=== PATIENT | female | born 1940 | race African-American/Black ===

== ENCOUNTER 2017-05-24 16:23 | Inpatient (IN) | payer MEDICARE, BC ==
[~2017-05-24] VITALS: Ht 162.6 cm; Wt 68.0 kg
[2017-05-24 16:42] VITALS: BP 126/68
--- NOTE | 2017-05-24 16:48 | Emergency Room Report ---
History of Present Illness General Chief Complaint: Chest Pain Source: Patient, Family Member Present Illness HPI Patient presents with complaint of midsternal chest pain Initial report was regarding abdominal pain however patient reports chest pain Started 2 days ago denies any shortness of breath Patient has previous CVA with left-sided weakness Does not recall specific situational and the pain started patient's son reports that he does lift her from wheelchair to bed and does have to give her a bearhug type lift which could have started the discomfort Patient also has had decreased bowel movements Denies any vomiting Allergies: Coded Allergies: No Known Allergies (Unverified , 05/24/17) Patient History Past Medical History: see triage record Pertinent Family History: none Reviewed Nursing Documentation: PMH: Agreed; PSxH: Agreed Nursing Documentation-PMH Past Medical History: No History, Except For Hx Hypertension: Yes Hx Diabetes: Yes Review of Systems All Other Systems: negative except mentioned in HPI Physical Exam Vital Signs Date Time Temp Pulse Resp B/P (MAP) Pulse Ox O2 Delivery O2 Flow Rate FiO2 05/24/17 16:42 98.4 87 16 126/68 96 Room Air 98.4 Sp02 EP Interpretation: reviewed, normal General Appearance: well appearing, no apparent distress Head: normocephalic, atraumatic Eyes: bilateral eye PERRL, bilateral eye EOMI ENT: hearing grossly normal, normal pharynx, TMs + canals normal, uvula midline Neck: full range of motion, supple, no meningismus, no bony tend Respiratory: lungs clear, normal breath sounds, no rhonchi, no respiratory distress, no retraction, no accessory muscle use Cardiovascular #1: normal peripheral pulses, regular rate, rhythm, no edema, no gallop, no JVD, no murmur Gastrointestinal: normal bowel sounds, non tender, soft, no mass, no organomegaly, non-distended, no guarding, no hernia, no pulsatile mass, no rebound Genitourinary: no CVA tenderness Musculoskeletal: other - Left-sided hemiparesis Neurologic: oriented x3, responsive, sensory intact Psychiatric: mood/affect normal Skin: normal color, no rash, warm/dry, palpation normal Lymphatic: normal inspection, no adenopathy Medical Decision Making Diagnostic Impression: Primary Impression: ACS (acute coronary syndrome) Additional Impression: Osteomyelitis ER Course Patient is a fairly complex patient with multiple differential to consideration including but not limited to cardiac cardiopulmonary and vascular emergencies Given the patient's complaints of abdominal pain CT imaging was also obtained Blood work are appropriate Patient CT however shows findings of what is described as discitis, with osteomyelitis centered at the T4-T5 level with distractive changes Patient was provided with IV antibodies with that finding admitting physician is notified patient will have further infectious disease and orthopedic follow- up inpatient with possible further imaging At this time remains pain-free Labs Test 05/24/17 07:08 05/24/17 17:08 Erythrocyte Sedimentation Rate 98 MM/HR (0-30) C-Reactive Protein, Quantitative < 0.4 mg/dL (0.00-0.90) White Blood Count 8.6 K/UL (4.8-10.8) Red Blood Count 4.19 M/UL (4.20-5.40) Hemoglobin 12.4 G/DL (12.0-16.0) Hematocrit 36.8 % (37.0-47.0) Mean Corpuscular Volume 88 FL (80-99) Mean Corpuscular Hemoglobin 29.6 PG (27.0-31.0) Mean Corpuscular Hemoglobin Concent 33.7 G/DL (32.0-36.0) Red Cell Distribution Width 10.9 % (11.6-14.8) Platelet Count 96 K/UL (150-450) Mean Platelet Volume 8.4 FL (6.5-10.1) Neutrophils (%) (Auto) % (45.0-75.0) Lymphocytes (%) (Auto) % (20.0-45.0) Monocytes (%) (Auto) % (1.0-10.0) Eosinophils (%) (Auto) % (0.0-3.0) Basophils (%) (Auto) % (0.0-2.0) Differential Total Cells Counted 100 Neutrophils % (Manual) 50 % (45-75) Lymphocytes % (Manual) 39 % (20-45) Monocytes % (Manual) 6 % (1-10) Eosinophils % (Manual) 4 % (0-3) Basophils % (Manual) 1 % (0-2) Band Neutrophils 0 % (0-8) Platelet Estimate Decreased Platelet Morphology Normal Red Blood Cell Morphology Normal Prothrombin Time 9.4 SEC (9.30-11.50) Prothromb Time International Ratio 0.9 (0.9-1.1) Activated Partial Thromboplast Time 24 SEC (23-33) Urine Color Pale yellow Urine Appearance Clear Urine pH 7 (4.5-8.0) Urine Specific [place] 1.005 (1.005-1.035) Urine Protein 1+ (NEGATIVE) Urine Glucose (UA) 2+ (NEGATIVE) Urine Ketones Negative (NEGATIVE) Urine Occult Blood Negative (NEGATIVE) Urine Nitrite Negative (NEGATIVE) Urine Bilirubin Negative (NEGATIVE) Urine Urobilinogen Normal MG/DL (0.0-1.0) Urine Leukocyte Esterase Negative (NEGATIVE) Urine RBC 0-2 /HPF (0 - 2) Urine WBC 0-2 /HPF (0 - 2) Urine Squamous Epithelial Cells Few /LPF (NONE/OCC) Urine Amorphous Sediment Few /LPF (NONE) Urine Bacteria Few /HPF (NONE) Sodium Level 136 MMOL/L (136-145) Potassium Level 4.7 MMOL/L (3.5-5.1) Chloride Level 101 MMOL/L (98-107) Carbon Dioxide Level 27 MMOL/L (21-32) Anion Gap 8 mmol/L (5-15) Blood Urea Nitrogen 17 mg/dL (7-18) Creatinine 1.3 MG/DL (0.55-1.30) Estimat Glomerular Filtration Rate mL/min (>60) Glucose Level 194 MG/DL (74-106) Calcium Level 10.3 MG/DL (8.5-10.1) Total Bilirubin 0.5 MG/DL (0.2-1.0) Aspartate Amino Transf (AST/SGOT) 22 U/L (15-37) Alanine Aminotransferase (ALT/SGPT) 21 U/L (12-78) Alkaline Phosphatase 117 U/L (46-116) Total Creatine Kinase 61 U/L (26-308) Creatine Kinase MB < 0.5 NG/ML (0.0-3.6) Creatine Kinase MB Relative Index 0.8 Troponin I 0.000 ng/mL (0.000-0.056) Total Protein 8.3 G/DL (6.4-8.2) Albumin 3.5 G/DL (3.4-5.0) Globulin 4.8 g/dL Albumin/Globulin Ratio 0.7 (1.0-2.7) Lipase 114 U/L (73-393) EKG Diagnostic Results Rate: normal Rhythm: NSR ST Segments: other - Nonspecific ST and T-wave changes Rhythm Strip Diag. Results EP Interpretation: yes Rate: 78 Rhythm: NSR, no PVC's, no ectopy Chest X-Ray Diagnostic Results Chest X-Ray Diagnostic Results : Chest X-Ray Ordered: Yes # of Views/Limited/Complete: 1 View Indication: Chest Pain EP Interpretation: Yes Interpretation: no pneumothorax, other - Right lower lobe atelectasis/ effusion, elevated right hemidiaphragm no obvious acute bony abnormalities Impression: Other - Right lower lobe increased markings atelectasis versus othe CT/MRI/US Diagnostic Results CT/MRI/US Diagnostic Results : Impression CTA chest refer to report for full specific discitis osteomyelitis at T4-T5 destructive changes fragmentation cardiomegaly probably early fibrotic changes of lung abdomen no acute pathology Last Vital Signs Date Time Temp Pulse Resp B/P (MAP) Pulse Ox O2 Delivery O2 Flow Rate FiO2 18 16:42 98.4 87 16 126/68 96 Room Air 98.4 Status: improved Disposition: ADMITTED INPATIENT Condition: Serious Erma Chaney DO May 24, 2017 16:48
[2017-05-24] MEDS ORDERED: Dicyclomine HCl 10mg/5ml oral soln ORAL ONE (17:00)
[2017-05-24] MEDS ORDERED: Mylanta II UD 30ml ORAL ONE (17:00)
[2017-05-24] MEDS ORDERED: ATORVASTATIN CA20 MG ORAL (17:34)
[2017-05-24] MEDS ORDERED: VERAPAMIL ER240 M2 PO (17:34)
[2017-05-24] MEDS ORDERED: SPIRONOLACTONE1 EACH ORAL (17:34)
[2017-05-24] MEDS ORDERED: HYDROXYZINE HCL25 M1 PO (17:34)
[2017-05-24] MEDS ORDERED: VITAMIN D400 INTLU ORAL (17:34)
[2017-05-24] MEDS ORDERED: ASPIRIN500 MG ORAL (17:34)
[2017-05-24] MEDS ORDERED: LOSARTAN POTASS50 MG ORAL (17:34)
[2017-05-24] MEDS ORDERED: GABAPENTIN600 MG ORAL (17:34)
[2017-05-24 17:40] LABS: APPEARANCE,URINE CLEAR; BILIRUBIN, URINE NEGATIVE (NEGATIVE); COLOR,URINE PALE YELLOW; GLUCOSE, URINE (UA) 2+ (NEGATIVE); HEMATOCRIT 36.8 % (37.0-47.0); HEMOGLOBIN 12.4 G/DL (12.0-16.0); KETONES,URINE NEGATIVE (NEGATIVE); LEUKOCYTE ESTERASE ,URINE NEGATIVE (NEGATIVE); MEAN CORPUSCULAR VOLUME 88 FL (80-99); NITRITE,URINE NEGATIVE (NEGATIVE); PH,URINE 7 (4.5-8.0); PLATELET COUNT 96 K/UL (150-450); PROTEIN,URINE 1+ (NEGATIVE); RED BLOOD COUNT 4.19 M/UL (4.20-5.40); RED CELL DISTRIBUTION WIDTH 10.9 % (11.6-14.8); UROBILINOGEN,URINE NORMAL MG/DL (0.0-1.0); WHITE BLOOD COUNT 8.6 K/UL (4.8-10.8)
[2017-05-24 17:43] LABS: INR 0.9 (0.9-1.1)
[2017-05-24 17:46] LABS: ANION GAP 8 mmol/L (5-15); BLOOD UREA NITROGEN 17 mg/dL (7-18); CALCIUM 10.3 MG/DL (8.5-10.1); CARBON DIOXIDE 27 MMOL/L (21-32); CHLORIDE 101 MMOL/L (98-107); CREATININE 1.3 MG/DL (0.55-1.30); POTASSIUM 4.7 MMOL/L (3.5-5.1); SODIUM 136 MMOL/L (136-145)
[2017-05-24 17:59] LABS: ALANINE AMINOTRANSFERASE 21 U/L (12-78); ALBUMIN 3.5 G/DL (3.4-5.0); ALBUMIN/GLOBULIN RATIO 0.7 (1.0-2.7); ALKALINE PHOSPHATASE 117 U/L (46-116); ASPARTATE AMINO TRANSFERASE 22 U/L (15-37); BILIRUBIN,TOTAL 0.5 MG/DL (0.2-1.0); CKMB < 0.5 NG/ML (0.0-3.6); CREATINE KINASE 61 U/L (26-308)
[2017-05-24] MEDS ORDERED: Miralax 17gm pkt ORAL PRN (18:15)
[2017-05-24] MEDS ORDERED: cefTRIAXone 1 GM in D5W 55 ML IVPB ONE (18:15)
[2017-05-24] MEDS ORDERED: Vancomycin 1 GM in D5W 275 ML IVPB ONE (18:15)
[2017-05-24] MEDS ORDERED: Morphine Sulfate 4mg/ml Inj IVP PRN (18:15)
[2017-05-24 18:37] VITALS: BP 107/70
[2017-05-24 20:00] VITALS: BP 110/64
--- NOTE | 2017-05-24 22:18 | Infectious Diseases Prog Note ---
Assessment/Plan Assessment/Plan Full consult dictated: A) 1) possible thoracic spine discitis/osteomyelitis on ct scan, elevated sed rate 2) lower > upper extremity weakness, ? chronic condition 3) allergies - negative P) 1) on vancomycin and cefepime 2) MRI thoracic spine 3) spine surgery evaluation if possible 4) thank you Subjective Allergies: Coded Allergies: No Known Allergies (Unverified , 05/24/17) Objective Vital Signs Last 24 Hour Vital Signs Date Time Temp Pulse Resp B/P (MAP) Pulse Ox O2 Delivery O2 Flow Rate FiO2 05/24/17 20:00 98.9 82 22 107/70 95 Room Air 98.9 05/24/17 18:37 98.9 82 22 107/70 95 Room Air 98.9 05/24/17 16:42 98.4 87 16 126/68 96 Room Air 98.4 05/24/17 16:42 87 16 Room Air 05/24/17 16:42 98.4 87 16 126/68 96 Room Air 98.4 Height (Feet): 5 Height (Inches): 4.00 Weight (Pounds): 150 Laboratory Tests Test 05/24/17 07:08 05/24/17 17:08 05/24/17 21:55 Erythrocyte Sedimentation Rate 98 MM/HR (0-30) H C-Reactive Protein, Quantitative < 0.4 mg/dL (0.00-0.90) White Blood Count 8.6 K/UL (4.8-10.8) Red Blood Count 4.19 M/UL (4.20-5.40) L Hemoglobin 12.4 G/DL (12.0-16.0) Hematocrit 36.8 % (37.0-47.0) L Mean Corpuscular Volume 88 FL (80-99) Mean Corpuscular Hemoglobin 29.6 PG (27.0-31.0) Mean Corpuscular Hemoglobin Concent 33.7 G/DL (32.0-36.0) Red Cell Distribution Width 10.9 % (11.6-14.8) L Platelet Count 96 K/UL (150-450) L Mean Platelet Volume 8.4 FL (6.5-10.1) Neutrophils (%) (Auto) % (45.0-75.0) Lymphocytes (%) (Auto) % (20.0-45.0) Monocytes (%) (Auto) % (1.0-10.0) Eosinophils (%) (Auto) % (0.0-3.0) Basophils (%) (Auto) % (0.0-2.0) Differential Total Cells Counted 100 Neutrophils % (Manual) 50 % (45-75) Lymphocytes % (Manual) 39 % (20-45) Monocytes % (Manual) 6 % (1-10) Eosinophils % (Manual) 4 % (0-3) H Basophils % (Manual) 1 % (0-2) Band Neutrophils 0 % (0-8) Platelet Estimate Decreased L Platelet Morphology Normal Red Blood Cell Morphology Normal Prothrombin Time 9.4 SEC (9.30-11.50) Prothromb Time International Ratio 0.9 (0.9-1.1) Activated Partial Thromboplast Time 24 SEC (23-33) Urine Color Pale yellow Urine Appearance Clear Urine pH 7 (4.5-8.0) Urine Specific [place] 1.005 (1.005-1.035) Urine Protein 1+ (NEGATIVE) H Urine Glucose (UA) 2+ (NEGATIVE) H Urine Ketones Negative (NEGATIVE) Urine Occult Blood Negative (NEGATIVE) Urine Nitrite Negative (NEGATIVE) Urine Bilirubin Negative (NEGATIVE) Urine Urobilinogen Normal MG/DL (0.0-1.0) Urine Leukocyte Esterase Negative (NEGATIVE) Urine RBC 0-2 /HPF (0 - 2) Urine WBC 0-2 /HPF (0 - 2) Urine Squamous Epithelial Cells Few /LPF (NONE/OCC) Urine Amorphous Sediment Few /LPF (NONE) H Urine Bacteria Few /HPF (NONE) Sodium Level 136 MMOL/L (136-145) Potassium Level 4.7 MMOL/L (3.5-5.1) Chloride Level 101 MMOL/L (98-107) Carbon Dioxide Level 27 MMOL/L (21-32) Anion Gap 8 mmol/L (5-15) Blood Urea Nitrogen 17 mg/dL (7-18) Creatinine 1.3 MG/DL (0.55-1.30) Estimat Glomerular Filtration Rate mL/min (>60) Glucose Level 194 MG/DL (74-106) H Calcium Level 10.3 MG/DL (8.5-10.1) H Total Bilirubin 0.5 MG/DL (0.2-1.0) Aspartate Amino Transf (AST/SGOT) 22 U/L (15-37) Alanine Aminotransferase (ALT/SGPT) 21 U/L (12-78) Alkaline Phosphatase 117 U/L (46-116) H Total Creatine Kinase 61 U/L (26-308) Creatine Kinase MB < 0.5 NG/ML (0.0-3.6) Creatine Kinase MB Relative Index 0.8 Troponin I 0.000 ng/mL (0.000-0.056) Pending Total Protein 8.3 G/DL (6.4-8.2) H Albumin 3.5 G/DL (3.4-5.0) Globulin 4.8 g/dL Albumin/Globulin Ratio 0.7 (1.0-2.7) L Lipase 114 U/L (73-393) Current Medications Medications (Trade) Dose Ordered Sig/Leona Route PRN Reason Start Time Stop Time Status Last Admin Dose Admin Acetaminophen (Tylenol) 650 mg Q4H PRN ORAL Mild Pain (Pain Scale 1-3) 05/24/17 18:15 06/23/17 18:14 Acetaminophen (Tylenol) 650 mg Q4H PRN ORAL fever 05/24/17 18:15 06/23/17 18:14 Bisacodyl (Dulcolax) 10 mg DAILYPRN PRN RECTAL Constipation 05/24/17 18:15 06/23/17 18:14 Cefepime HCl 2 gm/ Dextrose 110 ml @ 220 mls/hr Q12HR@1000,2200 IVPB 05/24/17 22:00 05/31/17 21:59 Dextrose (Dextrose 50%) 25 ml STAT PRN IV BS between 60-69 mg/dL 05/24/17 20:15 06/23/17 20:14 Dextrose (Dextrose 50%) 50 ml STAT PRN IV Hypoglycemia BS<60 mg/dL 05/24/17 21:45 06/23/17 21:44 Docusate Sodium (Colace) 100 mg EVERY 12 HOURS ORAL 05/24/17 21:00 06/23/17 20:59 Glyburide (Diabeta) 7.5 mg QPM ORAL 05/25/17 16:30 06/24/17 16:29 Glyburide (Diabeta) 10 mg ACBREAKFAST ORAL 05/25/17 06:30 06/24/17 06:29 Insulin Aspart (NovoLOG) BEFORE MEALS AND HS SUBQ 05/25/17 06:30 06/24/17 06:29 Morphine Sulfate (Morphine Sulfate) 2 mg Q4H PRN IVP Moderate Pain (Pain Scale 4-6) 05/24/17 18:15 05/31/17 18:14 Morphine Sulfate (Morphine Sulfate) 4 mg Q4H PRN IVP Severe Pain (Pain Scale 7-10) 05/24/17 18:15 05/31/17 18:14 Ondansetron HCl (Zofran) 4 mg Q6H PRN IVP Nausea & Vomiting 05/24/17 18:15 06/23/17 18:14 Polyethylene Glycol (Miralax) 17 gm DAILYPRN PRN ORAL Constipation 05/24/17 18:15 06/23/17 18:14 Vancomycin HCl (Vanco rx to dose) 1 ea DAILYPRN PRN MISC Per rx protocol 05/24/17 18:15 06/23/17 18:14 Vancomycin HCl/ Dextrose 250 ml @ 166.667 mls/hr Q24H IVPB 05/25/17 12:00 05/30/17 11:59 MALKA MARINO May 24, 2017 22:18
[2017-05-24] MEDS: Docusate 100mg cap ORAL SCH (23:17)
[2017-05-24] MEDS: Cefepime HCl 2 GM in D5W 110 ML IVPB SCH (23:17)
[2017-05-24] MEDS: Morphine Sulfate 4mg/ml Inj IVP PRN (23:18)
[2017-05-24] MEDS ORDERED: GLYBURIDE5 MG PO (23:49)
[2017-05-25] VITALS: BP 141/71
--- NOTE | 2017-05-25 01:15 | Consultation ---
DATE OF CONSULTATION: 05/24/2017 INFECTIOUS DISEASES CONSULTATION ATTENDING PHYSICIAN: Frankie Greene M.D. REFERRING PHYSICIAN: Addie Elliott M.D. REASON FOR CONSULTATION: Thoracic spine and vertebral diskitis, osteomyelitis. CHIEF COMPLAINT: The patient's chief complaint coming in to the hospital is acute coronary syndrome and chest pain. HISTORY OF PRESENT ILLNESS: This is a very pleasant 77-year-old female who comes in to [facility] with chest pain. The patient had a CT scan of the chest without contrast in the ER, which showed T4-T5 level destructive changes consistent with discitis/osteomyelitis of the vertebral bodies with retropulsion debride into the canal and paraspinal soft tissue infiltration. CT scan of the abdomen and pelvis was also noted. Because of the thoracic spinal diskitis/osteomyelitis, Infectious Diseases consultation requested. The patient has been started on vancomycin and cefepime. MRI has been ordered of the spine of thoracic spine and case communicated with Dr. Real. MAR was noted. Orders were noted. Notes were reviewed. PAST MEDICAL HISTORY: The patient's past medical history includes the following. The patient has past medical history of CVA with weakness. She has history of diabetes, hypertension, again CVA. She has a history of generalized weakness. It looks like she is wheelchair-bound per her history. She has no history of malignancy mentioned. Again, diabetes, hypertension, and CVA. She likely has history of possible hyperlipidemia or dyslipidemia. She also has history of UTIs in the past. MEDICATIONS: Upon reviewing the MAR, the patient is on the following medications vancomycin and cefepime. She is on insulin. She is on IV fluids. She is on dextrose, docusate. She is on acetaminophen. She is on morphine. She is on bisacodyl, polyethylene, and Zofran. Antibiotics, vancomycin and cefepime. Outside medications noted and reconciliated. She was on atorvastatin, aspirin, gabapentin, hydrocodone, losartan, spironolactone, verapamil, and vitamin D. ALLERGIES: No known drug allergies. No antibiotic allergies. SOCIAL HISTORY: Negative for smoking, alcohol, or drug abuse. FAMILY HISTORY: Noncontributory. No mention of exposure to tuberculosis or cancer. Negative for tuberculosis or cancer. REVIEW OF SYSTEMS: CONSTITUTIONAL: The patient has generalized weakness and fatigue. No fever or chills. No weight loss. HEAD AND NECK: No thrush or dysphagia. No sinus tenderness. CARDIAC: She did come in with chest pain. GASTROINTESTINAL: No nausea, vomiting, or diarrhea. GENITOURINARY: The patient does not have a Rowley. No mention of dysuria or frequency. PULMONARY: No congestion, short of breath, hemoptysis, or secretions. SKIN: No rash or itching. EXTREMITIES: No extremity pain. She has generalized weakness more so in the lower extremities where she cannot really move her legs and she can move her upper extremities somewhat. She is wheelchair-bound. NEUROLOGIC: No seizures. PHYSICAL EXAMINATION: VITAL SIGNS: Temperature is 98.4 degrees, pulse rate is 87, respiratory rate 16, blood pressure 126/60, and saturation 96%. GENERAL: Alert and responsive, in distress. HEENT: Oral exam, no thrush. Eye exam, no icterus. Normocephalic. No facial droop. No neck stiffness. NECK: Supple. No JVD. LUNGS: Clear bilaterally. No rhonchi or rales. HEART: Regular. No gallop or murmur. ABDOMEN: Soft. Positive bowel sounds. Nontender. GENITOURINARY: She has no Rowley. No CVA tenderness. SKIN: No obvious rash. MUSCULOSKELETAL: No effusion. Legs without cellulitis. PERIPHERAL VASCULAR: No cyanosis or gangrene. LINES: Line sites without phlebitis. NEUROLOGIC: Generalized weakness and responsive. She seems to be alert and oriented. Upper extremity exam shows some weakness, but able to move upper extremities and both her hands are able to squeeze. Her lower extremity though she is not able to look her toes, move her legs, and unclear how chronic this is. LABORATORY AND DIAGNOSTIC DATA: Laboratory as follows. White count 8.6 and hemoglobin 12.4. Sedimentation rate 98. Creatinine is 1.3. Glucose is 194. UA was leukocyte esterase, 0 to 2 white blood cells. described earlier that findings consistent with diskitis, osteomyelitis at the T4-T5 level destructive changes and some fragmentation and 5 mm retropulsion with debridement canal. Report was noted and reviewed. CT scan of the abdomen and pelvis was also noted. No abscess mentioned. Report was noted and reviewed. MRI of the spine has been ordered. ASSESSMENT AND PLAN: 1. The patient has on CT scan what looks like T4-T5 diskitis with vertebral destructive changes of the thoracic spine area, again T4-T5. It is unclear if this is related to the patient's weakness and how chronic the weakness is. She does have history of cerebrovascular accident. Etiology of the diskitis is unclear with regards to pathogen. Most common is Staphylococcus aureus, however, because the patient does have history of urinary tract infections, must consider gram negatives as a potential pathogen. At this time, the patient is currently on vancomycin and cefepime. We will check blood cultures. The patient does have an elevated sedimentation rate. MRI of the spine has been ordered. If possible, we could obtain a spine surgery evaluation. Case was communicated with Dr. Real. Continue vancomycin and cefepime for now. Check followup labs, blood cultures, and MRI of the spine. 2. The patient has diabetes. 3. Hypertension. 4. Cerebrovascular accident. 5. Weakness. 6. Wheelchair-bound. 7. History of urinary tract infections per the patient. 8. No history of cancer. 9. Weakness secondary to cerebrovascular accident. 10. Past medical history is noted. 11. No known allergies. 12. Social history negative. 13. Family history noncontributory. 14. MAR was noted. 15. Case discussed with RN. 16. Case discussed with Dr. Real. 17. Continue treatment per primary consultants. 18. Skin care protocol. 19. Orders were noted. 20. Notes and records were noted. Vasquez Toribio M.D. DR: Rhonda JOB#: [id number] CC:
[2017-05-25 04:00] VITALS: BP 140/76
[2017-05-25] MEDS: NovoLOG Insulin Flexpen SUBQ SCH ×4 (06:21→21:00)
[2017-05-25 08:00] VITALS: BP 123/65
--- NOTE | 2017-05-25 08:40 | Diagnostic Imaging Report ---
Indication: Pain Technique: CT of the chest, abdomen and pelvis utilizing automated exposure control without intravenous contrast. CT dose: Total DLP 1169.46 mGycm; CTDI vol 18.99 mGy Comparison: None Findings: Please note that evaluation is limited without the use of intravenous and oral contrast. Within these limitations the following observations are made: CT CHEST: Heart mildly enlarged. There is trace pericardial fluid versus pericardial thickening. There are aortic valvular, mitral annular and coronary arterial calcifications. Thyroid is unremarkable in appearance. No appreciable pathologically enlarged hilar or mediastinal lymph nodes. There is dependent bibasilar atelectasis. There are groundglass opacities and mild bronchiectasis and some peribronchial thickening in the lower lobes findings may be related to early interstitial lung disease. There is no pleural effusion or pneumothorax. There is a destructive bony process centered at T4-T5 with fragmentation of the vertebral bodies and paraspinal soft tissue infiltration/thickening. There is approximate 4 to 5 mm of retropulsion of material into the canal resulting canal stenosis. Please note these findings would be better evaluated on MRI. CT abdomen/pelvis: Noncontrast evaluation of the liver, gallbladder, adrenal glands, spleen and pancreas grossly unremarkable. There is a punctate nonobstructing stone in the lower pole of the right kidney. There is mild nonspecific perinephric stranding bilaterally. There is no hydronephrosis. Bladder is unremarkable. The patient is status post hysterectomy. There is no free intraperitoneal air or fluid. No evidence of bowel obstruction or inflammation. No focal abnormal bowel wall thickening appreciated however exam limited without oral contrast. There are scattered colonic diverticula without evidence to suggest acute diverticulitis. Appendix not definitively visualized however there are no focal inflammatory changes in the right lower quadrant suggest appendicitis. No bulky/conglomerate lymphadenopathy is appreciated. Aorta is normal in caliber with scattered atherosclerotic calcifications. There is a small fat-containing right inguinal hernia there are degenerative changes of the spine with vacuum disc phenomenon at L4-L5 and grade 1 anterolisthesis of L4 on L5. IMPRESSION: Limited exam without intravenous and oral contrast. Within these limitations: * Destructive bony process at T4-T5 with fragmentation of the vertebral bodies, paraspinal soft tissue infiltration and approximately 4 to 5 mm of retropulsion of debris into the canal. Findings are concerning for discitis osteomyelitis. MRI recommended for better evaluation of the spinal cord. * Cardiomegaly. * Coronary arterial calcifications. * Nonspecific groundglass opacities and mild bronchiectasis in the lung bases. Findings may be related to early interstitial lung disease or possibly infectious in etiology. Clinical correlation and follow-up exam recommended. * Diverticulosis without evidence of acute diverticulitis. * Status post hysterectomy. * Punctate nonobstructing right renal stone. No evidence of hydronephrosis. This corresponds with the statrad preliminary report. The CT scanner at [facility] is accredited by the [employer] and the scans are performed using protocols designed to limit radiation exposure to as low as reasonably achievable to attain images of sufficient resolution adequate for diagnostic evaluation.
--- NOTE | 2017-05-25 08:44 | Diagnostic Imaging Report ---
Indication: Chest pain Technique: XRAY Chest 1v Comparison: None Findings: Heart appears mildly enlarged. There are atherosclerotic calcifications of the aorta. There is scoliosis of the spine, possibly positional. Slight haziness of pulmonary vascularity, with slight increased haziness at the bases. No pleural effusion or pneumothorax. Degenerative changes noted in the spine Impression: Cardiomegaly. Slight haziness of the pulmonary vascularity suggests mild fluid overload/interstitial edema. Hazy bibasilar opacities may be related to vascular crowding due to somewhat low lung volumes and patient positioning. Developing infiltrates are not excluded. Clinical correlation and follow-up exam recommended. Study obtained via the emergency department however patient admitted to the hospital at time of dictation of the final report.
[2017-05-25] MEDS: Docusate 100mg cap ORAL SCH ×2 (09:02→21:07)
[2017-05-25 09:04] LABS: HEMATOCRIT 36.9 % (37.0-47.0); HEMOGLOBIN 12.3 G/DL (12.0-16.0); MEAN CORPUSCULAR VOLUME 89 FL (80-99); PLATELET COUNT 97 K/UL (150-450); RED BLOOD COUNT 4.14 M/UL (4.20-5.40); WHITE BLOOD COUNT 8.4 K/UL (4.8-10.8)
[2017-05-25] MEDS: Cefepime HCl 2 GM in D5W 110 ML IVPB SCH ×2 (09:04→21:00)
[2017-05-25 09:37] LABS: ANION GAP 7 mmol/L (5-15); BLOOD UREA NITROGEN 18 mg/dL (7-18); CARBON DIOXIDE 29 MMOL/L (21-32); CHLORIDE 102 MMOL/L (98-107); CHOLESTEROL 146 MG/DL (< 200); CREATININE 1.3 MG/DL (0.55-1.30); HDL CHOLESTEROL 31 MG/DL (40-60); POTASSIUM 3.9 MMOL/L (3.5-5.1); SODIUM 138 MMOL/L (136-145); TRIGLYCERIDES 196 MG/DL (30-150)
--- NOTE | 2017-05-25 10:05 | History and Physical ---
History of Present Illness General Date patient seen: May 25, 2017 Time patient seen: 10:05 Reason for Hospitalization: Thoracic diskitis/osteomyelitis Present Illness HPI 77y/o female with pmh of HLD, HTN, DM2, CVA w/ L sided hemiparesis, dementia who presents with chest and back pain. Pt poor historian. Per family, pt with increased chest pain radiating to back, worsening over the past several weeks. Denies f/c, n/v, d/c, abd pain. Pt originally from [place] and is visiting family here in [place] for the past few months. Pt had pneumonia earlier this year which has now resolved. Pt's son reports that he does lift her from wheelchair to bed and does have to give her a bearhug type lift which could have started the discomfort. Per family, pt has no known spine disease. Pt L sided weakness since CVA and is wheel-chair dependent. Pt also w/ R sided weakness which has been present for several months. In ED, trop neg. CT chest/abd/pelvis which showed "destructive bony process at T4-T5 with fragmentation of the vertebral bodies, paraspinal soft tissue infiltration and approximately 4 to 5 mm of retropulsion of debris into the canal; findings are concerning for discitis/ osteomyelitis". Allergies: Coded Allergies: No Known Allergies (Unverified , 05/24/17) Medication History Scheduled Aspirin (Aspirin), 325 MG ORAL DAILY, (Reported) Atorvastatin Calcium* (Atorvastatin Calcium*), 20 MG ORAL BEDTIME, (Reported) Gabapentin* (Gabapentin*), 600 MG ORAL DAILY, (Reported) Glyburide (Glyburide), 5 MG PO DAILY, (Reported) Hydroxyzine Hcl (Hydroxyzine Hcl), 25 MG PO TID, (Reported) Losartan Potassium* (Losartan Potassium*), 50 MG ORAL DAILY, (Reported) Spironolact/Hydrochlorothiazid (Spironolactone-Hctz 25-25 Tab), 1 TAB ORAL BID, (Reported) Verapamil Hcl (Verapamil Er), 240 MG PO DAILY, (Reported) Vitamin D (Vitamin D3), 25 MCG ORAL PRN, (Reported) Patient History History Provided By: Patient, Family Member, Medical Record Healthcare decision maker N Resuscitation status Full Code Advanced Directive on File Past Medical/Surgical History Past Medical/Surgical History: (1) CVA with L hemiparesis (2) DM2 (diabetes mellitus, type 2) (3) HTN (hypertension) (4) HLD (hyperlipidemia) (5) Dementia Family History Family History: Patient reports no known family medical history. Social History Social History: (1) Pt originally from [place]. Now in [place] living with family for the past several months Review of Systems Constitutional: Reports: weakness Eye: Reports: no symptoms ENT: Reports: no symptoms Respiratory: Reports: no symptoms Cardiovascular: Reports: chest pain Gastrointestinal: Reports: no symptoms Genitourinary: Reports: no symptoms Musculoskeletal: Reports: back pain Skin: Reports: no symptoms Psychiatric: Reports: no symptoms Neurological: Reports: numbness, focal weakness Endocrine: Reports: no symptoms Hematologic/Lymphatic: Reports: no symptoms Physical Exam Physical Exam Narrative General: alert, cooperative, no distress, appears stated age Head: normocephalic, without obvious abnormality, atraumatic Eyes: conjunctivae/corneas clear. PERRL, EOM's intact Throat: lips, mucosa, and tongue normal. MMM Neck: supple, symmetrical, trachea midline, and no JVD Lungs: clear to auscultation bilaterally Heart: regular rate and rhythm, S1, S2 normal, no murmur, click, rub or gallop Abdomen: soft, non-tender, non-distended, bowel sounds normal; no masses or organomegaly Extremities: extremities normal, atraumatic, no cyanosis or edema MSK: +TTP of upper chest and mid back Pulses: 2+ and symmetric Skin: skin color, texture, turgor normal; no rashes or lesions Neurologic: Slight facial asymmetry; Motor strength 1/5 left upper extremity, 0/ 5 left lower extremity, 0/5 right lower extremity. Deep tendon reflexes 2+ at biceps, triceps, brachioradialis. Absent both knee and ankle jerks. Plantar responses, positive Babinski in the left. [place] on the right. Last 24 Hour Vital Signs Date Time Temp Pulse Resp B/P (MAP) Pulse Ox O2 Delivery O2 Flow Rate FiO2 05/25/17 09:03 97.5 05/25/17 08:00 97.5 105 21 123/65 98 Room Air 97.5 05/25/17 08:00 103 05/25/17 04:00 83 05/25/17 04:00 97.9 84 18 140/76 94 Room Air 97.9 05/25/17 00:00 98.8 78 20 141/71 98 Room Air 98.8 05/25/17 00:00 87 05/24/17 20:00 98.9 82 22 107/70 95 Room Air 98.9 05/24/17 20:00 81 05/24/17 20:00 98.1 88 20 110/64 99 Room Air 98.1 05/24/17 18:37 98.9 82 22 107/70 95 Room Air 98.9 05/24/17 16:42 98.4 87 16 126/68 96 Room Air 98.4 05/24/17 16:42 87 16 Room Air 05/24/17 16:42 98.4 87 16 126/68 96 Room Air 98.4 Intake and Output 05/24/17 05/25/17 19:00 07:00 Intake Total 160 ml Output Total 400 ml Balance -400 ml 160 ml Intake Oral 50 ml IV Total 110 ml Output Urine Total 400 ml # Voids 2 Laboratory Tests Test 05/24/17 17:08 05/24/17 21:55 05/25/17 06:20 White Blood Count 8.6 K/UL (4.8-10.8) 8.4 K/UL (4.8-10.8) Red Blood Count 4.19 M/UL (4.20-5.40) L 4.14 M/UL (4.20-5.40) L Hemoglobin 12.4 G/DL (12.0-16.0) 12.3 G/DL (12.0-16.0) Hematocrit 36.8 % (37.0-47.0) L 36.9 % (37.0-47.0) L Mean Corpuscular Volume 88 FL (80-99) 89 FL (80-99) Mean Corpuscular Hemoglobin 29.6 PG (27.0-31.0) 29.6 PG (27.0-31.0) Mean Corpuscular Hemoglobin Concent 33.7 G/DL (32.0-36.0) 33.2 G/DL (32.0-36.0) Red Cell Distribution Width 10.9 % (11.6-14.8) L 11.0 % (11.6-14.8) L Platelet Count 96 K/UL (150-450) L 97 K/UL (150-450) L Mean Platelet Volume 8.4 FL (6.5-10.1) 7.8 FL (6.5-10.1) Neutrophils (%) (Auto) % (45.0-75.0) % (45.0-75.0) Lymphocytes (%) (Auto) % (20.0-45.0) % (20.0-45.0) Monocytes (%) (Auto) % (1.0-10.0) % (1.0-10.0) Eosinophils (%) (Auto) % (0.0-3.0) % (0.0-3.0) Basophils (%) (Auto) % (0.0-2.0) % (0.0-2.0) Differential Total Cells Counted 100 100 Neutrophils % (Manual) 50 % (45-75) 50 % (45-75) Lymphocytes % (Manual) 39 % (20-45) 37 % (20-45) Monocytes % (Manual) 6 % (1-10) 9 % (1-10) Eosinophils % (Manual) 4 % (0-3) H 3 % (0-3) Basophils % (Manual) 1 % (0-2) 1 % (0-2) Band Neutrophils 0 % (0-8) 0 % (0-8) Platelet Estimate Decreased L Decreased L Platelet Morphology Normal Normal Red Blood Cell Morphology Normal Prothrombin Time 9.4 SEC (9.30-11.50) Prothromb Time International Ratio 0.9 (0.9-1.1) Activated Partial Thromboplast Time 24 SEC (23-33) Urine Color Pale yellow Urine Appearance Clear Urine pH 7 (4.5-8.0) Urine Specific [place] 1.005 (1.005-1.035) Urine Protein 1+ (NEGATIVE) H Urine Glucose (UA) 2+ (NEGATIVE) H Urine Ketones Negative (NEGATIVE) Urine Occult Blood Negative (NEGATIVE) Urine Nitrite Negative (NEGATIVE) Urine Bilirubin Negative (NEGATIVE) Urine Urobilinogen Normal MG/DL (0.0-1.0) Urine Leukocyte Esterase Negative (NEGATIVE) Urine RBC 0-2 /HPF (0 - 2) Urine WBC 0-2 /HPF (0 - 2) Urine Squamous Epithelial Cells Few /LPF (NONE/OCC) Urine Amorphous Sediment Few /LPF (NONE) H Urine Bacteria Few /HPF (NONE) Sodium Level 136 MMOL/L (136-145) 138 MMOL/L (136-145) Potassium Level 4.7 MMOL/L (3.5-5.1) 3.9 MMOL/L (3.5-5.1) Chloride Level 101 MMOL/L (98-107) 102 MMOL/L (98-107) Carbon Dioxide Level 27 MMOL/L (21-32) 29 MMOL/L (21-32) Anion Gap 8 mmol/L (5-15) 7 mmol/L (5-15) Blood Urea Nitrogen 17 mg/dL (7-18) 18 mg/dL (7-18) Creatinine 1.3 MG/DL (0.55-1.30) 1.3 MG/DL (0.55-1.30) Estimat Glomerular Filtration Rate mL/min (>60) mL/min (>60) Glucose Level 194 MG/DL (74-106) H 147 MG/DL (74-106) H Calcium Level 10.3 MG/DL (8.5-10.1) H 10.0 MG/DL (8.5-10.1) Total Bilirubin 0.5 MG/DL (0.2-1.0) Aspartate Amino Transf (AST/SGOT) 22 U/L (15-37) Alanine Aminotransferase (ALT/SGPT) 21 U/L (12-78) Alkaline Phosphatase 117 U/L (46-116) H Total Creatine Kinase 61 U/L (26-308) Creatine Kinase MB < 0.5 NG/ML (0.0-3.6) Creatine Kinase MB Relative Index 0.8 Troponin I 0.000 ng/mL (0.000-0.056) 0.000 ng/mL (0.000-0.056) Pending Total Protein 8.3 G/DL (6.4-8.2) H Albumin 3.5 G/DL (3.4-5.0) Globulin 4.8 g/dL Albumin/Globulin Ratio 0.7 (1.0-2.7) L Lipase 114 U/L (73-393) Hemoglobin A1c Pending Magnesium Level 1.8 MG/DL (1.8-2.4) Triglycerides Level 196 MG/DL (30-150) H Cholesterol Level 146 MG/DL (< 200) LDL Cholesterol 83 mg/dL (<100) HDL Cholesterol 31 MG/DL (40-60) L Cholesterol/HDL Ratio 4.7 (3.3-4.4) H Thyroid Stimulating Hormone (TSH) 3.504 uiU/mL (0.358-3.740) Height (Feet): 5 Height (Inches): 4.00 Weight (Pounds): 150 Medications Current Medications Medications (Trade) Dose Ordered Sig/Leona Route PRN Reason Start Time Stop Time Status Last Admin Dose Admin Acetaminophen (Tylenol) 650 mg Q4H PRN ORAL Mild Pain (Pain Scale 1-3) 05/24/17 18:15 06/23/17 18:14 05/25/17 09:03 Acetaminophen (Tylenol) 650 mg Q4H PRN ORAL fever 05/24/17 18:15 06/23/17 18:14 Bisacodyl (Dulcolax) 10 mg DAILYPRN PRN RECTAL Constipation 05/24/17 18:15 06/23/17 18:14 Cefepime HCl 2 gm/ Dextrose 110 ml @ 220 mls/hr Q12HR@1000,2200 IVPB 05/24/17 22:00 05/31/17 21:59 05/25/17 09:04 Dextrose (Dextrose 50%) 25 ml STAT PRN IV BS between 60-69 mg/dL 05/24/17 20:15 06/23/17 20:14 Dextrose (Dextrose 50%) 50 ml STAT PRN IV Hypoglycemia BS<60 mg/dL 05/24/17 21:45 06/23/17 21:44 Docusate Sodium (Colace) 100 mg EVERY 12 HOURS ORAL 05/24/17 21:00 06/23/17 20:59 05/25/17 09:02 Glyburide (Diabeta) 7.5 mg QPM ORAL 05/25/17 16:30 06/24/17 16:29 Glyburide (Diabeta) 10 mg ACBREAKFAST ORAL 05/25/17 06:30 06/24/17 06:29 05/25/17 06:27 Insulin Aspart (NovoLOG) BEFORE MEALS AND HS SUBQ 05/25/17 06:30 06/24/17 06:29 05/25/17 06:21 Morphine Sulfate (Morphine Sulfate) 2 mg Q4H PRN IVP Moderate Pain (Pain Scale 4-6) 05/24/17 18:15 05/31/17 18:14 05/24/17 23:24 Morphine Sulfate (Morphine Sulfate) 4 mg Q4H PRN IVP Severe Pain (Pain Scale 7-10) 05/24/17 18:15 05/31/17 18:14 Ondansetron HCl (Zofran) 4 mg Q6H PRN IVP Nausea & Vomiting 05/24/17 18:15 06/23/17 18:14 Polyethylene Glycol (Miralax) 17 gm DAILYPRN PRN ORAL Constipation 05/24/17 18:15 06/23/17 18:14 Vancomycin HCl (Vanco rx to dose) 1 ea DAILYPRN PRN MISC Per rx protocol 05/24/17 18:15 06/23/17 18:14 Vancomycin HCl/ Dextrose 250 ml @ 166.667 mls/hr Q24H IVPB 05/25/17 12:00 05/30/17 11:59 Assessment/Plan Problem List: (1) T4-T5 discitis/osteomyelitis (2) Chest pain ICD Codes: R07.9 - Chest pain, unspecified SNOMED: 52379904 (3) DM2 (diabetes mellitus, type 2) ICD Codes: E11.9 - Type 2 diabetes mellitus without complications SNOMED: 80922241 (4) CVA with L hemiparesis (5) HTN (hypertension) ICD Codes: I10 - Essential (primary) hypertension SNOMED: 97254487 (6) HLD (hyperlipidemia) ICD Codes: E78.5 - Hyperlipidemia, unspecified SNOMED: 69657251 (7) Dementia ICD Codes: F03.90 - Unspecified dementia without behavioral disturbance SNOMED: 03902331 Status: stable Assessment/Plan Per history from family, pt's weakness is chronic. No e/o cord compression on MRI Admit to tele Trend trop/EKG Check TTE Cardiology consulted Check A1C, lipid panel, TSH F/u MRI T spine Attempted to consulted spine surgeon at [facility] but all state that they are unavailable. Tried 5 spine surgeons (Dr. Rios, Dr. Samson, Dr. Farias, Dr. Lang, Dr. Saldivar). Since no spine surgeon available, call placed to [facility] with request to transfer for spine surgery evaluation TLSO back brace requested ID consulted Check blood culture Empiric vanco and cefepime Cont home meds Pain control, bowel regimen Supportive care CM notified with request to transfer to higher level of care DVT Prophylaxis: SCD, HSQ Code Status: Full Hospital Classification Declaration: Based on this initial evaluation, and depending on the patient's clinical course, I anticipate that this patient will require hospitalization for 3-4 days for chest pain, diskitis/osteomyelitis and close respiratory/hemodynamic monitoring. Disposition: Once the patient is stable to leave the hospital, I anticipate the patient will likely be discharged to the following environment: home with HH + CG vs SNF I spent 74 minutes on this patient's case, and >50% was dedicated to counseling and/or care coordination. Discussed with patient/family, nursing staff, SW/CM, ID, cardiology regarding clinical status, treatment course, and disposition planning. Time of note may not reflect time of encounter. Addie Elliott M.D. May 25, 2017 10:05
[2017-05-25] MEDS: Vancomycin 1250mg/D5W 250ml 250 ML IVPB SCH (11:21)
[2017-05-25 12:00] VITALS: BP 123/73
--- NOTE | 2017-05-25 12:43 | Cardiology Report ---
APPROVED REPORT EKG Measurement Heart [id number] Normal sinus rhythm Possible Left atrial enlargement Nonspecific T wave abnormality Abnormal ECG
--- NOTE | 2017-05-25 12:56 | Diagnostic Imaging Report ---
Indication: Reason For Exam: INFECT Technique: MRI of the thoracic spine without contrast obtained with multiplanar/multisequence acquisition. Large [id number] counting coronal and sagittal T1 sequences. Sagittal T1 and T2 fast spin echo, sagittal STIR, axial T1 and T2 fast spin-echo images acquired. T2 fat-sat images were also obtained. Comparison: Correlation made to concurrent contrast CT of the chest/abdomen/pelvis. Findings: A destructive bony process is present at T4/T5. There is focal kyphosis, marrow edema, loss of vertebral body height and retropulsion of the bone towards the spinal canal. This results in severe focal canal stenosis with complete effacement of CSF signal at this level (series 8 image #11). No definite focal cord signal abnormality is identified; no evidence of syrinx. There is CSF pulsation artifact on the STIR sequences. No significant canal stenosis is noted above or below this level. There is significant edema in the surrounding soft tissues without well-defined/drainable fluid collection. There is also edema in the posterior elements and edema in the spinous process at T4-T5. Cardiomegaly is partially visualized. Additional findings and the lungs better appreciated on concurrent CT of the chest. IMPRESSION: Destructive process at T4-T5 with significant paraspinal edema concerning for discitis/osteomyelitis. No well-defined/drainable fluid collection at this time. There is associated focal kyphosis and retropulsion of bone and focal severe canal stenosis without definite focal cord signal abnormality at this time. Correlation with neurologic exam recommended. Edema in the spinous process and intraspinous region/posterior elements may suggest traumatic component on top of infection. This corresponds with the preliminary report with minor variation. Updates to the final report discussed with the patient's treating nurse on 2E, who is to inform the primary team.
--- NOTE | 2017-05-25 15:05 | Neurology Progress Note ---
Objective Physical Exam Last Vital Signs Date Time Temp Pulse Resp B/P (MAP) Pulse Ox O2 Delivery O2 Flow Rate FiO2 05/25/17 12:00 94 05/25/17 12:00 97.5 20 123/73 98 Room Air 97.5 Laboratory Tests Test 05/24/17 17:08 05/24/17 21:55 05/25/17 06:20 White Blood Count 8.6 K/UL (4.8-10.8) 8.4 K/UL (4.8-10.8) Red Blood Count 4.19 M/UL (4.20-5.40) L 4.14 M/UL (4.20-5.40) L Hemoglobin 12.4 G/DL (12.0-16.0) 12.3 G/DL (12.0-16.0) Hematocrit 36.8 % (37.0-47.0) L 36.9 % (37.0-47.0) L Mean Corpuscular Volume 88 FL (80-99) 89 FL (80-99) Mean Corpuscular Hemoglobin 29.6 PG (27.0-31.0) 29.6 PG (27.0-31.0) Mean Corpuscular Hemoglobin Concent 33.7 G/DL (32.0-36.0) 33.2 G/DL (32.0-36.0) Red Cell Distribution Width 10.9 % (11.6-14.8) L 11.0 % (11.6-14.8) L Platelet Count 96 K/UL (150-450) L 97 K/UL (150-450) L Mean Platelet Volume 8.4 FL (6.5-10.1) 7.8 FL (6.5-10.1) Neutrophils (%) (Auto) % (45.0-75.0) % (45.0-75.0) Lymphocytes (%) (Auto) % (20.0-45.0) % (20.0-45.0) Monocytes (%) (Auto) % (1.0-10.0) % (1.0-10.0) Eosinophils (%) (Auto) % (0.0-3.0) % (0.0-3.0) Basophils (%) (Auto) % (0.0-2.0) % (0.0-2.0) Differential Total Cells Counted 100 100 Neutrophils % (Manual) 50 % (45-75) 50 % (45-75) Lymphocytes % (Manual) 39 % (20-45) 37 % (20-45) Monocytes % (Manual) 6 % (1-10) 9 % (1-10) Eosinophils % (Manual) 4 % (0-3) H 3 % (0-3) Basophils % (Manual) 1 % (0-2) 1 % (0-2) Band Neutrophils 0 % (0-8) 0 % (0-8) Platelet Estimate Decreased L Decreased L Platelet Morphology Normal Normal Red Blood Cell Morphology Normal Prothrombin Time 9.4 SEC (9.30-11.50) Prothromb Time International Ratio 0.9 (0.9-1.1) Activated Partial Thromboplast Time 24 SEC (23-33) Urine Color Pale yellow Urine Appearance Clear Urine pH 7 (4.5-8.0) Urine Specific [place] 1.005 (1.005-1.035) Urine Protein 1+ (NEGATIVE) H Urine Glucose (UA) 2+ (NEGATIVE) H Urine Ketones Negative (NEGATIVE) Urine Occult Blood Negative (NEGATIVE) Urine Nitrite Negative (NEGATIVE) Urine Bilirubin Negative (NEGATIVE) Urine Urobilinogen Normal MG/DL (0.0-1.0) Urine Leukocyte Esterase Negative (NEGATIVE) Urine RBC 0-2 /HPF (0 - 2) Urine WBC 0-2 /HPF (0 - 2) Urine Squamous Epithelial Cells Few /LPF (NONE/OCC) Urine Amorphous Sediment Few /LPF (NONE) H Urine Bacteria Few /HPF (NONE) Sodium Level 136 MMOL/L (136-145) 138 MMOL/L (136-145) Potassium Level 4.7 MMOL/L (3.5-5.1) 3.9 MMOL/L (3.5-5.1) Chloride Level 101 MMOL/L (98-107) 102 MMOL/L (98-107) Carbon Dioxide Level 27 MMOL/L (21-32) 29 MMOL/L (21-32) Anion Gap 8 mmol/L (5-15) 7 mmol/L (5-15) Blood Urea Nitrogen 17 mg/dL (7-18) 18 mg/dL (7-18) Creatinine 1.3 MG/DL (0.55-1.30) 1.3 MG/DL (0.55-1.30) Estimat Glomerular Filtration Rate mL/min (>60) mL/min (>60) Glucose Level 194 MG/DL (74-106) H 147 MG/DL (74-106) H Calcium Level 10.3 MG/DL (8.5-10.1) H 10.0 MG/DL (8.5-10.1) Total Bilirubin 0.5 MG/DL (0.2-1.0) Aspartate Amino Transf (AST/SGOT) 22 U/L (15-37) Alanine Aminotransferase (ALT/SGPT) 21 U/L (12-78) Alkaline Phosphatase 117 U/L (46-116) H Total Creatine Kinase 61 U/L (26-308) Creatine Kinase MB < 0.5 NG/ML (0.0-3.6) Creatine Kinase MB Relative Index 0.8 Troponin I 0.000 ng/mL (0.000-0.056) 0.000 ng/mL (0.000-0.056) 0.000 ng/mL (0.000-0.056) Total Protein 8.3 G/DL (6.4-8.2) H Albumin 3.5 G/DL (3.4-5.0) Globulin 4.8 g/dL Albumin/Globulin Ratio 0.7 (1.0-2.7) L Lipase 114 U/L (73-393) Hemoglobin A1c 7.7 % (4.3-6.0) H Magnesium Level 1.8 MG/DL (1.8-2.4) Triglycerides Level 196 MG/DL (30-150) H Cholesterol Level 146 MG/DL (< 200) LDL Cholesterol 83 mg/dL (<100) HDL Cholesterol 31 MG/DL (40-60) L Cholesterol/HDL Ratio 4.7 (3.3-4.4) H Thyroid Stimulating Hormone (TSH) 3.504 uiU/mL (0.358-3.740) Impression/Recommendations Recommendations #[id number] CELSA CULVER May 25, 2017 15:05
--- NOTE | 2017-05-25 15:50 | Cardiac Electrophysiology PN ---
Subjective Subjective [id number] Objective Last 24 Hour Vital Signs Date Time Temp Pulse Resp B/P (MAP) Pulse Ox O2 Delivery O2 Flow Rate FiO2 05/25/17 12:00 94 05/25/17 12:00 97.5 20 123/73 98 Room Air 97.5 05/25/17 10:02 97.5 05/25/17 09:03 97.5 05/25/17 08:00 97.5 105 21 123/65 98 Room Air 97.5 05/25/17 08:00 103 05/25/17 04:00 83 05/25/17 04:00 97.9 84 18 140/76 94 Room Air 97.9 05/25/17 00:00 98.8 78 20 141/71 98 Room Air 98.8 05/25/17 00:00 87 05/24/17 20:00 98.9 82 22 107/70 95 Room Air 98.9 05/24/17 20:00 81 05/24/17 20:00 98.1 88 20 110/64 99 Room Air 98.1 05/24/17 18:37 98.9 82 22 107/70 95 Room Air 98.9 05/24/17 16:42 98.4 87 16 126/68 96 Room Air 98.4 05/24/17 16:42 87 16 Room Air 05/24/17 16:42 98.4 87 16 126/68 96 Room Air 98.4 Intake and Output 05/24/17 05/25/17 19:00 07:00 Intake Total 160 ml Output Total 400 ml Balance -400 ml 160 ml Intake Oral 50 ml IV Total 110 ml Output Urine Total 400 ml # Voids 2 Laboratory Tests Test 05/24/17 17:08 05/24/17 21:55 05/25/17 06:20 White Blood Count 8.6 K/UL (4.8-10.8) 8.4 K/UL (4.8-10.8) Red Blood Count 4.19 M/UL (4.20-5.40) L 4.14 M/UL (4.20-5.40) L Hemoglobin 12.4 G/DL (12.0-16.0) 12.3 G/DL (12.0-16.0) Hematocrit 36.8 % (37.0-47.0) L 36.9 % (37.0-47.0) L Mean Corpuscular Volume 88 FL (80-99) 89 FL (80-99) Mean Corpuscular Hemoglobin 29.6 PG (27.0-31.0) 29.6 PG (27.0-31.0) Mean Corpuscular Hemoglobin Concent 33.7 G/DL (32.0-36.0) 33.2 G/DL (32.0-36.0) Red Cell Distribution Width 10.9 % (11.6-14.8) L 11.0 % (11.6-14.8) L Platelet Count 96 K/UL (150-450) L 97 K/UL (150-450) L Mean Platelet Volume 8.4 FL (6.5-10.1) 7.8 FL (6.5-10.1) Neutrophils (%) (Auto) % (45.0-75.0) % (45.0-75.0) Lymphocytes (%) (Auto) % (20.0-45.0) % (20.0-45.0) Monocytes (%) (Auto) % (1.0-10.0) % (1.0-10.0) Eosinophils (%) (Auto) % (0.0-3.0) % (0.0-3.0) Basophils (%) (Auto) % (0.0-2.0) % (0.0-2.0) Differential Total Cells Counted 100 100 Neutrophils % (Manual) 50 % (45-75) 50 % (45-75) Lymphocytes % (Manual) 39 % (20-45) 37 % (20-45) Monocytes % (Manual) 6 % (1-10) 9 % (1-10) Eosinophils % (Manual) 4 % (0-3) H 3 % (0-3) Basophils % (Manual) 1 % (0-2) 1 % (0-2) Band Neutrophils 0 % (0-8) 0 % (0-8) Platelet Estimate Decreased L Decreased L Platelet Morphology Normal Normal Red Blood Cell Morphology Normal Prothrombin Time 9.4 SEC (9.30-11.50) Prothromb Time International Ratio 0.9 (0.9-1.1) Activated Partial Thromboplast Time 24 SEC (23-33) Urine Color Pale yellow Urine Appearance Clear Urine pH 7 (4.5-8.0) Urine Specific [place] 1.005 (1.005-1.035) Urine Protein 1+ (NEGATIVE) H Urine Glucose (UA) 2+ (NEGATIVE) H Urine Ketones Negative (NEGATIVE) Urine Occult Blood Negative (NEGATIVE) Urine Nitrite Negative (NEGATIVE) Urine Bilirubin Negative (NEGATIVE) Urine Urobilinogen Normal MG/DL (0.0-1.0) Urine Leukocyte Esterase Negative (NEGATIVE) Urine RBC 0-2 /HPF (0 - 2) Urine WBC 0-2 /HPF (0 - 2) Urine Squamous Epithelial Cells Few /LPF (NONE/OCC) Urine Amorphous Sediment Few /LPF (NONE) H Urine Bacteria Few /HPF (NONE) Sodium Level 136 MMOL/L (136-145) 138 MMOL/L (136-145) Potassium Level 4.7 MMOL/L (3.5-5.1) 3.9 MMOL/L (3.5-5.1) Chloride Level 101 MMOL/L (98-107) 102 MMOL/L (98-107) Carbon Dioxide Level 27 MMOL/L (21-32) 29 MMOL/L (21-32) Anion Gap 8 mmol/L (5-15) 7 mmol/L (5-15) Blood Urea Nitrogen 17 mg/dL (7-18) 18 mg/dL (7-18) Creatinine 1.3 MG/DL (0.55-1.30) 1.3 MG/DL (0.55-1.30) Estimat Glomerular Filtration Rate mL/min (>60) mL/min (>60) Glucose Level 194 MG/DL (74-106) H 147 MG/DL (74-106) H Calcium Level 10.3 MG/DL (8.5-10.1) H 10.0 MG/DL (8.5-10.1) Total Bilirubin 0.5 MG/DL (0.2-1.0) Aspartate Amino Transf (AST/SGOT) 22 U/L (15-37) Alanine Aminotransferase (ALT/SGPT) 21 U/L (12-78) Alkaline Phosphatase 117 U/L (46-116) H Total Creatine Kinase 61 U/L (26-308) Creatine Kinase MB < 0.5 NG/ML (0.0-3.6) Creatine Kinase MB Relative Index 0.8 Troponin I 0.000 ng/mL (0.000-0.056) 0.000 ng/mL (0.000-0.056) 0.000 ng/mL (0.000-0.056) Total Protein 8.3 G/DL (6.4-8.2) H Albumin 3.5 G/DL (3.4-5.0) Globulin 4.8 g/dL Albumin/Globulin Ratio 0.7 (1.0-2.7) L Lipase 114 U/L (73-393) Hemoglobin A1c 7.7 % (4.3-6.0) H Magnesium Level 1.8 MG/DL (1.8-2.4) Triglycerides Level 196 MG/DL (30-150) H Cholesterol Level 146 MG/DL (< 200) LDL Cholesterol 83 mg/dL (<100) HDL Cholesterol 31 MG/DL (40-60) L Cholesterol/HDL Ratio 4.7 (3.3-4.4) H Thyroid Stimulating Hormone (TSH) 3.504 uiU/mL (0.358-3.740) Thomas Valenzuela MD May 25, 2017 15:50
[2017-05-25 16:00] VITALS: BP 120/75
[2017-05-25] MEDS ORDERED: GlyBURIDE 2.5mg tab ORAL SCH (16:30)
--- NOTE | 2017-05-25 18:06 | Infectious Diseases Prog Note ---
Assessment/Plan Assessment/Plan ASSESSMENT AND PLAN: 1. T4-T5 discitis/osteomyelitis with destructive vertebral changes seen on MRI of thoracic spine, no epidural abscess mentioned, severe spinal stenosis, elevated sed rate - continue vancomycin and cefepime - transfer to higher level of care, spine surgery evaluation - neurology recs pending - check labs and blood cultures - d/w Dr. Real - d/w family 2. The patient has diabetes. 3. Hypertension. 4. Cerebrovascular accident. 5. Weakness. 6. Wheelchair-bound. 7. History of urinary tract infections per the patient. 8. No history of cancer. 9. Weakness secondary to cerebrovascular accident. 10. Past medical history is noted. 11. No known allergies. 12. Social history negative. 13. Family history noncontributory. 14. MAR was noted. 15. Case discussed with RN. 16. Case discussed with Dr. Real. 17. Continue treatment per primary consultants. 18. Skin care protocol. 19. Orders were noted. 20. Notes and records were noted. Subjective Constitutional: Denies: fever HEENT: Denies: congestion Respiratory: Denies: shortness of breath Cardiovascular: Denies: chest pain Gastrointestinal/Abdominal: Denies: nausea, vomiting, diarrhea Genitourinary: Reports: other - no cowan Neurologic: Reports: weakness; Denies: headache Psychiatric: Denies: depression Skin: Denies: rash Hematologic: Denies: bleeding Musculoskeletal: Denies: pain Allergies: Coded Allergies: No Known Allergies (Unverified , 05/24/17) Objective Vital Signs Last 24 Hour Vital Signs Date Time Temp Pulse Resp B/P (MAP) Pulse Ox O2 Delivery O2 Flow Rate FiO2 05/25/17 12:00 94 05/25/17 12:00 97.5 20 123/73 98 Room Air 97.5 05/25/17 10:02 97.5 05/25/17 09:03 97.5 05/25/17 08:00 97.5 105 21 123/65 98 Room Air 97.5 05/25/17 08:00 103 05/25/17 04:00 83 05/25/17 04:00 97.9 84 18 140/76 94 Room Air 97.9 05/25/17 00:00 98.8 78 20 141/71 98 Room Air 98.8 05/25/17 00:00 87 05/24/17 20:00 98.9 82 22 107/70 95 Room Air 98.9 05/24/17 20:00 81 05/24/17 20:00 98.1 88 20 110/64 99 Room Air 98.1 05/24/17 18:37 98.9 82 22 107/70 95 Room Air 98.9 Height (Feet): 5 Height (Inches): 4.00 Weight (Pounds): 150 General Appearance: no acute distress HEENT: normocephalic, atraumatic, anicteric, mucous membranes moist Respiratory/Chest: lungs clear, normal breath sounds, no respiratory distress, no accessory muscle use Cardiovascular: normal rate, regular rhythm, no gallop/murmur, no JVD Abdomen: normal bowel sounds, soft, non tender, no organomegaly, non distended Genitourinary: other - no cowan Extremities: no cyanosis Skin: no rash Neurologic/Psychiatric: production underwriter II-XII grossly normal, alert, responsive Lymphatic: no neck adenopathy Musculoskeletal: no effusion Objective MRI spine - IMPRESSION: Destructive process at T4-T5 with significant paraspinal edema concerning for discitis/osteomyelitis. No well-defined/drainable fluid collection at this time. There is associated focal kyphosis and retropulsion of bone and focal severe canal stenosis without definite focal cord signal abnormality at this time. Correlation with neurologic exam recommended. Edema in the spinous process and intraspinous region/posterior elements may suggest traumatic component on top of infection. blood cultures - pending Laboratory Tests Test 05/24/17 21:55 05/25/17 06:20 Troponin I 0.000 ng/mL (0.000-0.056) 0.000 ng/mL (0.000-0.056) White Blood Count 8.4 K/UL (4.8-10.8) Red Blood Count 4.14 M/UL (4.20-5.40) L Hemoglobin 12.3 G/DL (12.0-16.0) Hematocrit 36.9 % (37.0-47.0) L Mean Corpuscular Volume 89 FL (80-99) Mean Corpuscular Hemoglobin 29.6 PG (27.0-31.0) Mean Corpuscular Hemoglobin Concent 33.2 G/DL (32.0-36.0) Red Cell Distribution Width 11.0 % (11.6-14.8) L Platelet Count 97 K/UL (150-450) L Mean Platelet Volume 7.8 FL (6.5-10.1) Neutrophils (%) (Auto) % (45.0-75.0) Lymphocytes (%) (Auto) % (20.0-45.0) Monocytes (%) (Auto) % (1.0-10.0) Eosinophils (%) (Auto) % (0.0-3.0) Basophils (%) (Auto) % (0.0-2.0) Differential Total Cells Counted 100 Neutrophils % (Manual) 50 % (45-75) Lymphocytes % (Manual) 37 % (20-45) Monocytes % (Manual) 9 % (1-10) Eosinophils % (Manual) 3 % (0-3) Basophils % (Manual) 1 % (0-2) Band Neutrophils 0 % (0-8) Platelet Estimate Decreased L Platelet Morphology Normal Sodium Level 138 MMOL/L (136-145) Potassium Level 3.9 MMOL/L (3.5-5.1) Chloride Level 102 MMOL/L (98-107) Carbon Dioxide Level 29 MMOL/L (21-32) Anion Gap 7 mmol/L (5-15) Blood Urea Nitrogen 18 mg/dL (7-18) Creatinine 1.3 MG/DL (0.55-1.30) Estimat Glomerular Filtration Rate mL/min (>60) Glucose Level 147 MG/DL (74-106) H Hemoglobin A1c 7.7 % (4.3-6.0) H Calcium Level 10.0 MG/DL (8.5-10.1) Magnesium Level 1.8 MG/DL (1.8-2.4) Triglycerides Level 196 MG/DL (30-150) H Cholesterol Level 146 MG/DL (< 200) LDL Cholesterol 83 mg/dL (<100) HDL Cholesterol 31 MG/DL (40-60) L Cholesterol/HDL Ratio 4.7 (3.3-4.4) H Thyroid Stimulating Hormone (TSH) 3.504 uiU/mL (0.358-3.740) Current Medications Medications (Trade) Dose Ordered Sig/Leona Route PRN Reason Start Time Stop Time Status Last Admin Dose Admin Acetaminophen (Tylenol) 650 mg Q4H PRN ORAL Mild Pain (Pain Scale 1-3) 4/4/18 18:15 06/23/17 18:14 05/25/17 09:03 Acetaminophen (Tylenol) 650 mg Q4H PRN ORAL fever 05/24/17 18:15 06/23/17 18:14 Atorvastatin Calcium (Lipitor) 20 mg BEDTIME ORAL 05/25/17 21:00 06/24/17 20:59 Bisacodyl (Dulcolax) 10 mg DAILYPRN PRN RECTAL Constipation 05/24/17 18:15 06/23/17 18:14 Cefepime HCl 2 gm/ Dextrose 110 ml @ 220 mls/hr Q12HR@1000,2200 IVPB 05/24/17 22:00 05/31/17 21:59 05/25/17 09:04 Dextrose (Dextrose 50%) 25 ml STAT PRN IV BS between 60-69 mg/dL 05/24/17 20:15 06/23/17 20:14 Dextrose (Dextrose 50%) 50 ml STAT PRN IV Hypoglycemia BS<60 mg/dL 05/24/17 21:45 06/23/17 21:44 Docusate Sodium (Colace) 100 mg EVERY 12 HOURS ORAL 05/24/17 21:00 06/23/17 20:59 05/25/17 09:02 Gabapentin (Neurontin) 300 mg BID ORAL 05/25/17 18:00 06/24/17 17:59 05/25/17 17:19 Glyburide (Diabeta) 7.5 mg QPM ORAL 05/25/17 16:30 06/24/17 16:29 05/25/17 17:19 Glyburide (Diabeta) 10 mg ACBREAKFAST ORAL 05/25/17 06:30 06/24/17 06:29 05/25/17 06:27 Insulin Aspart (NovoLOG) BEFORE MEALS AND HS SUBQ 05/25/17 06:30 06/24/17 06:29 05/25/17 17:21 Morphine Sulfate (Morphine Sulfate) 2 mg Q4H PRN IVP Moderate Pain (Pain Scale 4-6) 05/24/17 18:15 05/31/17 18:14 05/24/17 23:24 Morphine Sulfate (Morphine Sulfate) 4 mg Q4H PRN IVP Severe Pain (Pain Scale 7-10) 05/24/17 18:15 05/31/17 18:14 Ondansetron HCl (Zofran) 4 mg Q6H PRN IVP Nausea & Vomiting 05/24/17 18:15 06/23/17 18:14 Polyethylene Glycol (Miralax) 17 gm DAILYPRN PRN ORAL Constipation 05/24/17 18:15 06/23/17 18:14 Vancomycin HCl (Vanco rx to dose) 1 ea DAILYPRN PRN MISC Per rx protocol 05/24/17 18:15 06/23/17 18:14 Vancomycin HCl/ Dextrose 250 ml @ 166.667 mls/hr Q24H IVPB 05/25/17 12:00 05/30/17 11:59 05/25/17 11:21 MALKA MARINO May 25, 2017 18:06
--- NOTE | 2017-05-25 18:15 | Consultation ---
DATE OF CONSULTATION: 05/25/2017 CARDIOLOGY CONSULTATION CONSULTING PHYSICIAN: Thomas Valenzuela M.D. REFERRING PHYSICIAN: Frankie Greene M.D. REASON FOR CONSULTATION: Chest pain and abnormal electrocardiogram. HISTORY OF PRESENT ILLNESS: The patient is a 77-year-old lady, with history of hypertension and diabetes, who came to the emergency room complaining of midsternal chest pain. The patient initially reported epigastric pain, but then subsequently complained of chest pain that started 2 days ago. The patient denies any shortness of breath. No nausea, vomiting, or diaphoresis. She has history of prior CVA with left-sided weakness. The [place] from [place] of town, however, has been living with her son for the last 8 months. The patient's EKG showed nonspecific T-wave abnormalities and Cardiology consultation was obtained for further evaluation and management. REVIEW OF SYSTEMS: Performed and was negative other than what was mentioned in history of present illness. PAST MEDICAL HISTORY: 1. Hypertension. 2. Diabetes. 3. CVA with left-sided weakness. FAMILY HISTORY: Noncontributory. SOCIAL HISTORY: Lives at home with son. Does not smoke or drink alcohol. PHYSICAL EXAMINATION: VITAL SIGNS: Show blood pressure of 122/73, pulse 94, respirations 18, temperature 97.5. HEAD AND NECK: Shows no JVD or carotid bruits. LUNGS: Clear. CARDIOVASCULAR: Shows regular S1 and S2 with no gallop or murmur. ABDOMEN: Soft. EXTREMITIES: No pitting edema. LABORATORY AND DIAGNOSTIC DATA: Labs show white count of 8.4, hematocrit 12.3, hematocrit of 36.9, and platelet count 97,000. Sodium 138, potassium 3.9, BUN of 18, creatinine 1.3, and glucose 147. Troponin negative x3. Alcohol is 117. INR is 0.9. ASSESSMENT AND PLAN: 1. Chest pain. The patient was ruled out for myocardial infarction with serial cardiac enzymes. Her EKG shows nonspecific T-wave abnormalities. She just underwent an echocardiogram that showed ejection fraction of 55% to 60%. The patient's pain may be secondary to her diskitis. We are going to follow the patient clinically on telemetry. 2. Hypertension. 3. Diabetes. 4. Diskitis. Thank you very much, Dr. Greene, for allowing me to participate in the care of this patient. Please do not hesitate to contact me for any questions regarding my evaluation. Thomas Valenzuela M.D. DR: Fabricio JOB#: [id number] CC:
--- NOTE | 2017-05-25 19:00 | Consultation ---
DATE OF CONSULTATION: 05/25/2017 NEUROLOGICAL CONSULTATION CONSULTING PHYSICIAN: Carl Leahy M.D. REQUESTING PHYSICIAN: Frankie Greene M.D. HISTORY OF PRESENT ILLNESS: This is a 77-year-old female seen in neurological consultation to evaluate new onset of severe dorsal spine pain. The patient was brought to this facility after she developed mid back pain radiating to mid sternal region which son suspected started after he Jennifer hugged her trying to lift her from the bed. Symptoms remain unchanged for couple of days. She was brought to emergency room. On admission, vital signs, blood pressure 126/68. Stat diagnostic studies included laboratory work with CBC, including elevated sedimentation rate of 98, mild anemia, hematocrit 26.8. Urinalysis unremarkable except protein 1+. Coagulation panel was normal. Chemistry panel with CRP 0.4, blood sugar 194, calcium 10.3. Normal TSH and lipase. Elevated triglyceride 196. Normal troponin. Imaging studies included CT abdomen, chest and pelvis CT scan without contrast, this was limited examination, findings included destructive bony process T4-5 with fragmentation of vertebral bodies, paraspinal soft tissue infiltration approximately 4 to 5 mm retropulsion of debris into canal concerning, diskitis, osteomyelitis, cardiomegaly, coronary artery calcification, there is nonspecific ground-glass opacity in lung bases. Chest x-ray reveals a cardiomegaly, slight haziness of pulmonary vasculature suggestive of mild fluid overload, interstitial edema. MRI of the thoracic spine confirmed presence of destructive process T4-T5, significant paraspinal edema concerning diskitis/osteomyelitis, focal kyphosis, retropulsion of bone, and focal severe spinal stenosis without definitive focal or signal abnormality at this time, edema in spinal processes and infraspinal region/posterior elements may suggest traumatic component on the top of infection. Since admission till present, the patient remains still in her bed and there was not much pain developed. The patient has a history of acute stroke left her with left hemiparesis seven years ago but then following three years later she had apparently additional worsening of weakness on the left side and became hemiplegic, she become bedridden and over the years family noticed that right leg also is not moving. She still was able to control urine and bowel though she had frequent constipations. The patient was unable to transfer herself and had to be lifted to transfer from the bed to bedside commode. Her underlying medical issues also include hypertension, diabetes, hyperlipidemia with treatment prior to admission including aspirin, atorvastatin, gabapentin 600 mg, glyburide, hydroxyzine, losartan, spironolactone, verapamil, and vitamin D. ALLERGIES: None reported. SOCIAL HISTORY: The patient lives with her on the [facility]. Family moved in to [place] in August of last year No evidence of alcohol or drug abuse. Nonsmoker. REVIEW OF SYMPTOMS: The patient indicated she has no complaints. She has some recollection of event but overall has a very poor memory. PHYSICAL EXAMINATION: GENERAL: A well-developed, well-nourished, elderly female, lying comfortably in bed. Family at bedside. VITAL SIGNS: Stable. Blood pressure 123/73, temperature 97.5, heart rate of 94. HEENT: Head is normocephalic. There is no evidence of trauma. Eyes, ears, and throat are clear. NECK: Supple. No meningeal signs. MUSCULOSKELETAL EXAMINATION: Arthritic deformities both knees. Peripheral pulses 1+ symmetric. acute tenderness when palpated in the mid thoracic region. No surrounding pain. Peripheral pulses 1+ symmetric. MENTAL STATUS: She is alert and oriented to her name and age, but not place and time. Able to follow commands and recognizing family members. CRANIAL NERVE II: Pupils are 2 mm responding to light and accommodation. Extraocular movement intact. No nystagmus. CRANIAL NERVE V: Normal corneal responses. CRANIAL NERVE VII: Slight facial asymmetry. Decreased hearing. CRANIAL NERVES IX THROUGH XII: Tongue is in midline. Symmetric palate elevation. MOTOR EXAMINATION: Revealed the rigidity left upper and left lower extremity with weakness 1/5 left upper extremity, 0/5 left lower extremity, 0/5 right lower extremity. Deep tendon reflexes 2+ at biceps, triceps, brachioradialis. Absent both knee and ankle jerks. Plantar responses, positive Babinski in the left. Mute on the right. SENSORY EXAMINATION: Seems T6 down decrease in pin sensation. Able to respond to touch in all areas of upper and lower extremities. IMPRESSION: 1. T4-T5 acute diskitis/osteomyelitis with focal severe spinal canal stenosis, mild myelopathy. 2. 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 3. Diabetes type 2. 4. Hypertension. 5. Hyperlipidemia. 6. Vascular dementia. DISCUSSION: The patient has preexistent paraplegia with left hemiparesis following multiple strokes and possibly cervical or thoracic myelopathy. Symptoms progressed with development of severe pain in the last few days which was attributed to mechanical trauma to the spine while being Jennifer hugged and lifted to transfer from her bed. Radiological finding indicate a diskitis, osteomyelitis, and probably mechanical fracture causing a tight spinal stenosis but without radiological evidence of intra spinal lesion. Neurological examination revealed signs of myelopathy probably thoracic with good sensory loss from low thoracic region down. At this time, T4-5 appears to be very unstable with high risk of complete cord compression at this level. We will need a stat surgical assessment regarding further surgical management. Meanwhile, we will obtain thoracic bracing, avoid aggressive turning around in the bed. The patient was seen by Infectious Diseases and appropriate antibiotic coverage initiated. Discussed the patient's status at length with the family. Thank you for allowing me to see this interesting patient in neurological consultation. Carl Leahy M.D. DR: Ute JOB#: [id number] CC:
[2017-05-25 20:00] VITALS: BP 122/69
[2017-05-25] MEDS: Atorvastatin 20mg tab ORAL SCH (21:07)
[2017-05-25] MEDS: Morphine Sulfate 4mg/ml Inj IVP PRN (23:17)
--- NOTE | 2017-05-25 23:22 | Consultation ---
History of Present Illness General Chief Complaint: Chest Pain Present Illness HPI 77y/o female with pmh of HLD, HTN, DM2, CVA w/ L sided hemiparesis, dementia who presents with chest and back pain. the Pt is a poor historian. the pt is forgetful and has anxiety. the pt has poor energy and somewhat confused. Allergies: Coded Allergies: No Known Allergies (Unverified , 05/24/17) Medication History Scheduled Aspirin (Aspirin), 325 MG ORAL DAILY, (Reported) Atorvastatin Calcium* (Atorvastatin Calcium*), 20 MG ORAL BEDTIME, (Reported) Gabapentin* (Gabapentin*), 600 MG ORAL DAILY, (Reported) Glyburide (Glyburide), 5 MG PO DAILY, (Reported) Hydroxyzine Hcl (Hydroxyzine Hcl), 25 MG PO TID, (Reported) Losartan Potassium* (Losartan Potassium*), 50 MG ORAL DAILY, (Reported) Spironolact/Hydrochlorothiazid (Spironolactone-Hctz 25-25 Tab), 1 TAB ORAL BID, (Reported) Verapamil Hcl (Verapamil Er), 240 MG PO DAILY, (Reported) Vitamin D (Vitamin D3), 25 MCG ORAL PRN, (Reported) Patient History History Provided By: Patient, Medical Record, PMD Healthcare decision maker N Resuscitation status Full Code Advanced Directive on File Physical Exam General Appearance: no apparent distress, alert, confused Last 24 Hour Vital Signs Date Time Temp Pulse Resp B/P (MAP) Pulse Ox O2 Delivery O2 Flow Rate FiO2 05/25/17 20:00 97.4 19 122/69 93 Room Air 97.4 05/25/17 20:00 100 05/25/17 16:00 83 05/25/17 16:00 97.5 20 120/75 98 Room Air 97.5 05/25/17 12:00 94 05/25/17 12:00 97.5 20 123/73 98 Room Air 97.5 05/25/17 10:02 97.5 05/25/17 09:03 97.5 05/25/17 08:00 97.5 105 21 123/65 98 Room Air 97.5 05/25/17 08:00 103 05/25/17 04:00 83 05/25/17 04:00 97.9 84 18 140/76 94 Room Air 97.9 4/5/18 00:00 98.8 78 20 141/71 98 Room Air 98.8 05/25/17 00:00 87 Intake and Output 05/24/17 05/25/17 19:00 07:00 Intake Total 160 ml Output Total 400 ml Balance -400 ml 160 ml Intake Oral 50 ml IV Total 110 ml Output Urine Total 400 ml # Voids 2 Laboratory Tests Test 05/25/17 06:20 White Blood Count 8.4 K/UL (4.8-10.8) Red Blood Count 4.14 M/UL (4.20-5.40) L Hemoglobin 12.3 G/DL (12.0-16.0) Hematocrit 36.9 % (37.0-47.0) L Mean Corpuscular Volume 89 FL (80-99) Mean Corpuscular Hemoglobin 29.6 PG (27.0-31.0) Mean Corpuscular Hemoglobin Concent 33.2 G/DL (32.0-36.0) Red Cell Distribution Width 11.0 % (11.6-14.8) L Platelet Count 97 K/UL (150-450) L Mean Platelet Volume 7.8 FL (6.5-10.1) Neutrophils (%) (Auto) % (45.0-75.0) Lymphocytes (%) (Auto) % (20.0-45.0) Monocytes (%) (Auto) % (1.0-10.0) Eosinophils (%) (Auto) % (0.0-3.0) Basophils (%) (Auto) % (0.0-2.0) Differential Total Cells Counted 100 Neutrophils % (Manual) 50 % (45-75) Lymphocytes % (Manual) 37 % (20-45) Monocytes % (Manual) 9 % (1-10) Eosinophils % (Manual) 3 % (0-3) Basophils % (Manual) 1 % (0-2) Band Neutrophils 0 % (0-8) Platelet Estimate Decreased L Platelet Morphology Normal Sodium Level 138 MMOL/L (136-145) Potassium Level 3.9 MMOL/L (3.5-5.1) Chloride Level 102 MMOL/L (98-107) Carbon Dioxide Level 29 MMOL/L (21-32) Anion Gap 7 mmol/L (5-15) Blood Urea Nitrogen 18 mg/dL (7-18) Creatinine 1.3 MG/DL (0.55-1.30) Estimat Glomerular Filtration Rate mL/min (>60) Glucose Level 147 MG/DL (74-106) H Hemoglobin A1c 7.7 % (4.3-6.0) H Calcium Level 10.0 MG/DL (8.5-10.1) Magnesium Level 1.8 MG/DL (1.8-2.4) Troponin I 0.000 ng/mL (0.000-0.056) Triglycerides Level 196 MG/DL (30-150) H Cholesterol Level 146 MG/DL (< 200) LDL Cholesterol 83 mg/dL (<100) HDL Cholesterol 31 MG/DL (40-60) L Cholesterol/HDL Ratio 4.7 (3.3-4.4) H Thyroid Stimulating Hormone (TSH) 3.504 uiU/mL (0.358-3.740) Height (Feet): 5 Height (Inches): 4.00 Weight (Pounds): 150 Medications Current Medications Medications (Trade) Dose Ordered Sig/Leona Route PRN Reason Start Time Stop Time Status Last Admin Dose Admin Acetaminophen (Tylenol) 650 mg Q4H PRN ORAL Mild Pain (Pain Scale 1-3) 05/24/17 18:15 06/23/17 18:14 05/25/17 09:03 Acetaminophen (Tylenol) 650 mg Q4H PRN ORAL fever 05/24/17 18:15 06/23/17 18:14 Atorvastatin Calcium (Lipitor) 20 mg BEDTIME ORAL 05/25/17 21:00 06/24/17 20:59 05/25/17 21:07 Bisacodyl (Dulcolax) 10 mg DAILYPRN PRN RECTAL Constipation 05/24/17 18:15 06/23/17 18:14 Cefepime HCl 2 gm/ Dextrose 110 ml @ 220 mls/hr Q12HR@1000,2200 IVPB 05/24/17 22:00 05/31/17 21:59 05/25/17 21:00 Dextrose (Dextrose 50%) 25 ml STAT PRN IV BS between 60-69 mg/dL 05/24/17 20:15 06/23/17 20:14 Dextrose (Dextrose 50%) 50 ml STAT PRN IV Hypoglycemia BS<60 mg/dL 05/24/17 21:45 5/4/18 21:44 Docusate Sodium (Colace) 100 mg EVERY 12 HOURS ORAL 05/24/17 21:00 06/23/17 20:59 05/25/17 21:07 Gabapentin (Neurontin) 300 mg BID ORAL 05/25/17 18:00 06/24/17 17:59 05/25/17 17:19 Glyburide (Diabeta) 7.5 mg QPM ORAL 05/25/17 16:30 06/24/17 16:29 05/25/17 17:19 Glyburide (Diabeta) 10 mg ACBREAKFAST ORAL 05/25/17 06:30 06/24/17 06:29 05/25/17 06:27 Insulin Aspart (NovoLOG) BEFORE MEALS AND HS SUBQ 05/25/17 06:30 06/24/17 06:29 05/25/17 21:00 Losartan Potassium (Cozaar) 50 mg DAILY ORAL 05/26/17 09:00 06/25/17 08:59 Morphine Sulfate (Morphine Sulfate) 2 mg Q4H PRN IVP Moderate Pain (Pain Scale 4-6) 05/24/17 18:15 05/31/17 18:14 05/24/17 23:24 Morphine Sulfate (Morphine Sulfate) 4 mg Q4H PRN IVP Severe Pain (Pain Scale 7-10) 05/24/17 18:15 05/31/17 18:14 05/25/17 23:17 Ondansetron HCl (Zofran) 4 mg Q6H PRN IVP Nausea & Vomiting 05/24/17 18:15 06/23/17 18:14 Polyethylene Glycol (Miralax) 17 gm DAILYPRN PRN ORAL Constipation 05/24/17 18:15 06/23/17 18:14 Spironolactone (Aldactone) 25 mg BID ORAL 05/26/17 09:00 06/25/17 08:59 Vancomycin HCl (Vanco rx to dose) 1 ea DAILYPRN PRN MISC Per rx protocol 05/24/17 18:15 06/23/17 18:14 Vancomycin HCl/ Dextrose 250 ml @ 166.667 mls/hr Q24H IVPB 05/25/17 12:00 05/30/17 11:59 05/25/17 11:21 Assessment/Plan Assessment/Plan encephalopathy dementia namenda 15mg q daily provided /Emanuel Fairbanks M.D. May 25, 2017 23:22
[2017-05-26] VITALS: BP 131/62
[2017-05-26] MEDS: Morphine Sulfate 4mg/ml Inj IVP PRN (03:01)
[2017-05-26 04:00] VITALS: BP 145/77
[2017-05-26] MEDS: NovoLOG Insulin Flexpen SUBQ SCH ×4 (06:14→21:15)
--- NOTE | 2017-05-26 07:18 | Cardiac Electrophysiology PN ---
Assessment/Plan Assessment/Plan 1. Chest pain. The patient was ruled out for myocardial infarction with serial cardiac enzymes. Her EKG shows nonspecific T-wave abnormalities. Echocardiogram that showed ejection fraction of 55% to 60%. The patient's pain may be secondary to her diskitis. Not stable for stress test yet. Thoracic Brace pending. 2. Hypertension.On Losartan and Aldactone 3. Diabetes. 4. Diskitis.On Abx. Awaiting transfer to [facility] for spine surgery eval but no bed so far. Subjective Subjective Has mostly back pain. No arrhythmias on tele. Objective Last 24 Hour Vital Signs Date Time Temp Pulse Resp B/P (MAP) Pulse Ox O2 Delivery O2 Flow Rate FiO2 05/26/17 04:00 99 05/26/17 04:00 96.3 93 20 145/77 96 Room Air 96.3 05/26/17 00:00 98.1 88 19 131/62 95 Room Air 98.1 05/26/17 00:00 94 05/25/17 20:00 97.4 19 122/69 93 Room Air 97.4 05/25/17 20:00 100 05/25/17 16:00 83 05/25/17 16:00 97.5 20 120/75 98 Room Air 97.5 05/25/17 12:00 94 05/25/17 12:00 97.5 20 123/73 98 Room Air 97.5 05/25/17 10:02 97.5 05/25/17 09:03 97.5 05/25/17 08:00 97.5 105 21 123/65 98 Room Air 97.5 05/25/17 08:00 103 Intake and Output 05/25/17 05/26/17 19:00 07:00 Intake Total 510 ml Output Total 1500 ml Balance -990 ml Intake Oral 510 ml Output Urine Total 1500 ml # Voids 1 # Bowel Movements 1 Objective HEAD AND NECK: Shows no JVD or carotid bruits. LUNGS: Clear. CARDIOVASCULAR: Shows regular S1 and S2 with no gallop or murmur. ABDOMEN: Soft. EXTREMITIES: No pitting edema. Thomas Valenzuela MD May 26, 2017 07:18
[2017-05-26 08:00] VITALS: BP 103/58
[2017-05-26] MEDS ORDERED: Losartan 50mg tab ORAL SCH (09:00)
[2017-05-26] MEDS: Spironolactone 25mg tab ORAL SCH ×2 (09:00→18:17)
[2017-05-26] MEDS: Cefepime HCl 2 GM in D5W 110 ML IVPB SCH ×2 (09:01→22:01)
[2017-05-26] MEDS: Docusate 100mg cap ORAL SCH ×3 (09:01→21:00)
[2017-05-26 12:00] VITALS: BP 122/78
--- NOTE | 2017-05-26 12:10 | Neurology Progress Note ---
Interim History Interim History ROS Limited/Unobtainable: Yes Complaints: feel ok Events: no acute changes Objective Physical Exam Last Vital Signs Date Time Temp Pulse Resp B/P (MAP) Pulse Ox O2 Delivery O2 Flow Rate FiO2 05/26/17 09:00 103/58 05/26/17 08:00 97.8 93 20 96 Room Air 97.8 General: well developed, well nourished, no acute distress Head: normocophalic, atraumatic Neck: other - rigid EENT: benign Neurologic Exam Mental Status: awake, alert, other Speech: normal speech Language: normal language Cranial Nerve II: fundus normal, visual lucero, no papilledema Cranial Nerves III, IV, : PERRLA, pupils Cranial Nerve V: normal facial sensations Cranial Nerve VII: other - droop L face Cranial Nerve VIII: no nystagmus, other Cranial Nerve IX: normal palate elevation, gag response Cranial Nerve X: no voice hoarseness Cranial Nerve XI: trapezii function normal Cranial Nerve XII: tongue midline, no tongue atrophy/fasciculations Motor System: other - spastik L side , 0/5 BLE Sensory: other - loss t5 down Coordination: other Deep Tendon Reflexes: 0 bicep (L), 0 bicep (R), 0 tricep (L), 0 tricep (R), 0 brachioradialis (L), 0 brachioradialis (R), 0 knee (L), 0 knee (R), 0 ankle (L) , 0 ankle (R) Reflexes: mute plantar (L), mute plantar (R) Impression/Recommendations Problems: (1) T4-T5 discitis/osteomyelitis Status: not improved, unchanged Recommendations #[id number] ivf/antibx transfer to [facility] neuro CELSA Dominguez May 26, 2017 12:10
[2017-05-26] MEDS: Vancomycin 1250mg/D5W 250ml 250 ML IVPB SCH (12:56)
[2017-05-26 16:00] VITALS: BP 124/74
--- NOTE | 2017-05-26 17:50 | General Progress Note ---
Assessment/Plan Problem List: (1) T4-T5 discitis/osteomyelitis (2) Chest pain ICD Codes: R07.9 - Chest pain, unspecified SNOMED: 42906826 (3) DM2 (diabetes mellitus, type 2) ICD Codes: E11.9 - Type 2 diabetes mellitus without complications SNOMED: 42614768 (4) CVA with L hemiparesis (5) HTN (hypertension) ICD Codes: I10 - Essential (primary) hypertension SNOMED: 96811705 (6) HLD (hyperlipidemia) ICD Codes: E78.5 - Hyperlipidemia, unspecified SNOMED: 65022401 (7) Dementia ICD Codes: F03.90 - Unspecified dementia without behavioral disturbance SNOMED: 54218827 (8) Hyponatremia ICD Codes: E87.1 - Hypo-osmolality and hyponatremia SNOMED: 52540332 Status: stable Assessment/Plan Trop neg x 3 Check TTE--normal EF, mild diastolic dysfcn, no vegetations noted Cardiology consulted Neurology consulted F/u MRI T spine--destructive process at T4-T5 with significant paraspinal edema concerning for discitis/osteomyelitis. No well-defined/drainable fluid collection at this time. There is associated focal kyphosis and retropulsion of bone and focal severe canal stenosis without definite focal cord signal abnormality at this time Attempted to consult spine surgeon at [facility] but all state that they are unavailable. Tried 5 spine surgeons (Dr. Rios, Dr. Samson, Dr. Farias, Dr. Lang, Dr. Saldivar). Since no spine surgeon available, call placed to [facility] transfer [place] with request to transfer for spine surgery evaluation TLSO back brace requested ID consulted Check blood culture x 2 Empiric vanco and cefepime per ID Cont home meds Pain control, bowel regimen Supportive care CM notified with request to transfer to higher level of care. Pt on [facility] transfer list. Awaiting bed DVT Prophylaxis: SCD, HSQ Code Status: Full Hospital Classification Declaration: Based on this initial evaluation, and depending on the patient's clinical course, I anticipate that this patient will require hospitalization for 3-4 days for chest pain, diskitis/osteomyelitis and close respiratory/hemodynamic monitoring. Disposition: Once the patient is stable to leave the hospital, I anticipate the patient will likely be discharged to the following environment: home with HH + CG vs SNF I spent 42 minutes on this patient's case, and >50% was dedicated to counseling and/or care coordination. Discussed with patient/family, nursing staff, SW/CM, ID, neurology, cardiology regarding clinical status, treatment course, and disposition planning. D/w ID re abx Time of note may not reflect time of encounter. Subjective Date patient seen: May 26, 2017 Time patient seen: 12:00 ROS Limited/Unobtainable: Yes Constitutional: Reports: weakness Allergies: Coded Allergies: No Known Allergies (Unverified , 05/24/17) Subjective No acute o/n events Lethargic but arousable to voice. ROS limited 2/2 dementia Objective Last 24 Hour Vital Signs Date Time Temp Pulse Resp B/P (MAP) Pulse Ox O2 Delivery O2 Flow Rate FiO2 05/26/17 16:00 108 05/26/17 16:00 97.6 102 20 124/74 92 Room Air 97.6 05/26/17 12:00 98.0 103 20 122/78 94 Room Air 98.0 05/26/17 12:00 107 05/26/17 09:00 103/58 05/26/17 08:00 97.8 93 20 103/58 96 Room Air 97.8 05/26/17 08:00 96 05/26/17 04:00 99 05/26/17 04:00 96.3 93 20 145/77 96 Room Air 96.3 05/26/17 00:00 98.1 88 19 131/62 95 Room Air 98.1 05/26/17 00:00 94 05/25/17 20:00 97.4 19 122/69 93 Room Air 97.4 05/25/17 20:00 100 Intake and Output 05/25/17 05/26/17 19:00 07:00 Intake Total 510 ml Output Total 1500 ml Balance -990 ml Intake Oral 510 ml Output Urine Total 1500 ml # Voids 1 # Bowel Movements 1 Height (Feet): 5 Height (Inches): 4.00 Weight (Pounds): 150 Objective General: alert, cooperative, no distress, appears stated age Head: normocephalic, without obvious abnormality, atraumatic Eyes: conjunctivae/corneas clear. PERRL, EOM's intact Throat: lips, mucosa, and tongue normal. MMM Neck: supple, symmetrical, trachea midline, and no JVD Lungs: clear to auscultation bilaterally Heart: regular rate and rhythm, S1, S2 normal, no murmur, click, rub or gallop Abdomen: soft, non-tender, non-distended, bowel sounds normal; no masses or organomegaly Extremities: extremities normal, atraumatic, no cyanosis or edema MSK: +TTP of upper chest and mid back Pulses: 2+ and symmetric Skin: skin color, texture, turgor normal; no rashes or lesions Neurologic: Slight facial asymmetry; Motor strength 1/5 left upper extremity, 0/ 5 left lower extremity, 0/5 right lower extremity. Deep tendon reflexes 2+ at biceps, triceps, brachioradialis. Absent both knee and ankle jerks. Plantar responses, positive Babinski in the left. Mute on the right. General: alert, cooperative, no distress, appears stated age Head: normocephalic, without obvious abnormality, atraumatic Eyes: conjunctivae/corneas clear. PERRL, EOM's intact Throat: lips, mucosa, and tongue normal. MMM Neck: supple, symmetrical, trachea midline, and no JVD Lungs: clear to auscultation bilaterally Heart: regular rate and rhythm, S1, S2 normal, no murmur, click, rub or gallop Abdomen: soft, non-tender, non-distended, bowel sounds normal; no masses or organomegaly Extremities: extremities normal, atraumatic, no cyanosis or edema MSK: +TTP of upper chest and mid back Pulses: 2+ and symmetric Skin: skin color, texture, turgor normal; no rashes or lesions Neurologic: Slight facial asymmetry; Motor strength 1/5 left upper extremity, 0/ 5 left lower extremity, 0/5 right lower extremity. Deep tendon reflexes 2+ at biceps, triceps, brachioradialis. Absent both knee and ankle jerks. Plantar responses, positive Babinski in the left. Mute on the right. Addie Elliott M.D. May 26, 2017 17:50
[2017-05-26] MEDS ORDERED: Levemir Flexpen SUBQ SCH (18:00)
--- NOTE | 2017-05-26 18:49 | General Progress Note ---
Assessment/Plan Assessment/Plan encephalopathy dementia namenda 15mg q daily provided ro/st Subjective Date patient seen: May 26, 2017 Neurologic/Psychiatric: Reports: anxiety, depressed, emotional problems Allergies: Coded Allergies: No Known Allergies (Unverified , 05/24/17) Objective Last 24 Hour Vital Signs Date Time Temp Pulse Resp B/P (MAP) Pulse Ox O2 Delivery O2 Flow Rate FiO2 05/26/17 16:00 108 05/26/17 16:00 97.6 102 20 124/74 92 Room Air 97.6 05/26/17 12:00 98.0 103 20 122/78 94 Room Air 98.0 05/26/17 12:00 107 05/26/17 09:00 103/58 05/26/17 08:00 97.8 93 20 103/58 96 Room Air 97.8 05/26/17 08:00 96 05/26/17 04:00 99 05/26/17 04:00 96.3 93 20 145/77 96 Room Air 96.3 05/26/17 00:00 98.1 88 19 131/62 95 Room Air 98.1 05/26/17 00:00 94 05/25/17 20:00 97.4 19 122/69 93 Room Air 97.4 05/25/17 20:00 100 Intake and Output 05/25/17 05/26/17 19:00 07:00 Intake Total 510 ml Output Total 1500 ml Balance -990 ml Intake Oral 510 ml Output Urine Total 1500 ml # Voids 1 # Bowel Movements 1 Height (Feet): 5 Height (Inches): 4.00 Weight (Pounds): 150 General Appearance: no apparent distress, alert, confused Emanuel Partida M.D. May 26, 2017 18:49
--- NOTE | 2017-05-26 18:50 | Psych Consult Progress Note ---
Psych Consult Progress Note Consult 05/24/17 encephalopathy dementia namenda 15mg q daily provided ro/st Vital Signs Last 24 Hour Vital Signs Date Time Temp Pulse Resp B/P (MAP) Pulse Ox O2 Delivery O2 Flow Rate FiO2 05/26/17 16:00 108 05/26/17 16:00 97.6 102 20 124/74 92 Room Air 97.6 05/26/17 12:00 98.0 103 20 122/78 94 Room Air 98.0 05/26/17 12:00 107 05/26/17 09:00 103/58 05/26/17 08:00 97.8 93 20 103/58 96 Room Air 97.8 05/26/17 08:00 96 05/26/17 04:00 99 05/26/17 04:00 96.3 93 20 145/77 96 Room Air 96.3 05/26/17 00:00 98.1 88 19 131/62 95 Room Air 98.1 05/26/17 00:00 94 05/25/17 20:00 97.4 19 122/69 93 Room Air 97.4 05/25/17 20:00 100 Medications Current Medications Medications (Trade) Dose Ordered Sig/Leona Route PRN Reason Start Time Stop Time Status Last Admin Dose Admin Acetaminophen (Tylenol) 650 mg Q4H PRN ORAL Mild Pain (Pain Scale 1-3) 05/24/17 18:15 06/23/17 18:14 05/25/17 09:03 Acetaminophen (Tylenol) 650 mg Q4H PRN ORAL fever 05/24/17 18:15 06/23/17 18:14 Atorvastatin Calcium (Lipitor) 20 mg BEDTIME ORAL 05/25/17 21:00 06/24/17 20:59 05/25/17 21:07 Bisacodyl (Dulcolax) 10 mg DAILYPRN PRN RECTAL Constipation 05/24/17 18:15 06/23/17 18:14 Cefepime HCl 2 gm/ Dextrose 110 ml @ 220 mls/hr Q12HR@1000,2200 IVPB 05/24/17 22:00 05/31/17 21:59 05/26/17 09:01 Dextrose (Dextrose 50%) 25 ml STAT PRN IV BS between 60-69 mg/dL 05/24/17 20:15 06/23/17 20:14 Dextrose (Dextrose 50%) 50 ml STAT PRN IV Hypoglycemia BS<60 mg/dL 05/24/17 21:45 06/23/17 21:44 Docusate Sodium (Colace) 100 mg EVERY 12 HOURS ORAL 05/24/17 21:00 06/23/17 20:59 05/26/17 09:01 Gabapentin (Neurontin) 300 mg BID ORAL 05/25/17 18:00 06/24/17 17:59 05/26/17 18:16 Insulin Aspart (NovoLOG) BEFORE MEALS AND HS SUBQ 05/25/17 06:30 06/24/17 06:29 05/26/17 06:14 Insulin Detemir (Levemir) 12 units Q24H SUBQ 05/26/17 18:00 06/25/17 17:59 Losartan Potassium (Cozaar) 50 mg DAILY ORAL 05/26/17 09:00 06/25/17 08:59 Morphine Sulfate (Morphine Sulfate) 2 mg Q4H PRN IVP Moderate Pain (Pain Scale 4-6) 05/24/17 18:15 05/31/17 18:14 05/24/17 23:24 Morphine Sulfate (Morphine Sulfate) 4 mg Q4H PRN IVP Severe Pain (Pain Scale 7-10) 05/24/17 18:15 05/31/17 18:14 05/26/17 03:01 Ondansetron HCl (Zofran) 4 mg Q6H PRN IVP Nausea & Vomiting 05/24/17 18:15 06/23/17 18:14 Polyethylene Glycol (Miralax) 17 gm DAILYPRN PRN ORAL Constipation 05/24/17 18:15 06/23/17 18:14 Spironolactone (Aldactone) 25 mg BID ORAL 05/26/17 09:00 06/25/17 08:59 05/26/17 18:17 Vancomycin HCl (Vanco rx to dose) 1 ea DAILYPRN PRN MISC Per rx protocol 05/24/17 18:15 06/23/17 18:14 Vancomycin HCl/ Dextrose 250 ml @ 166.667 mls/hr Q24H IVPB 05/25/17 12:00 05/30/17 11:59 05/26/17 12:56 Emanuel Partida M.D. May 26, 2017 18:50
[2017-05-26 20:00] VITALS: BP 94/63
[2017-05-26] MEDS: Atorvastatin 20mg tab ORAL SCH ×2 (20:13→21:00)
[2017-05-26] MEDS ORDERED: Miralax 17gm pkt ORAL PRN (21:00)
[2017-05-26] MEDS ORDERED: Morphine Sulfate 4mg/ml Inj IVP PRN (21:00)
--- NOTE | 2017-05-26 21:00 | Consultation ---
DATE OF CONSULTATION: 05/27/2015 HEMATOLOGY/ONCOLOGY CONSULTATION CONSULTING PHYSICIAN: Baldemar Perez M.D. REQUESTING PHYSICIAN: Frankie Greene M.D. and Addie Elliott M.D. REASON FOR CONSULTATION: Thrombocytopenia. IDENTIFYING DATA: Dear Dr. Real and Dr. Greene, The patient is a pleasant 77-year-old female with past medical history significant for diabetes mellitus and hypertension, at this time presents to the ER with complaint of midsternal chest pain and is reported to be epigastric. Subsequently, chest pain improved. The patient denies any shortness of breath. No fever. No chills. No nausea. No vomiting. Prior CVA noted, left-sided weakness. The patient was recently out of town and recently has been living with her son for the past several months. EKG with nonspecific T-wave changes. The patient, therefore, admitted to [facility] and Hematology Service was consulted for evaluation of the patient's thrombocytopenia, currently 95,000. PAST MEDICAL HISTORY: Hypertension, diabetes, and CVA with left-sided weakness. FAMILY HISTORY: Noncontributory. SOCIAL HISTORY: Lives at home. No alcohol, tobacco, or illicit drug use. REVIEW OF SYSTEMS: CONSTITUTIONAL: No fevers, chills, or night sweats. SKIN: No rashes, bumps, or itching. HEENT: No headache, hearing or vision changes. BREASTS: No lumps, pain, or discharge. PULMONARY: No cough, sputum, or shortness of breath. GASTROINTESTINAL: No nausea, vomiting, or diarrhea. GENITOURINARY: No dysuria, frequency, or urgency. MUSCULOSKELETAL: No joint swelling, muscle pain, or trauma. PHYSICAL EXAMINATION: VITAL SIGNS: Reviewed. GENERAL: No distress. PULMONARY: Decreased breath sounds. CARDIOVASCULAR: Regular rate. No S3 or S4. ABDOMEN: Soft, nontender, and nondistended. EXTREMITIES: No cyanosis, swelling, or edema noted. LABORATORY AND DIAGNOSTIC DATA: WBC 8.4, hemoglobin 12.3, hematocrit 37, and platelet count 97,000. Chemistry, BUN of 18, creatinine 1.3. Triglycerides 196 and HDL 31. INR 0.9. Hepatitis panel and HIV are pending at this time, have been ordered. ASSESSMENT AND RECOMMENDATIONS: 1. Thrombocytopenia, etiology yet unknown. This is the patient's first admission here at this hospital of [facility]. Therefore, the patient's baseline is unknown. Obtain ultrasound of the abdomen. In addition, obtain HIV and hepatitis panel, currently pending at this time. 2. Diabetes mellitus, A1c goal less than 7. Closely monitor and blood sugar goal between 118 and 120. 3. Chest pain, rule out acute coronary syndrome. Seen by Cardiology. EKG, nonspecific T-wave changes. Not stable for stress test yet. Continue to follow Dr. Valenzuela. 4. Diskitis. She is on antibiotics, broad-spectrum. 5. Hypertension, on antihypertensive. 6. Awaiting transfer to [facility] for spine surgery evaluation. I appreciate the consultation. Baldemar Perez M.D. DR: TORRES JOB#: [id number] CC:
[2017-05-27] VITALS: BP 110/63
[2017-05-27 04:00] VITALS: BP 104/64
[2017-05-27] MEDS: NovoLOG Insulin Flexpen SUBQ SCH ×4 (06:09→20:58)
[2017-05-27 07:38] LABS: HEMATOCRIT 34.7 % (37.0-47.0); HEMOGLOBIN 12.3 G/DL (12.0-16.0); MEAN CORPUSCULAR VOLUME 87 FL (80-99); PLATELET COUNT 94 K/UL (150-450); RED BLOOD COUNT 3.99 M/UL (4.20-5.40); RED CELL DISTRIBUTION WIDTH 11.1 % (11.6-14.8); WHITE BLOOD COUNT 9.9 K/UL (4.8-10.8)
[2017-05-27 08:00] VITALS: BP 111/68
[2017-05-27 08:15] LABS: ANION GAP 6 mmol/L (5-15); BLOOD UREA NITROGEN 22 mg/dL (7-18); CALCIUM 9.3 MG/DL (8.5-10.1); CARBON DIOXIDE 26 MMOL/L (21-32); CHLORIDE 101 MMOL/L (98-107); CREATININE 1.3 MG/DL (0.55-1.30); POTASSIUM 4.2 MMOL/L (3.5-5.1); SODIUM 133 MMOL/L (136-145)
[2017-05-27] MEDS ORDERED: Memantine 5 MG TAB ORAL SCH ×2 (09:00)
[2017-05-27] MEDS ORDERED: Losartan 50mg tab ORAL SCH (09:00)
--- NOTE | 2017-05-27 09:24 | Diagnostic Imaging Report ---
Indication:Abdominal pain Technique: Grayscale and duplex Doppler imaging of the abdomen performed. Comparison: None Findings: The liver, demonstrated part of the pancreas, gallbladder, aorta and IVC, both kidneys, spleen appear unremarkable. There is no biliary ductal dilatation identified. Aorta is calcified. Doppler evaluation of the main portal vein shows patency. There is no ascites. No hydronephrosis seen. Impression: No acute findings.
[2017-05-27] MEDS: Docusate 100mg cap ORAL SCH ×2 (09:25→20:57)
[2017-05-27] MEDS: Spironolactone 25mg tab ORAL SCH ×2 (09:25→20:57)
[2017-05-27] MEDS: Cefepime HCl 2 GM in D5W 110 ML IVPB SCH ×2 (09:45→20:57)
[2017-05-27] MEDS: Morphine Sulfate 4mg/ml Inj IVP PRN ×2 (09:46→15:32)
[2017-05-27 12:00] VITALS: BP 107/77
[2017-05-27] MEDS ORDERED: Vancomycin 1250mg/D5W 250ml 250 ML IVPB SCH (12:00)
[2017-05-27] MEDS ORDERED: Tubing IV Secondary IV ONE (14:58)
[2017-05-27] MEDS ORDERED: NS 275ml ONE (14:58)
[2017-05-27 16:00] VITALS: BP 117/71
--- NOTE | 2017-05-27 16:07 | Cardiac Electrophysiology PN ---
Assessment/Plan Assessment/Plan 1. Chest pain. Ruled out for myocardial infarction. Her EKG shows nonspecific T -wave abnormalities. Echocardiogram that showed ejection fraction of 55% to 60%. The patient's pain may be secondary to her diskitis. Not stable for stress test yet. 2. Hypertension.On Losartan and Aldactone 3. Diabetes. 4. Diskitis.On Abx. Awaiting transfer to [facility] for spine surgery eval but no bed so far. Subjective Subjective Has mostly back pain and arm pains. Family at bedside.. No arrhythmias on tele.Transferred to [facility] Objective Last 24 Hour Vital Signs Date Time Temp Pulse Resp B/P (MAP) Pulse Ox O2 Delivery O2 Flow Rate FiO2 05/27/17 15:32 99.5 05/27/17 13:44 116 20 93 Room Air 05/27/17 12:00 99.5 128 20 107/77 93 Room Air 99.5 05/27/17 10:16 98.6 05/27/17 09:46 98.6 05/27/17 09:00 111/68 05/27/17 08:00 98.6 118 20 111/68 93 Room Air 98.6 05/27/17 04:00 98.1 113 22 104/64 95 98.1 05/27/17 00:00 98.6 117 20 110/63 95 98.6 05/26/17 23:41 97.5 05/26/17 23:11 97.5 05/26/17 20:00 97.5 97 18 94/63 95 Room Air 97.5 05/26/17 20:00 96 Intake and Output 05/26/17 05/27/17 19:00 07:00 Intake Total 110 ml Balance 110 ml IV Total 110 ml # Voids 2 Laboratory Tests Test 05/27/17 07:10 05/27/17 10:50 White Blood Count 9.9 K/UL (4.8-10.8) Red Blood Count 3.99 M/UL (4.20-5.40) L Hemoglobin 12.3 G/DL (12.0-16.0) Hematocrit 34.7 % (37.0-47.0) L Mean Corpuscular Volume 87 FL (80-99) Mean Corpuscular Hemoglobin 30.7 PG (27.0-31.0) Mean Corpuscular Hemoglobin Concent 35.3 G/DL (32.0-36.0) Red Cell Distribution Width 11.1 % (11.6-14.8) L Platelet Count 94 K/UL (150-450) L Mean Platelet Volume 6.9 FL (6.5-10.1) Neutrophils (%) (Auto) % (45.0-75.0) Lymphocytes (%) (Auto) % (20.0-45.0) Monocytes (%) (Auto) % (1.0-10.0) Eosinophils (%) (Auto) % (0.0-3.0) Basophils (%) (Auto) % (0.0-2.0) Differential Total Cells Counted 100 Neutrophils % (Manual) 68 % (45-75) Lymphocytes % (Manual) 21 % (20-45) Monocytes % (Manual) 7 % (1-10) Eosinophils % (Manual) 4 % (0-3) H Basophils % (Manual) 0 % (0-2) Band Neutrophils 0 % (0-8) Platelet Estimate Decreased L Platelet Morphology Normal Red Blood Cell Morphology Normal Sodium Level 133 MMOL/L (136-145) L Potassium Level 4.2 MMOL/L (3.5-5.1) Chloride Level 101 MMOL/L (98-107) Carbon Dioxide Level 26 MMOL/L (21-32) Anion Gap 6 mmol/L (5-15) Blood Urea Nitrogen 22 mg/dL (7-18) H Creatinine 1.3 MG/DL (0.55-1.30) Estimat Glomerular Filtration Rate mL/min (>60) Glucose Level 168 MG/DL (74-106) H Calcium Level 9.3 MG/DL (8.5-10.1) Hepatitis A IgM Antibody Pending Hepatitis B Surface Antigen Pending Hepatitis B Core IgM Antibody Pending Hepatitis C Antibody Pending HIV (1&2) Antibody Rapid Negative (NEGATIVE) Vancomycin Level Trough 15.8 ug/mL (5.0-12.0) H Objective HEAD AND NECK: Shows no JVD or carotid bruits. LUNGS: Clear. CARDIOVASCULAR: Shows regular S1 and S2 with no gallop or murmur. ABDOMEN: Soft. EXTREMITIES: No pitting edema. Thomas Valenzuela MD May 27, 2017 16:07
--- NOTE | 2017-05-27 16:15 | Infectious Diseases Prog Note ---
Assessment/Plan Assessment/Plan ASSESSMENT AND PLAN: 1. T4-T5 discitis/osteomyelitis with destructive vertebral changes seen on MRI of thoracic spine, no epidural abscess mentioned, severe spinal stenosis, elevated sed rate - continue vancomycin and cefepime - day # 4 - transfer to higher level of care pending, spine surgery evaluation - neurology recs pending - check labs and blood cultures - d/w Dr. Real - d/w family 2. The patient has diabetes. 3. Hypertension. 4. Cerebrovascular accident. 5. Weakness. 6. Wheelchair-bound. 7. History of urinary tract infections per the patient. 8. No history of cancer. 9. Weakness secondary to cerebrovascular accident. 10. Past medical history is noted. 11. No known allergies. 12. Social history negative. 13. Family history noncontributory. 14. MAR was noted. 15. Case discussed with RN. 16. Case discussed with Dr. Real. 17. Continue treatment per primary consultants. 18. Skin care protocol. 19. Orders were noted. 20. Notes and records were noted. Subjective Constitutional: Reports: fatigue; Denies: fever Respiratory: Denies: shortness of breath Cardiovascular: Denies: chest pain Gastrointestinal/Abdominal: Denies: nausea, vomiting, diarrhea Neurologic: Reports: weakness Psychiatric: Denies: depression Skin: Denies: rash Hematologic: Denies: bleeding Musculoskeletal: Denies: pain Allergies: Coded Allergies: No Known Allergies (Unverified , 05/24/17) Objective Vital Signs Last 24 Hour Vital Signs Date Time Temp Pulse Resp B/P (MAP) Pulse Ox O2 Delivery O2 Flow Rate FiO2 05/27/17 15:32 99.5 05/27/17 13:44 116 20 93 Room Air 05/27/17 12:00 99.5 128 20 107/77 93 Room Air 99.5 05/27/17 10:16 98.6 05/27/17 09:46 98.6 05/27/17 09:00 111/68 05/27/17 08:00 98.6 118 20 111/68 93 Room Air 98.6 05/27/17 04:00 98.1 113 22 104/64 95 98.1 05/27/17 00:00 98.6 117 20 110/63 95 98.6 05/26/17 23:41 97.5 4/6/18 23:11 97.5 05/26/17 20:00 97.5 97 18 94/63 95 Room Air 97.5 05/26/17 20:00 96 Height (Feet): 5 Height (Inches): 4.00 Weight (Pounds): 150 General Appearance: no acute distress HEENT: normocephalic, atraumatic, anicteric, mucous membranes moist Respiratory/Chest: lungs clear, normal breath sounds, no respiratory distress, no accessory muscle use Cardiovascular: normal rate, regular rhythm, no gallop/murmur, no JVD Abdomen: normal bowel sounds, soft, non tender, no organomegaly, non distended Genitourinary: other - no cowan Extremities: no cyanosis Skin: no rash 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 No well-defined/drainable fluid collection at this time. There is associated focal kyphosis and retropulsion of bone and focal severe canal stenosis without definite focal cord signal abnormality at this time. Correlation with neurologic exam recommended. Edema in the spinous process and intraspinous region/posterior elements may suggest traumatic component on top of infection. Laboratory Tests Test 05/27/17 07:10 05/27/17 10:50 White Blood Count 9.9 K/UL (4.8-10.8) Red Blood Count 3.99 M/UL (4.20-5.40) L Hemoglobin 12.3 G/DL (12.0-16.0) Hematocrit 34.7 % (37.0-47.0) L Mean Corpuscular Volume 87 FL (80-99) Mean Corpuscular Hemoglobin 30.7 PG (27.0-31.0) Mean Corpuscular Hemoglobin Concent 35.3 G/DL (32.0-36.0) Red Cell Distribution Width 11.1 % (11.6-14.8) L Platelet Count 94 K/UL (150-450) L Mean Platelet Volume 6.9 FL (6.5-10.1) Neutrophils (%) (Auto) % (45.0-75.0) Lymphocytes (%) (Auto) % (20.0-45.0) Monocytes (%) (Auto) % (1.0-10.0) Eosinophils (%) (Auto) % (0.0-3.0) Basophils (%) (Auto) % (0.0-2.0) Differential Total Cells Counted 100 Neutrophils % (Manual) 68 % (45-75) Lymphocytes % (Manual) 21 % (20-45) Monocytes % (Manual) 7 % (1-10) Eosinophils % (Manual) 4 % (0-3) H Basophils % (Manual) 0 % (0-2) Band Neutrophils 0 % (0-8) Platelet Estimate Decreased L Platelet Morphology Normal Red Blood Cell Morphology Normal Sodium Level 133 MMOL/L (136-145) L Potassium Level 4.2 MMOL/L (3.5-5.1) Chloride Level 101 MMOL/L (98-107) Carbon Dioxide Level 26 MMOL/L (21-32) Anion Gap 6 mmol/L (5-15) Blood Urea Nitrogen 22 mg/dL (7-18) H Creatinine 1.3 MG/DL (0.55-1.30) Estimat Glomerular Filtration Rate mL/min (>60) Glucose Level 168 MG/DL (74-106) H Calcium Level 9.3 MG/DL (8.5-10.1) Hepatitis A IgM Antibody Pending Hepatitis B Surface Antigen Pending Hepatitis B Core IgM Antibody Pending Hepatitis C Antibody Pending HIV (1&2) Antibody Rapid Negative (NEGATIVE) Vancomycin Level Trough 15.8 ug/mL (5.0-12.0) H Current Medications Medications (Trade) Dose Ordered Sig/Leona Route PRN Reason Start Time Stop Time Status Last Admin Dose Admin Acetaminophen (Tylenol) 650 mg Q4H PRN ORAL Mild Pain (Pain Scale 1-3) 05/26/17 21:00 06/23/17 20:59 Acetaminophen (Tylenol) 650 mg Q4H PRN ORAL fever 05/26/17 21:00 06/23/17 20:59 Atorvastatin Calcium (Lipitor) 20 mg BEDTIME ORAL 05/26/17 21:00 06/24/17 20:59 Bisacodyl (Dulcolax) 10 mg DAILYPRN PRN RECTAL Constipation 05/26/17 21:00 06/25/17 20:59 Cefepime HCl 2 gm/ Dextrose 110 ml @ 220 mls/hr Q12HR@1000,2200 IVPB 05/26/17 22:00 05/31/17 21:59 05/27/17 09:45 Dextrose (Dextrose 50%) 25 ml STAT PRN IV BS between 60-69 mg/dL 05/27/17 20:15 06/23/17 20:14 Dextrose (Dextrose 50%) 50 ml STAT PRN IV Hypoglycemia BS<60 mg/dL 05/26/17 21:45 06/23/17 21:44 Docusate Sodium (Colace) 100 mg EVERY 12 HOURS ORAL 05/26/17 21:00 06/23/17 20:59 05/27/17 09:25 Gabapentin (Neurontin) 300 mg BID ORAL 05/27/17 09:00 06/24/17 17:59 05/27/17 09:25 Insulin Aspart (NovoLOG) BEFORE MEALS AND HS SUBQ 05/26/17 21:00 06/24/17 06:29 05/27/17 12:41 Insulin Detemir (Levemir) 12 units Q24H SUBQ 05/27/17 18:00 06/25/17 17:59 Losartan Potassium (Cozaar) 50 mg DAILY ORAL 05/27/17 09:00 06/25/17 08:59 Memantine (Namenda) 5 mg DAILY ORAL 05/27/17 09:00 06/26/17 08:59 05/27/17 09:25 Morphine Sulfate (Morphine Sulfate) 2 mg Q4H PRN IVP Moderate Pain (Pain Scale 4-6) 05/26/17 21:00 05/31/17 20:59 05/27/17 15:32 Morphine Sulfate (Morphine Sulfate) 4 mg Q4H PRN IVP Severe Pain (Pain Scale 7-10) 05/26/17 21:00 05/31/17 20:59 05/26/17 23:11 Ondansetron HCl (Zofran) 4 mg Q6H PRN IVP Nausea & Vomiting 05/26/17 21:00 06/25/17 20:59 Polyethylene Glycol (Miralax) 17 gm DAILYPRN PRN ORAL Constipation 05/26/17 21:00 06/25/17 20:59 Spironolactone (Aldactone) 25 mg Q12HR ORAL 05/27/17 09:00 06/26/17 08:59 05/27/17 09:25 Vancomycin HCl (Vanco rx to dose) 1 ea DAILYPRN PRN MISC Per rx protocol 05/26/17 21:00 06/25/17 20:59 Vancomycin HCl/ Dextrose 250 ml @ 166.667 mls/hr Q24H IVPB 05/27/17 12:00 05/30/17 11:59 05/27/17 12:40 MALKA MARINO May 27, 2017 16:15
[2017-05-27] MEDS ORDERED: Levemir Flexpen SUBQ SCH (18:00)
--- NOTE | 2017-05-27 18:11 | Cardiology Report ---
APPROVED REPORT EXAM: Two-dimensional and M-mode echocardiogram with Doppler and color Doppler. INDICATION Chest Pain M-Mode DIMENSIONS IVSd1.2 (0.7-1.1cm)Left Atrium (MM)1.9 (1.6-4.0cm) LVDd3.0 (3.5-5.6cm)Aortic Root2.8 (2.0-3.7cm) PWd1.0 (0.7-1.1cm)Aortic Cusp Exc.1.4 (1.5-2.0cm) LVDs1.8 (2.5-4.0cm) PWs1.4 cm Technically difficult study due to poor acoustic windows. Study quality precludes accurate assessment of regional wall motion. Normal left ventricular chamber size, systolic function and wall motion. Left ventricular ejection fraction estimated to be 65 %. Mild left ventricular hypertrophy. Anterior Echo-free space, may be due to pericardial fat or effusion. All other cardiac chamber sizes are within normal limits. Mild focal aortic valve sclerosis with adequate cusp excursion. Mildly thickened mitral valve leaflets with normal excursion. Mild mitral annulus and aortic root calcification. Normal pulmonic valve structure. Normal tricuspid valve structure. IVC is normal in size without physiological collapse. A color flow and spectral Doppler study was performed and revealed: No aortic insufficiency. No mitral regurgitation. Mitral diastolic velocities suggest mild left ventricular diastolic dysfunction (Grade I). Trace tricuspid regurgitation. Tricuspid systolic velocities suggests peak right ventricular systolic pressure of 35 mmHg, consistent with mild pulmonary hypertension. Trace pulmonic regurgitation present.
[2017-05-27 20:00] VITALS: BP 125/69
[2017-05-27] MEDS: Atorvastatin 20mg tab ORAL SCH (20:57)
[2017-05-27] MEDS ORDERED: ACETAMINOPHEN325 M1 ORAL (22:06)
[2017-05-27] MEDS ORDERED: DULCOLAX10 MG RC (22:11)
[2017-05-27] MEDS ORDERED: COLACE100 MG ORAL (22:12)
[2017-05-27] MEDS ORDERED: CEFEPIME-D2 GM/50 ML IVPB (22:12)
[2017-05-27] MEDS ORDERED: NEURONTIN100 MG ORAL (22:15)
[2017-05-27] MEDS ORDERED: NAMENDA5 MG ORAL (22:16)
[2017-05-27] MEDS ORDERED: NOVOLOG100 UNITS1 SQ (22:16)
[2017-05-27] MEDS ORDERED: LEVEMIR FL100 UNIT/1 SUBQ (22:16)
[2017-05-27] MEDS ORDERED: ZOFRAN 4 MG4 MG/2 ML IV (22:17)
[2017-05-27] MEDS ORDERED: MORPHINE 22 MG/1 ML IV (22:17)
[2017-05-27] MEDS ORDERED: MIRALAX17 G2 ORAL (22:17)
[2017-05-27] MEDS ORDERED: VANCOMYCIN1 GM/2502 IVPB (22:18)
[2017-05-27] MEDS ORDERED: SPIRONOLACTONE25 MG ORAL (22:18)
--- NOTE | 2017-05-28 00:32 | General Progress Note ---
Assessment/Plan Assessment/Plan 1. Thrombocytopenia, etiology yet unknown. --> This is the patient's first admission here at [facility]. --> Therefore, the patient's baseline is unknown. --> Obtain ultrasound of the abdomen. In addition, obtain HIV and hepatitis panel, currently pending at this time. --> Monitor closely and trend cbc 2. Diabetes mellitus, A1c goal less than 7. --> Closely monitor and blood sugar goal between 118 and 120. 3. Chest pain, rule out acute coronary syndrome. --> Seen by Cardiology. EKG, nonspecific T-wave changes. --> Not stable for stress test yet. --> Continue to follow Dr. Valenzuela. 4. Diskitis. --> She is on antibiotics, broad-spectrum. 5. Hypertension, on antihypertensive. 6. Awaiting transfer to [facility] for spine surgery evaluation. Subjective Date patient seen: May 27, 2017 Constitutional: Denies: no symptoms, chills, diaphoresis, fever, malaise, weakness, other HEENT: Denies: no symptoms, eye pain, blurred vision, tearing, double vision, ear pain, ear discharge, nose pain, nose congestion, throat pain, throat swelling, mouth pain, mouth swelling, other Cardiovascular: Denies: no symptoms, chest pain, edema, irregular heart rate, lightheadedness, palpitations, syncope, other Respiratory: Denies: no symptoms, cough, orthopnea, shortness of breath, SOB with excertion, SOB at rest, sputum, stridor, wheezing, other Gastrointestinal/Abdominal: Denies: no symptoms, abdomen distended, abdominal pain, black stools, tarry stools, blood in stool, constipated, diarrhea, difficulty swallowing, nausea, poor appetite, poor fluid intake, rectal bleeding , vomiting, other Genitourinary: Denies: no symptoms, burning, discharge, frequency, flank pain, hematuria, incontinence, pain, urgency, other Neurologic/Psychiatric: Denies: no symptoms, anxiety, depressed, emotional problems, headache, numbness, paresthesia, pre-existing deficit, seizure, tingling, tremors, weakness, other Allergies: Coded Allergies: No Known Allergies (Unverified , 05/24/17) Subjective Platelets low. NAD. On pain control. Objective Last 24 Hour Vital Signs Date Time Temp Pulse Resp B/P (MAP) Pulse Ox O2 Delivery O2 Flow Rate FiO2 05/27/17 20:00 98.9 118 20 125/69 93 98.9 05/27/17 16:02 99.5 05/27/17 16:00 99.5 126 20 117/71 96 Room Air 99.5 05/27/17 15:32 99.5 05/27/17 13:44 116 20 93 Room Air 05/27/17 12:00 99.5 128 20 107/77 93 Room Air 99.5 05/27/17 09:46 98.6 05/27/17 09:00 111/68 05/27/17 08:00 98.6 118 20 111/68 93 Room Air 98.6 05/27/17 04:00 98.1 113 22 104/64 95 98.1 Intake and Output 05/27/17 05/28/17 19:00 07:00 Intake Total 840.000 ml 110 ml Output Total 600 ml 400 ml Balance 240.000 ml -290 ml Intake Oral 480 ml IV Total 360.000 ml 110 ml Output Urine Total 600 ml 400 ml # Bowel Movements 1 Laboratory Tests 05/27/17 07:10: White Blood Count 9.9, Red Blood Count 3.99L, Hemoglobin 12.3, Hematocrit 34.7L , Mean Corpuscular Volume 87, Mean Corpuscular Hemoglobin 30.7, Mean Corpuscular Hemoglobin Concent 35.3, Red Cell Distribution Width 11.1L, Platelet Count 94L, Mean Platelet Volume 6.9, Neutrophils (%) (Auto) , Lymphocytes (%) (Auto) , Monocytes (%) (Auto) , Eosinophils (%) (Auto) , Basophils (%) (Auto) , Differential Total Cells Counted 100, Neutrophils % ( Manual) 68, Lymphocytes % (Manual) 21, Monocytes % (Manual) 7, Eosinophils % ( Manual) 4H, Basophils % (Manual) 0, Band Neutrophils 0, Platelet Estimate DecreasedL, Platelet Morphology Normal, Red Blood Cell Morphology Normal, Sodium Level 133L, Potassium Level 4.2, Chloride Level 101, Carbon Dioxide Level 26, Anion Gap 6, Blood Urea Nitrogen 22H, Creatinine 1.3, Estimat Glomerular Filtration Rate , Glucose Level 168H, Calcium Level 9.3, Hepatitis A IgM Antibody [Pending], Hepatitis B Surface Antigen [Pending], Hepatitis B Core IgM Antibody [Pending], Hepatitis C Antibody [Pending], HIV (1&2) Antibody Rapid Negative 05/27/17 10:50: Vancomycin Level Trough 15.8H Height (Feet): 5 Height (Inches): 4.00 Weight (Pounds): 150 General Appearance: no apparent distress Respiratory/Chest: decreased breath sounds Abdomen: soft Baldemar Perez MD May 28, 2017 00:32
--- NOTE | 2017-05-29 21:44 | General Progress Note ---
Assessment/Plan Assessment/Plan encephalopathy dementia namenda 15mg q daily provided ro/st Subjective Date patient seen: May 27, 2017 Neurologic/Psychiatric: Reports: anxiety, depressed, emotional problems Allergies: Coded Allergies: No Known Allergies (Unverified , 05/24/17) Objective Height (Feet): 5 Height (Inches): 4.00 Weight (Pounds): 150 Emanuel Partida M.D. May 29, 2017 21:44
--- NOTE | 2017-05-31 07:03 | Discharge Summary ---
Discharge Summary Hospital Course Date of Admission May 24, 2017 at 17:25 Date of Discharge May 27, 2017 at 22:30 Admitting Diagnosis Chest and back pain, T4/5 diskitis/osteomyelitis Reason for Hospitalization: Chest pain, T4/5 diskitis/ostemyelitis HPI 77y/o female with pmh of HLD, HTN, DM2, CVA w/ L sided hemiparesis, dementia who presents with chest and back pain. Pt poor historian. Per family, pt with increased chest pain radiating to back, worsening over the past several weeks. Denies f/c, n/v, d/c, abd pain. Pt originally from [place] and is visiting family here in [place] for the past few months. Pt had pneumonia earlier this year which has now resolved. Pt's son reports that he does lift her from wheelchair to bed and does have to give her a bearhug type lift which could have started the discomfort. Per family, pt has no known spine disease. Pt L sided weakness since CVA and is wheel-chair dependent. Pt also w/ R sided weakness which has been present for several months. In ED, trop neg. CT chest/abd/pelvis which showed "destructive bony process at T4-T5 with fragmentation of the vertebral bodies, paraspinal soft tissue infiltration and approximately 4 to 5 mm of retropulsion of debris into the canal; findings are concerning for discitis/ osteomyelitis". Consultations Neurology, Cardiology, Infectious disease Hospital Course Pt was admitted and seen by cardiology. She was ruled out for ACS with serial trop/EKG. Pt was found to have concern for T4-T5 diskitis/osteomyelitis on CT. MRI T spine showed destructive process at T4-T5 with significant paraspinal edema concerning for discitis/osteomyelitis; no well-defined/drainable fluid collection at this time; there is associated focal kyphosis and retropulsion of bone and focal severe canal stenosis without definite focal cord signal abnormality at this time. TLSO back brace ordered. Attempted to consult spine surgeon at [facility] but all state that they are unavailable. Since no spine surgeon available, call placed to [facility] transfer [place] with request to transfer for spine surgery evaluation. ID consulted and pt started on vanco + cefepime. Pt was ultimately transferred to [facility] for further evaluation. Discharge physical exam: General: alert, cooperative, no distress, appears stated age Head: normocephalic, without obvious abnormality, atraumatic Eyes: conjunctivae/corneas clear. PERRL, EOM's intact Throat: lips, mucosa, and tongue normal. MMM Neck: supple, symmetrical, trachea midline, and no JVD Lungs: clear to auscultation bilaterally Heart: regular rate and rhythm, S1, S2 normal, no murmur, click, rub or gallop Abdomen: soft, non-tender, non-distended, bowel sounds normal; no masses or organomegaly Extremities: extremities normal, atraumatic, no cyanosis or edema MSK: +TTP of upper chest and mid back Pulses: 2+ and symmetric Skin: skin color, texture, turgor normal; no rashes or lesions Neurologic: Slight facial asymmetry; Motor strength 1/5 left upper extremity, 0/ 5 left lower extremity, 0/5 right lower extremity. Deep tendon reflexes 2+ at biceps, triceps, brachioradialis. Absent both knee and ankle jerks. Plantar responses, positive Babinski in the left. Mute on the right. Discharge diagnoses: (1) T4-T5 discitis/osteomyelitis (2) Chest pain ICD Codes: R07.9 - Chest pain, unspecified SNOMED: 88663997 (3) DM2 (diabetes mellitus, type 2) ICD Codes: E11.9 - Type 2 diabetes mellitus without complications SNOMED: 22788270 (4) CVA with L hemiparesis (5) HTN (hypertension) ICD Codes: I10 - Essential (primary) hypertension SNOMED: 06287908 (6) HLD (hyperlipidemia) ICD Codes: E78.5 - Hyperlipidemia, unspecified SNOMED: 08832699 (7) Dementia ICD Codes: F03.90 - Unspecified dementia without behavioral disturbance SNOMED: 52207879 (8) Hyponatremia ICD Codes: E87.1 - Hypo-osmolality and hyponatremia Discharge Medications Continued Medications: Acetaminophen* (Acetaminophen 325MG Tablet*) 325 Mg Tablet 650 MG ORAL Q4H PRN for Mild Pain/Temp > 100.5, TAB (This prescription has been renewed) Atorvastatin Calcium* (Atorvastatin Calcium*) 20 Mg Tablet 20 MG ORAL BEDTIME, TAB (This prescription has been renewed) Bisacodyl (Dulcolax) 10 Mg Supp.rect 10 MG RC DAILY PRN for Constipation, SUPP (This prescription has been renewed) Cefepime Hcl/D5w (Cefepime-Dextrose 2 Gm/50 Ml) 2 Gm/50 Ml Piggyback 2 GM IVPB EVERY 12 HOURS, BAG (This prescription has been renewed) Docusate Sodium* (Colace*) 100 Mg Capsule 100 MG ORAL TWICE A DAY, CAP (This prescription has been renewed) Gabapentin* (Neurontin*) 100 Mg Capsule 300 MG ORAL TWICE A DAY, CAP (This prescription has been renewed) Insulin Aspart (Novolog Flexpen) 100 Unit/1 Ml Insuln.pen SQ AC+HS (This prescription has been renewed) Insulin Detemir (Levemir Flexpen) 100 Unit/1 Ml Insuln.pen 12 UNITS SUBQ Q24H, #300 UNITS 0 Refills (This prescription has been renewed) Losartan Potassium* (Losartan Potassium*) 50 Mg Tablet 50 MG ORAL DAILY, TAB (This prescription has been renewed) Memantine Hcl* (Namenda*) 5 Mg Tablet 5 MG ORAL DAILY, TAB (This prescription has been renewed) Morphine Sulfate* (Morphine Sulfate*) 2 Mg/1 Ml Cartridge 2 MG IV Q4HR PRN for Pain Scale (6-10), EA (This prescription has been renewed) Morphine Sulfate* (Morphine Sulfate*) 2 Mg/1 Ml Cartridge 4 MG IV Q4HR PRN for Pain Scale (6-10), EA (This prescription has been renewed) Ondansetron* (Zofran*) 4 Mg/2 Ml Vial 4 MG IV Q6H PRN for Nausea & Vomiting, VIAL (This prescription has been renewed) Polyethylene Glycol 3350* (Miralax*) 17 Gm Powd.pack 17 GM ORAL DAILY PRN for Constipation, PACKET (This prescription has been renewed) Spironolactone* (Aldactone*) 25 Mg Tablet 25 MG ORAL Q12HR, TAB (This prescription has been renewed) Vancomycin Hcl/D5w (Vancomycin-D5w 1 G/250 Ml) 1 Gm/250 Ml Plast..bag 1250 GM IVPB Q24H, BAG (This prescription has been renewed) Discontinued Medications: Aspirin (Aspirin) 500 Mg Tablet 325 MG ORAL DAILY, TAB Gabapentin* (Gabapentin*) 600 Mg Tablet 600 MG ORAL DAILY, TAB Glyburide (Glyburide) 5 Mg Tablet 5 MG PO DAILY, TAB Hydroxyzine Hcl (Hydroxyzine Hcl) 25 Mg Tablet 25 MG PO TID, TAB Spironolact/Hydrochlorothiazid (Spironolactone-Hctz 25-25 Tab) 1 Each Tablet 1 TAB ORAL BID, TAB Verapamil Hcl (Verapamil Er) 240 Mg Cap24h.pel 240 MG PO DAILY, CAP Vitamin D (Vitamin D3) 400 Unit Tablet 25 MCG ORAL PRN, TAB Discharge Condition Upon Discharge: unchanged Discharge Disposition Patient was transferred to [facility] Addie Elliott M.D. May 31, 2017 07:03
--- NOTE | 2017-05-31 17:35 | Cardiology Report ---
APPROVED REPORT EKG Measurement Heart [id number] Sinus tachycardia Nonspecific T wave abnormality Abnormal ECG
== END 2017-05-27 22:30 | disposition short-term general hospital (02) | DRG 539 ==
LOC: EMR 17:01 → 2E 17:25 → EDBEDREQ 17:45 → 4E 05-26 20:55
DX: M46.24 Osteomyelitis of vertebra, thoracic region (principal); G93.40 Encephalopathy, unspecified; G82.20 Paraplegia, unspecified; I69.354 Hemiplegia and hemiparesis following cerebral infarction affecting left non-dominant side; M46.44 Discitis, unspecified, thoracic region; I10 Essential (primary) hypertension; E11.9 Type 2 diabetes mellitus without complications; E78.5 Hyperlipidemia, unspecified; F03.90 Unspecified dementia, unspecified severity, without behavioral disturbance, psychotic disturbance, mood disturbance, and anxiety; M48.04 Spinal stenosis, thoracic region; D69.6 Thrombocytopenia, unspecified; R07.9 Chest pain, unspecified; Z99.3 Dependence on wheelchair
CPT/HCPCS: 36415; 71045; 71250; 72146; 74176; 76700; 80048; 80053; 80061; 80202; 81003; 82550; 82553; 82962; 83036; 83690; 83735; 84443; 84484; 85007; 85025; 85610; 85651; 85730; 86140; 86703; 86705; 86709; 86803; 87040; 87340; 93005; 93306; 99285; J1815; S5561

== ENCOUNTER 2017-07-19 12:06 | Inpatient (IN) | payer MEDICARE, BC ==
[2017-07-19] VITALS (12 sets, daily range): BP systolic 90–126; BP diastolic 52–68
[~2017-07-19] VITALS: Ht 162.6 cm; Wt 72.6 kg
[~2017-07-19 12:06] MED LIST: ACETAMINOPHEN325 M1 ORAL; ASPIRIN500 MG ORAL; ATORVASTATIN CA20 MG ORAL; CEFEPIME-D2 GM/50 ML IVPB; COLACE100 MG ORAL; DULCOLAX10 MG RC; GABAPENTIN600 MG ORAL; GLYBURIDE5 MG PO; HYDROXYZINE HCL25 M1 PO; LEVEMIR FL100 UNIT/1 SUBQ; LOSARTAN POTASS50 MG ORAL; MIRALAX17 G2 ORAL; MORPHINE 22 MG/1 ML IV; NAMENDA5 MG ORAL; NEURONTIN100 MG ORAL; NOVOLOG100 UNITS1 SQ; SPIRONOLACTONE1 EACH ORAL; SPIRONOLACTONE25 MG ORAL; VANCOMYCIN1 GM/2502 IVPB; VERAPAMIL ER240 M2 PO; VITAMIN D400 INTLU ORAL; ZOFRAN 4 MG4 MG/2 ML IV
[2017-07-19] MEDS ORDERED: Cefepime HCl 1 GM in NS 55 ML IV STA (12:27)
[2017-07-19] MEDS ORDERED: NS 1000ml 2,200 ML IVLG ONE (12:30)
[2017-07-19] MEDS ORDERED: Vancomycin 1 GM in NS 275 ML IV ONE (12:30)
[2017-07-19 12:55] LABS: BASOPHILS % (AUTO) 0.5 % (0.0-2.0); EOSINOPHILS % (AUTO) 4.8 % (0.0-3.0); HEMATOCRIT 31.2 % (37.0-47.0); HEMOGLOBIN 10.1 G/DL (12.0-16.0); MEAN CORPUSCULAR VOLUME 91 FL (80-99); MONOCYTES % (AUTO) 6.1 % (1.0-10.0); NEUTROPHILS % (AUTO) 71.6 % (45.0-75.0); PLATELET COUNT 169 K/UL (150-450); RED BLOOD COUNT 3.42 M/UL (4.20-5.40); RED CELL DISTRIBUTION WIDTH 12.7 % (11.6-14.8); WHITE BLOOD COUNT 12.9 K/UL (4.8-10.8)
[2017-07-19] MEDS ORDERED: AMLODIPINE BESYL5 MG ORAL (12:59)
[2017-07-19] MEDS ORDERED: VITAMIN C250 MG ORAL (12:59)
[2017-07-19] MEDS ORDERED: ASPIRIN325 MG ORAL (12:59)
[2017-07-19] MEDS ORDERED: LIPITOR20 MG ORAL (13:00)
[2017-07-19] MEDS ORDERED: LANTUS5 UNITS SUBQ (13:02)
[2017-07-19] MEDS ORDERED: NORCO 5-325 TA1 EACH ORAL (13:02)
[2017-07-19] MEDS ORDERED: HUMALOG KW200 UNIT/1 SQ (13:03)
[2017-07-19] MEDS ORDERED: MELATONIN3 M2 PO (13:04)
[2017-07-19] MEDS ORDERED: METOPROLOL SUCC25 MG ORAL (13:04)
[2017-07-19 13:09] LABS: ANION GAP 13 mmol/L (5-15); BLOOD UREA NITROGEN 36 mg/dL (7-18); CALCIUM 9.6 MG/DL (8.5-10.1); CARBON DIOXIDE 21 MMOL/L (21-32); CHLORIDE 98 MMOL/L (98-107); CREATININE 2.5 MG/DL (0.55-1.30); POTASSIUM 3.8 MMOL/L (3.5-5.1); SODIUM 132 MMOL/L (136-145)
[2017-07-19 13:20] LABS: ALANINE AMINOTRANSFERASE 32 U/L (12-78); ALBUMIN 3.4 G/DL (3.4-5.0); ALBUMIN/GLOBULIN RATIO 0.7 (1.0-2.7); ALKALINE PHOSPHATASE 131 U/L (46-116); ASPARTATE AMINO TRANSFERASE 20 U/L (15-37); BILIRUBIN,TOTAL 0.3 MG/DL (0.2-1.0); CREATINE KINASE 55 U/L (26-308)
[2017-07-19 13:40] LABS: APPEARANCE,URINE CLOUDY; BILIRUBIN, URINE NEGATIVE (NEGATIVE); COLOR,URINE PALE YELLOW; GLUCOSE, URINE (UA) 2+ (NEGATIVE); KETONES,URINE NEGATIVE (NEGATIVE); LEUKOCYTE ESTERASE ,URINE 3+ (NEGATIVE); NITRITE,URINE NEGATIVE (NEGATIVE); PH,URINE 6 (4.5-8.0); PROTEIN,URINE 2+ (NEGATIVE); UROBILINOGEN,URINE NORMAL MG/DL (0.0-1.0)
--- NOTE | 2017-07-19 13:47 | Emergency Room Report ---
History of Present Illness General Chief Complaint: Generalized Weakness Source: Patient, Family Member Present Illness HPI The patient was just discharged from a rehabilitation facility to home. Apparently she was being treated for osteomyelitis of her upper back. The son has noted that the urine is dark and foul-smelling. The patient's complaining about increased weakness as well as upper back pain. Pain initially rated 5/10 - upper back, constant and not radiating. She denies chest pain, headache, NVD, constipation, joint pain (except for her back), rashes. H/O CVA H/O spinal stenosis with urinary incontinence Wheelchair bound She had been transferred to [facility] with these Dx 05/27: (1) T4-T5 discitis/osteomyelitis (2) Chest pain ICD Codes: R07.9 - Chest pain, unspecified SNOMED: 23298138 (3) DM2 (diabetes mellitus, type 2) ICD Codes: E11.9 - Type 2 diabetes mellitus without complications SNOMED: 14781309 (4) CVA with L hemiparesis (5) HTN (hypertension) ICD Codes: I10 - Essential (primary) hypertension SNOMED: 99348527 (6) HLD (hyperlipidemia) ICD Codes: E78.5 - Hyperlipidemia, unspecified SNOMED: 78045346 (7) Dementia ICD Codes: F03.90 - Unspecified dementia without behavioral disturbance SNOMED: 62654012 (8) Hyponatremia ICD Codes: E87.1 - Hypo-osmolality and hyponatremia Allergies: Coded Allergies: No Known Allergies (Unverified , 05/24/17) Patient History Past Medical History: see triage record, old chart reviewed Social History: Denies: smoking, alcohol use Social History Narrative from home with son Reviewed Nursing Documentation: PMH: Agreed; PSxH: Agreed Nursing Documentation-PMH Past Medical History: No History, Except For Hx Hypertension: Yes - osteomyelitis Hx Diabetes: Yes Hx Cancer: No Hx Gastrointestinal Problems: No Hx Cerebrovascular Accident: Yes Review of Systems All Other Systems: negative except mentioned in HPI Physical Exam Vital Signs Date Time Temp Pulse Resp B/P (MAP) Pulse Ox O2 Delivery O2 Flow Rate FiO2 07/19/17 12:16 97.9 110 18 120/74 97 Room Air 97.9 Sp02 EP Interpretation: reviewed, normal General Appearance: other - very weak - unable to hold up head on own, Chronically Ill Head: normocephalic, atraumatic Eyes: bilateral eye normal inspection, bilateral eye PERRL ENT: moist mucus membranes Neck: full range of motion, supple, no meningismus, no bony tend Respiratory: lungs clear, normal breath sounds Cardiovascular #1: regular rate, rhythm Cardiovascular #2: 2+ radial (R) Gastrointestinal: normal inspection, normal bowel sounds, non tender, no mass, non-distended Genitourinary: no CVA tenderness Musculoskeletal: digits/nails normal, no calf tenderness, Isra's Sign negative , other - T spine tenderness Neurologic: alert, assisted living assistant III-XII nml as tested, motor weakness - LE - bilaterally , oriented - X2 Psychiatric: depressed affect Reflexes: 1+ knee (R), 1+ knee (L) Skin: normal inspection, warm/dry Medical Decision Making Diagnostic Impression: Primary Impression: Sepsis Qualified Codes: A41.9 - Sepsis, unspecified organism Additional Impressions: UTI (urinary tract infection) Qualified Codes: N39.0 - Urinary tract infection, site not specified Renal failure Qualified Codes: N17.9 - Acute kidney failure, unspecified ER Course Patient presents with weakness and urinary changes. DDX: UTI, sepsis, electrolyte abnormality, AMI, partially treated osteomyelitis amongst others. Evaluation with EKG, CXR, UA, sepsis workup. Treatment with fluid resuscitation and antibiotic coverage with presumptive urinary source. Records from [facility] need to be reviewed. Patient weak and respiratory status needs evaluation with ABG. EKG ST without injury. CXR no infiltrates. Labs with elevated WBC, lactate, renal function and pyuria. (Prior renal function normal.) Patient markedly improved with fluid resuscitation. C/O pain in upper back. Morphine ordered with good results. Admitted to telemetry Dr. Greene (contact Ms. Eduardo). Laboratory Tests Test 07/19/17 12:40 07/19/17 13:05 07/19/17 13:25 07/19/17 15:47 White Blood Count 12.9 K/UL (4.8-10.8) H Red Blood Count 3.42 M/UL (4.20-5.40) L Hemoglobin 10.1 G/DL (12.0-16.0) L Hematocrit 31.2 % (37.0-47.0) L Mean Corpuscular Volume 91 FL (80-99) Mean Corpuscular Hemoglobin 29.4 PG (27.0-31.0) Mean Corpuscular Hemoglobin Concent 32.2 G/DL (32.0-36.0) Red Cell Distribution Width 12.7 % (11.6-14.8) Platelet Count 169 K/UL (150-450) Mean Platelet Volume 6.6 FL (6.5-10.1) Neutrophils (%) (Auto) 71.6 % (45.0-75.0) Lymphocytes (%) (Auto) 17.0 % (20.0-45.0) L Monocytes (%) (Auto) 6.1 % (1.0-10.0) Eosinophils (%) (Auto) 4.8 % (0.0-3.0) H Basophils (%) (Auto) 0.5 % (0.0-2.0) Prothrombin Time 10.0 SEC (9.30-11.50) Prothrombin Time INR 1.0 (0.9-1.1) PTT 27 SEC (23-33) Sodium Level 132 MMOL/L (136-145) L Potassium Level 3.8 MMOL/L (3.5-5.1) Chloride Level 98 MMOL/L (98-107) Carbon Dioxide Level 21 MMOL/L (21-32) Anion Gap 13 mmol/L (5-15) Blood Urea Nitrogen 36 mg/dL (7-18) H Creatinine 2.5 MG/DL (0.55-1.30) H Estimate Glomerular Filtration Rate mL/min (>60) Glucose Level 285 MG/DL (74-106) H Lactic Acid Level 3.40 mmol/L (0.66-2.22) H 2.20 mmol/L (0.66-2.22) Calcium Level 9.6 MG/DL (8.5-10.1) Total Bilirubin 0.3 MG/DL (0.2-1.0) Aspartate Amino Transferase (AST) 20 U/L (15-37) Alanine Aminotransferase (ALT) 32 U/L (12-78) Alkaline Phosphatase 131 U/L (46-116) H Total Creatine Kinase 55 U/L (26-308) Troponin I 0.000 ng/mL (0.000-0.056) Pro-B-Type Natriuretic Peptide 194 pg/mL (0-125) H Total Protein 8.6 G/DL (6.4-8.2) H Albumin 3.4 G/DL (3.4-5.0) Globulin 5.2 g/dL Albumin/Globulin Ratio 0.7 (1.0-2.7) L Arterial Blood pH 7.340 (7.350-7.450) Arterial Blood Partial Pressure CO2 35.5 mmHg (35.0-45.0) Arterial Blood Partial Pressure O2 80.2 mmHg (75.0-100.0) Arterial Blood HCO3 19.0 mmol/L (22.0-26.0) L Arterial Blood Oxygen Saturation 95.0 % (92.0-98.0) Arterial Blood Base Excess -6.0 Alexy Test Positive Urine Color Pale yellow Urine Appearance Cloudy Urine pH 6 (4.5-8.0) Urine Specific [place] 1.015 (1.005-1.035) Urine Protein 2+ (NEGATIVE) H Urine Glucose (UA) 2+ (NEGATIVE) H Urine Ketones Negative (NEGATIVE) Urine Occult Blood 4+ (NEGATIVE) H Urine Nitrite Negative (NEGATIVE) Urine Bilirubin Negative (NEGATIVE) Urine Urobilinogen Normal MG/DL (0.0-1.0) Urine Leukocyte Esterase 3+ (NEGATIVE) H Urine RBC 15-20 /HPF (0 - 2) H Urine WBC Tntc /HPF (0 - 2) H Urine Squamous Epithelial Cells Few /LPF (NONE/OCC) Urine Bacteria Few /HPF (NONE) EKG Diagnostic Results Rate: tachycardiac Rhythm: NSR ST Segments: no acute changes Rhythm Strip Diag. Results EP Interpretation: yes Rhythm: no PVC's, no ectopy, other - ST Chest X-Ray Diagnostic Results Chest X-Ray Diagnostic Results : Chest X-Ray Ordered: Yes # of Views/Limited/Complete: 1 View Indication: Other EP Interpretation: Yes Interpretation: no effusion, no pneumothorax, other - increased cunha Impression: Other Electronically Signed by: Electronically signed by Jefferson Sharma MD Last Vital Signs Date Time Temp Pulse Resp B/P (MAP) Pulse Ox O2 Delivery O2 Flow Rate FiO2 07/19/17 12:16 97.9 110 18 120/74 97 Room Air 97.9 Status: improved Disposition: ADMITTED INPATIENT Condition: Serious Referrals: NON PHYSICIAN (PCP) Jefferson Sharma M.D. July 19, 2017 13:47
--- NOTE | 2017-07-19 14:11 | Diagnostic Imaging Report ---
Indication: Dyspnea Comparison: 05/24/2017 A single view chest radiograph was obtained. Findings: There is no change. Heart is enlarged. Bones are osteopenic. Some prominence of the central pulmonary vessels noted. Lung volumes are low. IMPRESSION: No significant change. Consider mild CHF
[2017-07-19] MEDS ORDERED: Morphine Sulfate 4mg/ml Inj IVP ONE (14:45)
[2017-07-19] MEDS ORDERED: Vancomycin 1gm inj IVPB ONE (16:19)
--- NOTE | 2017-07-19 21:30 | Infectious Diseases Prog Note ---
Assessment/Plan Assessment/Plan Full consult dictated: A) 1) uti, sepsis, mercy, leukocytosis 2) hx thoracic spine discitis, s/p 6 weeks abx 3) pmh noted 4) allergies - negative P) 1) zyvox plus meropenem 2) check cultures, labs and f/u chest x-ray 3) d/w Lissette Eduardo NP 4) thank you Subjective Allergies: Coded Allergies: No Known Allergies (Unverified , 05/24/17) Objective Vital Signs Last 24 Hour Vital Signs Date Time Temp Pulse Resp B/P (MAP) Pulse Ox O2 Delivery O2 Flow Rate FiO2 07/19/17 18:39 98.6 104 16 103/57 98 Room Air 98.6 07/19/17 18:30 98.6 104 16 103/57 98 Room Air 98.6 07/19/17 17:00 98 13 123/60 97 Room Air 07/19/17 16:30 98.6 96 11 110/64 97 Room Air 98.6 07/19/17 16:00 94 10 117/59 97 Room Air 07/19/17 15:30 98.5 92 12 119/61 96 Room Air 98.5 07/19/17 15:00 93 14 121/60 98 Room Air 07/19/17 14:30 98.7 95 17 126/68 98 Room Air 98.7 07/19/17 14:00 101 17 113/61 98 Room Air 07/19/17 13:30 98.5 95 15 104/53 98 Room Air 98.5 07/19/17 13:00 97 15 102/53 98 Room Air 07/19/17 12:30 98.6 102 16 116/58 97 Room Air 98.6 07/19/17 12:16 97.9 110 18 120/74 97 Room Air 97.9 Height (Feet): 5 Height (Inches): 4.00 Weight (Pounds): 160 Laboratory Tests Test 07/19/17 12:40 07/19/17 13:05 07/19/17 13:25 07/19/17 15:47 White Blood Count 12.9 K/UL (4.8-10.8) H Red Blood Count 3.42 M/UL (4.20-5.40) L Hemoglobin 10.1 G/DL (12.0-16.0) L Hematocrit 31.2 % (37.0-47.0) L Mean Corpuscular Volume 91 FL (80-99) Mean Corpuscular Hemoglobin 29.4 PG (27.0-31.0) Mean Corpuscular Hemoglobin Concent 32.2 G/DL (32.0-36.0) Red Cell Distribution Width 12.7 % (11.6-14.8) Platelet Count 169 K/UL (150-450) Mean Platelet Volume 6.6 FL (6.5-10.1) Neutrophils (%) (Auto) 71.6 % (45.0-75.0) Lymphocytes (%) (Auto) 17.0 % (20.0-45.0) L Monocytes (%) (Auto) 6.1 % (1.0-10.0) Eosinophils (%) (Auto) 4.8 % (0.0-3.0) H Basophils (%) (Auto) 0.5 % (0.0-2.0) Prothrombin Time 10.0 SEC (9.30-11.50) Prothromb Time International Ratio 1.0 (0.9-1.1) Activated Partial Thromboplast Time 27 SEC (23-33) Sodium Level 132 MMOL/L (136-145) L Potassium Level 3.8 MMOL/L (3.5-5.1) Chloride Level 98 MMOL/L (98-107) Carbon Dioxide Level 21 MMOL/L (21-32) Anion Gap 13 mmol/L (5-15) Blood Urea Nitrogen 36 mg/dL (7-18) H Creatinine 2.5 MG/DL (0.55-1.30) H Estimat Glomerular Filtration Rate mL/min (>60) Glucose Level 285 MG/DL (74-106) H Lactic Acid Level 3.40 mmol/L (0.66-2.22) H 2.20 mmol/L (0.66-2.22) Calcium Level 9.6 MG/DL (8.5-10.1) Total Bilirubin 0.3 MG/DL (0.2-1.0) Aspartate Amino Transf (AST/SGOT) 20 U/L (15-37) Alanine Aminotransferase (ALT/SGPT) 32 U/L (12-78) Alkaline Phosphatase 131 U/L (46-116) H Total Creatine Kinase 55 U/L (26-308) Troponin I 0.000 ng/mL (0.000-0.056) Pro-B-Type Natriuretic Peptide 194 pg/mL (0-125) H Total Protein 8.6 G/DL (6.4-8.2) H Albumin 3.4 G/DL (3.4-5.0) Globulin 5.2 g/dL Albumin/Globulin Ratio 0.7 (1.0-2.7) L Arterial Blood pH 7.340 (7.350-7.450) Arterial Blood Partial Pressure CO2 35.5 mmHg (35.0-45.0) Arterial Blood Partial Pressure O2 80.2 mmHg (75.0-100.0) Arterial Blood HCO3 19.0 mmol/L (22.0-26.0) L Arterial Blood Oxygen Saturation 95.0 % (92.0-98.0) Arterial Blood Base Excess -6.0 Alexy Test Positive Urine Color Pale yellow Urine Appearance Cloudy Urine pH 6 (4.5-8.0) Urine Specific [place] 1.015 (1.005-1.035) Urine Protein 2+ (NEGATIVE) H Urine Glucose (UA) 2+ (NEGATIVE) H Urine Ketones Negative (NEGATIVE) Urine Occult Blood 4+ (NEGATIVE) H Urine Nitrite Negative (NEGATIVE) Urine Bilirubin Negative (NEGATIVE) Urine Urobilinogen Normal MG/DL (0.0-1.0) Urine Leukocyte Esterase 3+ (NEGATIVE) H Urine RBC 15-20 /HPF (0 - 2) H Urine WBC Tntc /HPF (0 - 2) H Urine Squamous Epithelial Cells Few /LPF (NONE/OCC) Urine Bacteria Few /HPF (NONE) Vasquez Toribio MD July 19, 2017 21:30
[2017-07-19] MEDS: NovoLOG Insulin Flexpen SUBQ SCH (22:27)
[2017-07-19] MEDS ORDERED: Norco 5mg/325mg tab ORAL PRN (22:30)
[2017-07-19] MEDS ORDERED: Miralax 17gm pkt ORAL PRN (22:30)
[2017-07-19] MEDS ORDERED: cefTRIAXone 1 GM in D5W 55 ML IVPB SCH (22:30)
[2017-07-20] VITALS: BP 127/56
[2017-07-20] MEDS: Levemir Flexpen SUBQ SCH ×2 (00:04→21:44)
[2017-07-20] MEDS: Docusate 100mg cap ORAL SCH ×3 (00:04→17:14)
--- NOTE | 2017-07-20 00:45 | History and Physical ---
History of Present Illness General Date patient seen: July 19, 2017 Time patient seen: 18:00 Reason for Hospitalization: Generalized Weakness Present Illness HPI 77 y/o female with a PMH of HLD, HTN, DM2, CVA w/ L sided hemiparesis, recurrent UTI, dementia, and recent thoracic diskitis/osteomyelitis s/p 6 weeks of IV abx presents from home for lethargy and worsening back pain. Patient was recently admitted to [facility] for chest pain and was incidentally found to have a UTI with T4-T5 discitis/osteomyelitis. Patient was transferred to [facility] for evaluation from spinal surgery but no intervention was needed. Patient was therefore discharged to SNF for continued IV abx for 6 weeks. Intermittently within the 6 weeks, patient returned to [facility] for sepsis due to UTI. Patient was treated for this and sent back to SNF for continuation of the rest of the 6 weeks of IV abx. Patient recently finished her 6 week course last week and was brought back home. Per son, patient was noted to be more lethargic and with worsening back pain. Per son, patient also has had some foul- smelling urine for the last several days. Patient was noted to be septic in the ED and was started on IV abx and given IVF. Patient currently denies chest pain , sob, n/v, abdominal pain. Reports worsening back pain but with no focal deficits. Allergies: Coded Allergies: No Known Allergies (Unverified , 05/24/17) Medication History Scheduled Amlodipine Besylate* (Amlodipine Besylate*), 5 MG ORAL DAILY, (Reported) Ascorbic Acid* (Vitamin C*), 250 MG ORAL DAILY, (Reported) Aspirin* (Aspirin*), 325 MG ORAL DAILY, (Reported) Atorvastatin Calcium* (Atorvastatin Calcium*), 20 MG ORAL BEDTIME, (Reported) Atorvastatin Calcium* (Lipitor*), 20 MG ORAL BEDTIME, (Reported) Cefepime Hcl/D5w (Cefepime-Dextrose 2 Gm/50 Ml), 2 GM IVPB EVERY 12 HOURS, ( Reported) Docusate Sodium* (Colace*), 100 MG ORAL TWICE A DAY, (Reported) Gabapentin* (Neurontin*), 300 MG ORAL TWICE A DAY, (Reported) Insulin Aspart (Novolog Flexpen), SQ AC+HS, (Reported) Insulin Detemir (Levemir Flexpen), 12 UNITS SUBQ Q24H, (Reported) Insulin Glargine (Lantus), 15 UNITS SUBQ BEDTIME, (Reported) Insulin Lispro (Humalog Kwikpen), Unknown Dose SQ BEFORE MEALS AND HS, (Reported ) Losartan Potassium* (Losartan Potassium*), 50 MG ORAL DAILY, (Reported) Melatonin (Melatonin), 3 MG PO DAILY, (Reported) Memantine Hcl* (Namenda*), 10 MG ORAL DAILY, (Reported) Metoprolol Succinate* (Metoprolol Succinate*), 25 MG ORAL BID, (Reported) Spironolactone* (Aldactone*), 25 MG ORAL Q12HR, (Reported) Vancomycin Hcl/D5w (Vancomycin-D5w 1 G/250 Ml), 1,250 GM IVPB Q24H, (Reported) Scheduled PRN Acetaminophen* (Acetaminophen 325MG Tablet*), 650 MG ORAL Q4H PRN for Mild Pain/ Temp > 100.5, (Reported) Bisacodyl (Dulcolax), 10 MG RC DAILY PRN for Constipation, (Reported) Hydrocodone Bit/Acetaminophen 5-325* (Dewey 5-325*), 1 TAB ORAL Q4H PRN for For Pain, (Reported) Morphine Sulfate* (Morphine Sulfate*), 2 MG IV Q4HR PRN for Pain Scale (6-10), ( Reported) Morphine Sulfate* (Morphine Sulfate*), 4 MG IV Q4HR PRN for Pain Scale (6-10), ( Reported) Ondansetron* (Zofran*), 4 MG IV Q6H PRN for Nausea & Vomiting, (Reported) Polyethylene Glycol 3350* (Miralax*), 17 GM ORAL DAILY PRN for Constipation, ( Reported) Patient History Limited by: medical condition History Provided By: Patient, Family Member, Medical Record Healthcare decision maker N Resuscitation status Advanced Directive on File Family History Family History: Patient reports no known family medical history. Review of Systems All Other Systems: negative except mentioned in HPI Physical Exam General Appearance: alert, lethargic Lines, tubes and drains: cowan cath HEENT: normocephalic, atraumatic, PERRL Neck: non-tender, normal alignment, supple Respiratory/Chest: chest wall non-tender, lungs clear, normal breath sounds Cardiovascular/Chest: normal peripheral pulses, normal rate, regular rhythm Abdomen: normal bowel sounds, non tender, soft Extremities: normal range of motion, non-tender, normal inspection Skin Exam: normal pigmentation, warm/dry Neurologic: instructional specialist II-XII grossly normal, alert, oriented x 3, motor weakness, other - left-sided hemiplegia. sensory deficit to left lower extremity Last 24 Hour Vital Signs Date Time Temp Pulse Resp B/P (MAP) Pulse Ox O2 Delivery O2 Flow Rate FiO2 07/19/17 20:00 96.8 96 20 90/52 98 Room Air 96.8 07/19/17 18:39 98.6 104 16 103/57 98 Room Air 98.6 07/19/17 18:30 98.6 104 16 103/57 98 Room Air 98.6 07/19/17 17:00 98 13 123/60 97 Room Air 07/19/17 16:30 98.6 96 11 110/64 97 Room Air 98.6 07/19/17 16:00 94 10 117/59 97 Room Air 07/19/17 15:30 98.5 92 12 119/61 96 Room Air 98.5 07/19/17 15:00 93 14 121/60 98 Room Air 07/19/17 14:30 98.7 95 17 126/68 98 Room Air 98.7 07/19/17 14:00 101 17 113/61 98 Room Air 07/19/17 13:30 98.5 95 15 104/53 98 Room Air 98.5 07/19/17 13:00 97 15 102/53 98 Room Air 07/19/17 12:30 98.6 102 16 116/58 97 Room Air 98.6 07/19/17 12:16 97.9 110 18 120/74 97 Room Air 97.9 Intake and Output 07/19/17 07/20/17 19:00 07:00 Intake Total 2588.3 ml Output Total 1100 ml Balance 1488.3 ml Intake IV Total 2588.3 ml Output Urine Total 1100 ml Laboratory Tests Test 07/19/17 12:40 07/19/17 13:05 07/19/17 13:25 07/19/17 15:47 White Blood Count 12.9 K/UL (4.8-10.8) H Red Blood Count 3.42 M/UL (4.20-5.40) L Hemoglobin 10.1 G/DL (12.0-16.0) L Hematocrit 31.2 % (37.0-47.0) L Mean Corpuscular Volume 91 FL (80-99) Mean Corpuscular Hemoglobin 29.4 PG (27.0-31.0) Mean Corpuscular Hemoglobin Concent 32.2 G/DL (32.0-36.0) Red Cell Distribution Width 12.7 % (11.6-14.8) Platelet Count 169 K/UL (150-450) Mean Platelet Volume 6.6 FL (6.5-10.1) Neutrophils (%) (Auto) 71.6 % (45.0-75.0) Lymphocytes (%) (Auto) 17.0 % (20.0-45.0) L Monocytes (%) (Auto) 6.1 % (1.0-10.0) Eosinophils (%) (Auto) 4.8 % (0.0-3.0) H Basophils (%) (Auto) 0.5 % (0.0-2.0) Prothrombin Time 10.0 SEC (9.30-11.50) Prothromb Time International Ratio 1.0 (0.9-1.1) Activated Partial Thromboplast Time 27 SEC (23-33) Sodium Level 132 MMOL/L (136-145) L Potassium Level 3.8 MMOL/L (3.5-5.1) Chloride Level 98 MMOL/L (98-107) Carbon Dioxide Level 21 MMOL/L (21-32) Anion Gap 13 mmol/L (5-15) Blood Urea Nitrogen 36 mg/dL (7-18) H Creatinine 2.5 MG/DL (0.55-1.30) H Estimat Glomerular Filtration Rate mL/min (>60) Glucose Level 285 MG/DL (74-106) H Lactic Acid Level 3.40 mmol/L (0.66-2.22) H 2.20 mmol/L (0.66-2.22) Calcium Level 9.6 MG/DL (8.5-10.1) Total Bilirubin 0.3 MG/DL (0.2-1.0) Aspartate Amino Transf (AST/SGOT) 20 U/L (15-37) Alanine Aminotransferase (ALT/SGPT) 32 U/L (12-78) Alkaline Phosphatase 131 U/L (46-116) H Total Creatine Kinase 55 U/L (26-308) Troponin I 0.000 ng/mL (0.000-0.056) Pro-B-Type Natriuretic Peptide 194 pg/mL (0-125) H Total Protein 8.6 G/DL (6.4-8.2) H Albumin 3.4 G/DL (3.4-5.0) Globulin 5.2 g/dL Albumin/Globulin Ratio 0.7 (1.0-2.7) L Arterial Blood pH 7.340 (7.350-7.450) Arterial Blood Partial Pressure CO2 35.5 mmHg (35.0-45.0) Arterial Blood Partial Pressure O2 80.2 mmHg (75.0-100.0) Arterial Blood HCO3 19.0 mmol/L (22.0-26.0) L Arterial Blood Oxygen Saturation 95.0 % (92.0-98.0) Arterial Blood Base Excess -6.0 Alexy Test Positive Urine Color Pale yellow Urine Appearance Cloudy Urine pH 6 (4.5-8.0) Urine Specific [place] 1.015 (1.005-1.035) Urine Protein 2+ (NEGATIVE) H Urine Glucose (UA) 2+ (NEGATIVE) H Urine Ketones Negative (NEGATIVE) Urine Occult Blood 4+ (NEGATIVE) H Urine Nitrite Negative (NEGATIVE) Urine Bilirubin Negative (NEGATIVE) Urine Urobilinogen Normal MG/DL (0.0-1.0) Urine Leukocyte Esterase 3+ (NEGATIVE) H Urine RBC 15-20 /HPF (0 - 2) H Urine WBC Tntc /HPF (0 - 2) H Urine Squamous Epithelial Cells Few /LPF (NONE/OCC) Urine Bacteria Few /HPF (NONE) Height (Feet): 5 Height (Inches): 4.00 Weight (Pounds): 160 Medications Current Medications Medications (Trade) Dose Ordered Sig/Leona Route PRN Reason Start Time Stop Time Status Last Admin Dose Admin Acetaminophen (Tylenol) 650 mg Q4H PRN ORAL Mild Pain/Temp > 100.5 07/19/17 22:30 08/18/17 22:29 Acetaminophen/ Hydrocodone Bitart (Dewey 5/325) 1 tab Q4HR PRN ORAL Moderate Pain (Pain Scale 4-6) 07/19/17 22:30 6/6/18 22:29 Ascorbic Acid (Vitamin C) 250 mg DAILY ORAL 07/20/17 09:00 08/19/17 08:59 Aspirin (ASA) 325 mg DAILY ORAL 07/20/17 09:00 08/19/17 08:59 Atorvastatin Calcium (Lipitor) 20 mg BEDTIME ORAL 07/20/17 21:00 08/19/17 20:59 Bisacodyl (Dulcolax) 10 mg DAILYPRN PRN RECTAL Constipation 07/19/17 22:30 08/18/17 22:29 Dextrose (Dextrose 50%) 25 ml STAT PRN IV Hypoglycemia 07/19/17 21:45 08/18/17 21:44 Dextrose (Dextrose 50%) 50 ml STAT PRN IV Hypoglycemia 07/19/17 21:45 08/18/17 21:44 Docusate Sodium (Colace) 100 mg TWICE A DAY ORAL 07/19/17 22:56 08/18/17 22:55 07/20/17 00:04 Gabapentin (Neurontin) 300 mg BID ORAL 07/19/17 22:54 08/18/17 22:53 07/20/17 00:04 Heparin Sodium (Porcine) (Heparin 5000 units/ml) 5,000 units EVERY 12 HOURS SUBQ 07/20/17 09:00 08/19/17 08:59 Insulin Aspart (NovoLOG) BEFORE MEALS AND HS SUBQ 07/19/17 22:27 08/18/17 22:26 Insulin Detemir (Levemir) 15 units BEDTIME SUBQ 07/19/17 23:00 08/18/17 22:59 07/20/17 00:04 Linezolid 300 ml @ 300 mls/hr EVERY 12 HOURS IVPB 07/20/17 09:00 07/27/17 08:59 Memantine (Namenda) 10 mg DAILY ORAL 07/20/17 09:00 08/19/17 08:59 Meropenem 500 mg/ Sodium Chloride 50 ml @ 100 mls/hr Q12HR IVPB 07/19/17 22:00 07/24/17 21:59 07/19/17 23:45 Morphine Sulfate (Morphine Sulfate) 4 mg Q4H PRN IVP Severe Pain (Pain Scale 7-10) 07/19/17 22:30 07/26/17 22:29 Non-Formulary Medication (Non-Formulary Med) 1 ea DAILY ORAL 07/20/17 09:00 08/19/17 08:59 UNV Ondansetron HCl (Zofran) 4 mg Q6H PRN IVP Nausea & Vomiting 07/19/17 22:30 08/18/17 22:29 Polyethylene Glycol (Miralax) 17 gm DAILY PRN ORAL Constipation 07/19/17 22:30 08/18/17 22:29 Sodium Chloride 1,000 ml @ 100 mls/hr Q10H IVLG 07/19/17 22:39 08/18/17 22:38 07/19/17 23:32 Assessment/Plan Problem List: (1) H/O discitis Assessment & Plan: T4-T5 osteomyelitis s/p 6 weeks of IV abx ICD Codes: Z87.39 - Personal history of other diseases of the musculoskeletal system and connective tissue SNOMED: 178899725 (2) UTI (urinary tract infection) ICD Codes: N39.0 - Urinary tract infection, site not specified SNOMED: 32498785, 808538693 Qualifiers: Qualified Codes: N39.0 - Urinary tract infection, site not specified (3) Sepsis ICD Codes: A41.9 - Sepsis, unspecified organism SNOMED: 19225347, 684946609 Qualifiers: Qualified Codes: A41.9 - Sepsis, unspecified organism (4) Renal failure ICD Codes: N19 - Unspecified kidney failure SNOMED: 38103173 Qualifiers: Qualified Codes: N17.9 - Acute kidney failure, unspecified (5) Dementia ICD Codes: F03.90 - Unspecified dementia without behavioral disturbance SNOMED: 82477751 (6) CVA with L hemiparesis (7) DM2 (diabetes mellitus, type 2) ICD Codes: E11.9 - Type 2 diabetes mellitus without complications SNOMED: 93331095 (8) HLD (hyperlipidemia) ICD Codes: E78.5 - Hyperlipidemia, unspecified SNOMED: 57894452 (9) HTN (hypertension) ICD Codes: I10 - Essential (primary) hypertension SNOMED: 68490549 Status: stable Assessment/Plan - Admit to inpatient - ID consulted - IV linezolid and meropenam. Avoid vancomycin given KEI - IVF - Trend Cr - f/u urine cx - f/u blood cx - DOTTY + lantus 15 units qhs - check lipid panel and A1c - continue home meds. Hold BP meds in the setting of sepsis - pain control and supportive care - consider repeat MRI lumbar/thoracic w/o contrast for worsening back pain. will d/w ID - check venous duplex prior to SCDs DVT ppx: HSQ Full Code Disposition: Home with HH vs. SNF I spent a total of 73 minutes on this patient's case with greater than 38 minutes on care and coordination of the patient. Case was d/w patient, family, ED doctor, ID, nursing staff. Lissette Eduardo NP July 20, 2017 00:45
--- NOTE | 2017-07-20 01:00 | Consultation ---
DATE OF CONSULTATION: 07/19/2017 NOTE: DICTATION CANCELLED. INFECTIOUS DISEASE CONSULTATION CONSULTING PHYSICIAN: Vasquez Toribio M.D. Vasquez Toribio M.D. DR: LAURA JOB#: [id number] CC:
[2017-07-20 04:00] VITALS: BP 131/65
--- NOTE | 2017-07-20 05:00 | Consultation ---
DATE OF CONSULTATION: 07/19/2017 INFECTIOUS DISEASE CONSULTATION CONSULTING PHYSICIAN: Vasquez Toribio M.D. ATTENDING PHYSICIAN: Frankie Greene M.D. REFERRING PHYSICIAN: Frankie Greene M.D. REASON FOR CONSULTATION: UTI, sepsis, and leukocytosis. The patient's chief complaint coming in the hospital is sepsis. HISTORY OF PRESENT ILLNESS: This is a very pleasant 77-year-old female, who has a history in the past of thoracic spine diskitis, I believe the levels are T4-T5. The patient is status post full antibiotic treatment course including vancomycin and cefepime. The patient presents to [facility] with UTI and leukocytosis and likely sepsis. Infectious Disease consultation is requested for antibiotic management. The patient was seen in the telemetry unit at [facility]. The patient will be placed on meropenem and Zyvox. Urine culture at this time pending. UA had too many to count white blood cells. Again, the patient did have leukocytosis consistent with sepsis. She does have SIRS criteria also with tachycardia. Case was discussed with Samantha Arita, nurse practitioner for Dr. Greene. MAR was noted. Orders noted. Notes and records were reviewed. PAST MEDICAL HISTORY: She has history of thoracic spine diskitis, I believe at T4-T5 level, status post full antibiotic treatment course including 6 weeks, initially I think vancomycin and cefepime and also I think some of the course is meropenem in the outside hospital and ECF. Other past medical history includes history of following. She has a history of CVA with left hemiparesis. She has history of diabetes. She has elevated creatinine, anemia, chest pain, history of acute kidney injury. She also has history of hypertension in addition to CVA and diabetes. She has history of hyperlipidemia, dementia, hyponatremia, history of diskitis, osteomyelitis, vertebral osteomyelitis, history of CVA with weakness. MEDICATIONS: Upon reviewing the MAR, the patient is on the following medications. She was given vancomycin in the ER. I am going to put her on Zyvox and meropenem. She was also given Levaquin, cefepime, and Zofran. Outside medications noted and reconciliated. She is on ascorbic acid, amlodipine, aspirin, atorvastatin, and bisacodyl. Looks like she is on cefepime as an outpatient. She is on vancomycin looks like in the past, morphine, metoprolol, memantine, melatonin, losartan, insulin, gabapentin, hydrocodone, and docusate. ALLERGIES: No known drug allergies. No antibiotic allergies. SOCIAL HISTORY: Negative for smoking, alcohol, or drug abuse. FAMILY HISTORY: Noncontributory. No mention of exposure to tuberculosis or cancer. REVIEW OF SYSTEMS: CONSTITUTIONAL: The patient has generalized fatigue and weakness. Currently, no fevers. HEAD AND NECK: No head pain. No thrush or dysphagia. Sinus tenderness, neck stiffness. CARDIAC: No chest pain. No pressors. GASTROINTESTINAL: No nausea, vomiting, or diarrhea. PULMONARY: No congestion, short of breath, hemoptysis, or secretions. SKIN: No itching. I did not see any new rash, however, there looks like per the records, there were rashes. GENITOURINARY: She has a Rowley. NEUROLOGICAL: No seizures. She has generalized fatigue and weakness. No mention of night sweats, fevers, or chills. BACK: She did have back pain coming in. PHYSICAL EXAMINATION: GENERAL: Alert and responsive, no acute distress. VITAL SIGNS: Temperature is 98.6 degrees, pulse rate 104, respiratory rate 16, blood pressure 103/57, and saturation 98%. HEENT: Oral exam, no thrush. Eye exam, no icterus. Normocephalic. No facial droop. NECK: Supple. No JVD. HEART: Regular. No obvious gallop or murmur. No friction rub. ABDOMEN: Soft. Positive bowel sounds. Nontender. LUNGS: Few bilateral rhonchi. No definite rales. May be a few bilateral crackles. SKIN: No anterior rash noted. I did not turn the patient over. MUSCULOSKELETAL: No effusions. Legs are without cellulitis. PERIPHERAL VASCULAR: No cyanosis or gangrene. GENITOURINARY: She has a Rowley. Urine is cloudy. LINE SITES: Line sites are without phlebitis. NEUROLOGIC: Generalized weakness. Responsive. She has left-sided weakness and also lower extremity weakness, I think that is chronic changes. She is able to move her arms more so on the right. She has more left-sided weakness. LABORATORY AND DIAGNOSTIC DATA: White count 12.9, hemoglobin 10.1, and platelet count is 169. Creatinine is 2.5. LFTs were noted. Sodium 132. UA had too many to count white blood cells, 3+ leukocyte esterase. Lactic acid is 3.4, now it is 2.2. Urine culture and blood cultures are pending. Chest x-ray shows CHF. ASSESSMENT AND PLAN: 1. The patient has urinary tract infection, sepsis, acute kidney injury, leukocytosis, SIRS criteria with elevated heart rate and white count over 12 and also elevated lactic acid level. At this time, we will continue meropenem and Zyvox to cover for sepsis including ESBL organisms and also UTI with sepsis. Watch creatinine and watch white cell count. Check followup chest x-ray, check laboratories, and check cultures. Continue meropenem and Zyvox for UTI and sepsis for now. 2. History of thoracic spine diskitis, status post 6 weeks of antibiotics. The patient still has back pain. We will check inflammatory markers, however, unclear if they are reliable in the setting of sepsis. With regards to surveillance MRI, we will follow up MRI. It is unclear if this would be benefit from this since the patient just is status post recent treatment for diskitis and studies have shown that MRI could be unreliable to see the progression of the osteo or response to treatment since findings can look worse on MRI, however, the patient still have clinical cure of the diskitis or osteo. We will discuss with primary. However, if the back pain is getting worse, then can consider repeating the MRI or CT scan of the thoracic spine. 3. The patient has acute kidney injury, elevated creatinine. 4. The patient has anemia. 5. History of chest pain. 6. History of diabetes. 7. History of cerebrovascular accident and left hemiparesis and weakness. 8. Hypertension. 9. Hyperlipidemia. 10. Dementia. 11. Hyponatremia. 12. Past medical history noted. 13. Social history negative. 14. Family history noncontributory. 15. MAR was noted. 16. Case discussed with RN. 17. Allergies are negative. 18. Notes were reviewed and noted. 19. Continue treatment per primary consultants. ADDENDUM: I discussed the case with Samantha Arita, nurse practitioner with Dr. Greene. In addition, I discussed the case with pharmacy about antibiotic dosing for this patient. Salam Alkasspooles, M.D. DR: LAURA JOB#: [id number] CC:
[2017-07-20] MEDS: NovoLOG Insulin Flexpen SUBQ SCH ×4 (06:00→21:44)
[2017-07-20 07:57] LABS: BASOPHILS % (AUTO) 0.4 % (0.0-2.0); EOSINOPHILS % (AUTO) 8.2 % (0.0-3.0); HEMATOCRIT 24.9 % (37.0-47.0); HEMOGLOBIN 8.3 G/DL (12.0-16.0); MEAN CORPUSCULAR VOLUME 91 FL (80-99); MONOCYTES % (AUTO) 6.4 % (1.0-10.0); PLATELET COUNT 163 K/UL (150-450); RED BLOOD COUNT 2.72 M/UL (4.20-5.40); RED CELL DISTRIBUTION WIDTH 12.8 % (11.6-14.8)
[2017-07-20 08:00] VITALS: BP 129/66
[2017-07-20 08:17] LABS: ALANINE AMINOTRANSFERASE 27 U/L (12-78); ALBUMIN/GLOBULIN RATIO 0.6 (1.0-2.7); ALKALINE PHOSPHATASE 116 U/L (46-116); ANION GAP 12 mmol/L (5-15); ASPARTATE AMINO TRANSFERASE 11 U/L (15-37); BILIRUBIN,TOTAL 0.3 MG/DL (0.2-1.0); BLOOD UREA NITROGEN 27 mg/dL (7-18); CALCIUM 8.3 MG/DL (8.5-10.1); CARBON DIOXIDE 20 MMOL/L (21-32); CHLORIDE 107 MMOL/L (98-107); CHOLESTEROL 122 MG/DL (< 200); CREATININE 2.2 MG/DL (0.55-1.30); HDL CHOLESTEROL 33 MG/DL (40-60); POTASSIUM 3.8 MMOL/L (3.5-5.1); SODIUM 139 MMOL/L (136-145); TRIGLYCERIDES 94 MG/DL (30-150)
[2017-07-20] MEDS: Ascorbic Acid 500mg tab ORAL SCH (08:58)
[2017-07-20] MEDS: Memantine 10mg tab ORAL SCH (09:00)
[2017-07-20] MEDS: Heparin 5000 units/ml inj SUBQ SCH ×2 (09:02→21:50)
--- NOTE | 2017-07-20 10:59 | Diagnostic Imaging Report ---
Indication: Cough Comparison: 07/19/2017 A single view chest radiograph was obtained. Findings: Some prominence of the pulmonary vascularity and interstitium are again demonstrated. Cardiomegaly is also again noted. Findings appear unchanged. No definite pleural effusions are appreciated. IMPRESSION: Some evidence to suggest mild congestive heart failure. Correlate clinically
[2017-07-20 12:06] VITALS: BP 109/57
--- NOTE | 2017-07-20 14:42 | Consultation ---
Consult Note Consult Note Job ID # [id number] Appreciate consultation! Baldemar Perez MD July 20, 2017 14:42
--- NOTE | 2017-07-20 14:57 | Consultation ---
Consult Note Consult Note asked to eval patient for renal failure The patient was just discharged from a rehabilitation facility to home. Apparently she was being treated for osteomyelitis of her upper back. The son has noted that the urine is dark and foul-smelling. The patient's complaining about increased weakness as well as upper back pain. Pain initially rated 5/10 - upper back, constant and not radiating. She denies chest pain, headache, NVD, constipation, joint pain (except for her back), rashes. H/O CVA H/O spinal stenosis with urinary incontinence Wheelchair bound She had been transferred to [facility] with these Dx 05/27: (1) T4-T5 discitis/osteomyelitis (2) Chest pain (3) DM2 (diabetes mellitus, type 2) (4) CVA with L hemiparesis (5) HTN (hypertension) (6) HLD (hyperlipidemia) (7) Dementia (8) Hyponatremia . Assessment/Plan admitted with UTI and sepsis admitted with elevated Lactic acid Diabetic nephropathy Acute on Chronic renal failure The patient has acute kidney injury, elevated creatinine. Cr 2.5 on admit now 2.2 anemia. Hgb 8.3 today History of diabetes. History of cerebrovascular accident and left hemiparesis and weakness. Hypertension. Hyperlipidemia. Dementia. Avoid nephrotoxics Anemia work up urine na and Eosinophils slow hydrate keep BP and BS in check Monitor renal parameters JAYNA MAYA July 20, 2017 14:57
[2017-07-20 16:00] VITALS: BP 123/66
--- NOTE | 2017-07-20 16:40 | Infectious Diseases Prog Note ---
Assessment/Plan Assessment/Plan ASSESSMENT AND PLAN: 1. uti, sepsis, sirs, leukocytosis, chest x-ray with chf - continue meropenem and zyvox - check cultures and f/u labs 2. hx thoracic spinet T-4 to T-5 discitis/vertebral osteomyelitis - increased lower extremity weakness per son and still with significant back pain - f/u MRI of thoracic spine will be ordered - s/p full 6 week abx course 3. The patient has acute kidney injury, elevated creatinine. 4. The patient has anemia. 5. History of chest pain. 6. History of diabetes - bs control per primary and consultants 7. History of cerebrovascular accident and left hemiparesis and weakness. 8. Hypertension - bp control per primary and consultants 9. Hyperlipidemia. 10. Dementia. 11. Hyponatremia. 12. Past medical history noted. 13. Social history negative. 14. Family history noncontributory. 15. MAR was noted. 16. Case discussed with RN. 17. Allergies are negative. 18. Notes were reviewed and noted. 19. Continue treatment per primary consultants. 20. case d/w Lissette Eduardo NP and son Subjective Constitutional: Reports: fatigue; Denies: fever HEENT: Denies: congestion Respiratory: Denies: shortness of breath Cardiovascular: Denies: chest pain Gastrointestinal/Abdominal: Denies: nausea, vomiting, diarrhea Genitourinary: Reports: other - + cowan Neurologic: Denies: headache Psychiatric: Denies: depression Skin: Denies: rash Hematologic: Denies: bleeding Musculoskeletal: Denies: pain Allergies: Coded Allergies: No Known Allergies (Unverified , 05/24/17) Objective Vital Signs Last 24 Hour Vital Signs Date Time Temp Pulse Resp B/P (MAP) Pulse Ox O2 Delivery O2 Flow Rate FiO2 07/20/17 12:06 97.2 102 20 109/57 95 Room Air 97.2 07/20/17 12:00 110 07/20/17 08:00 97.9 103 20 129/66 98 Room Air 97.9 07/20/17 08:00 98 07/20/17 04:00 101 07/20/17 04:00 96.5 101 20 131/65 95 Room Air 96.5 07/20/17 00:00 112 07/20/17 00:00 96.8 114 20 127/56 95 Room Air 96.8 07/19/17 20:00 96.8 96 20 90/52 98 Room Air 96.8 07/19/17 20:00 96 07/19/17 18:39 98.6 104 16 103/57 98 Room Air 98.6 07/19/17 18:30 98.6 104 16 103/57 98 Room Air 98.6 07/19/17 17:00 98 13 123/60 97 Room Air Height (Feet): 5 Height (Inches): 4.00 Weight (Pounds): 160 General Appearance: no acute distress HEENT: normocephalic, atraumatic, anicteric, mucous membranes moist Respiratory/Chest: lungs clear, normal breath sounds, no accessory muscle use, respiratory distress Cardiovascular: normal rate, regular rhythm, no gallop/murmur, no JVD Abdomen: normal bowel sounds, soft, non tender, no organomegaly, non distended Genitourinary: other - + cowan - urine cloudy Extremities: no cyanosis Skin: no rash Neurologic/Psychiatric: sale professional digital marketing II-XII grossly normal, alert, responsive, motor weakness - legs and left arm Lymphatic: no neck adenopathy Musculoskeletal: no effusion Objective Chest x-ray - 07/20 - Findings: Some prominence of the pulmonary vascularity and interstitium are again demonstrated. Cardiomegaly is also again noted. Findings appear unchanged. No definite pleural effusions are appreciated. IMPRESSION: Some evidence to suggest mild congestive heart failure. Correlate clinically Microbiology Date/Time Source Procedure Growth Status 07/19/17 13:25 Urine,Clean Catch Urine Culture - Preliminary NO GROWTH Resulted Laboratory Tests Test 07/20/17 05:35 White Blood Count 12.0 K/UL (4.8-10.8) H Red Blood Count 2.72 M/UL (4.20-5.40) L Hemoglobin 8.3 G/DL (12.0-16.0) L Hematocrit 24.9 % (37.0-47.0) L Mean Corpuscular Volume 91 FL (80-99) Mean Corpuscular Hemoglobin 30.6 PG (27.0-31.0) Mean Corpuscular Hemoglobin Concent 33.5 G/DL (32.0-36.0) Red Cell Distribution Width 12.8 % (11.6-14.8) Platelet Count 163 K/UL (150-450) Mean Platelet Volume 6.5 FL (6.5-10.1) Neutrophils (%) (Auto) 71.0 % (45.0-75.0) Lymphocytes (%) (Auto) 14.0 % (20.0-45.0) L Monocytes (%) (Auto) 6.4 % (1.0-10.0) Eosinophils (%) (Auto) 8.2 % (0.0-3.0) H Basophils (%) (Auto) 0.4 % (0.0-2.0) Neutrophils % (Manual) Pending Lymphocytes % (Manual) Pending Platelet Estimate Pending Platelet Morphology Pending Reticulocyte Count Pending Sodium Level 139 MMOL/L (136-145) Potassium Level 3.8 MMOL/L (3.5-5.1) Chloride Level 107 MMOL/L (98-107) Carbon Dioxide Level 20 MMOL/L (21-32) L Anion Gap 12 mmol/L (5-15) Blood Urea Nitrogen 27 mg/dL (7-18) H Creatinine 2.2 MG/DL (0.55-1.30) H Estimat Glomerular Filtration Rate mL/min (>60) Glucose Level 113 MG/DL (74-106) #H Hemoglobin A1c 7.7 % (4.3-6.0) H Lactic Acid Level 1.30 mmol/L (0.66-2.22) Calcium Level 8.3 MG/DL (8.5-10.1) L Magnesium Level 1.5 MG/DL (1.8-2.4) L Iron Level Pending Unsaturated Iron Binding Pending Soluble Transferrin Receptor Pending Ferritin Pending Total Bilirubin 0.3 MG/DL (0.2-1.0) Aspartate Amino Transf (AST/SGOT) 11 U/L (15-37) L Alanine Aminotransferase (ALT/SGPT) 27 U/L (12-78) Alkaline Phosphatase 116 U/L (46-116) Lactate Dehydrogenase 218 U/L (81-234) C-Reactive Protein, Quantitative 2.5 mg/dL (0.00-0.90) H Total Protein 7.7 G/DL (6.4-8.2) Albumin 3.0 G/DL (3.4-5.0) L Globulin 4.7 g/dL Albumin/Globulin Ratio 0.6 (1.0-2.7) L Triglycerides Level 94 MG/DL (30-150) Cholesterol Level 122 MG/DL (< 200) LDL Cholesterol 82 mg/dL (<100) HDL Cholesterol 33 MG/DL (40-60) L Cholesterol/HDL Ratio 3.7 (3.3-4.4) Vitamin B12 Level Pending Methylmalonic Acid Pending Folate Pending Thyroid Stimulating Hormone (TSH) 2.568 uiU/mL (0.358-3.740) Current Medications Medications (Trade) Dose Ordered Sig/Leona Route PRN Reason Start Time Stop Time Status Last Admin Dose Admin Acetaminophen (Tylenol) 650 mg Q4H PRN ORAL Mild Pain/Temp > 100.5 07/19/17 22:30 08/18/17 22:29 Acetaminophen/ Hydrocodone Bitart (Show Low 5/325) 1 tab Q4HR PRN ORAL Moderate Pain (Pain Scale 4-6) 07/19/17 22:30 07/26/17 22:29 Ascorbic Acid (Vitamin C) 250 mg DAILY ORAL 07/20/17 09:00 08/19/17 08:59 07/20/17 08:58 Aspirin (ASA) 325 mg DAILY ORAL 07/20/17 09:00 08/19/17 08:59 07/20/17 08:58 Atorvastatin Calcium (Lipitor) 20 mg BEDTIME ORAL 07/20/17 21:00 08/19/17 20:59 Bisacodyl (Dulcolax) 10 mg DAILYPRN PRN RECTAL Constipation 07/19/17 22:30 08/18/17 22:29 Dextrose (Dextrose 50%) 25 ml STAT PRN IV Hypoglycemia 07/19/17 21:45 08/18/17 21:44 Dextrose (Dextrose 50%) 50 ml STAT PRN IV Hypoglycemia 07/19/17 21:45 08/18/17 21:44 Docusate Sodium (Colace) 100 mg TID ORAL 07/20/17 18:00 08/18/17 22:55 Gabapentin (Neurontin) 300 mg BID ORAL 07/19/17 22:54 08/18/17 22:53 07/20/17 09:01 Heparin Sodium (Porcine) (Heparin 5000 units/ml) 5,000 units EVERY 12 HOURS SUBQ 07/20/17 09:00 08/19/17 08:59 07/20/17 09:02 Insulin Aspart (NovoLOG) BEFORE MEALS AND HS SUBQ 07/19/17 22:27 08/18/17 22:26 07/20/17 12:15 Insulin Detemir (Levemir) 15 units BEDTIME SUBQ 07/19/17 23:00 08/18/17 22:59 07/20/17 00:04 Lansoprazole (Prevacid) 30 mg BID ORAL 07/20/17 18:00 08/19/17 17:59 Linezolid 300 ml @ 300 mls/hr EVERY 12 HOURS IVPB 07/20/17 09:00 07/27/17 08:59 07/20/17 09:39 Magnesium Sulfate 100 ml @ 100 mls/hr Q1H IVPB 07/20/17 16:00 07/20/17 17:59 07/20/17 15:58 Memantine (Namenda) 10 mg DAILY ORAL 07/20/17 09:00 08/19/17 08:59 Meropenem 500 mg/ Sodium Chloride 50 ml @ 100 mls/hr Q12HR IVPB 07/19/17 22:00 07/24/17 21:59 07/20/17 08:58 Morphine Sulfate (Morphine Sulfate) 4 mg Q4H PRN IVP Severe Pain (Pain Scale 7-10) 07/19/17 22:30 07/26/17 22:29 Ondansetron HCl (Zofran) 4 mg Q6H PRN IVP Nausea & Vomiting 07/19/17 22:30 08/18/17 22:29 Polyethylene Glycol (Miralax) 17 gm DAILY PRN ORAL Constipation 07/19/17 22:30 08/18/17 22:29 Sodium Chloride 1,000 ml @ 100 mls/hr Q10H IVLG 07/19/17 22:39 08/18/17 22:38 07/20/17 09:39 Vasquez Toribio MD July 20, 2017 16:40
[2017-07-20 17:44] LABS: % IRON SATURATION 25 % (15-50); FERRITIN 424 NG/ML (8-388); IRON 50 ug/dL (50-175); TOTAL IRON BINDING CAPACITY 200 ug/dL (250-450)
--- NOTE | 2017-07-20 19:18 | General Progress Note ---
Assessment/Plan Problem List: (1) H/O discitis Assessment & Plan: T4-T5 osteomyelitis s/p 6 weeks of IV abx ICD Codes: Z87.39 - Personal history of other diseases of the musculoskeletal system and connective tissue SNOMED: 992604442 (2) UTI (urinary tract infection) ICD Codes: N39.0 - Urinary tract infection, site not specified SNOMED: 20570792, 454018867 Qualifiers: Qualified Codes: N39.0 - Urinary tract infection, site not specified (3) Sepsis ICD Codes: A41.9 - Sepsis, unspecified organism SNOMED: 33017598, 199183656 Qualifiers: Qualified Codes: A41.9 - Sepsis, unspecified organism (4) Renal failure ICD Codes: N19 - Unspecified kidney failure SNOMED: 47921992 Qualifiers: Qualified Codes: N17.9 - Acute kidney failure, unspecified (5) Dementia ICD Codes: F03.90 - Unspecified dementia without behavioral disturbance SNOMED: 13541063 (6) CVA with L hemiparesis (7) DM2 (diabetes mellitus, type 2) ICD Codes: E11.9 - Type 2 diabetes mellitus without complications SNOMED: 07661863 (8) HLD (hyperlipidemia) ICD Codes: E78.5 - Hyperlipidemia, unspecified SNOMED: 63364130 (9) HTN (hypertension) ICD Codes: I10 - Essential (primary) hypertension SNOMED: 55145539 Status: stable, progressing Assessment/Plan - ID consulted, appreciate rec's - nephrology consulted, appreciate rec's - IV linezolid and meropenam. Avoid vancomycin given KEI - lactic acid 3.2 --> 1.3 - IVF - Trend Cr 2.5 --> 2.2 - f/u urine cx - f/u blood cx - DOTTY + lantus 15 units qhs - f/u lipid panel - A1c 7.7 - continue home meds. Hold BP meds in the setting of sepsis - pain control and supportive care - check repeat MRI lumbar/thoracic w/o contrast for worsening back pain and lower extremity weakness - check venous duplex prior to SCDs DVT ppx: HSQ Full Code Disposition: Home with HH vs. SNF I spent a total of 43 minutes on this patient's case with greater than 50% spent on care and coordination of the patient. Case was d/w patient, family, ED doctor, ID, boat fueler, and nursing staff. Subjective Date patient seen: July 20, 2017 Time patient seen: 11:00 Allergies: Coded Allergies: No Known Allergies (Unverified , 05/24/17) Subjective - afebrile but tachycardic and hypotensive - family at bedside - sleeping but easily arousable. states pain to back improved - family concerned about progressive weakness to lower extremities Objective Last 24 Hour Vital Signs Date Time Temp Pulse Resp B/P (MAP) Pulse Ox O2 Delivery O2 Flow Rate FiO2 07/20/17 16:00 97.7 104 20 123/66 94 Room Air 97.7 07/20/17 16:00 102 07/20/17 12:06 97.2 102 20 109/57 95 Room Air 97.2 07/20/17 12:00 110 07/20/17 08:00 97.9 103 20 129/66 98 Room Air 97.9 07/20/17 08:00 98 07/20/17 04:00 101 07/20/17 04:00 96.5 101 20 131/65 95 Room Air 96.5 07/20/17 00:00 112 07/20/17 00:00 96.8 114 20 127/56 95 Room Air 96.8 07/19/17 20:00 96.8 96 20 90/52 98 Room Air 96.8 07/19/17 20:00 96 Intake and Output 07/19/17 07/20/17 19:00 07:00 Intake Total 2588.3 ml 450 ml Output Total 1100 ml 700 ml Balance 1488.3 ml -250 ml IV Total 2588.3 ml 450 ml Output Urine Total 1100 ml 700 ml # Bowel Movements 1 Laboratory Tests 07/20/17 05:35: White Blood Count 12.0H, Red Blood Count 2.72L, Hemoglobin 8.3L, Hematocrit 24.9L, Mean Corpuscular Volume 91, Mean Corpuscular Hemoglobin 30.6, Mean Corpuscular Hemoglobin Concent 33.5, Red Cell Distribution Width 12.8, Platelet Count 163, Mean Platelet Volume 6.5, Neutrophils (%) (Auto) 71.0, Lymphocytes (% ) (Auto) 14.0L, Monocytes (%) (Auto) 6.4, Eosinophils (%) (Auto) 8.2H, Basophils (%) (Auto) 0.4, Differential Total Cells Counted 100, Neutrophils % ( Manual) 68, Lymphocytes % (Manual) 17L, Monocytes % (Manual) 9, Eosinophils % ( Manual) 6H, Basophils % (Manual) 0, Band Neutrophils 0, Platelet Estimate DecreasedL, Platelet Morphology Normal, Red Blood Cell Morphology Normal, Reticulocyte Count 1.9, Sodium Level 139, Potassium Level 3.8, Chloride Level 107, Carbon Dioxide Level 20L, Anion Gap 12, Blood Urea Nitrogen 27H, Creatinine 2.2H, Estimat Glomerular Filtration Rate , Glucose Level 113#H, Hemoglobin A1c 7.7H, Lactic Acid Level 1.30, Calcium Level 8.3L, Magnesium Level 1.5L, Iron Level 50, Total Iron Binding Capacity 200L, Percent Iron Saturation 25, Unsaturated Iron Binding 150, Soluble Transferrin Receptor [ Pending], Ferritin 424H, Total Bilirubin 0.3, Aspartate Amino Transf (AST/SGOT) 11L, Alanine Aminotransferase (ALT/SGPT) 27, Alkaline Phosphatase 116, Lactate Dehydrogenase 218, C-Reactive Protein, Quantitative 2.5H, Total Protein 7.7, Albumin 3.0L, Globulin 4.7, Albumin/Globulin Ratio 0.6L, Triglycerides Level 94 , Cholesterol Level 122, LDL Cholesterol 82, HDL Cholesterol 33L, Cholesterol/ HDL Ratio 3.7, Vitamin B12 Level > 2000H, Methylmalonic Acid [Pending], Folate 3.7L, Thyroid Stimulating Hormone (TSH) 2.568 Height (Feet): 5 Height (Inches): 4.00 Weight (Pounds): 160 General Appearance: lethargic EENT: PERRL/EOMI, normal ENT inspection Neck: non-tender, normal alignment, supple Cardiovascular: normal peripheral pulses, regular rhythm, tachycardia Respiratory/Chest: chest wall non-tender, lungs clear, normal breath sounds Abdomen: normal bowel sounds, non tender, soft Neurologic: church business administrator II-XII grossly normal, alert, other Skin: normal pigmentation, warm/dry Lissette Eduardo NP July 20, 2017 19:17
[2017-07-20 20:00] VITALS: BP 125/68
[2017-07-20] MEDS: Atorvastatin 20mg tab ORAL SCH (21:45)
[2017-07-20] MEDS: Morphine Sulfate 4mg/ml Inj IVP PRN (22:56)
[2017-07-21] VITALS: BP 131/75
--- NOTE | 2017-07-21 02:47 | Consultation ---
DATE OF CONSULTATION: 07/20/2017 HEMATOLOGY/ONCOLOGY CONSULTATION CONSULTING PHYSICIAN: Baldemar Preez M.D. REQUESTING PHYSICIAN: Frankie Greene M.D. REASON FOR CONSULTATION: Evaluation of anemia and leukocytosis. IDENTIFYING DATA: Dear Dr. Greene: The patient is a pleasant 77-year-old female with past medical history significant for thoracic diskitis at T4-T5 area, at this time presents to the hospital status post antibiotic treatment. She presents to [facility] with UTI and leukocytosis. ID Service was consulted for further evaluation and management. Seen in telemetry at [facility], at this time on meropenem and Zyvox. Urine culture pending. UA, 20 to 30 wbc's, has been consulted by Dr. Greene and Lissette Eduardo, nurse practitioner. Notes have been reviewed. PAST MEDICAL HISTORY: Thoracic diskitis T4-T5, antibiotic treatment completed, CVA, hemiparesis, diabetes, elevated creatinine, chest pain when initially came in, dementia, hyponatremia, hyperlipidemia, osteomyelitis, . PAST SURGICAL HISTORY: None reported besides as noted above. ALLERGIES: No known drug allergies. FAMILY HISTORY: Noncontributory. SOCIAL HISTORY: No alcohol, tobacco, or illicit drug use. REVIEW OF SYSTEMS: CONSTITUTIONAL: No fevers, chills, or night sweats. SKIN: No rashes, bumps, or itching. HEENT: No headache, hearing or vision changes. BREASTS: No lumps, pain, or discharge. PULMONARY: No cough, sputum, or shortness of breath. GASTROINTESTINAL: No nausea, vomiting, or diarrhea. GENITOURINARY: No dysuria, frequency, or urgency. MUSCULOSKELETAL: No joint swelling, muscle pain, or trauma. Chest pain. PHYSICAL EXAMINATION: VITAL SIGNS: Reviewed. GENERAL: No distress. PULMONARY: Decreased breath sounds. CARDIOVASCULAR: Regular rate. No S3 or S4. ABDOMEN: Soft, nontender, and nondistended. EXTREMITIES: No cyanosis, swelling, or edema reported. LABORATORY DATA: WBC 5000, hemoglobin 8.3, hematocrit 25, and platelet count 163,000. INR of 1. Chemistry reviewed. BUN of 27 and creatinine 2.2. Anemia workup reviewed. Historical labs have been reviewed. Hepatitis panel negative. HIV negative for this past year. In addition, the patient's INR is 1. Total bilirubin 0.3. Reviewed the patient's historical blood work. She has never had anemia workup completed and elevated at 98. Therefore, at this moment, we will order anemia workup. ASSESSMENT AND PLAN: 1. Anemia due to underlying chronic disease. Anemia workup to be ordered at this time. Further results to follow. We will check for folic acid deficiency and hypothyroidism in addition to iron deficiency. 2. Leukocytosis, likely secondary to underlying infection, has been seen by ID Service. Further evaluation with urinary tract infection is pending. The patient with systemic inflammatory response syndrome. She is on meropenem and Zyvox. 3. Acute kidney injury, closely monitor for improvement on IV fluids. 4. Back pain with thoracic spine diskitis, status post antibiotics. 5. Hypertension. Systolic blood pressure goal less than 140. 6. Hyperlipidemia. LDL goal is less than 70. 7. Diabetes mellitus. A1c goal is less than 7. 8. I appreciate the consultation. Baldemar Perez M.D. DR: ANAMIKA JOB#: [id number] CC:
[2017-07-21 04:00] VITALS: BP 125/68
[2017-07-21] MEDS: NovoLOG Insulin Flexpen SUBQ SCH ×4 (06:29→20:27)
[2017-07-21] MEDS: Morphine Sulfate 4mg/ml Inj IVP PRN ×2 (07:11→12:00)
[2017-07-21 08:00] VITALS: BP 133/69
--- NOTE | 2017-07-21 08:12 | General Progress Note ---
Assessment/Plan Assessment/Plan ASSESSMENT AND PLAN: #. Anemia due to underlying chronic disease as well as folic acid deficiency --> anemia w/u has been reviewed and shows folic acid deficiency --> start on folic acid 1mg po daily --> hgb goal is >7 #. Anemia of folic acid deficiency --> has been started on folate daily #. Leukocytosis, likely secondary to underlying infection, has been seen by ID Service. --> Further evaluation with urinary tract infection is pending. The patient with systemic inflammatory response syndrome. She is on meropenem and Zyvox. --> appreciate id recs #. Acute kidney injury, closely monitor for improvement on IV fluids. #. Back pain with thoracic spine diskitis, status post antibiotics. #. Hypertension. Systolic blood pressure goal less than 140. #. Hyperlipidemia. LDL goal is less than 70. #. Diabetes mellitus. A1c goal is less than 7. Subjective Constitutional: Denies: no symptoms, chills, diaphoresis, fever, malaise, weakness, other HEENT: Denies: no symptoms, eye pain, blurred vision, tearing, double vision, ear pain, ear discharge, nose pain, nose congestion, throat pain, throat swelling, mouth pain, mouth swelling, other Cardiovascular: Denies: no symptoms, chest pain, edema, irregular heart rate, lightheadedness, palpitations, syncope, other Respiratory: Denies: no symptoms, cough, orthopnea, shortness of breath, SOB with excertion, SOB at rest, sputum, stridor, wheezing, other Gastrointestinal/Abdominal: Denies: no symptoms, abdomen distended, abdominal pain, black stools, tarry stools, blood in stool, constipated, diarrhea, difficulty swallowing, nausea, poor appetite, poor fluid intake, rectal bleeding , vomiting, other Genitourinary: Denies: no symptoms, burning, discharge, frequency, flank pain, hematuria, incontinence, pain, urgency, other Neurologic/Psychiatric: Denies: no symptoms, anxiety, depressed, emotional problems, headache, numbness, paresthesia, pre-existing deficit, seizure, tingling, tremors, weakness, other Endocrine: Denies: no symptoms, excessive sweating, flushing, intolerance to cold, intolerance to heat, increased hunger, increased thirst, increased urine, unexplained weight gain, unexplained weight loss, other Hematologic/Lymphatic: Denies: no symptoms, anemia, easy bleeding, easy bruising, other Allergies: Coded Allergies: No Known Allergies (Unverified , 05/24/17) Subjective startedo n folic acid, this am is sleepy, no complaints Objective Last 24 Hour Vital Signs Date Time Temp Pulse Resp B/P (MAP) Pulse Ox O2 Delivery O2 Flow Rate FiO2 07/21/17 04:00 98.2 108 22 125/68 92 Room Air 98.2 07/21/17 04:00 119 07/21/17 00:00 97.7 121 21 131/75 94 Room Air 97.7 07/21/17 00:00 119 07/20/17 20:00 98.2 108 22 125/68 92 Room Air 98.2 07/20/17 20:00 104 07/20/17 16:00 97.7 104 20 123/66 94 Room Air 97.7 07/20/17 16:00 102 07/20/17 12:06 97.2 102 20 109/57 95 Room Air 97.2 07/20/17 12:00 110 Intake and Output 07/20/17 07/21/17 19:00 07:00 Intake Total 1600 ml 920 ml Output Total 1600 ml 600 ml Balance 0 ml 320 ml Intake Oral 350 ml 120 ml IV Total 1250 ml 800 ml Output Urine Total 1600 ml 600 ml Laboratory Tests 07/21/17 07:30: Urine Eosinophils [Pending] Height (Feet): 5 Height (Inches): 4.00 Weight (Pounds): 160 General Appearance: no apparent distress EENT: normal ENT inspection Neck: supple Cardiovascular: regular rhythm Respiratory/Chest: normal breath sounds Abdomen: no organomegaly Extremities: non-tender Edema: 1+ Leg (L), 1+ Leg (R) Edema: mild edema Neurologic: alert Baldemar Perez MD Jul 21, 2017 08:12
[2017-07-21] MEDS: Docusate 100mg cap ORAL SCH ×3 (09:14→17:18)
[2017-07-21] MEDS: Ascorbic Acid 500mg tab ORAL SCH (09:14)
[2017-07-21] MEDS: Memantine 10mg tab ORAL SCH (09:15)
[2017-07-21] MEDS: Heparin 5000 units/ml inj SUBQ SCH (09:27)
[2017-07-21 12:00] VITALS: BP 106/60
[2017-07-21 12:43] LABS: HEMATOCRIT 23.4 % (37.0-47.0); HEMOGLOBIN 7.7 G/DL (12.0-16.0); MEAN CORPUSCULAR VOLUME 91 FL (80-99); PLATELET COUNT 207 K/UL (150-450); RED BLOOD COUNT 2.57 M/UL (4.20-5.40); RED CELL DISTRIBUTION WIDTH 12.8 % (11.6-14.8); WHITE BLOOD COUNT 12.2 K/UL (4.8-10.8)
--- NOTE | 2017-07-21 13:24 | Nephrology Progress Note ---
Assessment/Plan Problem List: (1) Sepsis (2) UTI (urinary tract infection) (3) Renal failure (4) CVA with L hemiparesis Assessment admitted with UTI and sepsis admitted with elevated Lactic acid Diabetic nephropathy Acute on Chronic renal failure The patient has acute kidney injury, elevated creatinine. Cr 2.5 on admit now 2.2 Anemia History of diabetes. History of cerebrovascular accident and left hemiparesis and weakness. Hypertension. Hyperlipidemia. Dementia. . Plan 2D Echo? today's labs pending Avoid nephrotoxics Anemia work up urine na and Eosinophils slow hydrate keep BP and BS in check Monitor renal parameters Subjective ROS Limited/Unobtainable: No Constitutional: Reports: malaise Objective Objective Last 24 Hour Vital Signs Date Time Temp Pulse Resp B/P (MAP) Pulse Ox O2 Delivery O2 Flow Rate FiO2 07/21/17 12:00 99.3 121 18 106/60 95 Room Air 99.3 07/21/17 08:00 98.1 128 20 133/69 94 Room Air 98.1 07/21/17 04:00 98.2 108 22 125/68 92 Room Air 98.2 07/21/17 04:00 119 07/21/17 00:00 97.7 121 21 131/75 94 Room Air 97.7 07/21/17 00:00 119 07/20/17 20:00 98.2 108 22 125/68 92 Room Air 98.2 07/20/17 20:00 104 07/20/17 16:00 97.7 104 20 123/66 94 Room Air 97.7 07/20/17 16:00 102 Intake and Output 07/20/17 07/21/17 19:00 07:00 Intake Total 1600 ml 920 ml Output Total 1600 ml 600 ml Balance 0 ml 320 ml Intake Oral 350 ml 120 ml IV Total 1250 ml 800 ml Output Urine Total 1600 ml 600 ml Laboratory Tests 07/21/17 07:30: Urine Eosinophils Few 07/21/17 12:30: White Blood Count 12.2H, Red Blood Count 2.57L, Hemoglobin 7.7L, Hematocrit 23.4L, Mean Corpuscular Volume 91, Mean Corpuscular Hemoglobin 30.0, Mean Corpuscular Hemoglobin Concent 33.0, Red Cell Distribution Width 12.8, Platelet Count 207, Mean Platelet Volume 5.9L, Neutrophils (%) (Auto) , Lymphocytes (%) ( Auto) , Monocytes (%) (Auto) , Eosinophils (%) (Auto) , Basophils (%) (Auto) , Neutrophils % (Manual) [Pending], Lymphocytes % (Manual) [Pending], Platelet Estimate [Pending], Platelet Morphology [Pending], Sodium Level [Pending], Potassium Level [Pending], Chloride Level [Pending], Carbon Dioxide Level [ Pending], Blood Urea Nitrogen [Pending], Creatinine [Pending], Estimat Glomerular Filtration Rate [Pending], Glucose Level [Pending], Uric Acid [ Pending], Calcium Level [Pending], Phosphorus Level [Pending], Magnesium Level [ Pending], Total Bilirubin [Pending], Gamma Glutamyl Transpeptidase [Pending], Aspartate Amino Transf (AST/SGOT) [Pending], Alanine Aminotransferase (ALT/SGPT ) [Pending], Alkaline Phosphatase [Pending], Total Creatine Kinase [Pending], Troponin I 0.021, Pro-B-Type Natriuretic Peptide [Pending], Total Protein [ Pending], Albumin [Pending], Globulin [Pending] Height (Feet): 5 Height (Inches): 4.00 Weight (Pounds): 160 General Appearance: no apparent distress Cardiovascular: tachycardia Respiratory/Chest: decreased breath sounds Abdomen: soft JAYNA MAYA Jul 21, 2017 13:24
[2017-07-21 13:36] LABS: ALANINE AMINOTRANSFERASE 24 U/L (12-78); ALBUMIN 2.6 G/DL (3.4-5.0); ALBUMIN/GLOBULIN RATIO 0.6 (1.0-2.7); ALKALINE PHOSPHATASE 117 U/L (46-116); ANION GAP 13 mmol/L (5-15); ASPARTATE AMINO TRANSFERASE 13 U/L (15-37); BILIRUBIN,TOTAL 0.3 MG/DL (0.2-1.0); BLOOD UREA NITROGEN 15 mg/dL (7-18); CALCIUM 8.2 MG/DL (8.5-10.1); CARBON DIOXIDE 19 MMOL/L (21-32); CHLORIDE 107 MMOL/L (98-107); CREATINE KINASE 25 U/L (26-308); GAMMA GLUTAMYL TRANSPEPTIDASE 128 U/L (5-85); PHOSPHORUS 2.5 MG/DL (2.5-4.9); POTASSIUM 3.9 MMOL/L (3.5-5.1); SODIUM 139 MMOL/L (136-145)
--- NOTE | 2017-07-21 14:33 | Diagnostic Imaging Report ---
Indication: Back pain Technique: MRI examination of the Lumbar spine was performed in a 1.5 Alejandra magnet. Sequences obtained include sagittal and axial T1 and T2 fast spin echo, and sagittal STIR. Comparison: none Findings: There is degenerative disc disease at L4-5 characterized by narrowing of the disc, desiccation and concentric disc bulge. There is anterolisthesis. Mild endplate spurs and moderately hypertrophied facets are demonstrated. This results in mild central stenosis, narrowing of the lateral recess and mild to moderate bilateral foraminal stenosis. L5-S1 demonstrates mild bilateral foraminal stenosis slightly worse on the right. The disc appears normal. There is no central canal stenosis. L1-2, L2-3 and L3-4 unremarkable. Conus medullaris is seen at L1 and appears normal. The visualized part of the distal spinal cord is normal in appearance. Bone marrow signal is normal in alignment is well maintained otherwise. Soft tissues are unremarkable. IMPRESSION: L4-5 central spinal stenosis, narrowing of the lateral recesses and mild to moderate foraminal stenosis due to degenerative disc osteophyte complex, moderate facet arthropathy, which is associated with a mild anterolisthesis. Mild L5-S1 foraminal stenosis.
--- NOTE | 2017-07-21 14:51 | Diagnostic Imaging Report ---
Indication: History of osteomyelitis in the thoracic spine. Compression fractures. Technique: MRI examination of the thoracic spine was performed in a 1.5 Alejandra magnet. Sequences obtained include sagittal and axial T1 and T2 fast spin echo, and sagittal STIR. Comparison: MRI thoracic spine 05/24/2017 Findings: The current study is nondiagnostic with regard to evaluation of the cord due to motion. There is a compression fracture deformity present within 2 vertebra that are adjacent to each other. These appear to be the T4 and T5 vertebra which are anteriorly compressed with bone marrow edema (low T1/high T2 signal). Given the contiguous involvement there is concern for osteomyelitis/discitis involving the T4-5 disc. There is moderate retropulsion again demonstrated with compression of the cord as was demonstrated previously. Cord signal is not well-defined due to the motion. Cord edema is not excludable. There is a moderate degree of paravertebral soft tissue edema present. This is also the case on the prior occasion. No reason to believe this findings have improved since the last study. Grossly, the configuration, including angulation and degree of the vertebral collapse appear grossly unchanged. IMPRESSION: Very limited nearly nondiagnostic study demonstrating vertebral collapse, focal kyphosis at T4-5 presumably on the basis of infection resulting in retropulsion and cord compression. Similar findings better demonstrated on the previous occasion 05/24/2017 MRI noted. Consider repeating the MRI when patient is able to better tolerate the study. In addition recommend gadolinium enhanced sequences.
--- NOTE | 2017-07-21 15:22 | Infectious Diseases Prog Note ---
Assessment/Plan Assessment/Plan ASSESSMENT AND PLAN: 1. uti, sepsis, sirs, leukocytosis, chest x-ray with chf - continue meropenem -day # 3 - urine culture negative, blood cultures negative - f/u labs - recheck ua and culture 2. 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, lower extremity weakness - Thoracic MRI findings noted and shows cord compression and findings c/w infection - s/p full 6 week abx course with vancomycin/cefepime and vancomycin/ meropenem - continue meropenem and add daptomycin - d/w Lissette Eduardo NP - spine surgery evaluation, ? needs surgery 3. The patient has acute kidney injury, elevated creatinine. 4. The patient has anemia. 5. History of chest pain. 6. History of diabetes - bs control per primary and consultants 7. History of cerebrovascular accident and left hemiparesis and weakness, + chronic leg weakness. 8. Hypertension - bp control per primary and consultants 9. Hyperlipidemia. 10. Dementia. 11. Hyponatremia. 12. Past medical history noted. 13. Social history negative. 14. Family history noncontributory. 15. MAR was noted. 16. Case discussed with RN. 17. Allergies are negative. 18. Notes were reviewed and noted. 19. Continue treatment per primary consultants. 20. case d/w Lissette Eduardo NP and son Subjective Constitutional: Reports: fatigue; Denies: fever HEENT: Denies: congestion Respiratory: Denies: shortness of breath, productive cough Cardiovascular: Denies: chest pain Gastrointestinal/Abdominal: Denies: nausea, vomiting, diarrhea Genitourinary: Reports: other - + cowan Neurologic: Denies: headache Psychiatric: Denies: depression Skin: Denies: rash Hematologic: Denies: bleeding Musculoskeletal: Denies: pain Allergies: Coded Allergies: No Known Allergies (Unverified , 05/24/17) Objective Vital Signs Last 24 Hour Vital Signs Date Time Temp Pulse Resp B/P (MAP) Pulse Ox O2 Delivery O2 Flow Rate FiO2 07/21/17 12:00 99.3 121 18 106/60 95 Room Air 99.3 07/21/17 12:00 125 07/21/17 08:00 133 07/21/17 08:00 98.1 128 20 133/69 94 Room Air 98.1 6/1/18 04:00 98.2 108 22 125/68 92 Room Air 98.2 07/21/17 04:00 119 07/21/17 00:00 97.7 121 21 131/75 94 Room Air 97.7 07/21/17 00:00 119 07/20/17 20:00 98.2 108 22 125/68 92 Room Air 98.2 07/20/17 20:00 104 07/20/17 16:00 97.7 104 20 123/66 94 Room Air 97.7 07/20/17 16:00 102 Height (Feet): 5 Height (Inches): 4.00 Weight (Pounds): 160 General Appearance: no acute distress HEENT: normocephalic, atraumatic, anicteric, mucous membranes moist Respiratory/Chest: lungs clear, normal breath sounds, no respiratory distress, no accessory muscle use, crackles/rales - occ, rhonchi - bilaterally - occ Cardiovascular: normal rate, regular rhythm, no gallop/murmur, no JVD Abdomen: normal bowel sounds, soft, non tender, no organomegaly, non distended Genitourinary: other - + cowan - urine clearer Extremities: no cyanosis Skin: no rash Neurologic/Psychiatric: contract engineer II-XII grossly normal, alert, oriented x 3, responsive, motor weakness - leg weakness without change Lymphatic: no neck adenopathy Musculoskeletal: no effusion Objective Chest x-ray - 07/20 - Findings: Some prominence of the pulmonary vascularity and interstitium are again demonstrated. Cardiomegaly is also again noted. Findings appear unchanged. No definite pleural effusions are appreciated. IMPRESSION: Some evidence to suggest mild congestive heart failure. Correlate clinically Thoracic spine MRI: IMPRESSION: Very limited nearly nondiagnostic study demonstrating vertebral collapse, focal kyphosis at T4-5 presumably on the basis of infection resulting in retropulsion and cord compression. Similar findings better demonstrated on the previous occasion 05/24/2017 MRI noted. Consider repeating the MRI when patient is able to better tolerate the study. In addition recommend gadolinium enhanced sequences. Microbiology Date/Time Source Procedure Growth Status 07/19/17 12:35 Blood Blood Culture - Preliminary NO GROWTH AFTER 24 HOURS Resulted 07/19/17 12:25 Blood Blood Culture - Preliminary NO GROWTH AFTER 24 HOURS Resulted 07/19/17 14:30 Nasal Nares MRSA Culture - Final NO METHICILLIN RESISTANT STAPH AUREUS... Complete 07/19/17 13:25 Urine,Clean Catch Urine Culture - Preliminary NO GROWTH AFTER 24 HOURS Resulted 07/19/17 14:30 Rectum VRE Culture - Final Enterococcus Faecalis - Vre Complete Laboratory Tests Test 07/21/17 07:30 07/21/17 12:30 Urine Eosinophils Few White Blood Count 12.2 K/UL (4.8-10.8) H Red Blood Count 2.57 M/UL (4.20-5.40) L Hemoglobin 7.7 G/DL (12.0-16.0) L Hematocrit 23.4 % (37.0-47.0) L Mean Corpuscular Volume 91 FL (80-99) Mean Corpuscular Hemoglobin 30.0 PG (27.0-31.0) Mean Corpuscular Hemoglobin Concent 33.0 G/DL (32.0-36.0) Red Cell Distribution Width 12.8 % (11.6-14.8) Platelet Count 207 K/UL (150-450) Mean Platelet Volume 5.9 FL (6.5-10.1) L Neutrophils (%) (Auto) % (45.0-75.0) Lymphocytes (%) (Auto) % (20.0-45.0) Monocytes (%) (Auto) % (1.0-10.0) Eosinophils (%) (Auto) % (0.0-3.0) Basophils (%) (Auto) % (0.0-2.0) Differential Total Cells Counted 100 Neutrophils % (Manual) 57 % (45-75) Lymphocytes % (Manual) 28 % (20-45) Monocytes % (Manual) 7 % (1-10) Eosinophils % (Manual) 8 % (0-3) H Basophils % (Manual) 0 % (0-2) Band Neutrophils 0 % (0-8) Platelet Estimate Adequate Platelet Morphology Normal Red Blood Cell Morphology Normal Sodium Level 139 MMOL/L (136-145) Potassium Level 3.9 MMOL/L (3.5-5.1) Chloride Level 107 MMOL/L (98-107) Carbon Dioxide Level 19 MMOL/L (21-32) L Anion Gap 13 mmol/L (5-15) Blood Urea Nitrogen 15 mg/dL (7-18) Creatinine 2.0 MG/DL (0.55-1.30) H Estimat Glomerular Filtration Rate mL/min (>60) Glucose Level 135 MG/DL (74-106) H Uric Acid 5.9 MG/DL (2.6-7.2) Calcium Level 8.2 MG/DL (8.5-10.1) L Phosphorus Level 2.5 MG/DL (2.5-4.9) Magnesium Level 1.8 MG/DL (1.8-2.4) Total Bilirubin 0.3 MG/DL (0.2-1.0) Gamma Glutamyl Transpeptidase 128 U/L (5-85) H Aspartate Amino Transf (AST/SGOT) 13 U/L (15-37) L Alanine Aminotransferase (ALT/SGPT) 24 U/L (12-78) Alkaline Phosphatase 117 U/L (46-116) H Total Creatine Kinase 25 U/L (26-308) L Troponin I 0.021 ng/mL (0.000-0.056) Pro-B-Type Natriuretic Peptide 469 pg/mL (0-125) H Total Protein 7.1 G/DL (6.4-8.2) Albumin 2.6 G/DL (3.4-5.0) L Globulin 4.5 g/dL Albumin/Globulin Ratio 0.6 (1.0-2.7) L Current Medications Medications (Trade) Dose Ordered Sig/Leona Route PRN Reason Start Time Stop Time Status Last Admin Dose Admin Acetaminophen (Tylenol) 650 mg Q4H PRN ORAL Mild Pain/Temp > 100.5 07/19/17 22:30 08/18/17 22:29 Acetaminophen/ Hydrocodone Bitart (Pound 5/325) 1 tab Q4HR PRN ORAL Moderate Pain (Pain Scale 4-6) 07/19/17 22:30 07/26/17 22:29 Ascorbic Acid (Vitamin C) 250 mg DAILY ORAL 07/20/17 09:00 08/19/17 08:59 07/21/17 09:14 Aspirin (ASA) 325 mg DAILY ORAL 07/20/17 09:00 08/19/17 08:59 07/21/17 09:14 Atorvastatin Calcium (Lipitor) 20 mg BEDTIME ORAL 07/20/17 21:00 08/19/17 20:59 07/20/17 21:45 Bisacodyl (Dulcolax) 10 mg DAILYPRN PRN RECTAL Constipation 07/19/17 22:30 08/18/17 22:29 Dextrose (Dextrose 50%) 25 ml STAT PRN IV Hypoglycemia 07/19/17 21:45 08/18/17 21:44 Dextrose (Dextrose 50%) 50 ml STAT PRN IV Hypoglycemia 07/19/17 21:45 08/18/17 21:44 Docusate Sodium (Colace) 100 mg TID ORAL 07/20/17 18:00 08/18/17 22:55 07/21/17 12:06 Folic Acid (Folate) 1 mg DAILY ORAL 07/21/17 09:00 08/20/17 08:59 07/21/17 09:15 Gabapentin (Neurontin) 300 mg BID ORAL 07/19/17 22:54 08/18/17 22:53 07/21/17 09:14 Heparin Sodium (Porcine) (Heparin 5000 units/ml) 5,000 units EVERY 12 HOURS SUBQ 07/20/17 09:00 08/19/17 08:59 07/21/17 09:27 Insulin Aspart (NovoLOG) BEFORE MEALS AND HS SUBQ 07/19/17 22:27 08/18/17 22:26 07/21/17 11:58 Insulin Detemir (Levemir) 15 units BEDTIME SUBQ 07/19/17 23:00 08/18/17 22:59 07/20/17 21:44 Lansoprazole (Prevacid) 30 mg BID ORAL 07/20/17 18:00 08/19/17 17:59 07/21/17 09:14 Linezolid 300 ml @ 300 mls/hr EVERY 12 HOURS IVPB 07/20/17 09:00 07/27/17 08:59 07/21/17 09:14 Memantine (Namenda) 10 mg DAILY ORAL 07/20/17 09:00 08/19/17 08:59 07/21/17 09:15 Meropenem 500 mg/ Sodium Chloride 50 ml @ 100 mls/hr Q12HR IVPB 07/19/17 22:00 07/24/17 21:59 07/21/17 09:14 Morphine Sulfate (Morphine Sulfate) 4 mg Q4H PRN IVP Severe Pain (Pain Scale 7-10) 07/19/17 22:30 07/26/17 22:29 07/21/17 12:00 Ondansetron HCl (Zofran) 4 mg Q6H PRN IVP Nausea & Vomiting 07/19/17 22:30 08/18/17 22:29 Polyethylene Glycol (Miralax) 17 gm DAILY PRN ORAL Constipation 07/19/17 22:30 08/18/17 22:29 Sodium Chloride 1,000 ml @ 100 mls/hr Q10H IVLG 07/19/17 22:39 08/18/17 22:38 07/21/17 14:01 Vasquez Toribio MD Jul 21, 2017 15:22
[2017-07-21 16:00] VITALS: BP 163/76
--- NOTE | 2017-07-21 16:36 | Consultation ---
Consult Note Consult Note NEUROLOGY CONSULTATION: Full note dictated #[id number] 77 y/o, RH, BF with PH of HTN, DM, DL, CVD with a right MCA stroke with left hemiparesis, dementia, recurrent UTIs, and recent thoracic diskitis/osteomyelitis at the T4-5 level with cord compression s/p IV antibiotics. She was seen by a spine surgeon at and it was felt that she was not a surgical candidate. She presented from her home for lethargy and worsening back pain. ON EXAM: Lethargic from recent Morphine given for pain. Oriented to self only. Left VII central Left UE plegia except for minimal left finger flexion G2/5. Left LE G 0/5 - flaccid Right LE G 0/5 - flaccid Right UE G 4/5 Responds to DP in all 4s Reflexes: 1+ R/ 2+ L in UE and knees. 0 at both ankles. Plantars - Mute. MRI of T-spine done on 07/21/17 revealed "a very limited nearly nondiagnostic study demonstrating vertebral collapse, focal kyphosis at T4-5 presumably on the basis of infection resulting in retropulsion and cord compression. Similar findings better demonstrated on the previous occasion 05/24/2017 MRI noted. IMPRESSION: 1. Significant encephalopathy due to Morphine given recently superimposed on old CVD and acute infection. 2. T4-5 osteomyelits with veretebral body collapse with cord compression similar to what was seen on the 05/24/17 scan. REC: Antibiotics as per Dr. Toribio. Frequent ROM exercises. Observe off mind altering drugs. Neda Nunez M.D., M.S.P.NEDA BOUCHER Jul 21, 2017 16:36
--- NOTE | 2017-07-21 16:53 | Cardiology Report ---
APPROVED REPORT EXAM: Two-dimensional and M-mode echocardiogram with Doppler and color Doppler. INDICATION Congestive Heart Failure M-Mode DIMENSIONS IVSd1.4 (0.7-1.1cm)Left Atrium (MM)2.9 (1.6-4.0cm) LVDd3.0 (3.5-5.6cm)Aortic Root2.9 (2.0-3.7cm) PWd1.3 (0.7-1.1cm)Aortic Cusp Exc.1.5 (1.5-2.0cm) LVDs1.5 (2.5-4.0cm) PWs1.9 cm Technically difficult study due to poor acoustic windows. Study quality precludes accurate assessment of regional wall motion. Normal left ventricular chamber size, systolic function and wall motion. Left ventricular ejection fraction estimated to be 60 %. Mild left ventricular hypertrophy. Anterior Echo-free space, may be due to pericardial fat or effusion. Mild left atrial enlargement. Right cardiac chamber sizes are within normal limits. Mild focal aortic valve sclerosis with adequate cusp excursion. Mildly thickened mitral valve leaflets with normal excursion. Mild mitral annulus and aortic root calcification. Normal pulmonic valve structure. Normal tricuspid valve structure. IVC is normal in size with physiological collapse. A color flow and spectral Doppler study was performed and revealed: No aortic insufficiency. Trace mitral regurgitation. reduced left ventricular relaxation c/w impaired relaxation diastolic dysfunction. Trace tricuspid regurgitation. Tricuspid systolic velocities suggests peak right ventricular systolic pressure of 33 mmHg. Trace pulmonic regurgitation present.
[2017-07-21] MEDS: DAPTOmycin 500 MG in NS 110 ML IV SCH (17:17)
[2017-07-21 20:00] VITALS: BP 144/76
[2017-07-21 20:10] LABS: APPEARANCE,URINE CLEAR; BILIRUBIN, URINE NEGATIVE (NEGATIVE); COLOR,URINE PALE YELLOW; GLUCOSE, URINE (UA) 1+ (NEGATIVE); KETONES,URINE NEGATIVE (NEGATIVE); LEUKOCYTE ESTERASE ,URINE 3+ (NEGATIVE); NITRITE,URINE NEGATIVE (NEGATIVE); PH,URINE 5 (4.5-8.0); PROTEIN,URINE 2+ (NEGATIVE); UROBILINOGEN,URINE NORMAL MG/DL (0.0-1.0)
[2017-07-21] MEDS: Atorvastatin 20mg tab ORAL SCH (20:21)
[2017-07-21] MEDS: Metoprolol 25mg tab ORAL SCH (20:22)
[2017-07-21] MEDS: Levemir Flexpen SUBQ SCH (20:25)
--- NOTE | 2017-07-21 20:32 | Consultation ---
DATE OF CONSULTATION: 07/21/2017 NEUROLOGY CONSULTATION CONSULTING PHYSICIAN: Oh Nunez M.D. REFERRING PHYSICIAN: Frankie Greene M.D. HISTORY: Ms. 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 She was functioning relatively well at home until a few days ago when she became lethargic and was complaining of worsening back pain. As a result of that, she was brought into the [facility] emergency room. A repeat MRI scan of the thoracic spine was done and the quality of the scan was poor because of motion artifact, but the basic findings were very similar to the scan performed on 05/24/2017. This consultation was requested to evaluate and manage the patient from a neurological point of view. At this point in time, the patient is unable to give me any history. She is quite sedated from the morphine that she got earlier for her spine scan. As per her , she has been immobile and unable to move her legs for the last few months. She last stood up with help approximately 4 or 5 months ago. Since then, she has been unable to carry herself on her legs. She also has been exhibiting cognitive problems for some time now, but recently these cognitive problems have worsened. 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 FAMILY HISTORY: Significant for high blood pressure and diabetes mellitus in other family members. PERSONAL HISTORY: Home: She lives at home with her and son. Work: She is retired. Habits: There is no history of alcohol, tobacco, or illicit drug use. PRESENT MEDICATIONS: Include Lopressor, daptomycin, Norvasc, folate, Lipitor, Prevacid, Colace, heparin for DVT prophylaxis, aspirin, ascorbic acid, memantine, insulin on a sliding scale, gabapentin, [place], Dulcolax, Tylenol, MiraLAX, Zofran, morphine sulfate, insulin, and meropenem. PHYSICAL EXAMINATION: GENERAL: She is a well-developed, well-nourished, slightly obese black lady, lying in bed, in no acute distress. VITAL SIGNS: Pulse 113/minute, blood pressure 163/76 mmHg, respirations 18/minute, and temperature 97 degrees Fahrenheit. HEAD: Normocephalic and atraumatic. EENT: Examination benign. NECK: No neck rigidity was observed. NEUROLOGICAL EXAMINATION: MENTAL STATUS EXAMINATION: She was lethargic and would only respond to deep pain with brief awakening. She would rapidly go off to sleep if not constantly stimulated. She was oriented to self only. She had no idea where she was or what the date was. She was unable to tell me who the present President was and who prior presidents were. She was unable to cooperate for further mental status testing. SPEECH: She had a moderate dysarthria. LANGUAGE: Could not be tested adequately. CRANIAL NERVE EXAMINATION: II: She did blink to threat. She was unable to cooperate for confrontation testing. III, IV & : External ocular movements were full and the pupils 3 mm in diameter, equal, round, regular, and reactive to light. V & VII: The corneal reflexes were present bilaterally, but the left-sided reflex was diminished compared to the right-sided reflex. In addition, she also had left seventh central facial paresis. VIII: She seemed to be able to hear and had no nystagmus. IX: The palate moved symmetrically on phonation. X: She had no hoarseness of voice. XI: The sternocleidomastoids and trapezii did function. XII: The tongue was in the midline without any fasciculations or atrophy. MOTOR SYSTEM: The tone was flaccid in both lower extremities and mildly spastic in the left upper extremity. Examination of muscle mass revealed generalized muscle wasting involving the lower extremities significantly more than the upper extremities. Examination of power was impossible to perform on individual muscle groups because of her inability to cooperate. She however had a left upper extremity plegia except for minimal finger flexion G 2/5. In the left lower extremity she had a flaccid plegia with G 0/5 power. In the right lower extremity, she has a flaccid plegia with G 0/5 power. In the right upper extremity she had G 4/5 power. SENSORY EXAMINATION: She responded appropriately to deep pain in all four extremities. REFLEXES: 1+ on the right and 2+ on the left in the biceps, triceps, brachioradialis, and knees, 0 at both ankles. The plantar responses were mute bilaterally. COORDINATION, STANCE & GAIT: Could not be tested. DIAGNOSTIC IMPRESSION: 1. Ms. Adrian Pacheco is a 77-year-old, right-handed, black lady, who does have a past history of hypertension, diabetes mellitus, dyslipidemia, cerebrovascular disease with a right MCA stroke with left hemiparesis, dementia, recurrent urinary tract infections, a T4-5 thoracic diskitis, and osteomyelitis with cord compression, who presented from her home for lethargy and worsening back pain. 2. On neurological examination, at this time, she is lethargic, oriented to self only, has a dysarthria, has left seventh central facial paresis, left upper extremity plegia except for minimal left finger flexion graded 2/5, right upper extremity paresis G 4/5, and flaccid paraplegia with G 0/5 power in both lower extremities. She does respond to deep pain in all four extremities. The deep tendon reflexes are brisker on the left side compared to the right with loss of ankle jerks and mute plantar responses. 3. An MRI scan of the thoracic spine performed on 07/21/2017 revealed "a very limited and nearly nondiagnostic study demonstrating vertebral collapse, focal kyphosis at T 4-5 presumably on the basis of infection resulting in retropulsion and cord compression." Similar findings were better demonstrated on previous scan performed on 05/24/2017. 4. The patient's history, neurological examination, laboratory data, and imaging studies are most compatible with a significant toxic encephalopathy due to morphine given recently, superimposed on an acute infectious process and in addition, old underlying structural brain disease related to her stroke. 5. She also has T4-5 osteomyelitis with vertebral body collapse with cord compression similar to what was seen on 05/24/2017. RECOMMENDATIONS: 1. Agree with management thus far. 2. Antibiotics as per Dr. Toribio. 3. Frequent range of motion exercises should be done. 4. Attempt should be made to keep the patient off mind-altering drugs so that her encephalopathy can improve. 5. Depending on how the patient fares over the next day or so, further recommendations will be given. Thank you for entrusting me with the care of Ms. Pacheco. I shall follow her with you. Oh Nunez M.D., M.S.P.H. DR: JULEE JOB#: [id number] [facility] HOSPITALMayra
--- NOTE | 2017-07-21 23:57 | General Progress Note ---
Assessment/Plan Problem List: (1) H/O discitis Assessment & Plan: T4-T5 osteomyelitis s/p 6 weeks of IV abx ICD Codes: Z87.39 - Personal history of other diseases of the musculoskeletal system and connective tissue SNOMED: 178250839 (2) UTI (urinary tract infection) ICD Codes: N39.0 - Urinary tract infection, site not specified SNOMED: 45251247, 951895919 Qualifiers: Qualified Codes: N39.0 - Urinary tract infection, site not specified (3) Sepsis ICD Codes: A41.9 - Sepsis, unspecified organism SNOMED: 83776632, 669717833 Qualifiers: Qualified Codes: A41.9 - Sepsis, unspecified organism (4) Renal failure ICD Codes: N19 - Unspecified kidney failure SNOMED: 09568936 Qualifiers: Qualified Codes: N17.9 - Acute kidney failure, unspecified (5) Dementia ICD Codes: F03.90 - Unspecified dementia without behavioral disturbance SNOMED: 89641091 (6) CVA with L hemiparesis (7) DM2 (diabetes mellitus, type 2) ICD Codes: E11.9 - Type 2 diabetes mellitus without complications SNOMED: 16552064 (8) HLD (hyperlipidemia) ICD Codes: E78.5 - Hyperlipidemia, unspecified SNOMED: 99302647 (9) HTN (hypertension) ICD Codes: I10 - Essential (primary) hypertension SNOMED: 60486574 (10) Cord compression ICD Codes: G95.20 - Unspecified cord compression SNOMED: 58716826 (11) Acute blood loss anemia ICD Codes: D62 - Acute posthemorrhagic anemia SNOMED: 915060071 Status: stable Assessment/Plan - ID consulted, appreciate rec's - nephrology consulted, appreciate rec's - neurology consulted, appreciate rec's - enologist consulted, appreciate rec's - MRI lumbar/thoracic reviewed showing retropulsion with cord compression. This was compared to the previous MRI thoracic that was done on 05/2017, which showed similar findings when read by the radiologist at [facility]. Per spinal surgery, there was no intervention recommended for the moderate to severe cord compression noted on MRI. - Hgb downtrending. Monitor H/H. Transfer prn Hgb < 7. check FOBT x 3. Hold HSQ and change ASA 325 to 81mg qd - BP elevated, resume BP meds - IV abx per ID (D3) - lactic acid 3.2 --> 1.3 - IVF - Trend Cr 2.5 --> 2.2 - f/u urine cx - f/u blood cx - DOTTY + lantus 15 units qhs - f/u lipid panel - A1c 7.7 - continue home meds. Hold BP meds in the setting of sepsis - pain control and supportive care - venous duplex negative for DVT DVT ppx: SCDs Full Code Disposition: Home with HH vs. SNF I spent a total of 43 minutes on this patient's case with greater than 50% spent on care and coordination of the patient. Case was d/w patient, family, ED doctor, ID, biology faculty member, and nursing staff. Subjective Date patient seen: Jul 21, 2017 Time patient seen: 10:00 Allergies: Coded Allergies: No Known Allergies (Unverified , 05/24/17) Subjective - MRI thoracic/lumbar reviewed and noted to have retropulsion with cord compression - continues to be lethargic. no change in neurological condition; no focal deficits - at bedside Objective Last 24 Hour Vital Signs Date Time Temp Pulse Resp B/P (MAP) Pulse Ox O2 Delivery O2 Flow Rate FiO2 07/21/17 20:22 133 144/76 07/21/17 20:00 127 07/21/17 20:00 98.8 133 21 144/76 93 Room Air 98.8 07/21/17 16:10 113 163/76 07/21/17 16:00 97.0 113 18 163/76 95 Room Air 97.0 07/21/17 16:00 121 07/21/17 12:00 99.3 121 18 106/60 95 Room Air 99.3 07/21/17 12:00 125 07/21/17 08:00 133 07/21/17 08:00 98.1 128 20 133/69 94 Room Air 98.1 07/21/17 04:00 98.2 108 22 125/68 92 Room Air 98.2 07/21/17 04:00 119 07/21/17 00:00 97.7 121 21 131/75 94 Room Air 97.7 07/21/17 00:00 119 Intake and Output 07/20/17 07/21/17 19:00 07:00 Intake Total 1600 ml 920 ml Output Total 1600 ml 600 ml Balance 0 ml 320 ml Intake Oral 350 ml 120 ml IV Total 1250 ml 800 ml Output Urine Total 1600 ml 600 ml Laboratory Tests 07/21/17 07:30: Urine Eosinophils Few 07/21/17 12:30: White Blood Count 12.2H, Red Blood Count 2.57L, Hemoglobin 7.7L, Hematocrit 23.4L, Mean Corpuscular Volume 91, Mean Corpuscular Hemoglobin 30.0, Mean Corpuscular Hemoglobin Concent 33.0, Red Cell Distribution Width 12.8, Platelet Count 207, Mean Platelet Volume 5.9L, Neutrophils (%) (Auto) , Lymphocytes (%) ( Auto) , Monocytes (%) (Auto) , Eosinophils (%) (Auto) , Basophils (%) (Auto) , Differential Total Cells Counted 100, Neutrophils % (Manual) 57, Lymphocytes % ( Manual) 28, Monocytes % (Manual) 7, Eosinophils % (Manual) 8H, Basophils % ( Manual) 0, Band Neutrophils 0, Platelet Estimate Adequate, Platelet Morphology Normal, Red Blood Cell Morphology Normal, Sodium Level 139, Potassium Level 3.9 , Chloride Level 107, Carbon Dioxide Level 19L, Anion Gap 13, Blood Urea Nitrogen 15, Creatinine 2.0H, Estimat Glomerular Filtration Rate , Glucose Level 135H, Uric Acid 5.9, Calcium Level 8.2L, Phosphorus Level 2.5, Magnesium Level 1.8, Total Bilirubin 0.3, Gamma Glutamyl Transpeptidase 128H, Aspartate Amino Transf (AST/SGOT) 13L, Alanine Aminotransferase (ALT/SGPT) 24, Alkaline Phosphatase 117H, Total Creatine Kinase 25L, Troponin I 0.021, Pro-B-Type Natriuretic Peptide 469H, Total Protein 7.1, Albumin 2.6L, Globulin 4.5, Albumin /Globulin Ratio 0.6L 07/21/17 19:25: Urine Color Pale yellow, Urine Appearance Clear, Urine pH 5, Urine Specific [place] 1.010, Urine Protein 2+H, Urine Glucose (UA) 1+H, Urine Ketones Negative , Urine Occult Blood 5+H, Urine Nitrite Negative, Urine Bilirubin Negative, Urine Urobilinogen Normal, Urine Leukocyte Esterase 3+H, Urine RBC 2-4H, Urine WBC 5-10H, Urine Squamous Epithelial Cells Few, Urine Bacteria Few, Urine Yeast FewH Height (Feet): 5 Height (Inches): 4.00 Weight (Pounds): 160 General Appearance: no apparent distress, alert, lethargic EENT: PERRL/EOMI, normal ENT inspection Neck: non-tender, normal alignment, supple Cardiovascular: normal peripheral pulses, normal rate, regular rhythm Respiratory/Chest: chest wall non-tender, lungs clear, normal breath sounds Abdomen: normal bowel sounds, non tender, soft Neurologic: alert, other - 0/5 strength to left lower extremity; 1/5 strength to left upper extremity; 2/5 strength to RLE, 4/5 strength to RUE. decreased sensation to LLE Skin: normal pigmentation, warm/dry Lissette Eduardo NP Jul 21, 2017 23:57
[2017-07-22] VITALS: BP 160/89
--- NOTE | 2017-07-22 | General Progress Note ---
Assessment/Plan Problem List: (1) H/O discitis Assessment & Plan: T4-T5 osteomyelitis s/p 6 weeks of IV abx ICD Codes: Z87.39 - Personal history of other diseases of the musculoskeletal system and connective tissue SNOMED: 395619147 (2) UTI (urinary tract infection) ICD Codes: N39.0 - Urinary tract infection, site not specified SNOMED: 43374827, 278368479 Qualifiers: Qualified Codes: N39.0 - Urinary tract infection, site not specified (3) Sepsis ICD Codes: A41.9 - Sepsis, unspecified organism SNOMED: 08239578, 174487691 Qualifiers: Qualified Codes: A41.9 - Sepsis, unspecified organism (4) Renal failure ICD Codes: N19 - Unspecified kidney failure SNOMED: 60425024 Qualifiers: Qualified Codes: N17.9 - Acute kidney failure, unspecified (5) Dementia ICD Codes: F03.90 - Unspecified dementia without behavioral disturbance SNOMED: 61473208 (6) CVA with L hemiparesis (7) DM2 (diabetes mellitus, type 2) ICD Codes: E11.9 - Type 2 diabetes mellitus without complications SNOMED: 25849105 (8) HLD (hyperlipidemia) ICD Codes: E78.5 - Hyperlipidemia, unspecified SNOMED: 92234131 (9) HTN (hypertension) ICD Codes: I10 - Essential (primary) hypertension SNOMED: 66362543 Assessment/Plan - ID consulted, appreciate rec's - nephrology consulted, appreciate rec's - IV linezolid and meropenam. Avoid vancomycin given KEI - lactic acid 3.2 --> 1.3 - IVF - Trend Cr 2.5 --> 2.2 - f/u urine cx - f/u blood cx - DOTTY + lantus 15 units qhs - f/u lipid panel - A1c 7.7 - continue home meds. Hold BP meds in the setting of sepsis - pain control and supportive care - check repeat MRI lumbar/thoracic w/o contrast for worsening back pain and lower extremity weakness - check venous duplex prior to SCDs DVT ppx: HSQ Full Code Disposition: Home with HH vs. SNF I spent a total of 43 minutes on this patient's case with greater than 50% spent on care and coordination of the patient. Case was d/w patient, family, ED doctor, ID, education paraprofessional, and nursing staff. Subjective Allergies: Coded Allergies: No Known Allergies (Unverified , 05/24/17) Subjective - afebrile but tachycardic and hypotensive - family at bedside - sleeping but easily arousable. states pain to back improved - family concerned about progressive weakness to lower extremities Objective Last 24 Hour Vital Signs Date Time Temp Pulse Resp B/P (MAP) Pulse Ox O2 Delivery O2 Flow Rate FiO2 07/21/17 20:22 133 144/76 07/21/17 20:00 127 07/21/17 20:00 98.8 133 21 144/76 93 Room Air 98.8 07/21/17 16:10 113 163/76 07/21/17 16:00 97.0 113 18 163/76 95 Room Air 97.0 07/21/17 16:00 121 07/21/17 12:00 99.3 121 18 106/60 95 Room Air 99.3 07/21/17 12:00 125 07/21/17 08:00 133 07/21/17 08:00 98.1 128 20 133/69 94 Room Air 98.1 07/21/17 04:00 98.2 108 22 125/68 92 Room Air 98.2 07/21/17 04:00 119 07/21/17 00:00 97.7 121 21 131/75 94 Room Air 97.7 07/21/17 00:00 119 Intake and Output 07/20/17 07/21/17 19:00 07:00 Intake Total 1600 ml 920 ml Output Total 1600 ml 600 ml Balance 0 ml 320 ml Intake Oral 350 ml 120 ml IV Total 1250 ml 800 ml Output Urine Total 1600 ml 600 ml Laboratory Tests 07/21/17 07:30: Urine Eosinophils Few 07/21/17 12:30: White Blood Count 12.2H, Red Blood Count 2.57L, Hemoglobin 7.7L, Hematocrit 23.4L, Mean Corpuscular Volume 91, Mean Corpuscular Hemoglobin 30.0, Mean Corpuscular Hemoglobin Concent 33.0, Red Cell Distribution Width 12.8, Platelet Count 207, Mean Platelet Volume 5.9L, Neutrophils (%) (Auto) , Lymphocytes (%) ( Auto) , Monocytes (%) (Auto) , Eosinophils (%) (Auto) , Basophils (%) (Auto) , Differential Total Cells Counted 100, Neutrophils % (Manual) 57, Lymphocytes % ( Manual) 28, Monocytes % (Manual) 7, Eosinophils % (Manual) 8H, Basophils % ( Manual) 0, Band Neutrophils 0, Platelet Estimate Adequate, Platelet Morphology Normal, Red Blood Cell Morphology Normal, Sodium Level 139, Potassium Level 3.9 , Chloride Level 107, Carbon Dioxide Level 19L, Anion Gap 13, Blood Urea Nitrogen 15, Creatinine 2.0H, Estimat Glomerular Filtration Rate , Glucose Level 135H, Uric Acid 5.9, Calcium Level 8.2L, Phosphorus Level 2.5, Magnesium Level 1.8, Total Bilirubin 0.3, Gamma Glutamyl Transpeptidase 128H, Aspartate Amino Transf (AST/SGOT) 13L, Alanine Aminotransferase (ALT/SGPT) 24, Alkaline Phosphatase 117H, Total Creatine Kinase 25L, Troponin I 0.021, Pro-B-Type Natriuretic Peptide 469H, Total Protein 7.1, Albumin 2.6L, Globulin 4.5, Albumin /Globulin Ratio 0.6L 07/21/17 19:25: Urine Color Pale yellow, Urine Appearance Clear, Urine pH 5, Urine Specific [place] 1.010, Urine Protein 2+H, Urine Glucose (UA) 1+H, Urine Ketones Negative , Urine Occult Blood 5+H, Urine Nitrite Negative, Urine Bilirubin Negative, Urine Urobilinogen Normal, Urine Leukocyte Esterase 3+H, Urine RBC 2-4H, Urine WBC 5-10H, Urine Squamous Epithelial Cells Few, Urine Bacteria Few, Urine Yeast FewH Height (Feet): 5 Height (Inches): 4.00 Weight (Pounds): 160 Lissette Eduardo NP Jul 22, 2017 00:00
[2017-07-22 04:00] VITALS: BP 138/68
[2017-07-22] MEDS: NovoLOG Insulin Flexpen SUBQ SCH ×4 (06:26→20:43)
[2017-07-22 08:00] VITALS: BP 97/65
[2017-07-22] MEDS: Morphine Sulfate 4mg/ml Inj IVP PRN ×2 (08:03→17:58)
[2017-07-22] MEDS: Ascorbic Acid 500mg tab ORAL SCH (08:21)
[2017-07-22] MEDS: Docusate 100mg cap ORAL SCH ×3 (08:21→17:44)
[2017-07-22] MEDS: Memantine 10mg tab ORAL SCH (08:21)
[2017-07-22] MEDS: Aspirin Baby 81mg ORAL SCH (08:21)
[2017-07-22] MEDS: Metoprolol 25mg tab ORAL SCH ×2 (08:44→20:36)
[2017-07-22 09:25] LABS: ANION GAP 11 mmol/L (5-15); BLOOD UREA NITROGEN 19 mg/dL (7-18); CALCIUM 8.2 MG/DL (8.5-10.1); CARBON DIOXIDE 17 MMOL/L (21-32); CHLORIDE 110 MMOL/L (98-107); CREATININE 2.1 MG/DL (0.55-1.30); POTASSIUM 4.4 MMOL/L (3.5-5.1); SODIUM 138 MMOL/L (136-145)
--- NOTE | 2017-07-22 11:32 | Nephrology Progress Note ---
Assessment/Plan Problem List: (1) Sepsis (2) UTI (urinary tract infection) (3) Renal failure (4) CVA with L hemiparesis Assessment admitted with UTI and sepsis admitted with elevated Lactic acid Diabetic nephropathy Acute on Chronic renal failure Cr stable The patient has acute kidney injury, elevated creatinine. Cr 2.5 on admit now 2.2 Anemia History of diabetes. History of cerebrovascular accident and left hemiparesis and weakness. Hypertension. Hyperlipidemia. Dementia. . Plan 2D Echo Left ventricular ejection fraction estimated to be 60 % Avoid nephrotoxics Anemia work up urine na and Eosinophils slow hydrate keep BP and BS in check Monitor renal parameters Subjective ROS Limited/Unobtainable: No Constitutional: Reports: malaise Objective Objective Last 24 Hour Vital Signs Date Time Temp Pulse Resp B/P (MAP) Pulse Ox O2 Delivery O2 Flow Rate FiO2 07/22/17 08:44 144 97/65 07/22/17 08:44 144 97/65 07/22/17 08:00 98.4 144 20 97/65 94 Room Air 98.4 07/22/17 04:00 124 07/22/17 04:00 99.3 124 20 138/68 97 Room Air 99.3 07/22/17 00:00 99.8 126 20 160/89 97 Room Air 99.8 07/22/17 00:00 125 07/21/17 20:22 133 144/76 07/21/17 20:00 127 07/21/17 20:00 98.8 133 21 144/76 93 Room Air 98.8 07/21/17 16:10 113 163/76 07/21/17 16:00 97.0 113 18 163/76 95 Room Air 97.0 07/21/17 16:00 121 07/21/17 12:00 99.3 121 18 106/60 95 Room Air 99.3 07/21/17 12:00 125 Intake and Output 07/21/17 07/22/17 19:00 07:00 Intake Total 1945 ml 100 ml Output Total 2150 ml 1600 ml Balance -205 ml -1500 ml Intake Oral 560 ml IV Total 1385 ml 100 ml Output Urine Total 2150 ml 1600 ml Laboratory Tests 07/21/17 12:30: White Blood Count 12.2H, Red Blood Count 2.57L, Hemoglobin 7.7L, Hematocrit 23.4L, Mean Corpuscular Volume 91, Mean Corpuscular Hemoglobin 30.0, Mean Corpuscular Hemoglobin Concent 33.0, Red Cell Distribution Width 12.8, Platelet Count 207, Mean Platelet Volume 5.9L, Neutrophils (%) (Auto) , Lymphocytes (%) ( Auto) , Monocytes (%) (Auto) , Eosinophils (%) (Auto) , Basophils (%) (Auto) , Differential Total Cells Counted 100, Neutrophils % (Manual) 57, Lymphocytes % ( Manual) 28, Monocytes % (Manual) 7, Eosinophils % (Manual) 8H, Basophils % ( Manual) 0, Band Neutrophils 0, Platelet Estimate Adequate, Platelet Morphology Normal, Red Blood Cell Morphology Normal, Sodium Level 139, Potassium Level 3.9 , Chloride Level 107, Carbon Dioxide Level 19L, Anion Gap 13, Blood Urea Nitrogen 15, Creatinine 2.0H, Estimat Glomerular Filtration Rate , Glucose Level 135H, Uric Acid 5.9, Calcium Level 8.2L, Phosphorus Level 2.5, Magnesium Level 1.8, Total Bilirubin 0.3, Gamma Glutamyl Transpeptidase 128H, Aspartate Amino Transf (AST/SGOT) 13L, Alanine Aminotransferase (ALT/SGPT) 24, Alkaline Phosphatase 117H, Total Creatine Kinase 25L, Troponin I 0.021, Pro-B-Type Natriuretic Peptide 469H, Total Protein 7.1, Albumin 2.6L, Globulin 4.5, Albumin /Globulin Ratio 0.6L 07/21/17 19:25: Urine Color Pale yellow, Urine Appearance Clear, Urine pH 5, Urine Specific [place] 1.010, Urine Protein 2+H, Urine Glucose (UA) 1+H, Urine Ketones Negative , Urine Occult Blood 5+H, Urine Nitrite Negative, Urine Bilirubin Negative, Urine Urobilinogen Normal, Urine Leukocyte Esterase 3+H, Urine RBC 2-4H, Urine WBC 5-10H, Urine Squamous Epithelial Cells Few, Urine Bacteria Few, Urine Yeast FewH 07/22/17 08:00: Urine Eosinophils Few 07/22/17 09:10: Sodium Level 138, Potassium Level 4.4, Chloride Level 110H, Carbon Dioxide Level 17L, Anion Gap 11, Blood Urea Nitrogen 19H, Creatinine 2.1H, Estimat Glomerular Filtration Rate , Glucose Level 159H, Calcium Level 8.2L Height (Feet): 5 Height (Inches): 4.00 Weight (Pounds): 160 General Appearance: no apparent distress Objective no change JAYNA MAYA Jul 22, 2017 11:32
[2017-07-22 12:00] VITALS: BP 123/63
[2017-07-22 13:26] LABS: BASOPHILS % (AUTO) 0.6 % (0.0-2.0); EOSINOPHILS % (AUTO) 4.8 % (0.0-3.0); HEMATOCRIT 25.8 % (37.0-47.0); HEMOGLOBIN 8.3 G/DL (12.0-16.0); LYMPHOCYTES % (AUTO) 21.6 % (20.0-45.0); MEAN CORPUSCULAR VOLUME 92 FL (80-99); MONOCYTES % (AUTO) 8.4 % (1.0-10.0); NEUTROPHILS % (AUTO) 64.6 % (45.0-75.0); PLATELET COUNT 231 K/UL (150-450); RED BLOOD COUNT 2.81 M/UL (4.20-5.40); RED CELL DISTRIBUTION WIDTH 12.8 % (11.6-14.8); WHITE BLOOD COUNT 10.3 K/UL (4.8-10.8)
--- NOTE | 2017-07-22 13:27 | General Progress Note ---
Assessment/Plan Problem List: (1) H/O discitis Assessment & Plan: T4-T5 osteomyelitis s/p 6 weeks of IV abx ICD Codes: Z87.39 - Personal history of other diseases of the musculoskeletal system and connective tissue SNOMED: 702174529 (2) UTI (urinary tract infection) ICD Codes: N39.0 - Urinary tract infection, site not specified SNOMED: 45718705, 756642630 Qualifiers: Qualified Codes: N39.0 - Urinary tract infection, site not specified (3) Sepsis ICD Codes: A41.9 - Sepsis, unspecified organism SNOMED: 49158364, 029476846 Qualifiers: Qualified Codes: A41.9 - Sepsis, unspecified organism (4) Renal failure ICD Codes: N19 - Unspecified kidney failure SNOMED: 03078033 Qualifiers: Qualified Codes: N17.9 - Acute kidney failure, unspecified (5) Dementia ICD Codes: F03.90 - Unspecified dementia without behavioral disturbance SNOMED: 30142059 (6) CVA with L hemiparesis (7) DM2 (diabetes mellitus, type 2) ICD Codes: E11.9 - Type 2 diabetes mellitus without complications SNOMED: 29277539 (8) HLD (hyperlipidemia) ICD Codes: E78.5 - Hyperlipidemia, unspecified SNOMED: 09260636 (9) HTN (hypertension) ICD Codes: I10 - Essential (primary) hypertension SNOMED: 17170361 (10) Cord compression ICD Codes: G95.20 - Unspecified cord compression SNOMED: 09873004 (11) Acute blood loss anemia ICD Codes: D62 - Acute posthemorrhagic anemia SNOMED: 776472060 Status: stable Assessment/Plan - ID consulted, appreciate rec's - nephrology consulted, appreciate rec's - neurology consulted, appreciate rec's - bar assistant consulted, appreciate rec's - MRI lumbar/thoracic reviewed showing retropulsion with cord compression. This was compared to the previous MRI thoracic that was done on 05/2017, which showed similar findings when read by the radiologist at [facility]. Per spinal surgery, there was no intervention recommended for the moderate to severe cord compression noted on MRI a month ago. Per neurology, no changes in MRI and therefore no need for transfer to higher level of care at this time. - Hgb downtrending. Monitor H/H. Transfer prn Hgb < 7. check FOBT x 3. Hold HSQ and change ASA 325 to 81mg qd per heme. Appreciate hematology rec's. - BP elevated, resume BP meds - IV abx per ID (D3) - lactic acid 3.2 --> 1.3 - IVF - Trend Cr 2.5 --> 2.2 --> 2.0 - f/u urine cx --> NGTD - f/u blood cx --> NGTD - DOTTY + lantus 15 units qhs - f/u lipid panel - A1c 7.7 - continue home meds. Hold BP meds in the setting of sepsis - pain control and supportive care - venous duplex negative for DVT DVT ppx: SCDs Full Code Disposition: Home with HH vs. SNF I spent a total of 33 minutes on this patient's case with greater than 50% spent on care and coordination of the patient. Case was d/w patient, family, bar assistant, neurologist, ID, supervisor sawing and assembly, and nursing staff. Subjective Date patient seen: Jul 22, 2017 Time patient seen: 13:23 Allergies: Coded Allergies: No Known Allergies (Unverified , 05/24/17) Subjective - sinus tachy today due to pain. afebrile. BP better controlled today; metoprolol held given low BP - alert and oriented to person and place - family at bedside Objective Last 24 Hour Vital Signs Date Time Temp Pulse Resp B/P (MAP) Pulse Ox O2 Delivery O2 Flow Rate FiO2 07/22/17 12:00 97.7 119 20 123/63 96 Room Air 97.7 07/22/17 12:00 116 07/22/17 08:44 144 97/65 07/22/17 08:44 144 97/65 07/22/17 08:00 144 07/22/17 08:00 98.4 144 20 97/65 94 Room Air 98.4 07/22/17 04:00 124 07/22/17 04:00 99.3 124 20 138/68 97 Room Air 99.3 07/22/17 00:00 99.8 126 20 160/89 97 Room Air 99.8 07/22/17 00:00 125 07/21/17 20:22 133 144/76 07/21/17 20:00 127 6/1/18 20:00 98.8 133 21 144/76 93 Room Air 98.8 07/21/17 16:10 113 163/76 07/21/17 16:00 97.0 113 18 163/76 95 Room Air 97.0 07/21/17 16:00 121 Intake and Output 07/21/17 07/22/17 19:00 07:00 Intake Total 1945 ml 100 ml Output Total 2150 ml 1600 ml Balance -205 ml -1500 ml Intake Oral 560 ml IV Total 1385 ml 100 ml Output Urine Total 2150 ml 1600 ml Laboratory Tests 07/21/17 19:25: Urine Color Pale yellow, Urine Appearance Clear, Urine pH 5, Urine Specific [place] 1.010, Urine Protein 2+H, Urine Glucose (UA) 1+H, Urine Ketones Negative , Urine Occult Blood 5+H, Urine Nitrite Negative, Urine Bilirubin Negative, Urine Urobilinogen Normal, Urine Leukocyte Esterase 3+H, Urine RBC 2-4H, Urine WBC 5-10H, Urine Squamous Epithelial Cells Few, Urine Bacteria Few, Urine Yeast FewH 07/22/17 08:00: Urine Eosinophils Few 07/22/17 09:10: Sodium Level 138, Potassium Level 4.4, Chloride Level 110H, Carbon Dioxide Level 17L, Anion Gap 11, Blood Urea Nitrogen 19H, Creatinine 2.1H, Estimat Glomerular Filtration Rate , Glucose Level 159H, Calcium Level 8.2L 07/22/17 12:47: White Blood Count [Pending], Red Blood Count [Pending], Hemoglobin [Pending], Hematocrit [Pending], Mean Corpuscular Volume [Pending], Mean Corpuscular Hemoglobin [Pending], Mean Corpuscular Hemoglobin Concent [Pending], Red Cell Distribution Width [Pending], Platelet Count [Pending], Mean Platelet Volume [ Pending], Neutrophils (%) (Auto) [Pending], Lymphocytes (%) (Auto) [Pending], Monocytes (%) (Auto) [Pending], Eosinophils (%) (Auto) [Pending], Basophils (%) (Auto) [Pending] Height (Feet): 5 Height (Inches): 4.00 Weight (Pounds): 160 General Appearance: no apparent distress, alert, confused EENT: PERRL/EOMI, normal ENT inspection Neck: non-tender, normal alignment, supple Cardiovascular: normal peripheral pulses, normal rate, regular rhythm Respiratory/Chest: chest wall non-tender, lungs clear, normal breath sounds Abdomen: normal bowel sounds, non tender, soft Neurologic: alert, other - paraplegic with LUE 0/5 strength and RLE 1/5 strength. patient uncooperative to exam Skin: normal pigmentation, warm/dry Lissette Eduardo NP Jul 22, 2017 13:27
[2017-07-22 14:10] LABS: CREATINE KINASE 30 U/L (26-308)
--- NOTE | 2017-07-22 15:12 | Neurology Progress Note ---
Interim History Interim History Interim History Ms. Pacheco feels "better" today. She is still very drowsy and has to be constantly stimulated to keep awake. She denies any new neurologic symptoms. 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 She continues to make purulent urine. Review of Systems Neuro Review of Systems Benign. Objective Physical Exam Last Vital Signs Date Time Temp Pulse Resp B/P (MAP) Pulse Ox O2 Delivery O2 Flow Rate FiO2 07/22/17 12:00 97.7 119 20 123/63 96 Room Air 97.7 Laboratory Tests Test 07/21/17 19:25 07/22/17 08:00 07/22/17 09:10 07/22/17 12:47 Urine Color Pale yellow Urine Appearance Clear Urine pH 5 (4.5-8.0) Urine Specific [place] 1.010 (1.005-1.035) Urine Protein 2+ (NEGATIVE) H Urine Glucose (UA) 1+ (NEGATIVE) H Urine Ketones Negative (NEGATIVE) Urine Occult Blood 5+ (NEGATIVE) H Urine Nitrite Negative (NEGATIVE) Urine Bilirubin Negative (NEGATIVE) Urine Urobilinogen Normal MG/DL (0.0-1.0) Urine Leukocyte Esterase 3+ (NEGATIVE) H Urine RBC 2-4 /HPF (0 - 2) H Urine WBC 5-10 /HPF (0 - 2) H Urine Squamous Epithelial Cells Few /LPF (NONE/OCC) Urine Bacteria Few /HPF (NONE) Urine Yeast Few /HPF (NONE) H Urine Eosinophils Few Sodium Level 138 MMOL/L (136-145) Potassium Level 4.4 MMOL/L (3.5-5.1) Chloride Level 110 MMOL/L (98-107) H Carbon Dioxide Level 17 MMOL/L (21-32) L Anion Gap 11 mmol/L (5-15) Blood Urea Nitrogen 19 mg/dL (7-18) H Creatinine 2.1 MG/DL (0.55-1.30) H Estimat Glomerular Filtration Rate mL/min (>60) Glucose Level 159 MG/DL (74-106) H Calcium Level 8.2 MG/DL (8.5-10.1) L Total Creatine Kinase 30 U/L (26-308) White Blood Count 10.3 K/UL (4.8-10.8) Red Blood Count 2.81 M/UL (4.20-5.40) L Hemoglobin 8.3 G/DL (12.0-16.0) L Hematocrit 25.8 % (37.0-47.0) L Mean Corpuscular Volume 92 FL (80-99) Mean Corpuscular Hemoglobin 29.7 PG (27.0-31.0) Mean Corpuscular Hemoglobin Concent 32.3 G/DL (32.0-36.0) Red Cell Distribution Width 12.8 % (11.6-14.8) Platelet Count 231 K/UL (150-450) Mean Platelet Volume 5.8 FL (6.5-10.1) L Neutrophils (%) (Auto) 64.6 % (45.0-75.0) Lymphocytes (%) (Auto) 21.6 % (20.0-45.0) Monocytes (%) (Auto) 8.4 % (1.0-10.0) Eosinophils (%) (Auto) 4.8 % (0.0-3.0) H Basophils (%) (Auto) 0.6 % (0.0-2.0) Erythrocyte Sedimentation Rate 131 MM/HR (0-30) H Neurologic Exam Objective PHYSICAL EXAMINATION: GENERAL: She is a well-developed, well-nourished, slightly obese black lady, lying in bed, in no acute distress. HEAD: Normocephalic and atraumatic. EENT: Examination benign. NECK: No neck rigidity was observed. NEUROLOGICAL EXAMINATION: MENTAL STATUS EXAMINATION: She was lethargic and would only respond to loud vocal stimulation with brief awakening. She would rapidly go off to sleep if not constantly stimulated. She was oriented to self only. She had no idea where she was or what the date was. She was unable to tell me who the present President was and who prior presidents were. She was unable to cooperate for further mental status testing. SPEECH: She had a moderate dysarthria. LANGUAGE: Could not be tested adequately. CRANIAL NERVE EXAMINATION: II: She did blink to threat. She was unable to cooperate for confrontation testing. III, IV & : External ocular movements were full and the pupils 3 mm in diameter, equal, round, regular, and reactive to light. V & VII: The corneal reflexes were present bilaterally, but the left-sided reflex was diminished compared to the right-sided reflex. In addition, she also had left seventh central facial paresis. VIII: She seemed to be able to hear and had no nystagmus. IX: The palate moved symmetrically on phonation. X: She had no hoarseness of voice. XI: The sternocleidomastoids and trapezii did function. XII: The tongue was in the midline without any fasciculations or atrophy. MOTOR SYSTEM: The tone was flaccid in both lower extremities and mildly spastic in the left upper extremity. Examination of muscle mass revealed generalized muscle wasting involving the lower extremities significantly more than the upper extremities. Examination of power was impossible to perform on individual muscle groups because of her inability to cooperate. She however had a left upper extremity plegia except for minimal finger flexion G 2/5. In the left lower extremity she had a flaccid plegia with G 0/5 power. In the right lower extremity, she has a flaccid plegia with G 0/5 power. In the right upper extremity she had G 4/5 power. SENSORY EXAMINATION: She responded appropriately to deep pain in all four extremities. REFLEXES: 1+ on the right and 2+ on the left in the biceps, triceps, brachioradialis, and knees, 0 at both ankles. The plantar responses were mute bilaterally. COORDINATION, STANCE & GAIT: Could not be tested. Impression/Recommendations Diagnostic Impression 1. Ms. 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 2. She can be aroused with loud vocal stimuli, but is still lethargic. 3. On neurological examination, at this time, she is lethargic, oriented to self only, has a dysarthria, has left seventh central facial paresis, left upper extremity plegia except for minimal left finger flexion graded 2/5, right upper extremity paresis G 4/5, and flaccid paraplegia with G 0/5 power in both lower extremities. She does respond to deep pain in all four extremities. The deep tendon reflexes are brisker on the left side compared to the right with loss of ankle jerks and mute plantar responses. 4. An MRI scan of the thoracic spine performed on 07/21/2017 revealed "a very limited and nearly nondiagnostic study demonstrating vertebral collapse, focal kyphosis at T 4-5 presumably on the basis of infection resulting in retropulsion and cord compression." Similar findings were better demonstrated on previous scan performed on 05/24/2017. 5. The patient's history, neurological examination, laboratory data, and imaging studies are most compatible with a significant encephalopathy due to an acute infectious process and in addition, old underlying structural brain disease related to her stroke. 6. She also has T4-5 osteomyelitis with vertebral body collapse with cord compression similar to what was seen on 05/24/2017. Recommendations 1. Continue present management. 2. Antibiotics as per Dr. Toribio. 3. Frequent range of motion exercises. 4. Attempts should be made to keep the patient off mind-altering drugs so that her encephalopathy can improve. 5.Observe closely Oh Nunez M.D., M.S.P.[place] BOUCHER Jul 22, 2017 15:12
[2017-07-22 16:00] VITALS: BP 133/76
--- NOTE | 2017-07-22 18:39 | Infectious Diseases Prog Note ---
Assessment/Plan Assessment/Plan ASSESSMENT AND PLAN: 1. uti, sepsis, sirs, leukocytosis, chest x-ray with chf - zosyn -day # 4 abx - urine still cloudy, ua with less wbc but + LE and yeast - f/u labs - f/u urine culture - diflucan added until urine culture back, ua with yeast and urine cloudy 2. 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, lower extremity weakness - Thoracic MRI findings noted and shows cord compression and findings c/w infection - d/w neurology and similar MRI findings see on 05/24/17 - s/p full 6 week abx course with vancomycin/cefepime and vancomycin/ meropenem - sed rate significantly elevated but crp only mildly elevated - unclear significance since non-specific markers and patient also septic - continue zosyn and daptomycin for now -d/w son about MRI findings 3. The patient has acute kidney injury, elevated creatinine. 4. The patient has anemia. 5. History of chest pain. 6. History of diabetes - bs control per primary and consultants 7. History of cerebrovascular accident and left hemiparesis and weakness, + chronic leg weakness. 8. Hypertension - bp control per primary and consultants 9. Hyperlipidemia. 10. Dementia. 11. Hyponatremia. 12. Past medical history noted. 13. Social history negative. 14. Family history noncontributory. 15. MAR was noted. 16. Case discussed with RN. 17. Allergies are negative. 18. Notes were reviewed and noted. 19. Continue treatment per primary consultants. 20. case d/w Lissette Eduardo NP and son Subjective Constitutional: Reports: fever - lgt noted but now afebrile HEENT: Denies: congestion Respiratory: Denies: shortness of breath Cardiovascular: Denies: chest pain Gastrointestinal/Abdominal: Denies: nausea, vomiting, diarrhea Genitourinary: Reports: other - + cowan - urine cloudy Neurologic: Denies: headache Psychiatric: Denies: depression Skin: Denies: rash Hematologic: Denies: bleeding Musculoskeletal: Denies: pain Allergies: Coded Allergies: No Known Allergies (Unverified , 05/24/17) Objective Vital Signs Last 24 Hour Vital Signs Date Time Temp Pulse Resp B/P (MAP) Pulse Ox O2 Delivery O2 Flow Rate FiO2 07/22/17 16:00 119 07/22/17 16:00 98.2 121 20 133/76 95 Room Air 98.2 07/22/17 12:00 97.7 119 20 123/63 96 Room Air 97.7 07/22/17 12:00 116 07/22/17 08:44 144 97/65 07/22/17 08:44 144 97/65 07/22/17 08:00 144 07/22/17 08:00 98.4 144 20 97/65 94 Room Air 98.4 07/22/17 04:00 124 07/22/17 04:00 99.3 124 20 138/68 97 Room Air 99.3 07/22/17 00:00 99.8 126 20 160/89 97 Room Air 99.8 07/22/17 00:00 125 07/21/17 20:22 133 144/76 07/21/17 20:00 127 07/21/17 20:00 98.8 133 21 144/76 93 Room Air 98.8 Height (Feet): 5 Height (Inches): 4.00 Weight (Pounds): 160 General Appearance: no acute distress HEENT: normocephalic, atraumatic, anicteric, mucous membranes moist Respiratory/Chest: lungs clear, normal breath sounds, no respiratory distress, no accessory muscle use Cardiovascular: normal rate, regular rhythm, no gallop/murmur, no JVD Abdomen: normal bowel sounds, soft, non tender, no organomegaly, non distended Genitourinary: other - + cowan - urine cloudy Extremities: no cyanosis Skin: no rash Neurologic/Psychiatric: casino floor person II-XII grossly normal, alert, responsive, motor weakness - legs and left arm Lymphatic: no neck adenopathy Musculoskeletal: no effusion Objective Chest x-ray - 07/20 - Findings: Some prominence of the pulmonary vascularity and interstitium are again demonstrated. Cardiomegaly is also again noted. Findings appear unchanged. No definite pleural effusions are appreciated. IMPRESSION: Some evidence to suggest mild congestive heart failure. Correlate clinically Thoracic spine MRI: IMPRESSION: Very limited nearly nondiagnostic study demonstrating vertebral collapse, focal kyphosis at T4-5 presumably on the basis of infection resulting in retropulsion and cord compression. Similar findings better demonstrated on the previous occasion 05/24/2017 MRI noted. Consider repeating the MRI when patient is able to better tolerate the study. In addition recommend gadolinium enhanced sequences. Microbiology Date/Time Source Procedure Growth Status 07/19/17 12:35 Blood Blood Culture - Preliminary NO GROWTH AFTER 48 HOURS Resulted 07/19/17 14:30 Nasal Nares MRSA Culture - Final NO METHICILLIN RESISTANT STAPH AUREUS... Complete 07/19/17 13:25 Urine,Clean Catch Urine Culture - Final NO GROWTH AFTER 48 HOURS Complete 07/19/17 14:30 Rectum VRE Culture - Final Enterococcus Faecalis - Vre Complete Laboratory Tests Test 07/21/17 19:25 07/22/17 08:00 07/22/17 09:10 07/22/17 12:47 Urine Color Pale yellow Urine Appearance Clear Urine pH 5 (4.5-8.0) Urine Specific [place] 1.010 (1.005-1.035) Urine Protein 2+ (NEGATIVE) H Urine Glucose (UA) 1+ (NEGATIVE) H Urine Ketones Negative (NEGATIVE) Urine Occult Blood 5+ (NEGATIVE) H Urine Nitrite Negative (NEGATIVE) Urine Bilirubin Negative (NEGATIVE) Urine Urobilinogen Normal MG/DL (0.0-1.0) Urine Leukocyte Esterase 3+ (NEGATIVE) H Urine RBC 2-4 /HPF (0 - 2) H Urine WBC 5-10 /HPF (0 - 2) H Urine Squamous Epithelial Cells Few /LPF (NONE/OCC) Urine Bacteria Few /HPF (NONE) Urine Yeast Few /HPF (NONE) H Urine Eosinophils Few Sodium Level 138 MMOL/L (136-145) Potassium Level 4.4 MMOL/L (3.5-5.1) Chloride Level 110 MMOL/L (98-107) H Carbon Dioxide Level 17 MMOL/L (21-32) L Anion Gap 11 mmol/L (5-15) Blood Urea Nitrogen 19 mg/dL (7-18) H Creatinine 2.1 MG/DL (0.55-1.30) H Estimat Glomerular Filtration Rate mL/min (>60) Glucose Level 159 MG/DL (74-106) H Calcium Level 8.2 MG/DL (8.5-10.1) L Total Creatine Kinase 30 U/L (26-308) White Blood Count 10.3 K/UL (4.8-10.8) Red Blood Count 2.81 M/UL (4.20-5.40) L Hemoglobin 8.3 G/DL (12.0-16.0) L Hematocrit 25.8 % (37.0-47.0) L Mean Corpuscular Volume 92 FL (80-99) Mean Corpuscular Hemoglobin 29.7 PG (27.0-31.0) Mean Corpuscular Hemoglobin Concent 32.3 G/DL (32.0-36.0) Red Cell Distribution Width 12.8 % (11.6-14.8) Platelet Count 231 K/UL (150-450) Mean Platelet Volume 5.8 FL (6.5-10.1) L Neutrophils (%) (Auto) 64.6 % (45.0-75.0) Lymphocytes (%) (Auto) 21.6 % (20.0-45.0) Monocytes (%) (Auto) 8.4 % (1.0-10.0) Eosinophils (%) (Auto) 4.8 % (0.0-3.0) H Basophils (%) (Auto) 0.6 % (0.0-2.0) Erythrocyte Sedimentation Rate 131 MM/HR (0-30) H Current Medications Medications (Trade) Dose Ordered Sig/Leona Route PRN Reason Start Time Stop Time Status Last Admin Dose Admin Acetaminophen (Tylenol) 650 mg Q4H PRN ORAL Mild Pain/Temp > 100.5 07/19/17 22:30 08/18/17 22:29 Acetaminophen/ Hydrocodone Bitart ([place] 5/325) 1 tab Q4HR PRN ORAL Moderate Pain (Pain Scale 4-6) 07/19/17 22:30 07/26/17 22:29 Amlodipine Besylate (Norvasc) 5 mg DAILY ORAL 07/21/17 16:00 08/20/17 15:59 07/21/17 16:10 Ascorbic Acid (Vitamin C) 250 mg DAILY ORAL 07/20/17 09:00 08/19/17 08:59 07/22/17 08:21 Aspirin (ASA) 81 mg DAILY ORAL 07/22/17 09:00 08/21/17 08:59 07/22/17 08:21 Atorvastatin Calcium (Lipitor) 20 mg BEDTIME ORAL 07/20/17 21:00 08/19/17 20:59 07/21/17 20:21 Bisacodyl (Dulcolax) 10 mg DAILYPRN PRN RECTAL Constipation 07/19/17 22:30 08/18/17 22:29 Daptomycin 500 mg/ Sodium Chloride 110 ml @ 220 mls/hr Q48H IV 07/21/17 17:00 07/28/17 16:59 07/21/17 17:17 Dextrose (Dextrose 50%) 25 ml STAT PRN IV Hypoglycemia 07/19/17 21:45 08/18/17 21:44 Dextrose (Dextrose 50%) 50 ml STAT PRN IV Hypoglycemia 07/19/17 21:45 08/18/17 21:44 Docusate Sodium (Colace) 100 mg TID ORAL 07/20/17 18:00 08/18/17 22:55 07/22/17 17:44 Folic Acid (Folate) 1 mg DAILY ORAL 07/21/17 09:00 08/20/17 08:59 07/22/17 08:21 Gabapentin (Neurontin) 300 mg BID ORAL 07/19/17 22:54 08/18/17 22:53 07/22/17 17:44 Insulin Aspart (NovoLOG) BEFORE MEALS AND HS SUBQ 07/19/17 22:27 08/18/17 22:26 07/22/17 17:08 Insulin Detemir (Levemir) 15 units BEDTIME SUBQ 07/19/17 23:00 08/18/17 22:59 07/21/17 20:25 Lansoprazole (Prevacid) 30 mg BID ORAL 07/20/17 18:00 08/19/17 17:59 07/22/17 17:44 Memantine (Namenda) 10 mg DAILY ORAL 07/20/17 09:00 08/19/17 08:59 07/22/17 08:21 Metoprolol Tartrate (Lopressor) 25 mg Q12HR ORAL 07/21/17 21:00 08/20/17 20:59 07/21/17 20:22 Morphine Sulfate (Morphine Sulfate) 4 mg Q4H PRN IVP Severe Pain (Pain Scale 7-10) 07/19/17 22:30 07/26/17 22:29 07/22/17 17:58 Ondansetron HCl (Zofran) 4 mg Q6H PRN IVP Nausea & Vomiting 07/19/17 22:30 08/18/17 22:29 Piperacillin Sod/ Tazobactam Sod 3.375 gm/Dextrose 100 ml @ 25 mls/hr EVERY 12 HOURS IVPB 07/21/17 21:00 07/26/17 20:59 07/22/17 08:42 Polyethylene Glycol (Miralax) 17 gm DAILY PRN ORAL Constipation 07/19/17 22:30 08/18/17 22:29 Sodium Chloride 1,000 ml @ 100 mls/hr Q10H IVLG 07/19/17 22:39 08/18/17 22:38 07/22/17 10:32 Vasquez Toribio MD Jul 22, 2017 18:39
[2017-07-22 20:00] VITALS: BP 139/71
[2017-07-22] MEDS ORDERED: Fluconazole 100mg tab ORAL SCH (20:00)
[2017-07-22] MEDS: Atorvastatin 20mg tab ORAL SCH (20:39)
[2017-07-22] MEDS: Levemir Flexpen SUBQ SCH (20:40)
--- NOTE | 2017-07-22 23:15 | Consultation ---
History of Present Illness General Date patient seen: Jul 22, 2017 Chief Complaint: Generalized Weakness Present Illness HPI 77-year-old female,with hx of thoracic spine diskitis,dementia and anxiety who was admitted for medical stabilization. The pts in room the pt is confused and unable to provide hx. sleep and appetite adequate. Allergies: Coded Allergies: No Known Allergies (Unverified , 05/24/17) Medication History Scheduled Amlodipine Besylate* (Amlodipine Besylate*), 5 MG ORAL DAILY, (Reported) Ascorbic Acid* (Vitamin C*), 250 MG ORAL DAILY, (Reported) Aspirin* (Aspirin*), 325 MG ORAL DAILY, (Reported) Atorvastatin Calcium* (Atorvastatin Calcium*), 20 MG ORAL BEDTIME, (Reported) Atorvastatin Calcium* (Lipitor*), 20 MG ORAL BEDTIME, (Reported) Cefepime Hcl/D5w (Cefepime-Dextrose 2 Gm/50 Ml), 2 GM IVPB EVERY 12 HOURS, ( Reported) Docusate Sodium* (Colace*), 100 MG ORAL TWICE A DAY, (Reported) Gabapentin* (Neurontin*), 300 MG ORAL TWICE A DAY, (Reported) Insulin Aspart (Novolog Flexpen), SQ AC+HS, (Reported) Insulin Detemir (Levemir Flexpen), 12 UNITS SUBQ Q24H, (Reported) Insulin Glargine (Lantus), 15 UNITS SUBQ BEDTIME, (Reported) Insulin Lispro (Humalog Kwikpen), Unknown Dose SQ BEFORE MEALS AND HS, (Reported ) Losartan Potassium* (Losartan Potassium*), 50 MG ORAL DAILY, (Reported) Melatonin (Melatonin), 3 MG PO DAILY, (Reported) Memantine Hcl* (Namenda*), 10 MG ORAL DAILY, (Reported) Metoprolol Succinate* (Metoprolol Succinate*), 25 MG ORAL BID, (Reported) Spironolactone* (Aldactone*), 25 MG ORAL Q12HR, (Reported) Vancomycin Hcl/D5w (Vancomycin-D5w 1 G/250 Ml), 1,250 GM IVPB Q24H, (Reported) Scheduled PRN Acetaminophen* (Acetaminophen 325MG Tablet*), 650 MG ORAL Q4H PRN for Mild Pain/ Temp > 100.5, (Reported) Bisacodyl (Dulcolax), 10 MG RC DAILY PRN for Constipation, (Reported) Hydrocodone Bit/Acetaminophen 5-325* ([place] 5-325*), 1 TAB ORAL Q4H PRN for For Pain, (Reported) Morphine Sulfate* (Morphine Sulfate*), 2 MG IV Q4HR PRN for Pain Scale (6-10), ( Reported) Morphine Sulfate* (Morphine Sulfate*), 4 MG IV Q4HR PRN for Pain Scale (6-10), ( Reported) Ondansetron* (Zofran*), 4 MG IV Q6H PRN for Nausea & Vomiting, (Reported) Polyethylene Glycol 3350* (Miralax*), 17 GM ORAL DAILY PRN for Constipation, ( Reported) Patient History Limited by: medical condition History Provided By: Patient, Family Member, Medical Record, PMD Healthcare decision maker N Resuscitation status Full Code Advanced Directive on File Past Medical/Surgical History Past Medical/Surgical History: (1) ACS (acute coronary syndrome) (2) T4-T5 discitis/osteomyelitis (3) Pt originally from [place]. 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 (13) Renal failure (14) UTI (urinary tract infection) (15) Sepsis (16) Cord compression (17) Acute blood loss anemia Review of Systems Psychiatric: Reports: prior hx, anxiety Physical Exam General Appearance: no apparent distress, alert, confused Last 24 Hour Vital Signs Date Time Temp Pulse Resp B/P (MAP) Pulse Ox O2 Delivery O2 Flow Rate FiO2 07/22/17 20:36 128 139/71 07/22/17 20:00 99.2 128 18 139/71 96 Room Air 99.2 07/22/17 20:00 126 07/22/17 16:00 119 07/22/17 16:00 98.2 121 20 133/76 95 Room Air 98.2 07/22/17 12:00 97.7 119 20 123/63 96 Room Air 97.7 07/22/17 12:00 116 07/22/17 08:44 144 97/65 07/22/17 08:44 144 97/65 07/22/17 08:00 144 07/22/17 08:00 98.4 144 20 97/65 94 Room Air 98.4 07/22/17 04:00 124 07/22/17 04:00 99.3 124 20 138/68 97 Room Air 99.3 07/22/17 00:00 99.8 126 20 160/89 97 Room Air 99.8 07/22/17 00:00 125 Intake and Output 07/21/17 07/22/17 19:00 07:00 Intake Total 1945 ml 100 ml Output Total 2150 ml 1600 ml Balance -205 ml -1500 ml Intake Oral 560 ml IV Total 1385 ml 100 ml Output Urine Total 2150 ml 1600 ml Laboratory Tests Test 07/22/17 08:00 07/22/17 09:10 07/22/17 12:47 Urine Eosinophils Few Sodium Level 138 MMOL/L (136-145) Potassium Level 4.4 MMOL/L (3.5-5.1) Chloride Level 110 MMOL/L (98-107) H Carbon Dioxide Level 17 MMOL/L (21-32) L Anion Gap 11 mmol/L (5-15) Blood Urea Nitrogen 19 mg/dL (7-18) H Creatinine 2.1 MG/DL (0.55-1.30) H Estimat Glomerular Filtration Rate mL/min (>60) Glucose Level 159 MG/DL (74-106) H Calcium Level 8.2 MG/DL (8.5-10.1) L Total Creatine Kinase 30 U/L (26-308) White Blood Count 10.3 K/UL (4.8-10.8) Red Blood Count 2.81 M/UL (4.20-5.40) L Hemoglobin 8.3 G/DL (12.0-16.0) L Hematocrit 25.8 % (37.0-47.0) L Mean Corpuscular Volume 92 FL (80-99) Mean Corpuscular Hemoglobin 29.7 PG (27.0-31.0) Mean Corpuscular Hemoglobin Concent 32.3 G/DL (32.0-36.0) Red Cell Distribution Width 12.8 % (11.6-14.8) Platelet Count 231 K/UL (150-450) Mean Platelet Volume 5.8 FL (6.5-10.1) L Neutrophils (%) (Auto) 64.6 % (45.0-75.0) Lymphocytes (%) (Auto) 21.6 % (20.0-45.0) Monocytes (%) (Auto) 8.4 % (1.0-10.0) Eosinophils (%) (Auto) 4.8 % (0.0-3.0) H Basophils (%) (Auto) 0.6 % (0.0-2.0) Erythrocyte Sedimentation Rate 131 MM/HR (0-30) H Height (Feet): 5 Height (Inches): 4.00 Weight (Pounds): 160 Medications Current Medications Medications (Trade) Dose Ordered Sig/Leona Route PRN Reason Start Time Stop Time Status Last Admin Dose Admin Acetaminophen (Tylenol) 650 mg Q4H PRN ORAL Mild Pain/Temp > 100.5 07/19/17 22:30 08/18/17 22:29 Acetaminophen/ Hydrocodone Bitart ([place] 5/325) 1 tab Q4HR PRN ORAL Moderate Pain (Pain Scale 4-6) 07/19/17 22:30 07/26/17 22:29 Amlodipine Besylate (Norvasc) 5 mg DAILY ORAL 07/21/17 16:00 08/20/17 15:59 07/21/17 16:10 Ascorbic Acid (Vitamin C) 250 mg DAILY ORAL 07/20/17 09:00 08/19/17 08:59 07/22/17 08:21 Aspirin (ASA) 81 mg DAILY ORAL 07/22/17 09:00 08/21/17 08:59 07/22/17 08:21 Atorvastatin Calcium (Lipitor) 20 mg BEDTIME ORAL 07/20/17 21:00 08/19/17 20:59 07/22/17 20:39 Bisacodyl (Dulcolax) 10 mg DAILYPRN PRN RECTAL Constipation 07/19/17 22:30 08/18/17 22:29 07/22/17 18:52 Daptomycin 500 mg/ Sodium Chloride 110 ml @ 220 mls/hr Q48H IV 07/21/17 17:00 07/28/17 16:59 07/21/17 17:17 Dextrose (Dextrose 50%) 25 ml STAT PRN IV Hypoglycemia 07/19/17 21:45 08/18/17 21:44 Dextrose (Dextrose 50%) 50 ml STAT PRN IV Hypoglycemia 07/19/17 21:45 08/18/17 21:44 Docusate Sodium (Colace) 100 mg TID ORAL 07/20/17 18:00 08/18/17 22:55 07/22/17 17:44 Fluconazole (Diflucan) 100 mg DAILY@2000 ORAL 07/22/17 20:00 07/29/17 19:59 07/22/17 20:33 Folic Acid (Folate) 1 mg DAILY ORAL 07/21/17 09:00 08/20/17 08:59 07/22/17 08:21 Gabapentin (Neurontin) 300 mg BID ORAL 07/19/17 22:54 08/18/17 22:53 07/22/17 17:44 Insulin Aspart (NovoLOG) BEFORE MEALS AND HS SUBQ 07/19/17 22:27 08/18/17 22:26 07/22/17 20:43 Insulin Detemir (Levemir) 15 units BEDTIME SUBQ 07/19/17 23:00 08/18/17 22:59 07/22/17 20:40 Lansoprazole (Prevacid) 30 mg BID ORAL 07/20/17 18:00 08/19/17 17:59 07/22/17 17:44 Memantine (Namenda) 10 mg DAILY ORAL 07/20/17 09:00 08/19/17 08:59 07/22/17 08:21 Metoprolol Tartrate (Lopressor) 25 mg Q12HR ORAL 07/21/17 21:00 08/20/17 20:59 07/22/17 20:36 Morphine Sulfate (Morphine Sulfate) 4 mg Q4H PRN IVP Severe Pain (Pain Scale 7-10) 07/19/17 22:30 07/26/17 22:29 07/22/17 17:58 Ondansetron HCl (Zofran) 4 mg Q6H PRN IVP Nausea & Vomiting 07/19/17 22:30 08/18/17 22:29 Piperacillin Sod/ Tazobactam Sod 3.375 gm/Dextrose 100 ml @ 25 mls/hr EVERY 12 HOURS IVPB 07/21/17 21:00 07/26/17 20:59 07/22/17 20:39 Polyethylene Glycol (Miralax) 17 gm DAILY PRN ORAL Constipation 5/30/18 22:30 08/18/17 22:29 Sodium Chloride 1,000 ml @ 100 mls/hr Q10H IVLG 07/19/17 22:39 08/18/17 22:38 07/22/17 20:43 Assessment/Plan Assessment/Plan Dementia Encephalopathy Anxiety Baldemarivan Emanuel Samano M.D. Jul 22, 2017 23:15
[2017-07-23] VITALS: BP 146/71
[2017-07-23] MEDS: Morphine Sulfate 4mg/ml Inj IVP PRN (00:44)
[2017-07-23 04:00] VITALS: BP 138/78
[2017-07-23] MEDS: NovoLOG Insulin Flexpen SUBQ SCH ×4 (06:30→21:11)
[2017-07-23 08:00] VITALS: BP 136/74
[2017-07-23 08:45] LABS: BASOPHILS % (AUTO) 0.9 % (0.0-2.0); EOSINOPHILS % (AUTO) 8.6 % (0.0-3.0); HEMATOCRIT 23.3 % (37.0-47.0); LYMPHOCYTES % (AUTO) 26.1 % (20.0-45.0); MEAN CORPUSCULAR VOLUME 92 FL (80-99); MONOCYTES % (AUTO) 9.2 % (1.0-10.0); NEUTROPHILS % (AUTO) 55.2 % (45.0-75.0); PLATELET COUNT 225 K/UL (150-450); RED BLOOD COUNT 2.53 M/UL (4.20-5.40); RED CELL DISTRIBUTION WIDTH 12.9 % (11.6-14.8); WHITE BLOOD COUNT 9.3 K/UL (4.8-10.8)
[2017-07-23 09:01] LABS: ANION GAP 12 mmol/L (5-15); BLOOD UREA NITROGEN 19 mg/dL (7-18); CALCIUM 8.3 MG/DL (8.5-10.1); CARBON DIOXIDE 21 MMOL/L (21-32); CHLORIDE 109 MMOL/L (98-107); CREATININE 1.7 MG/DL (0.55-1.30); POTASSIUM 3.7 MMOL/L (3.5-5.1); SODIUM 141 MMOL/L (136-145)
[2017-07-23] MEDS: Metoprolol 25mg tab ORAL SCH (09:41)
[2017-07-23] MEDS: Aspirin Baby 81mg ORAL SCH (09:41)
[2017-07-23] MEDS: Memantine 10mg tab ORAL SCH (09:41)
[2017-07-23] MEDS: Ascorbic Acid 500mg tab ORAL SCH (09:41)
[2017-07-23] MEDS: Docusate 100mg cap ORAL SCH ×3 (09:41→17:02)
[2017-07-23] MEDS ORDERED: NS 275ml ONE (10:50)
[2017-07-23] MEDS ORDERED: Tubing IV Secondary IV ONE (10:50)
[2017-07-23 12:00] VITALS: BP 139/78
--- NOTE | 2017-07-23 14:06 | Neurology Progress Note ---
Interim History Interim History Interim History Ms. Pacheco feels "better" today. She is wide awake today. She is alert when engaged. She feels that her mind is clearer. She is able to recognize her by name. She denies any new neurologic symptoms. 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 Her urine is clearing up. Review of Systems Neuro Review of Systems Benign. Objective Physical Exam Last Vital Signs Date Time Temp Pulse Resp B/P (MAP) Pulse Ox O2 Delivery O2 Flow Rate FiO2 07/23/17 12:00 95 07/23/17 12:00 97.5 20 139/78 98 Room Air 97.5 Laboratory Tests Test 07/22/17 22:30 07/22/17 22:55 07/23/17 04:00 07/23/17 07:05 Stool Occult Blood Negative (NEGATIVE) Urine Random Sodium 86 mmol/L (20-110) Urine Eosinophils Few White Blood Count 9.3 K/UL (4.8-10.8) Red Blood Count 2.53 M/UL (4.20-5.40) L Hemoglobin 8.0 G/DL (12.0-16.0) L Hematocrit 23.3 % (37.0-47.0) L Mean Corpuscular Volume 92 FL (80-99) Mean Corpuscular Hemoglobin 31.4 PG (27.0-31.0) H Mean Corpuscular Hemoglobin Concent 34.2 G/DL (32.0-36.0) Red Cell Distribution Width 12.9 % (11.6-14.8) Platelet Count 225 K/UL (150-450) Mean Platelet Volume 5.7 FL (6.5-10.1) L Neutrophils (%) (Auto) 55.2 % (45.0-75.0) Lymphocytes (%) (Auto) 26.1 % (20.0-45.0) Monocytes (%) (Auto) 9.2 % (1.0-10.0) Eosinophils (%) (Auto) 8.6 % (0.0-3.0) H Basophils (%) (Auto) 0.9 % (0.0-2.0) Sodium Level 141 MMOL/L (136-145) Potassium Level 3.7 MMOL/L (3.5-5.1) Chloride Level 109 MMOL/L (98-107) H Carbon Dioxide Level 21 MMOL/L (21-32) Anion Gap 12 mmol/L (5-15) Blood Urea Nitrogen 19 mg/dL (7-18) H Creatinine 1.7 MG/DL (0.55-1.30) H Estimat Glomerular Filtration Rate mL/min (>60) Glucose Level 75 MG/DL (74-106) Calcium Level 8.3 MG/DL (8.5-10.1) L Test 07/23/17 10:53 Stool Occult Blood Negative (NEGATIVE) Neurologic Exam Objective PHYSICAL EXAMINATION: GENERAL: She is a well-developed, well-nourished, slightly obese black lady, lying in bed, in no acute distress. HEAD: Normocephalic and atraumatic. EENT: Examination benign. NECK: No neck rigidity was observed. NEUROLOGICAL EXAMINATION: MENTAL STATUS EXAMINATION: She was awake and much more alert. She was oriented to self and hospital only. She did not know the name of the hospital or what the date was. She was unable to tell me who the present President was and who prior presidents were. She was unable to cooperate for further mental status testing. SPEECH: She had a mild dysarthria. LANGUAGE: She was able to comprehend and express herself relatively well. CRANIAL NERVE EXAMINATION: II: She was able to count fingers. She was unable to cooperate for confrontation testing. III, IV & : External ocular movements were full and the pupils 3 mm in diameter, equal, round, regular, and reactive to light. V & VII: The corneal reflexes were present bilaterally, but the left-sided reflex was diminished compared to the right-sided reflex. In addition, she also had left seventh central facial paresis. VIII: She was able to hear well and had no nystagmus. IX: The palate moved symmetrically on phonation. X: She had no hoarseness of voice. XI: The sternocleidomastoids and trapezii did function. XII: The tongue was in the midline without any fasciculations or atrophy. MOTOR SYSTEM: The tone was flaccid in both lower extremities and mildly spastic in the left upper extremity. Examination of muscle mass revealed generalized muscle wasting involving the lower extremities significantly more than the upper extremities. Examination of power was difficult to perform because of her inability to give a good effort. She however had a paraplegia with G 0/5 in both lower extremities. Left upper extremity plegia except for minimal finger flexion G 2/5. In the left lower extremity she had a flaccid plegia with G 0/5 power. In the right lower extremity, she has a flaccid plegia with G 0/5 power. In the right upper extremity she had G 4/5 power. SENSORY EXAMINATION: She responded appropriately to deep pain in all four extremities. REFLEXES: 1+ on the right and 2+ on the left in the biceps, triceps, brachioradialis, and knees, 0 at both ankles. The plantar responses were mute bilaterally. COORDINATION, STANCE & GAIT: Could not be tested. Impression/Recommendations Diagnostic Impression 1. Ms. 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 2. She feels "better" today. She is wide awake today. She is alert when engaged. She feels that her mind is clearer. She is able to recognize her by name. She denies any new neurologic symptoms. 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 Her urine is clearing up. 3. On neurological examination, at this time, she is awake and much more alert. She is oriented to self and hospital. She has a dysarthria, has left seventh central facial paresis, left upper extremity plegia except for minimal left finger flexion graded 2/5, right upper extremity paresis G 4/5, and flaccid paraplegia with G 0/5 power in both lower extremities. She is able to discern pin prick and light touch. The deep tendon reflexes are brisker on the left side compared to the right with loss of ankle jerks and mute plantar responses. 4. An MRI scan of the thoracic spine performed on 07/21/2017 revealed "a very limited and nearly nondiagnostic study demonstrating vertebral collapse, focal kyphosis at T 4-5 presumably on the basis of infection resulting in retropulsion and cord compression." Similar findings were better demonstrated on previous scan performed on 05/24/2017. 5. The patient's history, neurological examination, laboratory data, and imaging studies are most compatible with a significant encephalopathy due to an acute infectious process and in addition, old underlying structural brain disease related to her stroke. 6. She also has T4-5 osteomyelitis with vertebral body collapse with cord compression similar to what was seen on 05/24/2017. Recommendations 1. Continue present management. 2. Antibiotics as per Dr. Toribio. 3. Frequent range of motion exercises. 4. Attempts should be made to keep the patient off mind-altering drugs so that her encephalopathy can improve. 5. Observe closely Oh Nunez M.D., M.S.P.[place] BOUCHER Jul 23, 2017 14:06
--- NOTE | 2017-07-23 14:52 | Infectious Diseases Prog Note ---
Assessment/Plan Assessment/Plan ASSESSMENT AND PLAN: 1. uti, sepsis, sirs, leukocytosis, chest x-ray with chf - sepsis and leukocytosis better - zosyn -day # 5 abx, plan on 10 course antibiotics - urine culture f/u is negative, ua improved - f/u labs 2. 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, lower extremity weakness - Thoracic MRI findings noted and shows cord compression and findings c/w infection - d/w neurology and similar MRI findings see on 05/24/17 - s/p 6 week abx course with vancomycin/cefepime and vancomycin/meropenem - sed rate significantly elevated but crp only mildly elevated - unclear significance since non-specific markers and patient also septic - continue zosyn and daptomycin for now, consider finishing treatment for vertebral osteomyelitis soon 3. The patient has acute kidney injury, elevated creatinine. 4. The patient has anemia. 5. History of chest pain. 6. History of diabetes - bs control per primary and consultants 7. History of cerebrovascular accident and left hemiparesis and weakness, + chronic leg weakness. 8. Hypertension - bp control per primary and consultants 9. Hyperlipidemia. 10. Dementia. 11. Hyponatremia. 12. Past medical history noted. 13. Social history negative. 14. Family history noncontributory. 15. MAR was noted. 16. Case discussed with RN. 17. Allergies are negative. 18. Notes were reviewed and noted. 19. Continue treatment per primary consultants. 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 Subjective Constitutional: Denies: fever HEENT: Denies: congestion Respiratory: Denies: shortness of breath Cardiovascular: Denies: chest pain Gastrointestinal/Abdominal: Denies: nausea, vomiting, diarrhea Genitourinary: Reports: other - + cowan Neurologic: Denies: headache Psychiatric: Denies: depression Skin: Denies: rash Hematologic: Denies: bleeding Musculoskeletal: Denies: pain Allergies: Coded Allergies: No Known Allergies (Unverified , 05/24/17) Objective Vital Signs Last 24 Hour Vital Signs Date Time Temp Pulse Resp B/P (MAP) Pulse Ox O2 Delivery O2 Flow Rate FiO2 07/23/17 12:00 95 07/23/17 12:00 97.5 96 20 139/78 98 Room Air 97.5 07/23/17 09:41 113 136/74 07/23/17 09:41 113 136/74 07/23/17 08:00 113 07/23/17 08:00 97.5 113 20 136/74 97 Room Air 97.5 07/23/17 04:00 98.9 115 18 138/78 98 Room Air 98.9 07/23/17 04:00 103 07/23/17 00:00 99.1 113 18 146/71 99 Room Air 99.1 07/23/17 00:00 106 07/22/17 20:36 128 139/71 07/22/17 20:00 99.2 128 18 139/71 96 Room Air 99.2 07/22/17 20:00 126 07/22/17 16:00 119 07/22/17 16:00 98.2 121 20 133/76 95 Room Air 98.2 Height (Feet): 5 Height (Inches): 4.00 Weight (Pounds): 160 General Appearance: no acute distress HEENT: normocephalic, atraumatic, anicteric, mucous membranes moist Respiratory/Chest: lungs clear, normal breath sounds, no respiratory distress, no accessory muscle use Cardiovascular: normal rate, regular rhythm, no gallop/murmur, no JVD Abdomen: normal bowel sounds, soft, non tender, no organomegaly, non distended Genitourinary: other - + cowan - urine clearer, still some cloudiness Extremities: no cyanosis Skin: no rash Neurologic/Psychiatric: public relations writer II-XII grossly normal, alert, responsive Lymphatic: no neck adenopathy Musculoskeletal: no effusion Objective Chest x-ray - 07/20 - Findings: Some prominence of the pulmonary vascularity and interstitium are again demonstrated. Cardiomegaly is also again noted. Findings appear unchanged. No definite pleural effusions are appreciated. IMPRESSION: Some evidence to suggest mild congestive heart failure. Correlate clinically Thoracic spine MRI: IMPRESSION: Very limited nearly nondiagnostic study demonstrating vertebral collapse, focal kyphosis at T4-5 presumably on the basis of infection resulting in retropulsion and cord compression. Similar findings better demonstrated on the previous occasion 05/24/2017 MRI noted. Consider repeating the MRI when patient is able to better tolerate the study. In addition recommend gadolinium enhanced sequences. Microbiology Date/Time Source Procedure Growth Status 07/19/17 12:35 Blood Blood Culture - Preliminary NO GROWTH AFTER 72 HOURS Resulted 07/19/17 14:30 Nasal Nares MRSA Culture - Final NO METHICILLIN RESISTANT STAPH AUREUS... Complete 07/21/17 19:25 Urine,Clean Catch Urine Culture - Preliminary NO GROWTH AFTER 24 HOURS Resulted 07/19/17 14:30 Rectum VRE Culture - Final Enterococcus Faecalis - Vre Complete Microbiology Date/Time Source Procedure Growth Status 07/21/17 19:25 Urine,Clean Catch Urine Culture - Preliminary NO GROWTH AFTER 24 HOURS Resulted Laboratory Tests Test 07/22/17 22:30 07/22/17 22:55 07/23/17 04:00 07/23/17 07:05 Stool Occult Blood Negative (NEGATIVE) Urine Random Sodium 86 mmol/L (20-110) Urine Eosinophils Few White Blood Count 9.3 K/UL (4.8-10.8) Red Blood Count 2.53 M/UL (4.20-5.40) L Hemoglobin 8.0 G/DL (12.0-16.0) L Hematocrit 23.3 % (37.0-47.0) L Mean Corpuscular Volume 92 FL (80-99) Mean Corpuscular Hemoglobin 31.4 PG (27.0-31.0) H Mean Corpuscular Hemoglobin Concent 34.2 G/DL (32.0-36.0) Red Cell Distribution Width 12.9 % (11.6-14.8) Platelet Count 225 K/UL (150-450) Mean Platelet Volume 5.7 FL (6.5-10.1) L Neutrophils (%) (Auto) 55.2 % (45.0-75.0) Lymphocytes (%) (Auto) 26.1 % (20.0-45.0) Monocytes (%) (Auto) 9.2 % (1.0-10.0) Eosinophils (%) (Auto) 8.6 % (0.0-3.0) H Basophils (%) (Auto) 0.9 % (0.0-2.0) Sodium Level 141 MMOL/L (136-145) Potassium Level 3.7 MMOL/L (3.5-5.1) Chloride Level 109 MMOL/L (98-107) H Carbon Dioxide Level 21 MMOL/L (21-32) Anion Gap 12 mmol/L (5-15) Blood Urea Nitrogen 19 mg/dL (7-18) H Creatinine 1.7 MG/DL (0.55-1.30) H Estimat Glomerular Filtration Rate mL/min (>60) Glucose Level 75 MG/DL (74-106) Calcium Level 8.3 MG/DL (8.5-10.1) L Test 07/23/17 10:53 Stool Occult Blood Negative (NEGATIVE) Current Medications Medications (Trade) Dose Ordered Sig/Leona Route PRN Reason Start Time Stop Time Status Last Admin Dose Admin Acetaminophen (Tylenol) 650 mg Q4H PRN ORAL Mild Pain/Temp > 100.5 07/19/17 22:30 08/18/17 22:29 Acetaminophen/ Hydrocodone Bitart ([place] 5/325) 1 tab Q4HR PRN ORAL Moderate Pain (Pain Scale 4-6) 07/19/17 22:30 07/26/17 22:29 Amlodipine Besylate (Norvasc) 5 mg DAILY ORAL 07/21/17 16:00 08/20/17 15:59 07/23/17 09:41 Ascorbic Acid (Vitamin C) 250 mg DAILY ORAL 07/20/17 09:00 08/19/17 08:59 07/23/17 09:41 Aspirin (ASA) 81 mg DAILY ORAL 07/22/17 09:00 08/21/17 08:59 07/23/17 09:41 Atorvastatin Calcium (Lipitor) 20 mg BEDTIME ORAL 07/20/17 21:00 08/19/17 20:59 07/22/17 20:39 Bisacodyl (Dulcolax) 10 mg DAILYPRN PRN RECTAL Constipation 07/19/17 22:30 08/18/17 22:29 07/22/17 18:52 Daptomycin 500 mg/ Sodium Chloride 110 ml @ 220 mls/hr Q48H IV 07/21/17 17:00 07/28/17 16:59 07/21/17 17:17 Dextrose (Dextrose 50%) 25 ml STAT PRN IV Hypoglycemia 07/19/17 21:45 08/18/17 21:44 Dextrose (Dextrose 50%) 50 ml STAT PRN IV Hypoglycemia 07/19/17 21:45 08/18/17 21:44 Docusate Sodium (Colace) 100 mg TID ORAL 07/20/17 18:00 08/18/17 22:55 07/23/17 13:17 Fluconazole (Diflucan) 100 mg DAILY@2000 ORAL 07/22/17 20:00 07/29/17 19:59 07/22/17 20:33 Folic Acid (Folate) 1 mg DAILY ORAL 07/21/17 09:00 08/20/17 08:59 07/23/17 09:41 Gabapentin (Neurontin) 300 mg BID ORAL 07/19/17 22:54 08/18/17 22:53 07/23/17 09:42 Insulin Aspart (NovoLOG) BEFORE MEALS AND HS SUBQ 07/19/17 22:27 08/18/17 22:26 07/23/17 12:05 Insulin Detemir (Levemir) 15 units BEDTIME SUBQ 07/19/17 23:00 08/18/17 22:59 07/22/17 20:40 Lansoprazole (Prevacid) 30 mg BID ORAL 07/20/17 18:00 08/19/17 17:59 07/23/17 09:41 Memantine (Namenda) 10 mg DAILY ORAL 07/20/17 09:00 08/19/17 08:59 07/23/17 09:41 Metoprolol Tartrate (Lopressor) 25 mg Q12HR ORAL 07/21/17 21:00 08/20/17 20:59 07/23/17 09:41 Morphine Sulfate (Morphine Sulfate) 4 mg Q4H PRN IVP Severe Pain (Pain Scale 7-10) 07/19/17 22:30 07/26/17 22:29 07/23/17 00:44 Ondansetron HCl (Zofran) 4 mg Q6H PRN IVP Nausea & Vomiting 07/19/17 22:30 08/18/17 22:29 Piperacillin Sod/ Tazobactam Sod 3.375 gm/Dextrose 100 ml @ 25 mls/hr EVERY 12 HOURS IVPB 07/21/17 21:00 07/26/17 20:59 07/23/17 09:41 Polyethylene Glycol (Miralax) 17 gm DAILY PRN ORAL Constipation 07/19/17 22:30 08/18/17 22:29 Sodium Chloride 1,000 ml @ 100 mls/hr Q10H IVLG 07/19/17 22:39 08/18/17 22:38 07/23/17 06:43 Vasquez Toribio MD 3, 2018 14:52
--- NOTE | 2017-07-23 15:22 | Nephrology Progress Note ---
Assessment/Plan Problem List: (1) Sepsis (2) UTI (urinary tract infection) (3) Renal failure (4) CVA with L hemiparesis Assessment admitted with UTI and sepsis admitted with elevated Lactic acid Diabetic nephropathy Acute on Chronic renal failure Cr stable The patient has acute kidney injury, elevated creatinine. Cr 2.5 on admit now 2.2 Anemia History of diabetes. History of cerebrovascular accident and left hemiparesis and weakness. Hypertension. Hyperlipidemia. Dementia. . Plan 2D Echo Left ventricular ejection fraction estimated to be 60 % Avoid nephrotoxics up lopressor dose Anemia work up urine na and Eosinophils slow hydrate keep BP and BS in check Monitor renal parameters Subjective ROS Limited/Unobtainable: No Constitutional: Reports: malaise, weakness Objective Objective Last 24 Hour Vital Signs Date Time Temp Pulse Resp B/P (MAP) Pulse Ox O2 Delivery O2 Flow Rate FiO2 07/23/17 12:00 95 07/23/17 12:00 97.5 96 20 139/78 98 Room Air 97.5 07/23/17 09:41 113 136/74 07/23/17 09:41 113 136/74 07/23/17 08:00 113 07/23/17 08:00 97.5 113 20 136/74 97 Room Air 97.5 07/23/17 04:00 98.9 115 18 138/78 98 Room Air 98.9 07/23/17 04:00 103 07/23/17 00:00 99.1 113 18 146/71 99 Room Air 99.1 07/23/17 00:00 106 07/22/17 20:36 128 139/71 07/22/17 20:00 99.2 128 18 139/71 96 Room Air 99.2 07/22/17 20:00 126 07/22/17 16:00 119 07/22/17 16:00 98.2 121 20 133/76 95 Room Air 98.2 Intake and Output 07/22/17 07/23/17 19:00 07:00 Intake Total 290 ml 200 ml Output Total 700 ml 750 ml Balance -410 ml -550 ml Intake Oral 290 ml 200 ml Output Urine Total 700 ml 750 ml Laboratory Tests 07/22/17 22:30: Stool Occult Blood Negative 07/22/17 22:55: Urine Random Sodium 86 07/23/17 04:00: Urine Eosinophils Few 07/23/17 07:05: White Blood Count 9.3, Red Blood Count 2.53L, Hemoglobin 8.0L, Hematocrit 23.3L , Mean Corpuscular Volume 92, Mean Corpuscular Hemoglobin 31.4H, Mean Corpuscular Hemoglobin Concent 34.2, Red Cell Distribution Width 12.9, Platelet Count 225, Mean Platelet Volume 5.7L, Neutrophils (%) (Auto) 55.2, Lymphocytes ( %) (Auto) 26.1, Monocytes (%) (Auto) 9.2, Eosinophils (%) (Auto) 8.6H, Basophils (%) (Auto) 0.9, Sodium Level 141, Potassium Level 3.7, Chloride Level 109H, Carbon Dioxide Level 21, Anion Gap 12, Blood Urea Nitrogen 19H, Creatinine 1.7H, Estimat Glomerular Filtration Rate , Glucose Level 75, Calcium Level 8.3L 07/23/17 10:53: Stool Occult Blood Negative Height (Feet): 5 Height (Inches): 4.00 Weight (Pounds): 160 Cardiovascular: tachycardia Respiratory/Chest: decreased breath sounds Abdomen: distended Objective no change JAYNA MAYA Jul 23, 2017 15:22
--- NOTE | 2017-07-23 15:57 | General Progress Note ---
Assessment/Plan Problem List: (1) H/O discitis Assessment & Plan: T4-T5 osteomyelitis s/p 6 weeks of IV abx ICD Codes: Z87.39 - Personal history of other diseases of the musculoskeletal system and connective tissue SNOMED: 963688958 (2) UTI (urinary tract infection) ICD Codes: N39.0 - Urinary tract infection, site not specified SNOMED: 01718288, 682254949 Qualifiers: Qualified Codes: N39.0 - Urinary tract infection, site not specified (3) Sepsis ICD Codes: A41.9 - Sepsis, unspecified organism SNOMED: 41687839, 995124105 Qualifiers: Qualified Codes: A41.9 - Sepsis, unspecified organism (4) Renal failure ICD Codes: N19 - Unspecified kidney failure SNOMED: 02581804 Qualifiers: Qualified Codes: N17.9 - Acute kidney failure, unspecified (5) Dementia ICD Codes: F03.90 - Unspecified dementia without behavioral disturbance SNOMED: 93016344 (6) CVA with L hemiparesis (7) DM2 (diabetes mellitus, type 2) ICD Codes: E11.9 - Type 2 diabetes mellitus without complications SNOMED: 35121731 (8) HLD (hyperlipidemia) ICD Codes: E78.5 - Hyperlipidemia, unspecified SNOMED: 67510223 (9) HTN (hypertension) ICD Codes: I10 - Essential (primary) hypertension SNOMED: 79092216 (10) Cord compression ICD Codes: G95.20 - Unspecified cord compression SNOMED: 03598073 (11) Acute blood loss anemia ICD Codes: D62 - Acute posthemorrhagic anemia SNOMED: 526365702 Status: stable, progressing Assessment/Plan - ID consulted, appreciate rec's - nephrology consulted, appreciate rec's - neurology consulted, appreciate rec's - etcher printed circuit boards consulted, appreciate rec's - MRI lumbar/thoracic reviewed showing retropulsion with cord compression. This was compared to the previous MRI thoracic that was done on 05/2017, which showed similar findings when read by the radiologist at [facility]. Per spinal surgery, there was no intervention recommended for the moderate to severe cord compression noted on MRI a month ago. Per neurology, no changes in MRI and therefore no need for transfer to higher level of care at this time. - Hgb stable today. Monitor H/H. Transfer prn Hgb < 7. check FOBT x 3. Hold HSQ and change ASA 325 to 81mg qd per heme. Appreciate hematology rec's. - BP elevated, resume BP meds - IV daptomycin and zosyn per ID (D4) - lactic acid 3.2 --> 1.3 - IVF - Trend Cr 2.5 --> 2.2 --> 2.0 - f/u urine cx --> NGTD - f/u blood cx --> NGTD - DOTTY + lantus 15 units qhs - f/u lipid panel - A1c 7.7 - continue home meds. - pain control and supportive care - venous duplex BLE negative for DVT - check venous duplex bilateral upper extremities to r/o DVT DVT ppx: SCDs Full Code Disposition: Home with HH vs. SNF I spent a total of 33 minutes on this patient's case with greater than 50% spent on care and coordination of the patient. Case was d/w patient, family, etcher printed circuit boards, neurologist, ID, furnace caretaker, and nursing staff. Subjective Date patient seen: Jul 23, 2017 Time patient seen: 15:54 Allergies: Coded Allergies: No Known Allergies (Unverified , 05/24/17) Subjective - AF, HDS - more alert today but still lethargic - at bedside Objective Last 24 Hour Vital Signs Date Time Temp Pulse Resp B/P (MAP) Pulse Ox O2 Delivery O2 Flow Rate FiO2 07/23/17 12:00 95 07/23/17 12:00 97.5 96 20 139/78 98 Room Air 97.5 07/23/17 09:41 113 136/74 07/23/17 09:41 113 136/74 07/23/17 08:00 113 07/23/17 08:00 97.5 113 20 136/74 97 Room Air 97.5 07/23/17 04:00 98.9 115 18 138/78 98 Room Air 98.9 07/23/17 04:00 103 07/23/17 00:00 99.1 113 18 146/71 99 Room Air 99.1 07/23/17 00:00 106 07/22/17 20:36 128 139/71 07/22/17 20:00 99.2 128 18 139/71 96 Room Air 99.2 07/22/17 20:00 126 07/22/17 16:00 119 07/22/17 16:00 98.2 121 20 133/76 95 Room Air 98.2 Intake and Output 07/22/17 07/23/17 19:00 07:00 Intake Total 290 ml 200 ml Output Total 700 ml 750 ml Balance -410 ml -550 ml Intake Oral 290 ml 200 ml Output Urine Total 700 ml 750 ml Laboratory Tests 07/22/17 22:30: Stool Occult Blood Negative 07/22/17 22:55: Urine Random Sodium 86 07/23/17 04:00: Urine Eosinophils Few 07/23/17 07:05: White Blood Count 9.3, Red Blood Count 2.53L, Hemoglobin 8.0L, Hematocrit 23.3L , Mean Corpuscular Volume 92, Mean Corpuscular Hemoglobin 31.4H, Mean Corpuscular Hemoglobin Concent 34.2, Red Cell Distribution Width 12.9, Platelet Count 225, Mean Platelet Volume 5.7L, Neutrophils (%) (Auto) 55.2, Lymphocytes ( %) (Auto) 26.1, Monocytes (%) (Auto) 9.2, Eosinophils (%) (Auto) 8.6H, Basophils (%) (Auto) 0.9, Sodium Level 141, Potassium Level 3.7, Chloride Level 109H, Carbon Dioxide Level 21, Anion Gap 12, Blood Urea Nitrogen 19H, Creatinine 1.7H, Estimat Glomerular Filtration Rate , Glucose Level 75, Calcium Level 8.3L 07/23/17 10:53: Stool Occult Blood Negative Height (Feet): 5 Height (Inches): 4.00 Weight (Pounds): 160 General Appearance: no apparent distress, alert, lethargic EENT: PERRL/EOMI, normal ENT inspection, TMs normal Neck: non-tender, normal alignment, supple Cardiovascular: normal peripheral pulses, normal rate, regular rhythm Respiratory/Chest: chest wall non-tender, lungs clear, normal breath sounds Abdomen: normal bowel sounds, non tender, soft 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
[2017-07-23 16:00] VITALS: BP 162/98
[2017-07-23] MEDS: DAPTOmycin 500 MG in NS 110 ML IV SCH (17:15)
--- NOTE | 2017-07-23 19:01 | Consultation ---
History of Present Illness General Date patient seen: Jul 23, 2017 Time patient seen: 18:25 Chief Complaint: Generalized Weakness Present Illness HPI 77 y/o female with a PMH of HLD, HTN, DM2, CVA w/ L sided hemiparesis, recurrent UTI, dementia Cardiology consulted for hypertension and tachycardia management. Allergies: Coded Allergies: No Known Allergies (Unverified , 05/24/17) Medication History Scheduled Amlodipine Besylate* (Amlodipine Besylate*), 5 MG ORAL DAILY, (Reported) Ascorbic Acid* (Vitamin C*), 250 MG ORAL DAILY, (Reported) Aspirin* (Aspirin*), 325 MG ORAL DAILY, (Reported) Atorvastatin Calcium* (Atorvastatin Calcium*), 20 MG ORAL BEDTIME, (Reported) Atorvastatin Calcium* (Lipitor*), 20 MG ORAL BEDTIME, (Reported) Cefepime Hcl/D5w (Cefepime-Dextrose 2 Gm/50 Ml), 2 GM IVPB EVERY 12 HOURS, ( Reported) Docusate Sodium* (Colace*), 100 MG ORAL TWICE A DAY, (Reported) Gabapentin* (Neurontin*), 300 MG ORAL TWICE A DAY, (Reported) Insulin Aspart (Novolog Flexpen), SQ AC+HS, (Reported) Insulin Detemir (Levemir Flexpen), 12 UNITS SUBQ Q24H, (Reported) Insulin Glargine (Lantus), 15 UNITS SUBQ BEDTIME, (Reported) Insulin Lispro (Humalog Kwikpen), Unknown Dose SQ BEFORE MEALS AND HS, (Reported ) Losartan Potassium* (Losartan Potassium*), 50 MG ORAL DAILY, (Reported) Melatonin (Melatonin), 3 MG PO DAILY, (Reported) Memantine Hcl* (Namenda*), 10 MG ORAL DAILY, (Reported) Metoprolol Succinate* (Metoprolol Succinate*), 25 MG ORAL BID, (Reported) Spironolactone* (Aldactone*), 25 MG ORAL Q12HR, (Reported) Vancomycin Hcl/D5w (Vancomycin-D5w 1 G/250 Ml), 1,250 GM IVPB Q24H, (Reported) Scheduled PRN Acetaminophen* (Acetaminophen 325MG Tablet*), 650 MG ORAL Q4H PRN for Mild Pain/ Temp > 100.5, (Reported) Bisacodyl (Dulcolax), 10 MG RC DAILY PRN for Constipation, (Reported) Hydrocodone Bit/Acetaminophen 5-325* ([place] 5-325*), 1 TAB ORAL Q4H PRN for For Pain, (Reported) Morphine Sulfate* (Morphine Sulfate*), 2 MG IV Q4HR PRN for Pain Scale (6-10), ( Reported) Morphine Sulfate* (Morphine Sulfate*), 4 MG IV Q4HR PRN for Pain Scale (6-10), ( Reported) Ondansetron* (Zofran*), 4 MG IV Q6H PRN for Nausea & Vomiting, (Reported) Polyethylene Glycol 3350* (Miralax*), 17 GM ORAL DAILY PRN for Constipation, ( Reported) Patient History Limited by: medical condition History Provided By: Patient Healthcare decision maker N Resuscitation status Full Code Advanced Directive on File Review of Systems Eye: Reports: no symptoms ENT: Reports: no symptoms Respiratory: Reports: no symptoms Cardiovascular: Reports: palpitations Gastrointestinal: Reports: diarrhea Genitourinary: Reports: frequency, hematuria, urgency Musculoskeletal: Reports: back pain, joint swelling Skin: Reports: no symptoms Psychiatric: Reports: no symptoms Neurological: Reports: no symptoms Endocrine: Reports: no symptoms Physical Exam General Appearance: no apparent distress Lines, tubes and drains: peripheral HEENT: normocephalic Neck: non-tender Respiratory/Chest: lungs clear Cardiovascular/Chest: tachycardia Abdomen: normal bowel sounds Extremities: normal range of motion 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 Last 24 Hour Vital Signs Date Time Temp Pulse Resp B/P (MAP) Pulse Ox O2 Delivery O2 Flow Rate FiO2 07/23/17 16:00 106 07/23/17 16:00 98.0 117 21 162/98 96 Room Air 98.0 07/23/17 12:00 95 07/23/17 12:00 97.5 96 20 139/78 98 Room Air 97.5 07/23/17 09:41 113 136/74 07/23/17 09:41 113 136/74 07/23/17 08:00 113 07/23/17 08:00 97.5 113 20 136/74 97 Room Air 97.5 07/23/17 04:00 98.9 115 18 138/78 98 Room Air 98.9 07/23/17 04:00 103 07/23/17 00:00 99.1 113 18 146/71 99 Room Air 99.1 07/23/17 00:00 106 07/22/17 20:36 128 139/71 07/22/17 20:00 99.2 128 18 139/71 96 Room Air 99.2 07/22/17 20:00 126 Intake and Output 07/22/17 07/23/17 19:00 07:00 Intake Total 290 ml 200 ml Output Total 700 ml 750 ml Balance -410 ml -550 ml Intake Oral 290 ml 200 ml Output Urine Total 700 ml 750 ml Laboratory Tests Test 07/22/17 22:30 07/22/17 22:55 07/23/17 04:00 07/23/17 07:05 Stool Occult Blood Negative (NEGATIVE) Urine Random Sodium 86 mmol/L (20-110) Urine Eosinophils Few White Blood Count 9.3 K/UL (4.8-10.8) Red Blood Count 2.53 M/UL (4.20-5.40) L Hemoglobin 8.0 G/DL (12.0-16.0) L Hematocrit 23.3 % (37.0-47.0) L Mean Corpuscular Volume 92 FL (80-99) Mean Corpuscular Hemoglobin 31.4 PG (27.0-31.0) H Mean Corpuscular Hemoglobin Concent 34.2 G/DL (32.0-36.0) Red Cell Distribution Width 12.9 % (11.6-14.8) Platelet Count 225 K/UL (150-450) Mean Platelet Volume 5.7 FL (6.5-10.1) L Neutrophils (%) (Auto) 55.2 % (45.0-75.0) Lymphocytes (%) (Auto) 26.1 % (20.0-45.0) Monocytes (%) (Auto) 9.2 % (1.0-10.0) Eosinophils (%) (Auto) 8.6 % (0.0-3.0) H Basophils (%) (Auto) 0.9 % (0.0-2.0) Sodium Level 141 MMOL/L (136-145) Potassium Level 3.7 MMOL/L (3.5-5.1) Chloride Level 109 MMOL/L (98-107) H Carbon Dioxide Level 21 MMOL/L (21-32) Anion Gap 12 mmol/L (5-15) Blood Urea Nitrogen 19 mg/dL (7-18) H Creatinine 1.7 MG/DL (0.55-1.30) H Estimat Glomerular Filtration Rate mL/min (>60) Glucose Level 75 MG/DL (74-106) Calcium Level 8.3 MG/DL (8.5-10.1) L Test 07/23/17 10:53 Stool Occult Blood Negative (NEGATIVE) Height (Feet): 5 Height (Inches): 4.00 Weight (Pounds): 160 Medications Current Medications Medications (Trade) Dose Ordered Sig/Leona Route PRN Reason Start Time Stop Time Status Last Admin Dose Admin Acetaminophen (Tylenol) 650 mg Q4H PRN ORAL Mild Pain/Temp > 100.5 07/19/17 22:30 08/18/17 22:29 Acetaminophen/ Hydrocodone Bitart ([place] 5/325) 1 tab Q4HR PRN ORAL Moderate Pain (Pain Scale 4-6) 07/19/17 22:30 07/26/17 22:29 Amlodipine Besylate (Norvasc) 5 mg DAILY ORAL 07/21/17 16:00 08/20/17 15:59 07/23/17 09:41 Ascorbic Acid (Vitamin C) 250 mg DAILY ORAL 07/20/17 09:00 08/19/17 08:59 07/23/17 09:41 Aspirin (ASA) 81 mg DAILY ORAL 07/22/17 09:00 08/21/17 08:59 07/23/17 09:41 Atorvastatin Calcium (Lipitor) 20 mg BEDTIME ORAL 07/20/17 21:00 08/19/17 20:59 07/22/17 20:39 Bisacodyl (Dulcolax) 10 mg DAILYPRN PRN RECTAL Constipation 07/19/17 22:30 08/18/17 22:29 07/22/17 18:52 Daptomycin 500 mg/ Sodium Chloride 110 ml @ 220 mls/hr Q48H IV 07/21/17 17:00 07/28/17 16:59 07/23/17 17:15 Dextrose (Dextrose 50%) 25 ml STAT PRN IV Hypoglycemia 07/19/17 21:45 08/18/17 21:44 Dextrose (Dextrose 50%) 50 ml STAT PRN IV Hypoglycemia 07/19/17 21:45 08/18/17 21:44 Docusate Sodium (Colace) 100 mg TID ORAL 07/20/17 18:00 08/18/17 22:55 07/23/17 17:02 Folic Acid (Folate) 2 mg DAILY ORAL 07/24/17 09:00 08/20/17 08:59 Gabapentin (Neurontin) 300 mg BID ORAL 07/19/17 22:54 08/18/17 22:53 07/23/17 17:02 Insulin Aspart (NovoLOG) BEFORE MEALS AND HS SUBQ 07/19/17 22:27 08/18/17 22:26 07/23/17 17:01 Insulin Detemir (Levemir) 15 units BEDTIME SUBQ 07/19/17 23:00 08/18/17 22:59 07/22/17 20:40 Lansoprazole (Prevacid) 30 mg BID ORAL 07/20/17 18:00 08/19/17 17:59 07/23/17 17:02 Memantine (Namenda) 10 mg DAILY ORAL 07/20/17 09:00 08/19/17 08:59 07/23/17 09:41 Metoprolol Tartrate (Lopressor) 50 mg Q12HR ORAL 07/23/17 21:00 08/20/17 20:59 Morphine Sulfate (Morphine Sulfate) 4 mg Q4H PRN IVP Severe Pain (Pain Scale 7-10) 07/19/17 22:30 07/26/17 22:29 07/23/17 00:44 Ondansetron HCl (Zofran) 4 mg Q6H PRN IVP Nausea & Vomiting 07/19/17 22:30 08/18/17 22:29 Piperacillin Sod/ Tazobactam Sod 3.375 gm/Dextrose 100 ml @ 25 mls/hr EVERY 12 HOURS IVPB 07/21/17 21:00 07/26/17 20:59 07/23/17 09:41 Polyethylene Glycol (Miralax) 17 gm DAILY PRN ORAL Constipation 07/19/17 22:30 08/18/17 22:29 Sodium Chloride 1,000 ml @ 40 mls/hr Q24H IVLG 07/23/17 22:39 08/18/17 22:38 Assessment/Plan Assessment/Plan 1) tachycardia secondary to sepsis - continue metoprolol 50 BID 2) Hypertension - Start amloidpine 10 mg daily 3) Hyperlipidemia - statin therapy 4) Diastolic heart disease- TTE reviewed - LV function preserved, no significant valvular disease, spot dose lasix for fluid overload, Serial CXR/BNP 5) Anemia - transfuse PRBC prn, IV and PO iron supplementation 6) Physical therapy 7) IV antibiotics 8) Dr. Valenzuela to follow on Monday Jefferson Walker M.D. Jul 23, 2017 19:01
[2017-07-23 20:00] VITALS: BP 167/82
--- NOTE | 2017-07-23 20:43 | General Progress Note ---
Assessment/Plan Assessment/Plan ASSESSMENT AND PLAN: #. Anemia due to underlying chronic disease as well as folic acid deficiency --> anemia w/u has been reviewed and shows folic acid deficiency --> continue on folic acid 1mg po daily --> hgb goal is >7 #. Anemia of folic acid deficiency --> has been started on folate daily #. Leukocytosis, likely secondary to underlying infection, has been seen by ID Service. --> Further evaluation with urinary tract infection is pending. The patient with systemic inflammatory response syndrome. She is on meropenem and Zyvox. --> appreciate id recs #. Acute kidney injury, closely monitor for improvement on IV fluids. #. Back pain with thoracic spine diskitis, status post antibiotics. #. Hypertension. Systolic blood pressure goal less than 140. #. Hyperlipidemia. LDL goal is less than 70. #. Diabetes mellitus. A1c goal is less than 7. Subjective Date patient seen: Jul 22, 2017 Constitutional: Denies: no symptoms, chills, diaphoresis, fever, malaise, weakness, other HEENT: Denies: no symptoms, eye pain, blurred vision, tearing, double vision, ear pain, ear discharge, nose pain, nose congestion, throat pain, throat swelling, mouth pain, mouth swelling, other Cardiovascular: Denies: no symptoms, chest pain, edema, irregular heart rate, lightheadedness, palpitations, syncope, other Respiratory: Denies: no symptoms, cough, orthopnea, shortness of breath, SOB with excertion, SOB at rest, sputum, stridor, wheezing, other Gastrointestinal/Abdominal: Denies: no symptoms, abdomen distended, abdominal pain, black stools, tarry stools, blood in stool, constipated, diarrhea, difficulty swallowing, nausea, poor appetite, poor fluid intake, rectal bleeding , vomiting, other Genitourinary: Denies: no symptoms, burning, discharge, frequency, flank pain, hematuria, incontinence, pain, urgency, other Neurologic/Psychiatric: Denies: no symptoms, anxiety, depressed, emotional problems, headache, numbness, paresthesia, pre-existing deficit, seizure, tingling, tremors, weakness, other Endocrine: Denies: no symptoms, excessive sweating, flushing, intolerance to cold, intolerance to heat, increased hunger, increased thirst, increased urine, unexplained weight gain, unexplained weight loss, other Hematologic/Lymphatic: Denies: no symptoms, anemia, easy bleeding, easy bruising, other Allergies: Coded Allergies: No Known Allergies (Unverified , 05/24/17) Subjective now started on folic acid, this am is sleepy, no complaints Objective Last 24 Hour Vital Signs Date Time Temp Pulse Resp B/P (MAP) Pulse Ox O2 Delivery O2 Flow Rate FiO2 07/23/17 16:00 106 07/23/17 16:00 98.0 117 21 162/98 96 Room Air 98.0 07/23/17 12:00 95 07/23/17 12:00 97.5 96 20 139/78 98 Room Air 97.5 07/23/17 09:41 113 136/74 07/23/17 09:41 113 136/74 07/23/17 08:00 113 07/23/17 08:00 97.5 113 20 136/74 97 Room Air 97.5 07/23/17 04:00 98.9 115 18 138/78 98 Room Air 98.9 07/23/17 04:00 103 07/23/17 00:00 99.1 113 18 146/71 99 Room Air 99.1 07/23/17 00:00 106 Intake and Output 07/22/17 07/23/17 19:00 07:00 Intake Total 290 ml 200 ml Output Total 700 ml 750 ml Balance -410 ml -550 ml Intake Oral 290 ml 200 ml Output Urine Total 700 ml 750 ml Laboratory Tests 07/22/17 22:30: Stool Occult Blood Negative 07/22/17 22:55: Urine Random Sodium 86 07/23/17 04:00: Urine Eosinophils Few 07/23/17 07:05: White Blood Count 9.3, Red Blood Count 2.53L, Hemoglobin 8.0L, Hematocrit 23.3L , Mean Corpuscular Volume 92, Mean Corpuscular Hemoglobin 31.4H, Mean Corpuscular Hemoglobin Concent 34.2, Red Cell Distribution Width 12.9, Platelet Count 225, Mean Platelet Volume 5.7L, Neutrophils (%) (Auto) 55.2, Lymphocytes ( %) (Auto) 26.1, Monocytes (%) (Auto) 9.2, Eosinophils (%) (Auto) 8.6H, Basophils (%) (Auto) 0.9, Sodium Level 141, Potassium Level 3.7, Chloride Level 109H, Carbon Dioxide Level 21, Anion Gap 12, Blood Urea Nitrogen 19H, Creatinine 1.7H, Estimat Glomerular Filtration Rate , Glucose Level 75, Calcium Level 8.3L 07/23/17 10:53: Stool Occult Blood Negative Height (Feet): 5 Height (Inches): 4.00 Weight (Pounds): 160 General Appearance: alert Neck: supple Respiratory/Chest: lungs clear Extremities: non-tender Edema: no edema noted Leg (L), no edema noted Leg (R) Edema: mild edema Neurologic: alert Skin: warm/dry Baldemar Perez MD Jul 23, 2017 20:43
[2017-07-23] MEDS: Atorvastatin 20mg tab ORAL SCH (21:08)
[2017-07-23] MEDS: Metoprolol Tartrate 50mg tab ORAL SCH (21:08)
[2017-07-23] MEDS: Levemir Flexpen SUBQ SCH (21:11)
[2017-07-24] VITALS: BP 165/88
[2017-07-24 04:00] VITALS: BP 150/87
[2017-07-24] MEDS: Morphine Sulfate 4mg/ml Inj IVP PRN (04:56)
[2017-07-24] MEDS: NovoLOG Insulin Flexpen SUBQ SCH ×4 (06:30→20:03)
--- NOTE | 2017-07-24 07:54 | General Progress Note ---
Assessment/Plan Assessment/Plan ASSESSMENT AND RECS: #. Anemia due to underlying chronic disease as well as FA deficiency --> anemia w/u has been reviewed and shows folic acid deficiency --> continue on folic acid 1mg po daily --> hgb goal is >7 #. Anemia of folic acid deficiency --> has been started on folate daily, continue at this point #. Leukocytosis, likely secondary to underlying infection, has been seen by ID Service. --> Further evaluation with urinary tract infection is pending. The patient with systemic inflammatory response syndrome. She is on meropenem and Zyvox. --> appreciate id recs #. Acute kidney injury, closely monitor, now better on IVFs #. Back pain with thoracic spine diskitis, status post antibiotics. #. Hypertension. Systolic blood pressure goal less than 140. #. Hyperlipidemia. LDL goal is less than 70. #. Diabetes mellitus. A1c goal is less than 7. Subjective Date patient seen: Jul 23, 2017 Constitutional: Denies: no symptoms, chills, diaphoresis, fever, malaise, weakness, other HEENT: Denies: no symptoms, eye pain, blurred vision, tearing, double vision, ear pain, ear discharge, nose pain, nose congestion, throat pain, throat swelling, mouth pain, mouth swelling, other Cardiovascular: Denies: no symptoms, chest pain, edema, irregular heart rate, lightheadedness, palpitations, syncope, other Respiratory: Denies: no symptoms, cough, orthopnea, shortness of breath, SOB with excertion, SOB at rest, sputum, stridor, wheezing, other Gastrointestinal/Abdominal: Denies: no symptoms, abdomen distended, abdominal pain, black stools, tarry stools, blood in stool, constipated, diarrhea, difficulty swallowing, nausea, poor appetite, poor fluid intake, rectal bleeding , vomiting, other Genitourinary: Denies: no symptoms, burning, discharge, frequency, flank pain, hematuria, incontinence, pain, urgency, other Neurologic/Psychiatric: Denies: no symptoms, anxiety, depressed, emotional problems, headache, numbness, paresthesia, pre-existing deficit, seizure, tingling, tremors, weakness, other Endocrine: Denies: no symptoms, excessive sweating, flushing, intolerance to cold, intolerance to heat, increased hunger, increased thirst, increased urine, unexplained weight gain, unexplained weight loss, other Hematologic/Lymphatic: Denies: no symptoms, anemia, easy bleeding, easy bruising, other Allergies: Coded Allergies: No Known Allergies (Unverified , 05/24/17) Subjective no bleeding, this am is sleepy, no complaints, calm in bed Objective Last 24 Hour Vital Signs Date Time Temp Pulse Resp B/P (MAP) Pulse Ox O2 Delivery O2 Flow Rate FiO2 07/24/17 04:00 98.1 102 20 150/87 96 Room Air 98.1 07/24/17 04:00 93 07/24/17 00:00 102 07/24/17 00:00 98.6 102 20 165/88 95 Room Air 98.6 07/23/17 21:08 115 167/82 07/23/17 20:00 99.0 115 20 167/82 95 Room Air 99.0 07/23/17 20:00 110 07/23/17 16:00 106 07/23/17 16:00 98.0 117 21 162/98 96 Room Air 98.0 07/23/17 12:00 95 07/23/17 12:00 97.5 96 20 139/78 98 Room Air 97.5 07/23/17 09:41 113 136/74 07/23/17 09:41 113 136/74 07/23/17 08:00 113 07/23/17 08:00 97.5 113 20 136/74 97 Room Air 97.5 Intake and Output 07/23/17 07/24/17 19:00 07:00 Intake Total 360 ml Output Total 2100 ml Balance -1740 ml Intake Oral 360 ml Output Urine Total 2100 ml # Bowel Movements 3 1 Laboratory Tests 07/23/17 10:53: Stool Occult Blood Negative 07/24/17 04:00: Stool Occult Blood [Pending] Height (Feet): 5 Height (Inches): 4.00 Weight (Pounds): 160 General Appearance: alert EENT: normal ENT inspection Neck: supple Cardiovascular: regular rhythm Respiratory/Chest: lungs clear Abdomen: non tender Extremities: non-tender Edema: 1+ Leg (L), 1+ Leg (R) Edema: mild edema Neurologic: alert Skin: warm/dry Baldemar Perez MD Jul 24, 2017 07:54
[2017-07-24 08:00] VITALS: BP 147/81
[2017-07-24] MEDS: Docusate 100mg cap ORAL SCH ×3 (08:42→17:11)
[2017-07-24] MEDS: Memantine 10mg tab ORAL SCH (08:43)
[2017-07-24] MEDS: Ascorbic Acid 500mg tab ORAL SCH (08:43)
[2017-07-24] MEDS: Aspirin Baby 81mg ORAL SCH (08:43)
[2017-07-24] MEDS: Metoprolol Tartrate 50mg tab ORAL SCH ×2 (08:44→20:00)
[2017-07-24 10:38] LABS: HEMATOCRIT 22.7 % (37.0-47.0); HEMOGLOBIN 7.3 G/DL (12.0-16.0); MEAN CORPUSCULAR VOLUME 91 FL (80-99); PLATELET COUNT 225 K/UL (150-450); RED BLOOD COUNT 2.51 M/UL (4.20-5.40); RED CELL DISTRIBUTION WIDTH 12.1 % (11.6-14.8); WHITE BLOOD COUNT 9.4 K/UL (4.8-10.8)
--- NOTE | 2017-07-24 11:05 | Neurology Progress Note ---
Interim History Interim History ROS Limited/Unobtainable: No Interim History Ms. Pacheco feels "better." She is wide awake. She is alert when engaged. She feels that her mind is clearer. She is able to recognize her by name. She denies any new neurologic symptoms. 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 Her urine is clearing up. Review of Systems Neuro Review of Systems Benign. Objective Physical Exam Last Vital Signs Date Time Temp Pulse Resp B/P (MAP) Pulse Ox O2 Delivery O2 Flow Rate FiO2 07/24/17 08:44 107 147/81 07/24/17 08:00 97.7 20 96 Room Air 97.7 Laboratory Tests Test 07/24/17 04:00 07/24/17 10:22 Stool Occult Blood Negative (NEGATIVE) White Blood Count 9.4 K/UL (4.8-10.8) Red Blood Count 2.51 M/UL (4.20-5.40) L Hemoglobin 7.3 G/DL (12.0-16.0) L Hematocrit 22.7 % (37.0-47.0) L Mean Corpuscular Volume 91 FL (80-99) Mean Corpuscular Hemoglobin 29.3 PG (27.0-31.0) Mean Corpuscular Hemoglobin Concent 32.3 G/DL (32.0-36.0) Red Cell Distribution Width 12.1 % (11.6-14.8) Platelet Count 225 K/UL (150-450) Mean Platelet Volume 5.6 FL (6.5-10.1) L Neutrophils (%) (Auto) % (45.0-75.0) Lymphocytes (%) (Auto) % (20.0-45.0) Monocytes (%) (Auto) % (1.0-10.0) Eosinophils (%) (Auto) % (0.0-3.0) Basophils (%) (Auto) % (0.0-2.0) Neutrophils % (Manual) Pending Lymphocytes % (Manual) Pending Platelet Estimate Pending Platelet Morphology Pending Sodium Level Pending Potassium Level Pending Chloride Level Pending Carbon Dioxide Level Pending Blood Urea Nitrogen Pending Creatinine Pending Estimat Glomerular Filtration Rate Pending Glucose Level Pending Calcium Level Pending Neurologic Exam Objective PHYSICAL EXAMINATION: GENERAL: She is a well-developed, well-nourished, slightly obese black lady, lying in bed, in no acute distress. HEAD: Normocephalic and atraumatic. EENT: Examination benign. NECK: No neck rigidity was observed. NEUROLOGICAL EXAMINATION: MENTAL STATUS EXAMINATION: She was awake and more alert. She was oriented to self and hospital only. She did not know the name of the hospital or what the date was. She was unable to tell me who the present President was and who prior presidents were. She was unable to cooperate for further mental status testing. SPEECH: She had a mild dysarthria. LANGUAGE: She was able to comprehend and express herself relatively well. CRANIAL NERVE EXAMINATION: II: She was able to count fingers. She was unable to cooperate for confrontation testing. III, IV & : External ocular movements were full and the pupils 3 mm in diameter, equal, round, regular, and reactive to light. V & VII: The corneal reflexes were present bilaterally, but the left-sided reflex was diminished compared to the right-sided reflex. In addition, she also had left seventh central facial paresis. VIII: She was able to hear well and had no nystagmus. IX: The palate moved symmetrically on phonation. X: She had no hoarseness of voice. XI: The sternocleidomastoids and trapezii did function. XII: The tongue was in the midline without any fasciculations or atrophy. MOTOR SYSTEM: The tone was flaccid in both lower extremities and mildly spastic in the left upper extremity. Examination of muscle mass revealed generalized muscle wasting involving the lower extremities significantly more than the upper extremities. Examination of power was difficult to perform because of her inability to give a good effort. She however had a paraplegia with G 0/5 in both lower extremities. Left upper extremity plegia except for minimal finger flexion G 2/5. In the left lower extremity she had a flaccid plegia with G 0/5 power. In the right lower extremity, she has a flaccid plegia with G 0/5 power. In the right upper extremity she had G 4/5 power. SENSORY EXAMINATION: She responded appropriately to deep pain in all four extremities. REFLEXES: 1+ on the right and 2+ on the left in the biceps, triceps, brachioradialis, and knees, 0 at both ankles. The plantar responses were mute bilaterally. COORDINATION, STANCE & GAIT: Could not be tested. Impression/Recommendations Diagnostic Impression 1. Ms. 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 2. She feels "better" today. She is wide awake today. She is alert when engaged. She feels that her mind is clearer. She is able to recognize her by name. She denies any new neurologic symptoms. 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 Her urine is clearing up. 3. On neurological examination, at this time, she is awake and alert. She is oriented to self and hospital. She has a dysarthria, has left seventh central facial paresis, left upper extremity plegia except for minimal left finger flexion graded 2/5, right upper extremity paresis G 4/5, and flaccid paraplegia with G 0/5 power in both lower extremities. She is able to discern pin prick and light touch. The deep tendon reflexes are brisker on the left side compared to the right with loss of ankle jerks and mute plantar responses. 4. An MRI scan of the thoracic spine performed on 07/21/2017 revealed "a very limited and nearly nondiagnostic study demonstrating vertebral collapse, focal kyphosis at T 4-5 presumably on the basis of infection resulting in retropulsion and cord compression." Similar findings were better demonstrated on previous scan performed on 05/24/2017. 5. The patient's history, neurological examination, laboratory data, and imaging studies are most compatible with a significant encephalopathy due to an acute infectious process and in addition, old underlying structural brain disease related to her stroke. 6. She also has T4-5 osteomyelitis with vertebral body collapse with cord compression similar to what was seen on 05/24/2017. Recommendations 1. Continue present management. 2. Antibiotics as per Dr. oTribio. 3. Frequent range of motion exercises. 4. Attempts should be made to keep the patient off mind-altering drugs so that her encephalopathy can improve. 5. Observe closely Oh Schulz M.D., M.S.P.H. OH SCHULZ Jul 24, 2017 11:05
[2017-07-24 11:12] LABS: ANION GAP 11 mmol/L (5-15); BLOOD UREA NITROGEN 16 mg/dL (7-18); CALCIUM 8.3 MG/DL (8.5-10.1); CARBON DIOXIDE 23 MMOL/L (21-32); CHLORIDE 108 MMOL/L (98-107); CREATININE 1.4 MG/DL (0.55-1.30); POTASSIUM 3.3 MMOL/L (3.5-5.1); SODIUM 142 MMOL/L (136-145)
[2017-07-24 12:00] VITALS: BP 110/51
--- NOTE | 2017-07-24 12:21 | General Progress Note ---
Assessment/Plan Status: stable Assessment/Plan Dementia Encephalopathy Anxiety Ativan dc Namenda Subjective Date patient seen: Jul 24, 2017 Neurologic/Psychiatric: Reports: anxiety, emotional problems Allergies: Coded Allergies: No Known Allergies (Unverified , 05/24/17) Objective Last 24 Hour Vital Signs Date Time Temp Pulse Resp B/P (MAP) Pulse Ox O2 Delivery O2 Flow Rate FiO2 07/24/17 08:44 107 147/81 07/24/17 08:43 107 147/81 07/24/17 08:00 106 07/24/17 08:00 97.7 103 20 147/81 96 Room Air 97.7 07/24/17 04:00 98.1 102 20 150/87 96 Room Air 98.1 07/24/17 04:00 93 07/24/17 00:00 102 07/24/17 00:00 98.6 102 20 165/88 95 Room Air 98.6 07/23/17 21:08 115 167/82 07/23/17 20:00 99.0 115 20 167/82 95 Room Air 99.0 07/23/17 20:00 110 07/23/17 16:00 106 07/23/17 16:00 98.0 117 21 162/98 96 Room Air 98.0 Intake and Output 07/23/17 07/24/17 19:00 07:00 Intake Total 360 ml Output Total 2100 ml Balance -1740 ml Intake Oral 360 ml Output Urine Total 2100 ml # Bowel Movements 3 2 Laboratory Tests 07/24/17 04:00: Stool Occult Blood Negative 07/24/17 10:22: White Blood Count 9.4, Red Blood Count 2.51L, Hemoglobin 7.3L, Hematocrit 22.7L , Mean Corpuscular Volume 91, Mean Corpuscular Hemoglobin 29.3, Mean Corpuscular Hemoglobin Concent 32.3, Red Cell Distribution Width 12.1, Platelet Count 225, Mean Platelet Volume 5.6L, Neutrophils (%) (Auto) , Lymphocytes (%) ( Auto) , Monocytes (%) (Auto) , Eosinophils (%) (Auto) , Basophils (%) (Auto) , Differential Total Cells Counted 100, Neutrophils % (Manual) 63, Lymphocytes % ( Manual) 22, Monocytes % (Manual) 7, Eosinophils % (Manual) 8H, Basophils % ( Manual) 0, Band Neutrophils 0, Platelet Estimate Adequate, Platelet Morphology Normal, Hypochromasia 1+, Sodium Level 142, Potassium Level 3.3L, Chloride Level 108H, Carbon Dioxide Level 23, Anion Gap 11, Blood Urea Nitrogen 16, Creatinine 1.4H, Estimat Glomerular Filtration Rate , Glucose Level 191#H, Calcium Level 8.3L Height (Feet): 5 Height (Inches): 4.00 Weight (Pounds): 160 General Appearance: no apparent distress, alert, confused Neurologic: alert, depressed affect Emanuel Partida M.D. Jul 24, 2017 12:21
[2017-07-24] MEDS ORDERED: LORazepam 1mg tab ORAL PRN (12:30)
--- NOTE | 2017-07-24 14:54 | General Progress Note ---
Assessment/Plan Problem List: (1) H/O discitis Assessment & Plan: T4-T5 osteomyelitis s/p 6 weeks of IV abx ICD Codes: Z87.39 - Personal history of other diseases of the musculoskeletal system and connective tissue SNOMED: 064644108 (2) UTI (urinary tract infection) ICD Codes: N39.0 - Urinary tract infection, site not specified SNOMED: 39028318, 850659970 Qualifiers: Qualified Codes: N39.0 - Urinary tract infection, site not specified (3) Sepsis ICD Codes: A41.9 - Sepsis, unspecified organism SNOMED: 50845897, 244455900 Qualifiers: Qualified Codes: A41.9 - Sepsis, unspecified organism (4) Renal failure ICD Codes: N19 - Unspecified kidney failure SNOMED: 47896690 Qualifiers: Qualified Codes: N17.9 - Acute kidney failure, unspecified (5) Dementia ICD Codes: F03.90 - Unspecified dementia without behavioral disturbance SNOMED: 97697401 (6) CVA with L hemiparesis (7) DM2 (diabetes mellitus, type 2) ICD Codes: E11.9 - Type 2 diabetes mellitus without complications SNOMED: 75424965 (8) HLD (hyperlipidemia) ICD Codes: E78.5 - Hyperlipidemia, unspecified SNOMED: 50184142 (9) HTN (hypertension) ICD Codes: I10 - Essential (primary) hypertension SNOMED: 44671703 (10) Cord compression ICD Codes: G95.20 - Unspecified cord compression SNOMED: 13831600 (11) Acute blood loss anemia ICD Codes: D62 - Acute posthemorrhagic anemia SNOMED: 382178845 Status: stable, progressing Assessment/Plan - cardiology consulted for tachycardia and HTN, appreciate rec's - ID consulted, appreciate rec's - nephrology consulted, appreciate rec's - neurology consulted, appreciate rec's - post tronic machine operator consulted, appreciate rec's - MRI lumbar/thoracic reviewed showing retropulsion with cord compression. This was compared to the previous MRI thoracic that was done on 05/2017, which showed similar findings when read by the radiologist at [facility]. Per spinal surgery, there was no intervention recommended for the moderate to severe cord compression noted on MRI a month ago. Per neurology, no changes in MRI and therefore no need for transfer to higher level of care at this time. - Hgb 7.3 today. Monitor H/H. Transfer prn Hgb < 7. check FOBT x 3. Hold HSQ and change ASA 325 to 81mg qd per heme. Appreciate hematology rec's. - BP elevated, resume BP meds - IV daptomycin and zosyn per ID (D4) - lactic acid 3.2 --> 1.3 - IVF - Trend Cr 2.5 --> 2.2 --> 2.0 --> 1.4 - f/u urine cx --> NGTD - f/u blood cx --> NGTD - DOTTY + lantus 15 units qhs - f/u lipid panel - A1c 7.7 - continue home meds. continue BP meds - pain control and supportive care - venous duplex BLE negative for DVT - check venous duplex bilateral upper extremities to r/o DVT Cleared per ID to continue with IV ertapenam 500mg qd x 3 days. Will need f/u as outpatient with spine surgery/ID. Will d/w son regarding discharge planning - home vs. snf DVT ppx: SCDs Full Code Disposition: Home with HH vs. SNF I spent a total of 30 minutes on this patient's case with greater than 50% spent on care and coordination of the patient. Case was d/w patient, family, post tronic machine operator, neurologist, ID, product safety administrator, animal maintenance supervisor, and nursing staff. Subjective Date patient seen: Jul 24, 2017 Time patient seen: 14:50 Allergies: Coded Allergies: No Known Allergies (Unverified , 05/24/17) Subjective - AF, HDS - more alert today - Cr improving - seen by cards for tachycardia, likely 2/2 sepsis - and son at bedside Objective Last 24 Hour Vital Signs Date Time Temp Pulse Resp B/P (MAP) Pulse Ox O2 Delivery O2 Flow Rate FiO2 07/24/17 12:00 97.7 103 20 110/51 96 Room Air 97.7 07/24/17 08:44 107 147/81 07/24/17 08:43 107 147/81 07/24/17 08:00 106 07/24/17 08:00 97.7 103 20 147/81 96 Room Air 97.7 07/24/17 04:00 98.1 102 20 150/87 96 Room Air 98.1 07/24/17 04:00 93 07/24/17 00:00 102 07/24/17 00:00 98.6 102 20 165/88 95 Room Air 98.6 07/23/17 21:08 115 167/82 07/23/17 20:00 99.0 115 20 167/82 95 Room Air 99.0 07/23/17 20:00 110 07/23/17 16:00 106 07/23/17 16:00 98.0 117 21 162/98 96 Room Air 98.0 Intake and Output 07/23/17 07/24/17 19:00 07:00 Intake Total 360 ml Output Total 2100 ml Balance -1740 ml Intake Oral 360 ml Output Urine Total 2100 ml # Bowel Movements 3 2 Laboratory Tests 07/24/17 04:00: Stool Occult Blood Negative 07/24/17 10:22: White Blood Count 9.4, Red Blood Count 2.51L, Hemoglobin 7.3L, Hematocrit 22.7L , Mean Corpuscular Volume 91, Mean Corpuscular Hemoglobin 29.3, Mean Corpuscular Hemoglobin Concent 32.3, Red Cell Distribution Width 12.1, Platelet Count 225, Mean Platelet Volume 5.6L, Neutrophils (%) (Auto) , Lymphocytes (%) ( Auto) , Monocytes (%) (Auto) , Eosinophils (%) (Auto) , Basophils (%) (Auto) , Differential Total Cells Counted 100, Neutrophils % (Manual) 63, Lymphocytes % ( Manual) 22, Monocytes % (Manual) 7, Eosinophils % (Manual) 8H, Basophils % ( Manual) 0, Band Neutrophils 0, Platelet Estimate Adequate, Platelet Morphology Normal, Hypochromasia 1+, Sodium Level 142, Potassium Level 3.3L, Chloride Level 108H, Carbon Dioxide Level 23, Anion Gap 11, Blood Urea Nitrogen 16, Creatinine 1.4H, Estimat Glomerular Filtration Rate , Glucose Level 191#H, Calcium Level 8.3L Height (Feet): 5 Height (Inches): 4.00 Weight (Pounds): 160 General Appearance: no apparent distress, alert EENT: PERRL/EOMI, normal ENT inspection Neck: non-tender, normal alignment, supple Cardiovascular: normal peripheral pulses, regular rhythm, tachycardia Respiratory/Chest: chest wall non-tender, lungs clear, normal breath sounds Abdomen: normal bowel sounds, non tender, soft Extremities: normal range of motion, non-tender Neurologic: picking table worker II-XII grossly normal, alert, oriented x 3, other - left sided 0/5 strength, right sided 1/5 strength Skin: normal pigmentation, warm/dry Lissette Eduardo NP Jul 24, 2017 14:54
--- NOTE | 2017-07-24 15:43 | General Progress Note ---
Assessment/Plan Status: stable Assessment/Plan ASSESSMENT AND RECS: #. Anemia due to underlying chronic disease as well as FA deficiency --> anemia w/u has been reviewed and shows folic acid deficiency --> continue on folic acid 1mg po daily --> hgb goal is >7 --> 07/24/17: hgb 7.3 #. Anemia of folic acid deficiency --> has been started on folate daily, continue at this point #. Leukocytosis, likely secondary to underlying infection, has been seen by ID Service. --> Further evaluation with urinary tract infection is pending. The patient with systemic inflammatory response syndrome. She is on meropenem and Zyvox. --> appreciate id recs #. Acute kidney injury, closely monitor, now better on IVFs #. Back pain with thoracic spine diskitis, status post antibiotics. #. Hypertension. Systolic blood pressure goal less than 140. #. Hyperlipidemia. LDL goal is less than 70. #. Diabetes mellitus. A1c goal is less than 7. Subjective Date patient seen: Jul 24, 2017 Allergies: Coded Allergies: No Known Allergies (Unverified , 05/24/17) All Systems: reviewed and negative except above Subjective Pt seen resting in bed with and son at bedside. No recent events, no signs of acute medical distress noted. Objective Last 24 Hour Vital Signs Date Time Temp Pulse Resp B/P (MAP) Pulse Ox O2 Delivery O2 Flow Rate FiO2 07/24/17 12:00 97.7 103 20 110/51 96 Room Air 97.7 07/24/17 08:44 107 147/81 07/24/17 08:43 107 147/81 07/24/17 08:00 106 07/24/17 08:00 97.7 103 20 147/81 96 Room Air 97.7 07/24/17 04:00 98.1 102 20 150/87 96 Room Air 98.1 07/24/17 04:00 93 07/24/17 00:00 102 07/24/17 00:00 98.6 102 20 165/88 95 Room Air 98.6 07/23/17 21:08 115 167/82 07/23/17 20:00 99.0 115 20 167/82 95 Room Air 99.0 07/23/17 20:00 110 07/23/17 16:00 106 07/23/17 16:00 98.0 117 21 162/98 96 Room Air 98.0 Intake and Output 07/23/17 07/24/17 19:00 07:00 Intake Total 360 ml Output Total 2100 ml Balance -1740 ml Intake Oral 360 ml Output Urine Total 2100 ml # Bowel Movements 3 2 Laboratory Tests 07/24/17 04:00: Stool Occult Blood Negative 07/24/17 10:22: White Blood Count 9.4, Red Blood Count 2.51L, Hemoglobin 7.3L, Hematocrit 22.7L , Mean Corpuscular Volume 91, Mean Corpuscular Hemoglobin 29.3, Mean Corpuscular Hemoglobin Concent 32.3, Red Cell Distribution Width 12.1, Platelet Count 225, Mean Platelet Volume 5.6L, Neutrophils (%) (Auto) , Lymphocytes (%) ( Auto) , Monocytes (%) (Auto) , Eosinophils (%) (Auto) , Basophils (%) (Auto) , Differential Total Cells Counted 100, Neutrophils % (Manual) 63, Lymphocytes % ( Manual) 22, Monocytes % (Manual) 7, Eosinophils % (Manual) 8H, Basophils % ( Manual) 0, Band Neutrophils 0, Platelet Estimate Adequate, Platelet Morphology Normal, Hypochromasia 1+, Sodium Level 142, Potassium Level 3.3L, Chloride Level 108H, Carbon Dioxide Level 23, Anion Gap 11, Blood Urea Nitrogen 16, Creatinine 1.4H, Estimat Glomerular Filtration Rate , Glucose Level 191#H, Calcium Level 8.3L Height (Feet): 5 Height (Inches): 4.00 Weight (Pounds): 160 General Appearance: no apparent distress EENT: PERRL/EOMI Neck: non-tender Cardiovascular: normal peripheral pulses Respiratory/Chest: lungs clear, normal breath sounds Abdomen: soft Baldemar Perez MD Jul 24, 2017 15:43
[2017-07-24 16:00] VITALS: BP 130/74
--- NOTE | 2017-07-24 17:30 | Nephrology Progress Note ---
Assessment/Plan Problem List: (1) Sepsis (2) UTI (urinary tract infection) (3) Renal failure (4) CVA with L hemiparesis Assessment admitted with UTI and sepsis admitted with elevated Lactic acid Diabetic nephropathy Acute on Chronic renal failure Cr stable The patient has acute kidney injury, elevated creatinine. Cr 2.5 on admit now much improved Anemia History of diabetes. History of cerebrovascular accident and left hemiparesis and weakness. Hypertension. Hyperlipidemia. Dementia. . Plan 2D Echo Left ventricular ejection fraction estimated to be 60 % k supplement Avoid nephrotoxics up lopressor dose Anemia work up urine na and Eosinophils slow hydrate keep BP and BS in check Monitor renal parameters Subjective ROS Limited/Unobtainable: No Constitutional: Reports: malaise, weakness Objective Objective Last 24 Hour Vital Signs Date Time Temp Pulse Resp B/P (MAP) Pulse Ox O2 Delivery O2 Flow Rate FiO2 07/24/17 16:00 89 07/24/17 16:00 97.5 91 20 130/74 96 Room Air 97.5 07/24/17 12:00 97.7 103 20 110/51 96 Room Air 97.7 07/24/17 12:00 82 07/24/17 08:44 107 147/81 07/24/17 08:43 107 147/81 07/24/17 08:00 106 07/24/17 08:00 97.7 103 20 147/81 96 Room Air 97.7 07/24/17 04:00 98.1 102 20 150/87 96 Room Air 98.1 07/24/17 04:00 93 07/24/17 00:00 102 07/24/17 00:00 98.6 102 20 165/88 95 Room Air 98.6 07/23/17 21:08 115 167/82 07/23/17 20:00 99.0 115 20 167/82 95 Room Air 99.0 07/23/17 20:00 110 Intake and Output 07/23/17 07/24/17 19:00 07:00 Intake Total 360 ml Output Total 2100 ml Balance -1740 ml Intake Oral 360 ml Output Urine Total 2100 ml # Bowel Movements 3 2 Laboratory Tests 07/24/17 04:00: Stool Occult Blood Negative 07/24/17 10:22: White Blood Count 9.4, Red Blood Count 2.51L, Hemoglobin 7.3L, Hematocrit 22.7L , Mean Corpuscular Volume 91, Mean Corpuscular Hemoglobin 29.3, Mean Corpuscular Hemoglobin Concent 32.3, Red Cell Distribution Width 12.1, Platelet Count 225, Mean Platelet Volume 5.6L, Neutrophils (%) (Auto) , Lymphocytes (%) ( Auto) , Monocytes (%) (Auto) , Eosinophils (%) (Auto) , Basophils (%) (Auto) , Differential Total Cells Counted 100, Neutrophils % (Manual) 63, Lymphocytes % ( Manual) 22, Monocytes % (Manual) 7, Eosinophils % (Manual) 8H, Basophils % ( Manual) 0, Band Neutrophils 0, Platelet Estimate Adequate, Platelet Morphology Normal, Hypochromasia 1+, Sodium Level 142, Potassium Level 3.3L, Chloride Level 108H, Carbon Dioxide Level 23, Anion Gap 11, Blood Urea Nitrogen 16, Creatinine 1.4H, Estimat Glomerular Filtration Rate , Glucose Level 191#H, Calcium Level 8.3L Height (Feet): 5 Height (Inches): 4.00 Weight (Pounds): 160 General Appearance: no apparent distress Respiratory/Chest: decreased breath sounds Abdomen: soft Objective no change JAYNA MAYA Jul 24, 2017 17:30
--- NOTE | 2017-07-24 17:54 | Infectious Diseases Prog Note ---
Assessment/Plan Assessment/Plan ASSESSMENT AND PLAN: 1. uti, sepsis, sirs, leukocytosis, chest x-ray with chf - sepsis and leukocytosis better - zosyn -day # 6 abx, plan on 10 course antibiotics - urine culture f/u is negative, ua improved - f/u labs - can use ertapenem 500 mg daily if need less frequent dosing 2. 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, lower extremity weakness - Thoracic MRI findings noted and shows cord compression and findings c/w infection - d/w neurology and similar MRI findings see on 05/24/17 - s/p 6 week abx course with vancomycin/cefepime and vancomycin/meropenem, has had likely more than 6 weeks abx including multiple hospitalizations - sed rate significantly elevated but crp only mildly elevated - unclear significance since non-specific markers and patient also septic with uti - discontinue zosyn and daptomycin after this hospitalization for vertebral osteomyelitis treatment - d/w Swathi Eduardo NP - patient to follow-p with primary MD and appropriate consultants to monitor patients vertebral osteomyelitis status post treatment, patient will need labs, sed rate, crp and MRI f/u in the future - d/w son about follow-up with primary MD 3. The patient has acute kidney injury, elevated creatinine. 4. The patient has anemia. 5. History of chest pain. 6. History of diabetes - bs control per primary and consultants 7. History of cerebrovascular accident and left hemiparesis and weakness, + chronic leg weakness. 8. Hypertension - bp control per primary and consultants 9. Hyperlipidemia. 10. Dementia. 11. Hyponatremia. 12. Past medical history noted. 13. Social history negative. 14. Family history noncontributory. 15. MAR was noted. 16. Case discussed with RN. 17. Allergies are negative. 18. Notes were reviewed and noted. 19. Continue treatment per primary consultants. 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 Subjective Constitutional: Reports: fatigue; Denies: fever HEENT: Denies: congestion Respiratory: Denies: shortness of breath Gastrointestinal/Abdominal: Denies: nausea, vomiting, diarrhea Genitourinary: Reports: other - + cowan Neurologic: Denies: headache Psychiatric: Denies: depression Skin: Denies: rash Hematologic: Denies: bleeding Musculoskeletal: Denies: pain Allergies: Coded Allergies: No Known Allergies (Unverified , 4/4/18) Objective Vital Signs Last 24 Hour Vital Signs Date Time Temp Pulse Resp B/P (MAP) Pulse Ox O2 Delivery O2 Flow Rate FiO2 07/24/17 16:00 89 07/24/17 16:00 97.5 91 20 130/74 96 Room Air 97.5 07/24/17 12:00 97.7 103 20 110/51 96 Room Air 97.7 07/24/17 12:00 82 07/24/17 08:44 107 147/81 07/24/17 08:43 107 147/81 07/24/17 08:00 106 07/24/17 08:00 97.7 103 20 147/81 96 Room Air 97.7 07/24/17 04:00 98.1 102 20 150/87 96 Room Air 98.1 07/24/17 04:00 93 07/24/17 00:00 102 07/24/17 00:00 98.6 102 20 165/88 95 Room Air 98.6 07/23/17 21:08 115 167/82 07/23/17 20:00 99.0 115 20 167/82 95 Room Air 99.0 07/23/17 20:00 110 Height (Feet): 5 Height (Inches): 4.00 Weight (Pounds): 160 General Appearance: no acute distress, other HEENT: normocephalic, atraumatic, anicteric, EOMI, supple Respiratory/Chest: lungs clear, normal breath sounds, no respiratory distress, no accessory muscle use Cardiovascular: normal rate, regular rhythm, no gallop/murmur, no JVD Abdomen: normal bowel sounds, soft, non tender, no organomegaly, non distended Genitourinary: other - cowan - urine cloudy but clearer Extremities: no cyanosis Skin: no rash Neurologic/Psychiatric: 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 Cardiomegaly is also again noted. Findings appear unchanged. No definite pleural effusions are appreciated. IMPRESSION: Some evidence to suggest mild congestive heart failure. Correlate clinically Thoracic spine MRI: IMPRESSION: Very limited nearly nondiagnostic study demonstrating vertebral collapse, focal kyphosis at T4-5 presumably on the basis of infection resulting in retropulsion and cord compression. Similar findings better demonstrated on the previous occasion 05/24/2017 MRI noted. Consider repeating the MRI when patient is able to better tolerate the study. In addition recommend gadolinium enhanced sequences. Microbiology Date/Time Source Procedure Growth Status 07/19/17 12:35 Blood Blood Culture - Preliminary NO GROWTH AFTER 4 DAYS Resulted 07/19/17 14:30 Nasal Nares MRSA Culture - Final NO METHICILLIN RESISTANT STAPH AUREUS... Complete 07/21/17 19:25 Urine,Clean Catch Urine Culture - Preliminary Resulted 07/19/17 14:30 Rectum VRE Culture - Final Enterococcus Faecalis - Vre Complete Microbiology Date/Time Source Procedure Growth Status 07/21/17 19:25 Urine,Clean Catch Urine Culture - Preliminary Resulted Laboratory Tests Test 07/24/17 04:00 07/24/17 10:22 Stool Occult Blood Negative (NEGATIVE) White Blood Count 9.4 K/UL (4.8-10.8) Red Blood Count 2.51 M/UL (4.20-5.40) L Hemoglobin 7.3 G/DL (12.0-16.0) L Hematocrit 22.7 % (37.0-47.0) L Mean Corpuscular Volume 91 FL (80-99) Mean Corpuscular Hemoglobin 29.3 PG (27.0-31.0) Mean Corpuscular Hemoglobin Concent 32.3 G/DL (32.0-36.0) Red Cell Distribution Width 12.1 % (11.6-14.8) Platelet Count 225 K/UL (150-450) Mean Platelet Volume 5.6 FL (6.5-10.1) L Neutrophils (%) (Auto) % (45.0-75.0) Lymphocytes (%) (Auto) % (20.0-45.0) Monocytes (%) (Auto) % (1.0-10.0) Eosinophils (%) (Auto) % (0.0-3.0) Basophils (%) (Auto) % (0.0-2.0) Differential Total Cells Counted 100 Neutrophils % (Manual) 63 % (45-75) Lymphocytes % (Manual) 22 % (20-45) Monocytes % (Manual) 7 % (1-10) Eosinophils % (Manual) 8 % (0-3) H Basophils % (Manual) 0 % (0-2) Band Neutrophils 0 % (0-8) Platelet Estimate Adequate Platelet Morphology Normal Hypochromasia 1+ Sodium Level 142 MMOL/L (136-145) Potassium Level 3.3 MMOL/L (3.5-5.1) L Chloride Level 108 MMOL/L (98-107) H Carbon Dioxide Level 23 MMOL/L (21-32) Anion Gap 11 mmol/L (5-15) Blood Urea Nitrogen 16 mg/dL (7-18) Creatinine 1.4 MG/DL (0.55-1.30) H Estimat Glomerular Filtration Rate mL/min (>60) Glucose Level 191 MG/DL (74-106) #H Calcium Level 8.3 MG/DL (8.5-10.1) L Current Medications Medications (Trade) Dose Ordered Sig/Leona Route PRN Reason Start Time Stop Time Status Last Admin Dose Admin Acetaminophen (Tylenol) 650 mg Q4H PRN ORAL Mild Pain/Temp > 100.5 07/19/17 22:30 08/18/17 22:29 Acetaminophen/ Hydrocodone Bitart ([place] 5/325) 1 tab Q4HR PRN ORAL Moderate Pain (Pain Scale 4-6) 07/19/17 22:30 07/26/17 22:29 Amlodipine Besylate (Norvasc) 5 mg DAILY ORAL 07/21/17 16:00 08/20/17 15:59 07/24/17 08:43 Ascorbic Acid (Vitamin C) 250 mg DAILY ORAL 07/20/17 09:00 08/19/17 08:59 07/24/17 08:43 Aspirin (ASA) 81 mg DAILY ORAL 07/22/17 09:00 08/21/17 08:59 07/24/17 08:43 Atorvastatin Calcium (Lipitor) 20 mg BEDTIME ORAL 07/20/17 21:00 08/19/17 20:59 07/23/17 21:08 Bisacodyl (Dulcolax) 10 mg DAILYPRN PRN RECTAL Constipation 07/19/17 22:30 08/18/17 22:29 07/22/17 18:52 Daptomycin 500 mg/ Sodium Chloride 110 ml @ 220 mls/hr Q48H IV 07/21/17 17:00 07/28/17 16:59 07/23/17 17:15 Dextrose (Dextrose 50%) 25 ml STAT PRN IV Hypoglycemia 07/19/17 21:45 08/18/17 21:44 Dextrose (Dextrose 50%) 50 ml STAT PRN IV Hypoglycemia 07/19/17 21:45 08/18/17 21:44 Docusate Sodium (Colace) 100 mg TID ORAL 07/20/17 18:00 08/18/17 22:55 07/24/17 17:11 Folic Acid (Folate) 2 mg DAILY ORAL 07/24/17 09:00 08/20/17 08:59 07/24/17 08:43 Gabapentin (Neurontin) 300 mg BID ORAL 07/19/17 22:54 08/18/17 22:53 07/24/17 17:11 Insulin Aspart (NovoLOG) BEFORE MEALS AND HS SUBQ 07/19/17 22:27 08/18/17 22:26 07/24/17 17:13 Insulin Detemir (Levemir) 15 units BEDTIME SUBQ 07/19/17 23:00 08/18/17 22:59 07/23/17 21:11 Lansoprazole (Prevacid) 30 mg BID ORAL 07/20/17 18:00 08/19/17 17:59 07/24/17 17:12 Lorazepam (Ativan) 1 mg Q6H PRN ORAL For Anxiety 07/24/17 12:30 07/31/17 12:29 Metoprolol Tartrate (Lopressor) 50 mg Q12HR ORAL 07/23/17 21:00 08/20/17 20:59 07/24/17 08:44 Morphine Sulfate (Morphine Sulfate) 4 mg Q4H PRN IVP Severe Pain (Pain Scale 7-10) 07/19/17 22:30 07/26/17 22:29 07/24/17 04:56 Ondansetron HCl (Zofran) 4 mg Q6H PRN IVP Nausea & Vomiting 07/19/17 22:30 08/18/17 22:29 Piperacillin Sod/ Tazobactam Sod 3.375 gm/Dextrose 100 ml @ 25 mls/hr EVERY 12 HOURS IVPB 07/21/17 21:00 07/26/17 20:59 07/24/17 08:44 Polyethylene Glycol (Miralax) 17 gm DAILY PRN ORAL Constipation 07/19/17 22:30 08/18/17 22:29 Sodium Chloride 1,000 ml @ 40 mls/hr Q24H IVLG 07/23/17 22:39 08/18/17 22:38 07/23/17 22:39 Vasquez Toribio MD Jul 24, 2017 17:54
[2017-07-24 20:00] VITALS: BP 133/68
[2017-07-24] MEDS: Atorvastatin 20mg tab ORAL SCH (20:01)
[2017-07-24] MEDS: Levemir Flexpen SUBQ SCH (20:02)
[2017-07-25] VITALS: BP 125/70
[2017-07-25 04:00] VITALS: BP 134/65
[2017-07-25] MEDS: NovoLOG Insulin Flexpen SUBQ SCH ×3 (06:03→16:30)
[2017-07-25 08:00] VITALS: BP 151/84
[2017-07-25] MEDS: Aspirin Baby 81mg ORAL SCH (08:15)
[2017-07-25] MEDS: Ascorbic Acid 500mg tab ORAL SCH (08:16)
[2017-07-25] MEDS: Metoprolol Tartrate 50mg tab ORAL SCH (08:16)
[2017-07-25] MEDS: Docusate 100mg cap ORAL SCH ×2 (08:17→12:02)
[2017-07-25 08:19] LABS: BASOPHILS % (AUTO) 0.9 % (0.0-2.0); EOSINOPHILS % (AUTO) 7.5 % (0.0-3.0); HEMATOCRIT 23.9 % (37.0-47.0); HEMOGLOBIN 8.3 G/DL (12.0-16.0); LYMPHOCYTES % (AUTO) 20.5 % (20.0-45.0); MEAN CORPUSCULAR VOLUME 89 FL (80-99); MONOCYTES % (AUTO) 8.1 % (1.0-10.0); NEUTROPHILS % (AUTO) 62.9 % (45.0-75.0); PLATELET COUNT 239 K/UL (150-450); RED BLOOD COUNT 2.68 M/UL (4.20-5.40); RED CELL DISTRIBUTION WIDTH 12.3 % (11.6-14.8); WHITE BLOOD COUNT 9.5 K/UL (4.8-10.8)
[2017-07-25 09:08] LABS: ANION GAP 12 mmol/L (5-15); BLOOD UREA NITROGEN 14 mg/dL (7-18); CALCIUM 8.6 MG/DL (8.5-10.1); CARBON DIOXIDE 24 MMOL/L (21-32); CHLORIDE 109 MMOL/L (98-107); CREATININE 1.3 MG/DL (0.55-1.30); POTASSIUM 3.4 MMOL/L (3.5-5.1); SODIUM 145 MMOL/L (136-145)
[2017-07-25 09:10] LABS: CREATINE KINASE 15 U/L (26-308)
--- NOTE | 2017-07-25 10:48 | General Progress Note ---
Assessment/Plan Status: stable Assessment/Plan ASSESSMENT AND RECS: #. Anemia due to underlying chronic disease as well as FA deficiency --> anemia w/u has been reviewed and shows folic acid deficiency --> continue on folic acid 1mg po daily --> hgb goal is >7 #. Anemia of folic acid deficiency --> has been started on folate daily, continue at this point #. Leukocytosis, likely secondary to underlying infection, has been seen by ID Service. --> Further evaluation with urinary tract infection is pending. The patient with systemic inflammatory response syndrome. She is on meropenem and Zyvox. --> appreciate id recs #. Acute kidney injury, closely monitor, now better on IVFs #. Back pain with thoracic spine diskitis, status post antibiotics. #. Hypertension. Systolic blood pressure goal less than 140. #. Hyperlipidemia. LDL goal is less than 70. #. Diabetes mellitus. A1c goal is less than 7. Subjective Date patient seen: Jul 25, 2017 Allergies: Coded Allergies: No Known Allergies (Unverified , 05/24/17) All Systems: reviewed and negative except above Subjective Pt seen resting in bed.No signs of acute medical distress noted. D/c planning. Objective Last 24 Hour Vital Signs Date Time Temp Pulse Resp B/P (MAP) Pulse Ox O2 Delivery O2 Flow Rate FiO2 07/25/17 08:17 98 151/84 07/25/17 08:16 98 151/84 07/25/17 08:16 97.5 07/25/17 08:00 97.9 96 18 151/84 93 Room Air 97.9 07/25/17 04:00 96 07/25/17 04:00 97.5 95 17 134/65 93 Room Air 97.5 07/25/17 00:00 98.1 100 18 125/70 94 Room Air 98.1 07/25/17 00:00 90 07/24/17 20:00 103 07/24/17 20:00 97.9 104 19 133/68 95 Room Air 97.9 07/24/17 20:00 89 130/74 07/24/17 16:00 89 07/24/17 16:00 97.5 91 20 130/74 96 Room Air 97.5 07/24/17 12:00 97.7 103 20 110/51 96 Room Air 97.7 07/24/17 12:00 82 Intake and Output 07/24/17 07/25/17 19:00 07:00 Intake Total 960 ml Output Total 2400 ml 800 ml Balance -1440 ml -800 ml Intake Oral 960 ml Output Urine Total 2400 ml 800 ml # Bowel Movements 2 1 Laboratory Tests 07/25/17 07:30: White Blood Count 9.5, Red Blood Count 2.68L, Hemoglobin 8.3L, Hematocrit 23.9L , Mean Corpuscular Volume 89, Mean Corpuscular Hemoglobin 30.9, Mean Corpuscular Hemoglobin Concent 34.7, Red Cell Distribution Width 12.3, Platelet Count 239, Mean Platelet Volume 5.3L, Neutrophils (%) (Auto) 62.9, Lymphocytes ( %) (Auto) 20.5, Monocytes (%) (Auto) 8.1, Eosinophils (%) (Auto) 7.5H, Basophils (%) (Auto) 0.9, Sodium Level 145, Potassium Level 3.4L, Chloride Level 109H, Carbon Dioxide Level 24, Anion Gap 12, Blood Urea Nitrogen 14, Creatinine 1.3, Estimat Glomerular Filtration Rate , Glucose Level 111H, Calcium Level 8.6, Total Creatine Kinase 15L Height (Feet): 5 Height (Inches): 4.00 Weight (Pounds): 160 General Appearance: no apparent distress EENT: PERRL/EOMI Neck: normal alignment Cardiovascular: normal peripheral pulses Respiratory/Chest: lungs clear, normal breath sounds Abdomen: soft Baldemar Perez MD Jul 25, 2017 10:48
[2017-07-25 12:00] VITALS: BP 149/73
[2017-07-25] MEDS ORDERED: METOPROLOL TART50 MG ORAL (12:46)
[2017-07-25] MEDS ORDERED: ASPIRIN81 MG ORAL (12:46)
[2017-07-25] MEDS ORDERED: INVANZ1 G1 IM (12:46)
--- NOTE | 2017-07-25 12:56 | Discharge Instructions ---
Discharge Instructions Discharge Instructions Follow Up Orders F/u with spine surgeon, Dr. Jairo Colon, within 1-2 weeks for thoracic osteomyelitis, retropulsion and cord compression. Check CRP, ESR, CBC, BMP qweekly. For Congestive Heart Failure Reminder Report to your physician any weight gain of 5 pounds or more in one week. Lissette Eduardo NP Jul 25, 2017 12:56
--- NOTE | 2017-07-25 14:33 | Nephrology Progress Note ---
Assessment/Plan Problem List: (1) Sepsis (2) UTI (urinary tract infection) (3) Renal failure (4) CVA with L hemiparesis Assessment admitted with UTI and sepsis admitted with elevated Lactic acid Diabetic nephropathy Acute on Chronic renal failure Cr stable The patient has acute kidney injury, elevated creatinine. Cr 2.5 on admit now much improved Anemia History of diabetes. History of cerebrovascular accident and left hemiparesis and weakness. Hypertension. Hyperlipidemia. Dementia. . Plan 2D Echo Left ventricular ejection fraction estimated to be 60 % k supplement Avoid nephrotoxics up lopressor dose Anemia work up urine na and Eosinophils slow hydrate keep BP and BS in check Monitor renal parameters Subjective ROS Limited/Unobtainable: No Constitutional: Reports: malaise Objective Objective Last 24 Hour Vital Signs Date Time Temp Pulse Resp B/P (MAP) Pulse Ox O2 Delivery O2 Flow Rate FiO2 07/25/17 12:00 88 07/25/17 12:00 97.2 88 18 149/73 93 Room Air 97.2 07/25/17 09:15 97.5 07/25/17 08:17 98 151/84 07/25/17 08:16 98 151/84 07/25/17 08:16 97.5 07/25/17 08:00 105 07/25/17 08:00 97.9 96 18 151/84 93 Room Air 97.9 07/25/17 04:00 96 07/25/17 04:00 97.5 95 17 134/65 93 Room Air 97.5 07/25/17 00:00 98.1 100 18 125/70 94 Room Air 98.1 07/25/17 00:00 90 07/24/17 20:00 103 07/24/17 20:00 97.9 104 19 133/68 95 Room Air 97.9 07/24/17 20:00 89 130/74 07/24/17 16:00 89 07/24/17 16:00 97.5 91 20 130/74 96 Room Air 97.5 Intake and Output 07/24/17 07/25/17 19:00 07:00 Intake Total 960 ml Output Total 2400 ml 800 ml Balance -1440 ml -800 ml Intake Oral 960 ml Output Urine Total 2400 ml 800 ml # Bowel Movements 2 1 Laboratory Tests 07/25/17 07:30: White Blood Count 9.5, Red Blood Count 2.68L, Hemoglobin 8.3L, Hematocrit 23.9L , Mean Corpuscular Volume 89, Mean Corpuscular Hemoglobin 30.9, Mean Corpuscular Hemoglobin Concent 34.7, Red Cell Distribution Width 12.3, Platelet Count 239, Mean Platelet Volume 5.3L, Neutrophils (%) (Auto) 62.9, Lymphocytes ( %) (Auto) 20.5, Monocytes (%) (Auto) 8.1, Eosinophils (%) (Auto) 7.5H, Basophils (%) (Auto) 0.9, Sodium Level 145, Potassium Level 3.4L, Chloride Level 109H, Carbon Dioxide Level 24, Anion Gap 12, Blood Urea Nitrogen 14, Creatinine 1.3, Estimat Glomerular Filtration Rate , Glucose Level 111H, Calcium Level 8.6, Total Creatine Kinase 15L Height (Feet): 5 Height (Inches): 4.00 Weight (Pounds): 160 General Appearance: no apparent distress Objective no change JAYNA MAYA Jul 25, 2017 14:33
--- NOTE | 2017-07-25 15:48 | Neurology Progress Note ---
Interim History Interim History Interim History Ms. Pacheco continues to feel better. She is awake and alert. She feels that her mind is clearer. She denies any new neurologic symptoms. 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 Her urine is clearing up. Plans are to go to a SNF today. Review of Systems Neuro Review of Systems Benign. Objective Physical Exam Last Vital Signs Date Time Temp Pulse Resp B/P (MAP) Pulse Ox O2 Delivery O2 Flow Rate FiO2 07/25/17 12:00 88 07/25/17 12:00 97.2 18 149/73 93 Room Air 97.2 Laboratory Tests Test 07/25/17 07:30 White Blood Count 9.5 K/UL (4.8-10.8) Red Blood Count 2.68 M/UL (4.20-5.40) L Hemoglobin 8.3 G/DL (12.0-16.0) L Hematocrit 23.9 % (37.0-47.0) L Mean Corpuscular Volume 89 FL (80-99) Mean Corpuscular Hemoglobin 30.9 PG (27.0-31.0) Mean Corpuscular Hemoglobin Concent 34.7 G/DL (32.0-36.0) Red Cell Distribution Width 12.3 % (11.6-14.8) Platelet Count 239 K/UL (150-450) Mean Platelet Volume 5.3 FL (6.5-10.1) L Neutrophils (%) (Auto) 62.9 % (45.0-75.0) Lymphocytes (%) (Auto) 20.5 % (20.0-45.0) Monocytes (%) (Auto) 8.1 % (1.0-10.0) Eosinophils (%) (Auto) 7.5 % (0.0-3.0) H Basophils (%) (Auto) 0.9 % (0.0-2.0) Sodium Level 145 MMOL/L (136-145) Potassium Level 3.4 MMOL/L (3.5-5.1) L Chloride Level 109 MMOL/L (98-107) H Carbon Dioxide Level 24 MMOL/L (21-32) Anion Gap 12 mmol/L (5-15) Blood Urea Nitrogen 14 mg/dL (7-18) Creatinine 1.3 MG/DL (0.55-1.30) Estimat Glomerular Filtration Rate mL/min (>60) Glucose Level 111 MG/DL (74-106) H Calcium Level 8.6 MG/DL (8.5-10.1) Total Creatine Kinase 15 U/L (26-308) L Neurologic Exam Objective PHYSICAL EXAMINATION: GENERAL: She is a well-developed, well-nourished, slightly obese black lady, lying in bed, in no acute distress. HEAD: Normocephalic and atraumatic. EENT: Examination benign. NECK: No neck rigidity was observed. NEUROLOGICAL EXAMINATION: MENTAL STATUS EXAMINATION: She was awake and alert. She was oriented to self, [facility] and [facility]. She did not know the date or month. She was able to remember presidents Trump and Obama with hints. She was unable to cooperate for further mental status testing. SPEECH: She had a mild dysarthria. LANGUAGE: She was able to comprehend and express herself relatively well. CRANIAL NERVE EXAMINATION: II: She was able to count fingers. She was unable to cooperate for confrontation testing. III, IV & : External ocular movements were full and the pupils 3 mm in diameter, equal, round, regular, and reactive to light. V & VII: The corneal reflexes were present bilaterally, but the left-sided reflex was diminished compared to the right-sided reflex. In addition, she also had left seventh central facial paresis. VIII: She was able to hear well and had no nystagmus. IX: The palate moved symmetrically on phonation. X: She had no hoarseness of voice. XI: The sternocleidomastoids and trapezii did function. XII: The tongue was in the midline without any fasciculations or atrophy. MOTOR SYSTEM: The tone was flaccid in both lower extremities and mildly spastic in the left upper extremity. Examination of muscle mass revealed generalized muscle wasting involving the lower extremities significantly more than the upper extremities. Examination of power was difficult to perform because of her inability to give a good effort. She however had a paraplegia with G 0/5 in both lower extremities. Left upper extremity plegia except for minimal finger flexion G 2/5. In the left lower extremity she had a flaccid plegia with G 0/5 power. In the right lower extremity, she has a flaccid plegia with G 0/5 power. In the right upper extremity she had G 4/5 power. SENSORY EXAMINATION: She responded appropriately to deep pain in all four extremities. REFLEXES: 1+ on the right and 2+ on the left in the biceps, triceps, brachioradialis, and knees, 0 at both ankles. The plantar responses were mute bilaterally. COORDINATION, STANCE & GAIT: Could not be tested. Impression/Recommendations Diagnostic Impression 1. Ms. 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 2. She continues to feel better. She is awake and alert. She feels that her mind is clearer. She denies any new neurologic symptoms. 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 Her urine is clearing up. Plans are to go to a SNF today. 3. On neurological examination, at this time, she is awake and alert. She is better oriented. Her dysarthria is better. She has left seventh central facial paresis, left upper extremity plegia except for minimal left finger flexion graded 2/5, right upper extremity paresis G 4/5, and flaccid paraplegia with G 0 /5 power in both lower extremities. She is able to discern pin prick and light touch. The deep tendon reflexes are brisker on the left side compared to the right with loss of ankle jerks and mute plantar responses. 4. An MRI scan of the thoracic spine performed on 07/21/2017 revealed "a very limited and nearly nondiagnostic study demonstrating vertebral collapse, focal kyphosis at T 4-5 presumably on the basis of infection resulting in retropulsion and cord compression." Similar findings were better demonstrated on previous scan performed on 05/24/2017. 5. The patient's history, neurological examination, laboratory data, and imaging studies are most compatible with a significant encephalopathy due to an acute infectious process and in addition, old underlying structural brain disease related to her stroke. 6. She also has T4-5 osteomyelitis with vertebral body collapse with cord compression similar to what was seen on 05/24/2017. Recommendations 1. Continue present management. 2. Antibiotics as per Dr. Toribio. 3. Frequent range of motion exercises. 4. Attempts should be made to keep the patient off mind-altering drugs so that her encephalopathy can improve. 5. Agree with transfer to SNF. Oh Schulz M.D., M.S.P.Dyan. OH SCHULZ Jul 25, 2017 15:48
[2017-07-25 16:00] VITALS: BP 138/72
[2017-07-25] MEDS ORDERED: DAPTOmycin 500 MG in NS 110 ML IV SCH (17:00)
--- NOTE | 2017-07-26 06:15 | Discharge Summary 2 SIG ---
DATE OF ADMISSION: 07/19/2017 DATE OF DISCHARGE: 07/25/2017 DISCHARGE DIAGNOSES: 1. History of diskitis. 2. Urinary tract infection. 3. Sepsis. 4. Renal failure. 5. Dementia. 6. Cerebrovascular accident with left hemiparesis history. 7. Diabetes type 2. 8. Hyperlipidemia. 9. Hypertension. 10. Cord compression. 11. Acute blood loss anemia. CONSULTATIONS: 1. Thomas Valenzuela M.D., Cardiology. 2. Vasquez Toribio M.D., Infectious Disease. 3. Jamal Campbell M.D., Nephrology. 4. Oh Nunez M.D., Neurology. 5. Baldemar Perez M.D., membership sales advisor. HISTORY OF PRESENT ILLNESS: The patient is a 77-year-old female with a past medical history of hyperlipidemia, hypertension, diabetes, and CVA with left-sided hemiparesis, recurrent UTIs, dementia, thoracic diskitis, osteomyelitis, presents from home for lethargy and worsening back pain. The patient was recently admitted to [facility] for chest pain and was incidentally found to have a UTI with C4-C5 diskitis osteomyelitis. On 06/09/2017, the patient was transferred to [facility] for further evaluation from spinal surgery, but no interventions were needed. The patient was therefore discharge to SNF for continued IV antibiotics intermittently. Within the six weeks, the patient returned to [facility] for UTI. The patient was treated for this and sent back to SNF for continuation of the rest of her six weeks of IV antibiotics. The patient recently finished her six-week course last week and was brought back home. On presentation, she was noted to be more lethargic and with worsening back pain. At present, the patient also had some foul-smelling urine for the last several days. The patient was noted to be septic in the ED and was started on IV antibiotics and given IV fluids. The patient currently denies chest pain, shortness of breath, nausea, vomiting, and abdominal pain. She reports worsening back pain with no focal deficits. HOSPITAL COURSE: The patient was admitted and started on broad-spectrum IV antibiotics. ID was consulted. The patient was started on IV fluids and creatinine was elevated likely due to sepsis. The patient's creatinine was trended, which was downtrending and Nephrology was also consulted. The patient was noted to have a UTI, but urine culture and blood culture showed no growth. The patient also complained of persistent back pain. Therefore, thoracic spine MRI was done as well as the lumbar spine MRI. This showed very limited nearly nondiagnostic study demonstrating vertebral collapse and focal kyphosis at C4-C5 presumably on the basis of infection resulting in retropulsion and cord compression. Similar findings were demonstrated on the previous occasion on 05/24/2017. Neurology was consulted given weakness and MRI findings and per Neurology, findings were similar to the previous MRI and no further intervention was taken per Spinal Surgery. There is no need for transfer to the higher level of care for spinal evaluation. Lumbar MRI was also done, which showed L4-L5 central spine stenosis, narrowing of the lateral recess with a [id number] foraminal stenosis due to degenerative disc osteophyte complex, moderate facet arthropathy, which is associated with a mild anterolisthesis. The patient was started also on heparin and SCDs after bilateral lower extremity venous ultrasound was negative for DVT. Chest x-ray also showed some evidence of an acute congestive heart failure. Echo was done, which showed an EF of 60% with no wall motion abnormality. The patient was also noted to be hypertensive and tachycardic and Cardiology was consulted. The patient's metoprolol was increased and tachycardia resolved. EKG was normal on telemetry reading for sinus tachy. The patient was also noted to have downtrending hemoglobin and stool occult was checked. This was negative for any stool OB. Heparin was held and aspirin was changed from 325 to 81 mg. The patient's hemoglobin uptrended and was stable at 8. The patient was therefore hemodynamically stable and cleared for discharge per Cardiology, ID, Nephrology, Neurology, and Hematology. The patient was stable for discharge to [facility] with IV ertapenem 500 mg given for another 3 days. DISCHARGE PHYSICAL EXAMINATION: GENERAL APPEARANCE: In no apparent distress. Alert. HEENT: PERRLA. EOMI. Normal ENT inspection. NECK: Nontender. Normal alignment. CARDIOVASCULAR: Normal peripheral pulses. Regular rhythm. Tachycardia. Regular rate. RESPIRATORY/CHEST: Chest wall nontender and fairly normal breath sounds. ABDOMEN: Normal bowel sounds. Nontender. EXTREMITIES: Normal range of motion. Nontender. NEUROLOGIC: Cranial nerves II through XII grossly normal. Alert and oriented. Left-sided 3/5 strength. Right-sided 1 to 2/5. SKIN: Normal pigmentation. DISCHARGE MEDICATIONS: Given prescription for aspirin 81 mg p.o. daily, ertapenem 500 mg IV daily x3 days, metoprolol 50 mg p.o. q.12 h. Continue with medications acetaminophen, amlodipine 25 mg p.o. daily, ascorbic acid 250 mg p.o. q.3 h., atorvastatin 20 mg p.o. at bedtime, bisacodyl 10 mg per rectum daily p.r.n. constipation, Pepcid 100 mg p.o. q.i.d., gabapentin 300 mg p.o. b.i.d., insulin aspart per sliding scale, insulin Lantus 15 units subcu at bedtime, losartan 50 mg p.o. daily, mg p.o. q.6 h. p.r.n, and spironolactone 25 mg p.o. t.i.d. DISCHARGE PLAN: Discharge to the half-way facility. DIET: As tolerated. ACTIVITY: As tolerated. FOLLOWUP: Follow up with PMD within one week. Follow up with Spinal Surgery, Dr. Jairo Colon, within one to two weeks. Follow up with ID. Frankie Greene M.D. I have been assigned to dictate discharge summary on this account and I was not involved in the patient's management. Lissette Eduardo N.P. DR: MG JOB#: [id number] CC: ROD
== END 2017-07-25 16:45 | DRG 871 ==
LOC: EMR 13:06 → 2E 13:23 → EDBEDREQ 17:24
DX: A41.9 Sepsis, unspecified organism (principal); G93.40 Encephalopathy, unspecified; I50.31 Acute diastolic (congestive) heart failure; N39.0 Urinary tract infection, site not specified; N17.9 Acute kidney failure, unspecified; I69.354 Hemiplegia and hemiparesis following cerebral infarction affecting left non-dominant side; I13.0 Hypertensive heart and chronic kidney disease with heart failure and stage 1 through stage 4 chronic kidney disease, or unspecified chronic kidney disease; E87.1 Hypo-osmolality and hyponatremia; G95.20 Unspecified cord compression; E11.22 Type 2 diabetes mellitus with diabetic chronic kidney disease; N18.9 Chronic kidney disease, unspecified; E11.21 Type 2 diabetes mellitus with diabetic nephropathy; E78.5 Hyperlipidemia, unspecified; F03.90 Unspecified dementia, unspecified severity, without behavioral disturbance, psychotic disturbance, mood disturbance, and anxiety; D52.9 Folate deficiency anemia, unspecified; R47.1 Dysarthria and anarthria; G51.0 Bell's palsy; F41.9 Anxiety disorder, unspecified; M54.6 Pain in thoracic spine
CPT/HCPCS: 36415; 36600; 71045; 72146; 72148; 80048; 80053; 80061; 81003; 82270; 82550; 82607; 82728; 82746; 82803; 82962; 82977; 83036; 83540; 83550; 83605; 83615; 83735; 83880; 83921; 84100; 84238; 84300; 84443; 84484; 84550; 85007; 85025; 85044; 85060; 85610; 85651; 85730; 86140; 87040; 87081; 87086; 89050; 93005; 93306; 93970; 99285; J1815; J2405; J8499; S5561